=== PATIENT | male | born 1965 | race Hispanic/Latino ===

== ENCOUNTER 2017-11-18 08:26 | Inpatient (IN) | payer OTHER, SELFPAY ==
[2017-11-18 08:46] LABS: Base Excess-Venous -7.4 mmol/L (0 (+/- 2.5)); Bicarbonate (HCO3v) 15.2 mmol/L (1.0-85.0); CO2 Tension (PvCO2) 25.1 mmHg (41.0-51.0); Calcium, Ionized 0.93 mmol/L (1.12-1.32); Hemoglobin - Calc 17.3 g/dL (12.0-18.0); Lactate 4.39 mmol/L (0.50-2.20); O2 Tension (PvO2) 38.8 mmHg (35.0-45.0); Potassium 3.3 mmol/L (3.4-4.7); pH (Venous) 7.391 (7.35-7.45); vO2 Saturation-calc 74.4 % (94-98)
[2017-11-18 08:52] LABS: #Lymphocytes 0.5 thou/uL (1.20-3.40); #Monocytes 0.6 thou/uL (0.11-0.59); #Neutrophils 7.7 thou/uL (1.40-6.50); %Eosinophils 0.1 % (0.0-10.0); %Lymphocytes 5.4 % (21.0-51.0); %Monocytes 6.8 % (0.0-10.0); %Neutrophils 87.7 % (42.0-75.0); Hemoglobin 15.8 g/dL (14.0-18.0); Mean Corpuscular HGB CONC 34.2 g/dL (32.0-36.0); Mean Corpuscular Hemoglobin 34.3 pg (27.0-31.0); Mean Platelet Volume 7.3 fL (7.4-10.4); Platelet Count 165 thou/uL (130-400); RBC Distribution Width 12.4 % (11.5-14.5); Red Blood Cell (RBC) Count 4.61 mill/uL (4.70-6.10); White Blood Cell (WBC) Count 8.7 thou/uL (4.8-10.8)
[2017-11-18 09:03] LABS: ALT (SGPT) 45 U/L (8-55); AST (SGOT) 101 U/L (5-34); Albumin 4.1 g/dL (3.5-5.0); Alkaline Phosphatase 106 U/L (40-150); Anion Gap 27 mmol/L (10-20); BUN (Urea Nitrogen) 17 mg/dL (8.4-25.7); Bilirubin, Total 3.7 mg/dL (0.2-1.2); Calc. Creatinine Clearance 0 mL/min (70-130); Calcium 8.6 mg/dL (7.8-10.44); Carbon Dioxide 14 mmol/L (22-29); Chloride 99 mmol/L (98-107); Estimated GFR-MDRD 71; Globulin 4.5 g/dL (2.4-3.5); Glucose 103 mg/dL (70-105); Potassium 3.6 mmol/L (3.5-5.1); Protein, Total 8.6 g/dL (6.0-8.3); Sodium 136 mmol/L (136-145)
[2017-11-18 09:06] LABS: INR-International Normal Ratio 1.4; PTT 41.1 SEC (22.9-36.1); Prothrombin Time 17.2 SEC (12.0-14.7)
[2017-11-18 09:07] LABS: Troponin I 0.163 ng/mL (< 0.028)
[2017-11-18 09:11] LABS: CKMB 13.4 ng/mL (0-6.6)
[2017-11-18] MEDS ORDERED: Labetalol HCl 100 MG/20 ML VIAL ONE (09:12)
--- NOTE | 2017-11-18 09:16 | CT ---
BRAIN CT WITHOUT IV CONTRAST: HISTORY: A 52-year-old male with a history of stroke alert, found down in a [place] this morning unresponsive. FINDINGS: There is very extensive intraparenchymal hemorrhage involving the left frontal and left temporal lobe s as well as patchy intraparenchymal hemorrhagic changes in the right frontal lobe. There is approxi mately 4 mm of midline shift to the right. Small left-sided temporal frontal subdural hematoma. Jennifer dence for intraventricular hemorrhage. There is some subdural blood adjacent to the posterior falx. IMPRESSION: Extensive intracranial hemorrhage including very extensive bilateral intraparenchymal hemorrhage wors e on the left side with some mass effect to the right. Intraventricular hemorrhage. Subarachnoid he morrhage, and a small amount of left-sided subdural hemorrhage. Findings discussed with Dr. Hammond in the ER at 8:50 a.m. JACKIE SMITH POS: [facility]
--- NOTE | 2017-11-18 09:19 | CT ---
CERVICAL SPINE CT WITHOUT IV CONTRAST: HISTORY: A 52-year-old male with a history of stroke alert. Patient found down in a [place] this morning, semic onscious, unresponsive. FINDINGS: There are disk-osteophytosis and facet arthrosis changes of the cervical spine. No evidence for acut e fracture or facet dislocation. IMPRESSION: Cervical spondylosis without fracture or dislocation. POS: [facility]
--- NOTE | 2017-11-18 09:43 | RAD ---
PORTABLE CHEST 1 VIEW: DATE: 11/18/17. TIME: 8:23 a.m. HISTORY: Sepsis. FINDINGS: The heart size is normal. There is an infiltrate in the right lung base. An accompanying right pleu ral effusion may be present. No pneumothoraces are seen. The left lung is clear. There are degener ative changes in the spine. IMPRESSION: Findings are suspicious for right basilar pneumonia. POS: [facility]
[2017-11-18] MEDS ORDERED: Fentanyl 100 MCG/2 ML VIAL ONE ×2 (09:53→10:05)
[2017-11-18 09:58] LABS: Bilirubin Negative (Negative); Blood, Urine Large (Negative); Clarity CLOUDY (Clear); Glucose, Urine (Dipstick) Negative (Negative); Leukocyte Negative (Negative); Nitrite Negative (Negative); Protein, Urine (Dipstick) 30 mg/dL (Neg-Trace); Specific Gravity, Urine 1.015 (1.002-1.036); Urobilinogen 0.2 mg/dL (0.2-1.0); pH, Urine 5.5 (5.0-9.0)
[2017-11-18 10:03] LABS: Bacteria/HPF None Seen HPF (None Seen); Hyaline Casts/LPF 4-6 HYALINE CAST LPF (0-3 Hyaline); RBC/HPF 0-3 HPF (0-3); Squamous Epithelial 0-3 HPF (0-3); WBC/HPF 0-3 HPF (0-3)
[2017-11-18] MEDS ORDERED: Lidocaine 2% PF 100 mg/5 ml Syringe ONE (10:03)
[2017-11-18] MEDS ORDERED: fentaNYL Citrate/PF 2,000 MCG in Sodium Chloride 0.9% 60 ML IV SCH ×2 (10:03→10:53)
[2017-11-18] MEDS ORDERED: Ventilator Sedation Protocol 1 EACH FS ONE (10:21)
[2017-11-18] MEDS ORDERED: Bisacodyl 10 MG SUPP PR PRN (10:21)
[2017-11-18] MEDS ORDERED: CCU Electrolyte Replacement 1 EACH IVPB ONE (10:21)
[2017-11-18] MEDS ORDERED: Labetalol HCl 100 MG/20 ML VIAL SLOW IVP PRN (10:21)
[2017-11-18] MEDS ORDERED: Ondansetron HCl/PF 4 MG/2 ML Vial IVP PRN (10:21)
[2017-11-18] MEDS ORDERED: cefTRIAXone\\ROCEPHIN 2 GM VIAL ONE (10:31)
[2017-11-18] MEDS ORDERED: Azithromycin 500 MG VIAL ONE (10:31)
[2017-11-18 10:42] LABS: CO2 Tension 38.5 mmHg (35.0-45.0); pH, Arterial 7.28 (7.35-7.45)
[2017-11-18 10:43] LABS: Actual Bicarbonate (HCO3a) 17.5 mEq/L (22-28); Base Excess (BEa) -8.6 mEq/L (-2.0 to +3.0); Carboxyhemoglobin (COHb) 0.6 gm% (0.0-3.0); O2 Tension (PaO2) 76.8 mmHg (80.0-100.0); Potassium - ABG Lab 3.2 mmol/L (3.70-5.30)
[2017-11-18 10:44] LABS: ALV-art Gradient 231.575 (0-20); Analyzer IN Cardio ER; Puncture Site RRA
[2017-11-18] MEDS ORDERED: DISCONTINUE PREVIOUS NARCOTIC PAIN MEDICATIONS AND BENZODIAZEPINES FS SCH (10:53)
[2017-11-18] MEDS ORDERED: Fentanyl BOLUS 250 ML IVPB PRN (10:53)
[2017-11-18] MEDS ORDERED: Lorazepam 2 MG/ML VIAL SLOW IVP PRN (10:53)
[2017-11-18] MEDS ORDERED: Propofol BOLUS 1,000 MG/100 ML VIAL IV PRN (10:53)
[2017-11-18] MEDS ORDERED: Potassium Phosphate 12 MMOL in Sodium Chloride 0.9% 250 ML 250 ML IV PRN (10:54)
[2017-11-18] MEDS ORDERED: Magnesium 2 GM/NS 0.9% 100 ML 2 GM in Premix Bag 1 BAG IVPB PRN (10:54)
[2017-11-18] MEDS ORDERED: Potassium Phosphate 15 MMOL in Sodium Chloride 0.9% 250 ML 250 ML IV PRN (10:54)
[2017-11-18] MEDS ORDERED: CCU ELECTROLYTE REPLACEMENT PROTOCOL FS PRN (10:54)
[2017-11-18] MEDS ORDERED: Potassium Chloride 20 MEQ TAB PO PRN (10:54)
[2017-11-18] MEDS ORDERED: Magnesium Oxide 400 MG TAB PO PRN ×2 (10:54)
[2017-11-18] MEDS ORDERED: Potassium Chloride 40 MEQ in Sodium Chloride 0.9% 250 ML 250 ML IVPB PRN (10:54)
[2017-11-18] MEDS ORDERED: Potassium Phosphate 9 MMOL in Sodium Chloride 0.9% 100 ML IVPB PRN (10:54)
[2017-11-18] MEDS ORDERED: Potassium Chloride 40 MEQ in Premix Bag 1 BAG IVPB PRN (10:54)
--- NOTE | 2017-11-18 10:57 | HP ---
HISTORY OF PRESENT ILLNESS: Mr. Ubaldo Angulo is a 52-year-old man who was found this morning in a [place] bed unresponsive. He remained this way, even in the ER examination with CT scan revealing ext ensive intraparenchymal hemorrhage of the left frontal lobe and throughout the entirety of the left t emporal lobe. There was also a small left-sided subdural hematoma in the sylvian fissure. He has so me subarachnoid hemorrhage with also blood sitting in the bilateral occipital horns of his ventricles . There is additionally some right frontal intraparenchymal hemorrhage in a few different foci. He does not have family to report medical history with him. We have no certainty whether he has anticoa gulation on board or antiplatelets on board that we are aware of. Coagulation studies have been draw n and are within normal limits. According to ER physician over the course of time that he was in the emergency department, he began to arouse and was spontaneously moving all 4 extremities, but was not speaking or answering questions, nor was he following any commands. This could potentially be multi faceted reason, most likely is disruption of the speech areas in the left temporal lobe. This could represent either expressive aphasia or receptive aphasia and likely could be a combination of the two . PAST MEDICAL HISTORY: His past medical history, unassessed. CURRENT MEDICATIONS: Unknown. ALLERGIES: Unknown. PHYSICAL EXAMINATION: HEENT: Pupils are equal, round, and reactive to light. The patient was intubated before my arrival for continued persistent desaturation secondary to lobar pneumonia. He had just received paralytics. My examination is essentially unreliable at this time, will need to reassess. PLAN: The plan will be to admit him to the ICU. Head of bed elevated, pressure kept under 160 systo lic. We will consult Pulmonology and the Hospitalist Team and hopefully moore some more medical his tory at some point. We will repeat a scan at 1400 today and reassess his neurologic status q.1 hour.
--- NOTE | 2017-11-18 11:37 | RAD ---
CHEST 1 VIEW: Date: 11/18/17 COMPARISON: 11/18/17 at 0821 hours. HISTORY: Stroke alert. FINDINGS: There is persistent opacification of the right lung base. Interval placement of endotracheal and naso gastric tube. No pneumothorax. IMPRESSION: Right lower lobe opacity. Endotracheal and nasogastric tube as above. POS: [facility]
[2017-11-18] MEDS: Sodium Chloride 0.9% 1,000 ML IV SCH (12:15)
[2017-11-18 12:48] LABS: Lactic Acid 2.2 mmol/L (0.5-2.2)
[2017-11-18] MEDS: Propofol 1,000 MG/100 ML VIAL IV PRN ×2 (12:54→20:27)
[2017-11-18] MEDS ORDERED: Lacri-Lube Opth Oint 3.5 GM TUBE EA EYE PRN (13:09)
[2017-11-18] MEDS: Labetalol HCl 100 MG/20 ML VIAL SLOW IVP PRN (13:46)
--- NOTE | 2017-11-18 13:46 | CON ---
DATE OF CONSULTATION: 11/18/2017 SERVICE: Pulmonary Medicine REASON FOR CONSULTATION: ICU patient. HISTORY OF PRESENT ILLNESS: The patient is a 52-year-old male with past medical history significant for essentially nothing that we are aware of. He was found down in a [place] bed. He was subsequently brought to the emergency department. We do not know how long he was down for. In the Emergency Department, he was not protecting his airway well. As such, he was subsequently intubated. After being intubated, he is awake and alert. He does attend. He will open his eyes, but he does not follow any commands in Macanese or Amharic. He cannot provide me any additional elements of the history in his current state. He is not currently on any sedation. PAST MEDICAL HISTORY: Unknown. PAST SURGICAL HISTORY: Unknown. FAMILY HISTORY: Unknown. SOCIAL HISTORY: Unknown. ALLERGIES: Unknown. MEDICATIONS: List of his inpatient medications were reviewed. Multiple updates were made. REVIEW OF SYSTEMS: This cannot be obtained because the patient is currently intubated. PHYSICAL EXAMINATION: VITAL SIGNS: Afebrile, pulse 119, blood pressure 162/110, respirations 21, saturation 91% on 61% FIO2 and a PEEP of 5. GENERAL: The patient is intubated. He is not currently on any sedation. He is in no apparent distress. HEENT: Normocephalic, atraumatic. Sclerae are white, conjunctivae pink. Oral mucosa is moist without lesions. LUNGS: Decent air entry. Rhonchi are present throughout right lung field. Transmitted rhonchi are present in the left side. There is no prolonged expiratory phase or wheezing appreciated. HEART: Normal rate, regular. ABDOMEN: Soft. Nontender, nondistended. Bowel sounds are positive. MUSCULOSKELETAL: No cyanosis or clubbing. There is no pitting in the bilateral lower extremities. NEUROLOGIC: Pupils are equal, round, and reactive. He has spontaneous eye movements. He does attend. That being said, he is not following any commands in Macanese or Amharic. He demonstrates withdraw from noxious stimuli in the bilateral upper and lower extremities. He is overbreathing the ventilator comfortably, and demonstrates a very good cough and gag. LABORATORY DATA: PH 7.28, pCO2 38, pO2 77, on 50% FiO2 and a PEEP of 5. Creatinine 1.35. Sodium 137, potassium 3.3. Lactate 4.39, which is down trended to 2.2, CK 1800, troponin 0.163. Liver function studies are unremarkable. Urinalysis is positive for blood, but negative for red blood cells suggestive of myoglobinopathy. IMAGIN. Chest x-ray demonstrates endotracheal tube is in good position, roughly 4 cm above the level of the mindy. There is a dense infiltrate in the right base. Enteric catheter is present coursing below the level of the diaphragm in the midline and out of the field of view. 2. CT of the C-spine demonstrates no obvious fracture or subluxation. 3. CT of the brain demonstrates extensive intracranial hemorrhage and bilateral intraparenchymal hemorrhage, worse on the left with mass effect. There is intraventricular extension, and a subarachnoid component as well as a small subdural lesion. ASSESSMENT: 1. Acute hypoxic respiratory failure. 2. Community-acquired pneumonia, likely secondary to overt aspiration. 3. Intraparenchymal hemorrhage with intraventricular, subarachnoid extension. 4. Non-ST elevation myocardial infarction, likely secondary to the stroke. DISCUSSION AND PLAN: We will maintain the patient on mechanical ventilation. Neurologic status will be watched closely. Neurosurgery is currently following. We will target a blood pressure below 140. Sedation will be minimized as much as is tolerated. I will start the patient on anaerobic, gram negative, and light gram positive coverage with Zosyn to protect him against future pneumonia. Pulmonary Critical Care will continue to follow along. Multiple adjustments have been made to the ventilator in order to provide more comfort. Critical care time: 30 minutes. MTDD
[2017-11-18] MEDS: Piperacillin/Tazobactam 3.375 GM in Sodium Chloride 0.9% 100 ML IVPB SCH ×2 (14:00→20:27)
--- NOTE | 2017-11-18 15:25 | CT ---
NONCONRAST HEAD CT: COMPARISON: 11/18/17 at 8:42 a.m. HISTORY: Followup intracranial hemorrhage. FINDINGS: Redemonstration of multifocal parenchymal hematomas. The largest hematoma is along the right frontot emporal region. There is associated edema and sulcal effacement. Hematoma measures 3.1 cm mediolate ral x 7.7 cm anterior posterior. Previously, this hematoma measured 9.3 x 3.6 cm. Additional smalle r hematomas are noted along the right frontal and temporal convexities. Previously noted intraventri cular hemorrhage is still present. No evidence of hydrocephalus. There is some mass effect upon the body of the left lateral ventricle. There is left to right subfalcine herniation of approximately 3 mm. Calvarium is intact. Adequate aeration of the sinuses and mastoid air cells. Endotracheal and nasog astric tubes are noted. IMPRESSION: 1. Redemonstration of extensive multifocal intraparenchymal hemorrhage. There is no evidence of lef t-to-right subfalcine herniation. 2. Associated vasogenic edema with sulcal effacement of the left frontal and temporal lobes. POS: [facility]
[2017-11-18] MEDS: Famotidine/PF 20 mg/2ml Vial SLOW IVP SCH (20:27)
[2017-11-19] MEDS: Sodium Chloride 0.9% 1,000 ML IV SCH ×2 (00:11→11:44)
[2017-11-19] MEDS: Labetalol HCl 100 MG/20 ML VIAL SLOW IVP PRN ×2 (00:46→18:11)
[2017-11-19] MEDS: Piperacillin/Tazobactam 3.375 GM in Sodium Chloride 0.9% 100 ML IVPB SCH ×4 (01:19→21:58)
[2017-11-19 05:45] LABS: Anion Gap 17 mmol/L (10-20); BUN (Urea Nitrogen) 27 mg/dL (8.4-25.7); Calc. Creatinine Clearance 66 mL/min (70-130); Calcium 8.1 mg/dL (7.8-10.44); Carbon Dioxide 18 mmol/L (22-29); Chloride 112 mmol/L (98-107); Estimated GFR-MDRD 61; Glucose 88 mg/dL (70-105); Magnesium 2.1 mg/dL (1.6-2.6); Phosphorus 2.8 mg/dL (2.3-4.7); Sodium 144 mmol/L (136-145)
[2017-11-19] MEDS: Propofol 1,000 MG/100 ML VIAL IV PRN ×2 (06:18→17:58)
[2017-11-19 06:19] LABS: Band 33 % (5-11); Hemoglobin 13.8 g/dL (14.0-18.0); Lymphocytes 9 % (21-51); MDiff Complete? YES; Macrocytosis SLIGHT = 6-15 cells (100X) (0-5/hpf); Mean Corpuscular HGB CONC 35.4 g/dL (32.0-36.0); Mean Corpuscular Hemoglobin 35.5 pg (27.0-31.0); Mean Platelet Volume 8.4 fL (7.4-10.4); Monocytes 8 % (0-10); Neutrophil 50 % (42-75); PLT Morphology Comment Appears Adequate; Platelet Count 112 thou/uL (130-400); RBC Distribution Width 12.4 % (11.5-14.5); Red Blood Cell (RBC) Count 3.89 mill/uL (4.70-6.10); White Blood Cell (WBC) Count 8.3 thou/uL (4.8-10.8)
[2017-11-19] MEDS: Famotidine/PF 20 mg/2ml Vial SLOW IVP SCH ×2 (09:00→21:58)
--- NOTE | 2017-11-19 11:23 | PRG ---
DATE OF SERVICE: 11/19/2017 SERVICE: Pulmonary Medicine. INTERVAL HISTORY: Because of downtime air, I cannot review any laboratories or imaging studies. That being said, the patient had an uneventful evening. Oxygen requirements have weaned away nicely. On a sedation holiday this morning , the patient does not follow any commands. That being said, he seems to be responding appropriately to his environment. He will localize discomfort withdraw from pain and he looks around the room and attends but is not following any commands in Divehi or [place]orese. He cannot provide any additional elements of the history, but otherwise, there were no significant events overnight. PHYSICAL EXAMINATION: VITAL SIGNS: Afebrile, pulse 82, respirations 19, saturation 100% on 27% FiO2 and a PEEP of 5. GENERAL: The patient is awake and alert. HEENT: Normocephalic, atraumatic. Sclerae are white, conjunctivae pink. Oral mucosa is moist without lesions. LUNGS: Decent air entry. Rhonchi are present, but more predominantly displayed on the right. There is no prolonged expiratory phase or wheezing today. HEART: Normal rate, regular. ABDOMEN: Soft, nontender, nondistended. Bowel sounds are positive. MUSCULOSKELETAL: No cyanosis or clubbing. There is no pitting in the bilateral lower extremities. NEUROLOGIC: His pupils are equal, round, and reactive. He is coughing and gagging. He is overbreathing the ventilator very comfortably. He does not follow any commands. He withdraws in all noxious stimuli, and has purposeful activity. He moves his eyes spontaneously and actually attends. That being said, he is not following any commands. LABORATORY DATA: Lab data was reviewed after the note was generated secondary to computer downtime. ASSESSMENT: 1. Acute hypoxic respiratory failure. 2. Community-acquired pneumonia, likely secondary to gross aspiration. 3. Intraparenchymal hemorrhage with intraventricular and subarachnoid extension. 4. Encephalopathy secondary to stroke. DISCUSSION AND PLAN: I will try to minimize sedation, moving forward. Frequent neuro checks are going to be continued. The patient is going down for a CT of the head today. If this is stable, extubation may be considered. I had modified his ventilator settings to put him on much less support. The patient likes to target minute volume between 10 and 11 liters per minute. CRITICAL CARE TIME: 30 minutes. [facility]
--- NOTE | 2017-11-19 11:24 | RAD ---
PORTABLE CHEST: Date: 11-19-17 Provided Clinical History: Respiratory insufficiency. FINDINGS: Comparison 11-18-17. The tip of the endotracheal tube now projects slightly cranial to the thoracic inlet and could be adv anced. Enteric catheter is in similar position. Bibasilar right greater than left parenchymal opaciti es persists. There is improvement in aeration of the right lung base. IMPRESSION: Endotracheal tube position as above. POS: [facility]
--- NOTE | 2017-11-19 11:55 | CT ---
HEAD CT WITHOUT CONTRAST: HISTORY: Followup intracranial hemorrhage. COMPARISON: 11/18/2017 TECHNIQUE: A noncontrast head CT is performed from the skull base to the skull vertex. FINDINGS: Redemonstration of extensive intraparenchymal hemorrhage involving the left and right cerebrum. Ther e is progression of evolutionary change with persistent sulcal effacement and increasing peripheral e cory. Approximately 3 mm of left to right subfalcine herniation. The largest hemorrhage continues t o be in the left cerebrum, measuring 9.3 x 3.8 cm (previously measuring 3.1 x 7.8 cm). There is evid ence of multifocal parenchymal hemorrhage in the right frontal lobe. There is evidence of intraventr icular hemorrhage. There is also evidence of new subarachnoid hemorrhage along the folia of the cere bellum. Stable configuration of the ventricular system. There is some mass effect upon the body of the left lateral ventricle, similar to the previous exam. Stable calvarium. IMPRESSION: 1. Redemonstration of multifocal intraparenchymal hemorrhage. The large hematoma in the left cerebr um has increased in size. There are expected evolutionary changes involving the brain parenchymal he matomas. 2. Persistent intraventricular hemorrhage with an overall stable appearance of the ventricular syste m. 3. Interval development of subarachnoid blood along the folia of the cerebellum. POS: [facility]
--- NOTE | 2017-11-19 13:27 | PDOC.PN ---
- Subjective Encounter Start Date: 11/19/17 Encounter Start Time: 13:24 -: non-verbal Pt seen for management of medical comorbidities, including pneumonia. Intubated , unable to complete ROS. - Objective MAR Reviewed: Yes Vital Signs & Weight: Vital Signs (12 hours) Temp Pulse Resp BP Pulse Ox 11/19/17 13:03 85 11/19/17 12:00 100.3 F H 11 L 11/19/17 10:00 14 11/19/17 09:00 99.6 F 11/19/17 08:00 100.1 F H 78 14 99 11/19/17 06:00 23 H 11/19/17 04:00 14 11/19/17 03:05 89 139/82 11/19/17 03:00 99 F 11/19/17 02:00 16 Weight Weight 146 lb 2.664 oz Most Recent Monitor Data Heart Rate from ECG 82 NIBP 146/82 NIBP BP-Mean 87 Respiration from ECG 12 SpO2 97 I&O: 11/18/17 11/19/17 11/20/17 06:59 06:59 06:59 Intake Total 1458 250 Output Total 4930 925 Balance -0718 -635 Result Diagrams: 11/19/17 04:23 11/19/17 04:23 EKG Reviewed by me: Yes (Tele: NSR) Phys Exam - Physical Examination Intubated HEENT: moist MMs ETT Neck: no nodes Respiratory: no wheezing Bibasal crackles Cardiovascular: RRR Gastrointestinal: soft no spontaneous limb movements Deviation from normal: Unable to assess Dx/Plan (1) Aspiration pneumonia Code(s): J69.0 - PNEUMONITIS DUE TO INHALATION OF FOOD AND VOMIT Status: Acute Comment: continue IV Zosyn (2) Intracranial bleed Code(s): I62.9 - NONTRAUMATIC INTRACRANIAL HEMORRHAGE, UNSPECIFIED Status: Acute Comment: neurosurgery managing IC bleed (3) Acute respiratory failure with hypoxia Code(s): J96.01 - ACUTE RESPIRATORY FAILURE WITH HYPOXIA Status: Acute Comment: pt is intubated and mechanically ventilated in CCU (4) Hypokalemia Code(s): E87.6 - HYPOKALEMIA Status: Acute Comment: on electrolyte replacement protocol - Plan * . Review of Systems - Medications/Allergies Allergies/Adverse Reactions: Allergies Allergy/AdvReac Type Severity Reaction Status Date / Time No Allergy Information Allergy Unverified 11/18/17 10:03 Available Medications: Current Medications Albuterol/Ipratropium (Duoneb) 3 ml NEB [id number] [facility] Last Admin: 11/19/17 13:03 Dose: 3 ml Bisacodyl (Dulcolax) 10 mg NM DAILYPRN PRN PRN Reason: Constipation Famotidine (Pepcid) 20 mg SLOW IVP Q12HR [facility] Last Admin: 11/19/17 09:00 Dose: 20 mg Hydralazine HCl (Apresoline) 20 mg SLOW IVP Q15MIN PRN PRN Reason: Sbp Greater Than 140 Sodium Chloride (Normal Saline 0.9%) 1,000 mls @ 80 mls/hr IV .[id number] [facility] Last Admin: 11/19/17 11:44 Dose: Not Given Fentanyl Citrate 2,000 mcg/ (Sodium Chloride) 100 mls @ 0 mls/hr IV INF [facility]; Protocol Stop: 12/18/17 10:53 Fentanyl Citrate (Fentanyl Bolus) 250 mls @ 0 mls/hr IVPB PRN PRN PRN Reason: Breakthrough pain/agitation Stop: 12/18/17 10:53 Potassium Chloride 40 meq/ (Sodium Chloride) 270 mls @ 135 mls/hr IVPB ASDIR PRN PRN Reason: FOR SERUM K+ 2.5 - 3.5 Last Admin: 11/19/17 06:18 Dose: 270 mls Potassium Chloride 40 meq/ (Device) 100 mls @ 50 mls/hr IVPB ASDIR PRN PRN Reason: FOR SERUM K+ 2.5 - 3.5 Magnesium Sulfate 1 gm/ Sodium (Chloride) 102 mls @ 102 mls/hr IV PRN PRN PRN Reason: MAG LEVEL 1.4 - 2.0 Magnesium Sulfate 2 gm/ Device 100 mls @ 100 mls/hr IVPB ASDIR PRN PRN Reason: MAGNESIUM < 1.4 Potassium Phosphate 9 mmol/ (Sodium Chloride) 103 mls @ 25.75 mls/hr IVPB ASDIR PRN PRN Reason: Phosphate 1.0-1.8 Potassium Phosphate 12 mmol/ (Sodium Chloride) 254 mls @ 63.5 mls/hr IV ASDIR PRN PRN Reason: Serum phosphate 0.5-0.9 Potassium Phosphate 15 mmol/ (Sodium Chloride) 255 mls @ 63.75 mls/hr IV ASDIR PRN PRN Reason: Serum Phos < 0.5 Piperacillin Sod/Tazobactam (Sod 3.375 gm/ Sodium Chloride) 100 mls @ 200 mls/ hr IVPB 0200,0800,1400,2000 [facility] Last Admin: 11/19/17 08:00 Dose: 100 mls Labetalol HCl (Normodyne) 20 mg SLOW IVP Q15MIN PRN PRN Reason: Sbp Greater Than 140 Last Admin: 11/19/17 00:46 Dose: 20 mg Magnesium Oxide (Magnesium Oxide) 400 mg PO BIDPRN PRN PRN Reason: FOR SERUM MAG 1.4 - 2.0 Magnesium Oxide (Magnesium Oxide) 800 mg PO PRN PRN PRN Reason: FOR SERUM MAG < 1.4 Mineral Oil/White Petrolatum (Lacri-Lube Ointment) 0 gm EA EYE PRN PRN PRN Reason: Dry Eyes Miscellaneous Medication (Phos-Nak) 1 pkt PO TIDPRN PRN PRN Reason: FOR PHOS LEVEL 1.0 - 1.8 Miscellaneous Medication (Phos-Nak) 2 pkt PO TIDPRN PRN PRN Reason: FOR PHOS LEVEL 0.5 - 1.0 Ondansetron HCl (Zofran) 4 mg IVP BIDPRN PRN PRN Reason: Nausea/Vomiting Potassium Chloride (K-Dur) 40 meq PO ASDIR PRN PRN Reason: FOR SERUM K+ 2.5 - 3.5 Potassium Chloride (Klor-Con) 40 meq PER TUBE ASDIR PRN PRN Reason: FOR SERUM K+ 2.5-3.5 Propofol (Diprivan) 1,000 mg IV INF PRN; Protocol PRN Reason: TO ACHIEVE GOAL RASS Stop: 12/18/17 10:53 Last Admin: 11/19/17 06:18 Dose: 1,000 mg Propofol (Diprivan Bolus) 20 mg IV Q5MIN PRN PRN Reason: BREAKTHROUGH AGITATION Stop: 12/18/17 10:53 Sodium Chloride (Flush - Normal Saline) 10 ml IVF PRN PRN PRN Reason: Saline Flush
--- NOTE | 2017-11-19 16:05 | PRG ---
DATE OF SERVICE: 11/19/2017 Mr. Ubaldo Angulo this morning is awake. He has been off sedation for about half an hour. He is s till intubated secondary to his desaturation. He moves all 4 extremities purposefully, but not to co mmand. This may represent a receptive aphasia or potentially a language barrier though when spoken t o in Vincentian, he still does not follow commands. So this likely represents disruption of the tempora l lobe as expected previously. Repeat CT scan yesterday evening and then this morning reveals what I believe is mostly stable hemorrhages throughout the left frontal temporal hemorrhage may have increa sed slightly in size. From a neurosurgical standpoint, he still remains definitively nonsurgical and will likely remain that way, we will have a discussion with the Hospitalist Service about possible t ransition of care over the next few days as long as he remains stable. We will need a case managemen t consult for disposition planning.
--- NOTE | 2017-11-19 17:44 | PRG ---
DATE OF SERVICE: 11/19/2017 Mr. Angulo is a 52-year-old gentleman that was found down and subsequently presented to the ER where imaging revealed the presence of a very large intracerebral hemorrhage. He is currently in the ICU, intubated. He does awaken. He does exhibit purposeful movements. He has had a repeat CT examinati on, which shows relative stability of the hemorrhage. There is no indication for neurosurgical inter vention. His hemorrhage will be managed medically. The Hospitalist Service is evaluating the patien t and is currently on board. The neurosurgical service will defer additional medical management to t he hospitalist service.
[2017-11-20] MEDS: Propofol 1,000 MG/100 ML VIAL IV PRN ×2 (01:20→07:43)
[2017-11-20] MEDS: Piperacillin/Tazobactam 3.375 GM in Sodium Chloride 0.9% 100 ML IVPB SCH ×4 (01:20→20:51)
[2017-11-20] MEDS: Sodium Chloride 0.9% 1,000 ML IV SCH ×3 (01:21→20:51)
[2017-11-20] MEDS: Labetalol HCl 100 MG/20 ML VIAL SLOW IVP PRN ×3 (03:18→15:08)
[2017-11-20 05:47] LABS: Magnesium 2.6 mg/dL (1.6-2.6); Phosphorus 2.4 mg/dL (2.3-4.7)
[2017-11-20] MEDS: Famotidine/PF 20 mg/2ml Vial SLOW IVP SCH ×2 (07:42→20:50)
[2017-11-20] MEDS: hydrALAZINE 20 MG/ML VIAL SLOW IVP PRN ×2 (10:34→16:44)
--- NOTE | 2017-11-20 11:14 | RAD ---
AP ABDOMINAL RADIOGRAPH: 11/20/2017 HISTORY: Dobhoff feeding tube placement. COMPARISON: Not available. FINDINGS: A Dobhoff feeding tube is noted in place with the tip overlying either the distal portion of the pylo ish or the first portion of the duodenum. There is paucity of bowel gas, but the bowel gas pattern i s otherwise nonspecific. The visualized lung bases demonstrate a question of interstitial and patchy density at the right lung base, but this is better visualized on a portable AP chest x-ray from 11/09. IMPRESSION: 1. Dobhoff feeding tube noted in place with the tip overlying the expected location of the first por tion of the duodenum. 2. Interstitial and patchy densities, right lung base, also seen on chest x-ray from 11/19/2017 and better assessed on that examination. POS: [facility]
--- NOTE | 2017-11-20 12:33 | PRG ---
DATE OF SERVICE: 11/20/2017 SERVICE: Pulmonary Medicine. INTERVAL HISTORY: The patient is doing fine from a respiratory standpoint. He has been put on some sedation overnight because he does have purposeful movement. That being said, he is not following any commands, still. Neurologically, there has been significant change in his function. Otherwise, there were no events overnight. PHYSICAL EXAMINATION: VITAL SIGNS: Afebrile currently, pulse 86, blood pressure 162/85, respirations 17, saturation 98% on room air. GENERAL: The patient is awake and alert, in no apparent distress. LUNGS: Excellent air entry. There is no prolonged expiratory phase, wheezing, rhonchi, or crackles present. HEART: Normal rate, regular. ABDOMEN: Soft, nontender, nondistended. Bowel sounds are positive. MUSCULOSKELETAL: No cyanosis or clubbing. There is no pitting in the bilateral lower extremities. NEUROLOGIC: He withdraws from noxious stimuli in all 4 extremities, over breathe the ventilator, coughs and gags. He has purposeful movement and attends. That being said, he is still not following any commands. LABORATORY DATA: Magnesium and phosphorus are unremarkable. Potassium yesterday was 3.0, but never replaced. IMAGING DATA: Abdominal x-ray demonstrates Dobbhoff feeding tube in good position. Interstitial patchy infiltrates in the right base are redemonstrated. ASSESSMENT: 1. Acute hypoxic respiratory failure. 2. Community-acquired pneumonia, secondary to gross aspiration. 3. Intraparenchymal hemorrhage with intraventricular and subarachnoid extensions. 4. Encephalopathy secondary to stroke. DISCUSSION AND PLAN: We will minimize sedation. I will put a Dobbhoff feeding tube down and initiate tube feeds. OG will be removed. We put him on a spontaneous breathing trial. If he meets criteria, he will be considered for extubation just to see whether or not he will be able to protect his airway. That being said, reintubation is a possibility in this gentleman. Critical care time: 30 minutes. [facility]
[2017-11-20] MEDS ORDERED: Thiamine HCl 200 MG/2 ML VIAL IM SCH (20:45)
[2017-11-20] MEDS ORDERED: Diazepam 5 MG TAB PO SCH (20:45)
[2017-11-20 21:00] LABS: #Lymphocytes 0.6 thou/uL (1.20-3.40); #Monocytes 0.5 thou/uL (0.11-0.59); #Neutrophils 6.1 thou/uL (1.40-6.50); %Basophils 0.3 % (0.0-1.0); %Eosinophils 0.2 % (0.0-10.0); %Lymphocytes 7.7 % (21.0-51.0); %Monocytes 6.3 % (0.0-10.0); %Neutrophils 85.4 % (42.0-75.0); Hemoglobin 14.2 g/dL (14.0-18.0); Mean Corpuscular HGB CONC 34.4 g/dL (32.0-36.0); Mean Corpuscular Hemoglobin 35.4 pg (27.0-31.0); Mean Platelet Volume 8.2 fL (7.4-10.4); Platelet Count 141 thou/uL (130-400); RBC Distribution Width 12.4 % (11.5-14.5); Red Blood Cell (RBC) Count 3.99 mill/uL (4.70-6.10); White Blood Cell (WBC) Count 7.2 thou/uL (4.8-10.8)
[2017-11-20 21:15] LABS: ALT (SGPT) 64 U/L (8-55); AST (SGOT) 235 U/L (5-34); Albumin 3.2 g/dL (3.5-5.0); Alkaline Phosphatase 68 U/L (40-150); Anion Gap 14 mmol/L (10-20); BUN (Urea Nitrogen) 16 mg/dL (8.4-25.7); Bilirubin, Total 2.2 mg/dL (0.2-1.2); Calc. Creatinine Clearance 104 mL/min (70-130); Calcium 8.7 mg/dL (7.8-10.44); Carbon Dioxide 21 mmol/L (22-29); Chloride 121 mmol/L (98-107); Estimated GFR-MDRD Greater than 90; Globulin 4.1 g/dL (2.4-3.5); Glucose 114 mg/dL (70-105); Potassium 3.3 mmol/L (3.5-5.1); Protein, Total 7.3 g/dL (6.0-8.3); Sodium 153 mmol/L (136-145)
[2017-11-20] MEDS: Diazepam 5 MG TAB PO PRN (21:25)
[2017-11-20 21:32] LABS: Syphilis Antibody Nonreactive (Nonreactive); Syphilis Antibody Index 0.12 S/CO (<1.00 Non-Reactive)
--- NOTE | 2017-11-20 22:07 | PDOC.PN ---
- Subjective Encounter Start Date: 11/20/17 Encounter Start Time: 11:30 -: non-verbal Patient seen and examined for med mngt. Extubated. - Objective MAR Reviewed: Yes Vital Signs & Weight: Vital Signs (12 hours) Temp Pulse Pulse Pulse Resp BP BP 11/20/17 18:17 83 17 11/20/17 17:00 98.5 F 11/20/17 14:30 79 65 174/98 H 160/86 H 11/20/17 12:59 87 14 11/20/17 12:00 99.4 F Pulse Ox Pulse Ox Pulse Ox 11/20/17 18:17 96 11/20/17 17:00 11/20/17 14:30 97 97 11/20/17 12:59 99 11/20/17 12:00 Weight Admit Weight 146 lb Weight 137 lb 2.04 oz Most Recent Monitor Data Heart Rate from ECG 85 NIBP 162/84 NIBP BP-Mean 110 Respiration from ECG 14 SpO2 96 I&O: 11/19/17 11/20/17 11/21/17 06:59 06:59 06:59 Intake Total 1458 2816 1096.4 Output Total 4930 2915 2035 [facility] -3472 -99 -938.6 Result Diagrams: 11/21/17 04:36 11/21/17 04:36 EKG Reviewed by me: Yes (Tele SR) Phys Exam - Physical Examination Constitutional: NAD Respiratory: no wheezing, no rhonchi Bibasilar rales Cardiovascular: RRR Gastrointestinal: soft, positive bowel sounds Musculoskeletal: no edema Dx/Plan - Plan DVT proph w/SCDs IMPRESSION: 1. Acute hypoxic respiratory failure/Toxic Metabolic Encephalopathy 2. Aspiration Pneumonia 3. Abn LFTs 4. Rhabdomyolysis 5. Elevated cardiac enzymes due to demand ischemia 6. Lactic acidosis PLAN: Cont supportive care Cont IVF AM labs Cont Atbx Review of Systems - Review of Systems Other: Cannot obtain due to current mentation. - Medications/Allergies Allergies/Adverse Reactions: Allergies Allergy/AdvReac Type Severity Reaction Status Date / Time No Allergy Information Allergy Unverified 11/18/17 10:03 Available Medications: Current Medications Albuterol/Ipratropium (Duoneb) 3 ml NEB [id number] [facility] Last Admin: 11/20/17 18:17 Dose: 3 ml Bisacodyl (Dulcolax) 10 mg [place] DAILYPRN PRN PRN Reason: Constipation Diazepam (Valium) 10 mg PO NOW [facility] Stop: 11/20/17 23:00 Last Admin: 11/20/17 22:01 Dose: 10 mg Diazepam (Valium) 10 mg PO Q4H PRN PRN Reason: FOR ASE 10 OR GREATER Stop: 11/21/17 04:00 Diazepam (Valium) 5 mg PO Q4H PRN PRN Reason: FOR ASE 10 OR GREATER Famotidine (Pepcid) 20 mg SLOW IVP Q12HR [facility] Last Admin: 11/20/17 20:50 Dose: 20 mg Folic Acid (Folvite) 1 mg PO DAILY [facility] Hydralazine HCl (Apresoline) 20 mg SLOW IVP Q15MIN PRN PRN Reason: Sbp Greater Than 140 Last Admin: 11/20/17 16:44 Dose: 20 mg Sodium Chloride (Normal Saline 0.9%) 1,000 mls @ 80 mls/hr IV .[id number] [facility] Last Admin: 11/20/17 20:51 Dose: 1,000 mls Potassium Chloride 40 meq/ (Sodium Chloride) 270 mls @ 135 mls/hr IVPB ASDIR PRN PRN Reason: FOR SERUM K+ 2.5 - 3.5 Last Admin: 11/19/17 06:18 Dose: 270 mls Potassium Chloride 40 meq/ (Device) 100 mls @ 50 mls/hr IVPB ASDIR PRN PRN Reason: FOR SERUM K+ 2.5 - 3.5 Magnesium Sulfate 1 gm/ Sodium (Chloride) 102 mls @ 102 mls/hr IV PRN PRN PRN Reason: MAG LEVEL 1.4 - 2.0 Magnesium Sulfate 2 gm/ Device 100 mls @ 100 mls/hr IVPB ASDIR PRN PRN Reason: MAGNESIUM < 1.4 Potassium Phosphate 9 mmol/ (Sodium Chloride) 103 mls @ 25.75 mls/hr IVPB ASDIR PRN PRN Reason: Phosphate 1.0-1.8 Potassium Phosphate 12 mmol/ (Sodium Chloride) 254 mls @ 63.5 mls/hr IV ASDIR PRN PRN Reason: Serum phosphate 0.5-0.9 Potassium Phosphate 15 mmol/ (Sodium Chloride) 255 mls @ 63.75 mls/hr IV ASDIR PRN PRN Reason: Serum Phos < 0.5 Piperacillin Sod/Tazobactam (Sod 3.375 gm/ Sodium Chloride) 100 mls @ 200 mls/ hr IVPB 0200,0800,1400,2000 [facility] Last Admin: 11/20/17 20:51 Dose: 100 mls Magnesium Sulfate 1 gm/ Sodium (Chloride) 102 mls @ 102 mls/hr IVPB NOW [facility] Stop: 11/20/17 23:00 Last Admin: 11/20/17 20:54 Dose: 102 mls Iron/Minerals/Multivitamins (Theragran M) 1 tab PO DAILY [facility] Labetalol HCl (Normodyne) 20 mg SLOW IVP Q15MIN PRN PRN Reason: Sbp Greater Than 140 Last Admin: 11/20/17 15:08 Dose: 20 mg Magnesium Oxide (Magnesium Oxide) 400 mg PO BIDPRN PRN PRN Reason: FOR SERUM MAG 1.4 - 2.0 Magnesium Oxide (Magnesium Oxide) 800 mg PO PRN PRN PRN Reason: FOR SERUM MAG < 1.4 Magnesium Oxide (Magnesium Oxide) 400 mg PO DAILY [facility] Mineral Oil/White Petrolatum (Lacri-Lube Ointment) 0 gm EA EYE PRN PRN PRN Reason: Dry Eyes Miscellaneous Medication (Phos-Nak) 1 pkt PO TIDPRN PRN PRN Reason: FOR PHOS LEVEL 1.0 - 1.8 Miscellaneous Medication (Phos-Nak) 2 pkt PO TIDPRN PRN PRN Reason: FOR PHOS LEVEL 0.5 - 1.0 Ondansetron HCl (Zofran) 4 mg IVP BIDPRN PRN PRN Reason: Nausea/Vomiting Potassium Chloride (K-Dur) 40 meq PO ASDIR PRN PRN Reason: FOR SERUM K+ 2.5 - 3.5 Potassium Chloride (Klor-Con) 40 meq PER TUBE ASDIR PRN PRN Reason: FOR SERUM K+ 2.5-3.5 Propofol (Diprivan) 1,000 mg IV INF PRN; Protocol PRN Reason: TO ACHIEVE GOAL RASS Stop: 12/18/17 10:53 Last Admin: 11/20/17 07:43 Dose: 1,000 mg Propofol (Diprivan Bolus) 20 mg IV Q5MIN PRN PRN Reason: BREAKTHROUGH AGITATION Stop: 12/18/17 10:53 Sodium Chloride (Flush - Normal Saline) 10 ml IVF PRN PRN PRN Reason: Saline Flush Thiamine HCl (Thiamine Hcl) 100 mg IM NOW [facility] Stop: 11/20/17 23:00 Last Admin: 11/20/17 21:59 Dose: 100 mg Thiamine HCl (Thiamine) 100 mg PO DAILY [facility]
[2017-11-20 22:49] LABS: Medtox Reader # READER 4
[2017-11-20 22:50] LABS: Amphetamine Not Detected (NotDetected); Barbiturates Screen Not Detected (NotDetected); Benzodiazepine Screen Not Detected (NotDetected); Cocaine Metabolite Screen Detected (NotDetected); Medtox Control Line Valid? VALID (VALID); Methadone Not Detected (NotDetected); Methamphetamine Not Detected (NotDetected); Opiate Screen Not Detected (NotDetected); Oxycodone Screen Not Detected (NotDetected); Phencyclidine (PCP) Not Detected (NotDetected); THC/Cannabinoid Screen Not Detected (NotDetected); Tricyclic Screen Not Detected (NotDetected)
[2017-11-21] MEDS: Diazepam 5 MG TAB PO PRN ×2 (01:24→07:48)
[2017-11-21] MEDS: Piperacillin/Tazobactam 3.375 GM in Sodium Chloride 0.9% 100 ML IVPB SCH ×4 (01:25→21:00)
[2017-11-21 05:16] LABS: #Lymphocytes 0.6 thou/uL (1.20-3.40); #Monocytes 0.6 thou/uL (0.11-0.59); #Neutrophils 4.6 thou/uL (1.40-6.50); %Basophils 0.1 % (0.0-1.0); %Eosinophils 0.5 % (0.0-10.0); %Monocytes 10.2 % (0.0-10.0); %Neutrophils 79.3 % (42.0-75.0); Hemoglobin 13.6 g/dL (14.0-18.0); Mean Corpuscular HGB CONC 34.1 g/dL (32.0-36.0); Mean Corpuscular Hemoglobin 34.7 pg (27.0-31.0); Mean Platelet Volume 8.3 fL (7.4-10.4); Platelet Count 140 thou/uL (130-400); RBC Distribution Width 12.3 % (11.5-14.5); Red Blood Cell (RBC) Count 3.93 mill/uL (4.70-6.10); White Blood Cell (WBC) Count 5.8 thou/uL (4.8-10.8)
[2017-11-21 05:29] LABS: ALT (SGPT) 63 U/L (8-55); AST (SGOT) 235 U/L (5-34); Albumin 3.1 g/dL (3.5-5.0); Alkaline Phosphatase 72 U/L (40-150); Anion Gap 12 mmol/L (10-20); BUN (Urea Nitrogen) 15 mg/dL (8.4-25.7); Bilirubin, Total 2.3 mg/dL (0.2-1.2); Calc. Creatinine Clearance 102 mL/min (70-130); Calcium 8.6 mg/dL (7.8-10.44); Carbon Dioxide 21 mmol/L (22-29); Chloride 124 mmol/L (98-107); Estimated GFR-MDRD Greater than 90; Glucose 134 mg/dL (70-105); Potassium 3.2 mmol/L (3.5-5.1); Protein, Total 6.9 g/dL (6.0-8.3); Sodium 154 mmol/L (136-145)
[2017-11-21] MEDS: Famotidine/PF 20 mg/2ml Vial SLOW IVP SCH ×2 (07:46→21:00)
[2017-11-21] MEDS: Folic Acid 1 MG TAB PO SCH (07:47)
[2017-11-21] MEDS: Magnesium Oxide 400 MG TAB PO SCH (07:48)
[2017-11-21] MEDS: hydrALAZINE 20 MG/ML VIAL SLOW IVP PRN (08:47)
[2017-11-21] MEDS: Multivits W-Minerals Liquid 15mL UDCUP PO SCH (08:50)
[2017-11-21] MEDS ORDERED: Multivitamin W/ Minerals 1 TAB PO SCH (09:00)
[2017-11-21] MEDS: Labetalol HCl 100 MG/20 ML VIAL SLOW IVP PRN ×5 (09:04→23:40)
--- NOTE | 2017-11-21 13:24 | PRG ---
DATE OF SERVICE: 11/21/2017 SERVICE: Pulmonary Medicine. INTERVAL HISTORY: The patient is doing fine from a respiratory standpoint. He is breathing comfortably. He has been extubated comfortably yesterday in very beautiful fashion, is protecting his airway. He cannot provide any additional elements of the history. He is not following any commands at this point. OBJECTIVE: VITAL SIGNS: Afebrile with a T-max of 99.0, pulse 89, blood pressure 150/87, respirations 17, saturation 100% on room air. GENERAL: The patient is awake and alert. He is in no apparent distress. LUNGS: Rhonchi are present in the right, significantly improved compared to prior. No prolonged expiratory phase or wheezing is appreciated. HEART: Normal rate, regular. ABDOMEN: Soft, nontender, nondistended. Bowel sounds are positive. MUSCULOSKELETAL: No cyanosis or clubbing. There is no pitting in the bilateral lower extremities. NEUROLOGIC: Grossly nonfocal. LABORATORY DATA: WBC 5.8, hemoglobin 13.6, platelets 140,000. Sodium 154, potassium 3.2, chloride 124. Basic metabolic profile is otherwise unremarkable. Total bilirubin 2.3. Cocaine metabolites are positive in the urine drug screen. Syphilis is nonreactive. Urine culture is negative. Blood cultures negative x1 and is growing bacillus, likely contaminant in the other. ASSESSMENT: 1. Acute hypoxic respiratory failure. 2. Community-acquired pneumonia secondary to gross aspiration. 3. Intraparenchymal hemorrhage with intraventricular and subarachnoid extensions. 4. Delirium tremens. DISCUSSION AND PLAN: We will put him on some Precedex. Hopefully, this will settle his nerves a touch. This will help with his blood pressure and heart rate as well. A Resendez catheter will be removed today. He will need to remain in the ICU for an additional 24-48 hours while we wean the Precedex. He has been started on vitamins which I appreciate. Pulmonary Critical Care will continue to follow along in this location. BRAYDON
[2017-11-21] MEDS: cloNIDine 0.1 MG TAB PER TUBE PRN (17:43)
[2017-11-21] MEDS ORDERED: cloNIDine 0.1mg/24 Hour PATCH TD SCH (18:00)
--- NOTE | 2017-11-21 18:30 | PDOC.PN ---
- Subjective Encounter Start Date: 11/21/17 Encounter Start Time: 11:30 Patient seen and examined for med mngt. On Precedex drip. Follows commands to some extent per RN. - Objective MAR Reviewed: Yes Vital Signs & Weight: Vital Signs (12 hours) Temp Pulse Pulse Pulse Resp BP BP 11/21/17 16:00 99.6 F 161/94 H 11/21/17 13:41 88 18 11/21/17 13:00 99.0 F 11/21/17 12:00 148/85 H 11/21/17 08:10 85 82 178/95 H 11/21/17 08:00 11/21/17 07:55 162/94 H 11/21/17 07:22 82 20 11/21/17 07:00 99.6 F BP Pulse Ox Pulse Ox Pulse Ox 11/21/17 16:00 11/21/17 13:41 100 11/21/17 13:00 11/21/17 12:00 11/21/17 08:10 166/93 H 100 100 11/21/17 08:00 100 11/21/17 07:55 11/21/17 07:22 100 11/21/17 07:00 Weight Admit Weight 146 lb Weight 130 lb 8.218 oz Most Recent Monitor Data Heart Rate from ECG 74 NIBP 160/87 NIBP BP-Mean 111 Respiration from ECG 13 SpO2 100 I&O: 11/20/17 11/21/17 11/22/17 06:59 06:59 06:59 Intake Total 2816 3091.4 1729.7 Output Total 2915 3525 1545 Balance -99 -433.6 184.7 Result Diagrams: 11/21/17 04:36 11/21/17 04:36 EKG Reviewed by me: Yes (Tele SR) Phys Exam - Physical Examination Constitutional: NAD DHT tube + Respiratory: no wheezing Scat rales/rhonchi at bases Cardiovascular: RRR, no rub Gastrointestinal: soft, positive bowel sounds Musculoskeletal: no edema Neurological: moves all 4 limbs Dx/Plan - Plan DVT proph w/SCDs IMPRESSION: 1. Acute hypoxic respiratory failure/Toxic Metabolic Encephalopathy/ Intracranial bleed 2. Aspiration Pneumonia 3. Abn LFTs 4. Rhabdomyolysis 5. Elevated cardiac enzymes due to demand ischemia 6. Lactic acidosis 7. Chronic alcoholism with alcohol withdrawal 8. Cocaine abuse 9. Electrolyte abn PLAN: Add Clonidine PRN with patch On Precedex drip Cont thiamine/folic acid Cont supportive care Cont IVF AM labs Cont Zosyn for Pneumonia Replace electrolytes Cont tube feeds CK in AM Review of Systems - Review of Systems Other: Cannot obtain due to current cognition. - Medications/Allergies Allergies/Adverse Reactions: Allergies Allergy/AdvReac Type Severity Reaction Status Date / Time No Allergy Information Allergy Unverified 11/18/17 10:03 Available Medications: Current Medications Albuterol/Ipratropium (Duoneb) 3 ml NEB [id number] [facility] Last Admin: 11/21/17 13:41 Dose: 3 ml Bisacodyl (Dulcolax) 10 mg [place] DAILYPRN PRN PRN Reason: Constipation Clonidine (Qxpulbto-Isz-1 Patch) 0.1 mg TD Q7D@1800 [facility] Last Admin: 11/21/17 17:45 Dose: 0.1 mg Clonidine (Catapres) 0.1 mg PER TUBE Q4H PRN PRN Reason: Systolic BP > 180 Last Admin: 11/21/17 17:43 Dose: 0.1 mg Diazepam (Valium) 5 mg PO Q4H PRN PRN Reason: FOR ASE 10 OR GREATER Last Admin: 11/21/17 07:48 Dose: 5 mg Famotidine (Pepcid) 20 mg SLOW IVP Q12HR [facility] Last Admin: 11/21/17 07:46 Dose: 20 mg Folic Acid (Folvite) 1 mg PO DAILY [facility] Last Admin: 11/21/17 07:47 Dose: 1 mg Hydralazine HCl (Apresoline) 20 mg SLOW IVP Q15MIN PRN PRN Reason: Sbp Greater Than 140 Last Admin: 11/21/17 08:47 Dose: 20 mg Potassium Chloride 40 meq/ (Sodium Chloride) 270 mls @ 135 mls/hr IVPB ASDIR PRN PRN Reason: FOR SERUM K+ 2.5 - 3.5 Last Admin: 11/19/17 06:18 Dose: 270 mls Potassium Chloride 40 meq/ (Device) 100 mls @ 50 mls/hr IVPB ASDIR PRN PRN Reason: FOR SERUM K+ 2.5 - 3.5 Magnesium Sulfate 1 gm/ Sodium (Chloride) 102 mls @ 102 mls/hr IV PRN PRN PRN Reason: MAG LEVEL 1.4 - 2.0 Magnesium Sulfate 2 gm/ Device 100 mls @ 100 mls/hr IVPB ASDIR PRN PRN Reason: MAGNESIUM < 1.4 Potassium Phosphate 9 mmol/ (Sodium Chloride) 103 mls @ 25.75 mls/hr IVPB ASDIR PRN PRN Reason: Phosphate 1.0-1.8 Potassium Phosphate 12 mmol/ (Sodium Chloride) 254 mls @ 63.5 mls/hr IV ASDIR PRN PRN Reason: Serum phosphate 0.5-0.9 Potassium Phosphate 15 mmol/ (Sodium Chloride) 255 mls @ 63.75 mls/hr IV ASDIR PRN PRN Reason: Serum Phos < 0.5 Piperacillin Sod/Tazobactam (Sod 3.375 gm/ Sodium Chloride) 100 mls @ 200 mls/ hr IVPB 0200,0800,1400,2000 [facility] Last Admin: 11/21/17 15:32 Dose: 100 mls Dexmedetomidine HCl 200 mcg/ (Sodium Chloride) 50 mls @ 0 mls/hr IVPB INF [facility]; Protocol Iron/Minerals/Multivitamins (Certa Ric Liquid) 15 ml PO DAILY [facility] Last Admin: 11/21/17 08:50 Dose: 15 ml Labetalol HCl (Normodyne) 20 mg SLOW IVP Q15MIN PRN PRN Reason: Sbp Greater Than 140 Last Admin: 11/21/17 13:19 Dose: 20 mg Magnesium Oxide (Magnesium Oxide) 400 mg PO BIDPRN PRN PRN Reason: FOR SERUM MAG 1.4 - 2.0 Magnesium Oxide (Magnesium Oxide) 800 mg PO PRN PRN PRN Reason: FOR SERUM MAG < 1.4 Magnesium Oxide (Magnesium Oxide) 400 mg PO DAILY [facility] Last Admin: 11/21/17 07:48 Dose: 400 mg Miscellaneous Medication (Phos-Nak) 1 pkt PO TIDPRN PRN PRN Reason: FOR PHOS LEVEL 1.0 - 1.8 Miscellaneous Medication (Phos-Nak) 2 pkt PO TIDPRN PRN PRN Reason: FOR PHOS LEVEL 0.5 - 1.0 Ondansetron HCl (Zofran) 4 mg IVP BIDPRN PRN PRN Reason: Nausea/Vomiting Potassium Chloride (K-Dur) 40 meq PO ASDIR PRN PRN Reason: FOR SERUM K+ 2.5 - 3.5 Potassium Chloride (Klor-Con) 40 meq PER TUBE ASDIR PRN PRN Reason: FOR SERUM K+ 2.5-3.5 Last Admin: 11/21/17 13:28 Dose: 40 meq Sodium Chloride (Flush - Normal Saline) 10 ml IVF PRN PRN PRN Reason: Saline Flush Thiamine HCl (Thiamine) 100 mg PO DAILY [facility] Last Admin: 11/21/17 07:48 Dose: 100 mg
[2017-11-22] MEDS: Labetalol HCl 100 MG/20 ML VIAL SLOW IVP PRN ×3 (00:29→02:12)
[2017-11-22] MEDS: Diazepam 5 MG TAB PO PRN (01:33)
[2017-11-22] MEDS: Piperacillin/Tazobactam 3.375 GM in Sodium Chloride 0.9% 100 ML IVPB SCH ×4 (01:36→20:00)
[2017-11-22] MEDS: cloNIDine 0.1 MG TAB PER TUBE PRN ×2 (03:37→08:37)
[2017-11-22 05:54] LABS: Anion Gap 13 mmol/L (10-20); BUN (Urea Nitrogen) 17 mg/dL (8.4-25.7); Calc. Creatinine Clearance 94 mL/min (70-130); Calcium 8.5 mg/dL (7.8-10.44); Carbon Dioxide 22 mmol/L (22-29); Chloride 120 mmol/L (98-107); Estimated GFR-MDRD Greater than 90; Glucose 129 mg/dL (70-105); Magnesium 2.1 mg/dL (1.6-2.6); Phosphorus 3.8 mg/dL (2.3-4.7); Potassium 3.4 mmol/L (3.5-5.1); Sodium 152 mmol/L (136-145)
[2017-11-22 06:21] LABS: CK (CPK) 10811 U/L (30-200)
[2017-11-22] MEDS: Magnesium Oxide 400 MG TAB PO SCH (08:37)
[2017-11-22] MEDS: Famotidine/PF 20 mg/2ml Vial SLOW IVP SCH (08:37)
[2017-11-22] MEDS: Folic Acid 1 MG TAB PO SCH (08:37)
[2017-11-22] MEDS: Multivits W-Minerals Liquid 15mL UDCUP PO SCH (08:37)
--- NOTE | 2017-11-22 11:04 | PRG ---
DATE OF SERVICE: 11/22/2017 SERVICE: Pulmonary Medicine. INTERVAL HISTORY: The patient is doing poorly from a mentation standpoint. Today, he is much more r igid. His upper and lower extremities are quite tense. He is breathing comfortably. His blood pres sure remains quite elevated. Otherwise, there is no change to his condition. PHYSICAL EXAMINATION: VITAL SIGNS: Afebrile currently with a T-max of 99.8. Pulse 84, blood pressure 165/78, respirations 16, saturation 99% on room air. GENERAL: The patient is awake and alert. He does attend and spontaneously moves his eyes. That kaley jin said, he is not following any directions. He withdraws from noxious stimuli. HEENT: Normocephalic, atraumatic. Sclerae are white. Conjunctivae are pink. Oral mucosa is moist without lesions. LUNGS: Decent air entry. There is no prolonged expiratory phase or wheezing present. HEART: Normal rate, regular. ABDOMEN: Soft, nontender, nondistended. Bowel sounds are positive. MUSCULOSKELETAL: No cyanosis or clubbing. There is no pitting in the bilateral lower extremities. NEUROLOGIC: The patient has increasing tone in the bilateral upper and lower extremities. LABORATORY DATA: WBC 5.8, hemoglobin 13.6, platelets 140,000. Sodium is down trending to 152, potas sium 3.4, chloride 120. Basic metabolic profile is otherwise unremarkable. CK was 11,000 and is now down trending to 9000. Magnesium and phosphorus fall within the normal limits. Blood cultures x2 a re unremarkable. ASSESSMENT: 1. Acute hypoxic respiratory failure, resolved. 2. Community-acquired pneumonia secondary to gross aspiration. 3. Intraparenchymal hemorrhage with intraventricular and subarachnoid extensions. 4. Delirium tremens. 5. Rigidity. DISCUSSION AND PLAN: We will continue to wean away the Precedex as tolerated. I will give him a cou ple doses of Ativan. We are going to trend the CKs through time. Neurology will be notified of the patient's new onset rigidity and we will get an EEG. I will add some p.o. blood pressure medications to the patient's regimen, but I am not going to be too terribly aggressive with blood pressure manag ement until the rigidity settles down a touch as the noninvasive cuff pressures may be falsely high.
[2017-11-22] MEDS: Lorazepam 2 MG/ML VIAL SLOW IVP SCH ×3 (13:00→23:52)
[2017-11-22] MEDS: Carvedilol 6.25 MG TAB PO SCH (16:45)
[2017-11-22] MEDS: Acetaminophen 500 MG TAB PO PRN (17:42)
--- NOTE | 2017-11-22 21:08 | PDOC.PN ---
- Subjective Encounter Start Date: 11/22/17 Encounter Start Time: 13:00 -: non-verbal Patient seen and examined for med mngt. Gen tremors vs seizures. No overnight events - Objective MAR Reviewed: Yes Vital Signs & Weight: Vital Signs (12 hours) Temp Pulse Resp BP Pulse Ox 11/22/17 20:00 98.7 F 136/76 11/22/17 18:44 85 20 100 11/22/17 17:00 100.6 F H 11/22/17 16:00 143/88 H 11/22/17 14:53 95 24 H 99 11/22/17 12:00 154/90 H 11/22/17 11:17 100.0 F H Weight Admit Weight 146 lb Weight 130 lb 8.218 oz Most Recent Monitor Data Heart Rate from ECG 84 NIBP 136/76 NIBP BP-Mean 96 Respiration from ECG 18 SpO2 100 I&O: 11/21/17 11/22/17 11/23/17 06:59 06:59 06:59 Intake Total 3091.4 3714.7 2098.3 Output Total 3525 2790 Balance -433.6 924.7 2098.3 Result Diagrams: 11/21/17 04:36 11/23/17 03:19 EKG Reviewed by me: Yes (Tele SR) Phys Exam - Physical Examination Constitutional: NAD Not following commands Respiratory: no wheezing, no rhonchi Cardiovascular: RRR, no rub Gastrointestinal: soft, positive bowel sounds DHT tube + Dx/Plan - Plan DVT proph w/SCDs IMPRESSION: 1. Acute hypoxic respiratory failure requiring Mech Vent/Toxic Metabolic Encephalopathy/Intracranial bleed 2. Aspiration Pneumonia 3. Abn LFTs 4. Rhabdomyolysis 5. Elevated cardiac enzymes due to demand ischemia 6. Lactic acidosis 7. Chronic alcoholism with alcohol withdrawal 8. Cocaine abuse 9. Electrolyte abn PLAN: Cont supportive care Cont current IVF/tube feeds AM labs Cont Zosyn for Pneumonia Replace Potassium EEG pending Await Neuro input AEDs per Neuro Cont tube feeds Laboratory Tests 11/21/17 11/22/17 04:36 04:30 Sodium 154 H 152 H Potassium 3.2 L 3.4 L Total Bilirubin 2.3 H Direct Bilirubin 1.0 H AST 235 H ALT 63 H Alkaline Phosphatase 72 Creatine Kinase 63782 H Review of Systems - Review of Systems Other: Cannot obtain due to current cognition. - Medications/Allergies Allergies/Adverse Reactions: Allergies Allergy/AdvReac Type Severity Reaction Status Date / Time No Allergy Information Allergy Unverified 11/18/17 10:03 Available Medications: Current Medications Acetaminophen (Tylenol) 1,000 mg PO Q6H PRN PRN Reason: Fever or Pain Last Admin: 11/22/17 17:42 Dose: 1,000 mg Albuterol/Ipratropium (Duoneb) 3 ml NEB [id number] [facility] Last Admin: 11/22/17 18:44 Dose: 3 ml Bisacodyl (Dulcolax) 10 mg [place] DAILYPRN PRN PRN Reason: Constipation Carvedilol (Coreg) 6.25 mg PO BID-WM [facility] Last Admin: 11/22/17 16:45 Dose: 6.25 mg Clonidine (Ofnsjlnd-Olt-4 Patch) 0.1 mg TD Q7D@1800 [facility] Last Admin: 11/21/17 17:45 Dose: 0.1 mg Clonidine (Catapres) 0.1 mg PER TUBE Q4H PRN PRN Reason: Systolic BP > 180 Last Admin: 11/22/17 08:37 Dose: 0.1 mg Folic Acid (Folvite) 1 mg PO DAILY [facility] Last Admin: 11/22/17 08:37 Dose: 1 mg Hydralazine HCl (Apresoline) 20 mg SLOW IVP Q15MIN PRN PRN Reason: Sbp Greater Than 140 Last Admin: 11/21/17 08:47 Dose: 20 mg Potassium Chloride 40 meq/ (Sodium Chloride) 270 mls @ 135 mls/hr IVPB ASDIR PRN PRN Reason: FOR SERUM K+ 2.5 - 3.5 Last Admin: 11/19/17 06:18 Dose: 270 mls Potassium Chloride 40 meq/ (Device) 100 mls @ 50 mls/hr IVPB ASDIR PRN PRN Reason: FOR SERUM K+ 2.5 - 3.5 Potassium Phosphate 9 mmol/ (Sodium Chloride) 103 mls @ 25.75 mls/hr IVPB ASDIR PRN PRN Reason: Phosphate 1.0-1.8 Potassium Phosphate 12 mmol/ (Sodium Chloride) 254 mls @ 63.5 mls/hr IV ASDIR PRN PRN Reason: Serum phosphate 0.5-0.9 Potassium Phosphate 15 mmol/ (Sodium Chloride) 255 mls @ 63.75 mls/hr IV ASDIR PRN PRN Reason: Serum Phos < 0.5 Piperacillin Sod/Tazobactam (Sod 3.375 gm/ Sodium Chloride) 100 mls @ 200 mls/ hr IVPB 0200,0800,1400,2000 [facility] Last Admin: 11/22/17 20:00 Dose: 100 mls Iron/Minerals/Multivitamins (Certa Ric Liquid) 15 ml PO DAILY [facility] Last Admin: 11/22/17 08:37 Dose: 15 ml Labetalol HCl (Normodyne) 20 mg SLOW IVP Q15MIN PRN PRN Reason: Sbp Greater Than 140 Last Admin: 11/22/17 02:12 Dose: 20 mg Lorazepam (Ativan) 2 mg SLOW IVP Q6HR [facility] Last Admin: 11/22/17 18:09 Dose: Not Given Magnesium Oxide (Magnesium Oxide) 400 mg PO DAILY [facility] Last Admin: 11/22/17 08:37 Dose: 400 mg Miscellaneous Medication (Phos-Nak) 1 pkt PO TIDPRN PRN PRN Reason: FOR PHOS LEVEL 1.0 - 1.8 Miscellaneous Medication (Phos-Nak) 2 pkt PO TIDPRN PRN PRN Reason: FOR PHOS LEVEL 0.5 - 1.0 Ondansetron HCl (Zofran) 4 mg IVP BIDPRN PRN PRN Reason: Nausea/Vomiting Potassium Chloride (K-Dur) 40 meq PO ASDIR PRN PRN Reason: FOR SERUM K+ 2.5 - 3.5 Potassium Chloride (Klor-Con) 40 meq PER TUBE ASDIR PRN PRN Reason: FOR SERUM K+ 2.5-3.5 Last Admin: 11/22/17 16:45 Dose: 40 meq Sodium Chloride (Flush - Normal Saline) 10 ml IVF PRN PRN PRN Reason: Saline Flush Thiamine HCl (Thiamine) 100 mg PO DAILY [facility] Last Admin: 11/22/17 08:37 Dose: 100 mg
[2017-11-23] MEDS: Labetalol HCl 100 MG/20 ML VIAL SLOW IVP PRN (01:19)
[2017-11-23] MEDS: Piperacillin/Tazobactam 3.375 GM in Sodium Chloride 0.9% 100 ML IVPB SCH ×4 (01:20→19:31)
[2017-11-23 04:19] LABS: Anion Gap 15 mmol/L (10-20); BUN (Urea Nitrogen) 16 mg/dL (8.4-25.7); Calc. Creatinine Clearance 100 mL/min (70-130); Calcium 8.7 mg/dL (7.8-10.44); Carbon Dioxide 21 mmol/L (22-29); Chloride 114 mmol/L (98-107); Estimated GFR-MDRD Greater than 90; Glucose 117 mg/dL (70-105); Potassium 4.4 mmol/L (3.5-5.1); Sodium 146 mmol/L (136-145)
[2017-11-23 04:32] LABS: CK (CPK) 5826 U/L (30-200)
[2017-11-23] MEDS: Lorazepam 2 MG/ML VIAL SLOW IVP SCH (05:49)
[2017-11-23] MEDS: Magnesium Oxide 400 MG TAB PO SCH (08:24)
[2017-11-23] MEDS: Carvedilol 6.25 MG TAB PO SCH ×2 (08:24→16:53)
[2017-11-23] MEDS: Folic Acid 1 MG TAB PO SCH (08:24)
[2017-11-23] MEDS: Multivits W-Minerals Liquid 15mL UDCUP PO SCH (08:24)
[2017-11-23] MEDS ORDERED: Lorazepam 2 MG/ML VIAL SLOW IVP PRN (10:03)
--- NOTE | 2017-11-23 10:21 | PRG ---
DATE OF SERVICE: 11/23/2017 SERVICE: Pulmonary Medicine. INTERVAL HISTORY: The patient is doing fine from a respiratory standpoint. He is breathing comforta giuliana. He is coughing. He has a wet cough and he is bringing up some crud. That being said, he swall ows it down. He cannot provide any additional elements of the history because of his underlying ence phalopathy and neurologic injury. He has been spiking fevers on and off, but otherwise, he has had n o events overnight. PHYSICAL EXAMINATION: VITAL SIGNS: T-max 101, pulse 109, blood pressure 139/87, respirations 19, saturation 99% on room ai r. GENERAL: The patient is awake and alert. He is a little diaphoretic. The rigidity is much improved . HEENT: Normocephalic, atraumatic. Sclerae are white. Conjunctivae are pink. Oral mucosa is moist without lesions. LUNGS: Decent air entry with rhonchi present now. They are much more extensive. There is no prolon ged expiratory phase or wheezing appreciated. HEART: Normal rate and regular. ABDOMEN: Soft, nontender, nondistended. Bowel sounds are positive. MUSCULOSKELETAL: No cyanosis or clubbing. There is no pitting in the bilateral lower extremities. NEUROLOGIC: Grossly nonfocal. LABORATORY DATA: Sodium 146 and gently down trending, chloride 114, bicarbonate 21. Basic metabolic profile is otherwise unremarkable. CK continues to trend downward at 5800. Blood cultures x2 and u rine culture are unremarkable. ASSESSMENT: 1. Acute hypoxic respiratory failure, resolved. 2. Community-acquired pneumonia secondary to gross aspiration. 3. Intraparenchymal hemorrhage with intraventricular and subarachnoid extensions. 4. Delirium tremens. 5. Rigidity, resolved. DISCUSSION AND PLAN: We will go back to the Precedex once again as he is getting increasingly sedate d with the Ativan. If the rigidity returns, we will get off this medication altogether. I will repe at a CK in the morning as well as a CBC. We are going to send for agudelo culture and empirically start vancomycin, though I think that the fever is likely neurologic in origin. Tylenol will be scheduled to prevent significant fevers. He will need to remain in the ICU certainly. I appreciate Neurology consultation.
[2017-11-23] MEDS: Acetaminophen 325 MG/10.15 ML UDCUP PO SCH ×3 (10:27→22:13)
[2017-11-23] MEDS ORDERED: Vancomycin HCl 1.5 GM in Sodium Chloride 0.9% 250 ML 300 ML IVPB SCH (11:00)
--- NOTE | 2017-11-23 11:27 | RAD ---
CHEST 1 VIEW: Date: 11/23/17 HISTORY: Fever. COMPARISON: 11/19/17. FINDINGS: Interval placement of Dobbhoff feeding tube with distal tip likely in the gastric antrum. Stable card iac silhouette. Chronic changes in the right lung base with slight elevation of the right hemidiaphra gm suggesting a component of atelectasis. No pneumothorax or osseous abnormalities. IMPRESSION: 1. Right lower lobe atelectasis. 2. Dobbhoff feeding tube as above. POS: ANUEL
--- NOTE | 2017-11-23 12:17 | CON ---
DATE OF CONSULTATION: 11/23/2017 NEUROLOGY CONSULTATION CONSULTING PHYSICIAN: Hospitalist Service. IMPRESSION: 1. Bilateral frontal intraparenchymal hemorrhages. 2. Delirium tremens. 3. Cocaine abuse. 4. No evidence of ongoing seizure activity based on his EEG. PLAN: Supportive measures. Mr. Conner is a 52-year-old man who came in with mental status changes. He apparently had been doing cocaine as well as drinking on a regular basis. His CT revealed large areas of intraparen chymal hemorrhage on the left more so than on the right. He has been having tremors and there was so me concern for seizure activity and an EEG done yesterday which was reviewed and does not show any ev idence of seizure activity and looks remarkably good considering his anatomic abnormalities. He is c ontinued to be quite lethargic and nurses have been getting Ativan for his tremors, been diaphoretic. His vital signs were otherwise been stable with some sinus tachycardia. PAST MEDICAL HISTORY: Otherwise unknown. FAMILY HISTORY: Unknown. SOCIAL HISTORY: Positive for alcohol and drug use. ALLERGIES: None reported. REVIEW OF SYSTEMS: Not obtainable. PHYSICAL EXAMINATION: VITAL SIGNS: Blood pressure 150/89, pulse 106, respirations 20, saturations 100%. HEENT: Pupils are equal. Conjunctivae clear. He has got a nasogastric tube in place. He is diapho retic. He has spontaneous cough. His face appears symmetric. No abnormal movements were seen. His tone appears symmetric. He would not open his eyes or follow any commands. SUMMARY: Middle-aged gentleman with spontaneous intraparenchymal hemorrhages secondary to his cocain e abuse. There are no ongoing signs of seizure activity. I suspect he has had some withdrawal from alcohol based on his symptoms. Nothing in particular, I would add to his care at this point.
[2017-11-23] MEDS ORDERED: Vancomycin HCl 1 GM in Premix Bag 1 BAG IVPB SCH (21:00)
--- NOTE | 2017-11-23 21:34 | PDOC.PN ---
- Subjective Encounter Start Date: 11/23/17 Encounter Start Time: 14:00 -: non-verbal Patient seen and examined for med mngt. No overnight events - Objective MAR Reviewed: Yes Vital Signs & Weight: Vital Signs (12 hours) Temp Pulse Pulse Pulse Resp BP BP 11/23/17 20:00 98.9 F 155/89 H 11/23/17 19:44 11/23/17 18:34 89 20 11/23/17 16:00 98.8 F 11/23/17 13:19 92 15 11/23/17 12:00 98.6 F 11/23/17 11:07 95 99 116/75 BP Pulse Ox Pulse Ox Pulse Ox 11/23/17 20:00 11/23/17 19:44 98 11/23/17 18:34 100 11/23/17 16:00 11/23/17 13:19 99 11/23/17 12:00 95 11/23/17 11:07 115/78 100 99 Weight Admit Weight 146 lb Weight 130 lb 8.218 oz Most Recent Monitor Data Heart Rate from ECG 94 NIBP 155/89 NIBP BP-Mean 111 Respiration from ECG 15 SpO2 98 I&O: 11/22/17 11/23/17 11/24/17 06:59 06:59 06:59 Intake Total 3714.7 3563.3 1601 Output Total 2790 Balance 924.7 3563.3 1601 Result Diagrams: 11/21/17 04:36 11/23/17 03:19 EKG Reviewed by me: Yes (Tele SR) Phys Exam - Physical Examination Constitutional: NAD Respiratory: no wheezing, no rhonchi Cardiovascular: RRR, no rub Gastrointestinal: soft, positive bowel sounds Musculoskeletal: no edema Dx/Plan - Plan DVT proph w/SCDs IMPRESSION: 1. Acute hypoxic respiratory failure requiring Mech Vent/Toxic Metabolic Encephalopathy/Intracranial bleed 2. Aspiration Pneumonia - on Zosyn 3. Chronic alcoholism with alcohol withdrawal/DTs 4. Rhabdomyolysis - CK improving 5. Electrolyte abn - hypernatremia/hypokalemia 6. Elevated cardiac enzymes due to demand ischemia/Lactic acidosis - resolved/ Abn LFTs - prob due to chronic alcoholism/Cocaine abuse PLAN: Cont current IVF/tube feeds Cont Zosyn/Vancomycin Replace Potassium Cont supportive care AM labs including CK Cont Clonidine Patch Cont Coreg Laboratory Tests 11/23/17 03:19 Creatine Kinase 5826 H Review of Systems - Review of Systems Other: Cannot obtain due to current mentation - Medications/Allergies Allergies/Adverse Reactions: Allergies Allergy/AdvReac Type Severity Reaction Status Date / Time No Allergy Information Allergy Unverified 11/18/17 10:03 Available Medications: Current Medications Acetaminophen (Tylenol) 1,000 mg PO Q6H PRN PRN Reason: Fever or Pain Last Admin: 11/22/17 17:42 Dose: 1,000 mg Acetaminophen (Tylenol Elixir) 650 mg PO Q6H [facility] Stop: 11/25/17 04:01 Last Admin: 11/23/17 16:53 Dose: 650 mg Albuterol/Ipratropium (Duoneb) 3 ml NEB [id number] [facility] Last Admin: 11/23/17 18:34 Dose: 3 ml Bisacodyl (Dulcolax) 10 mg HI DAILYPRN PRN PRN Reason: Constipation Carvedilol (Coreg) 6.25 mg PO BID-WM [facility] Last Admin: 11/23/17 16:53 Dose: 6.25 mg Clonidine (Icfgxeyq-Lup-4 Patch) 0.1 mg TD Q7D@1800 [facility] Last Admin: 11/21/17 17:45 Dose: 0.1 mg Folic Acid (Folvite) 1 mg PO DAILY [facility] Last Admin: 11/23/17 08:24 Dose: 1 mg Hydralazine HCl (Apresoline) 20 mg SLOW IVP Q15MIN PRN PRN Reason: Sbp Greater Than 140 Last Admin: 11/21/17 08:47 Dose: 20 mg Potassium Chloride 40 meq/ (Sodium Chloride) 270 mls @ 135 mls/hr IVPB ASDIR PRN PRN Reason: FOR SERUM K+ 2.5 - 3.5 Last Admin: 11/19/17 06:18 Dose: 270 mls Potassium Chloride 40 meq/ (Device) 100 mls @ 50 mls/hr IVPB ASDIR PRN PRN Reason: FOR SERUM K+ 2.5 - 3.5 Potassium Phosphate 9 mmol/ (Sodium Chloride) 103 mls @ 25.75 mls/hr IVPB ASDIR PRN PRN Reason: Phosphate 1.0-1.8 Potassium Phosphate 12 mmol/ (Sodium Chloride) 254 mls @ 63.5 mls/hr IV ASDIR PRN PRN Reason: Serum phosphate 0.5-0.9 Potassium Phosphate 15 mmol/ (Sodium Chloride) 255 mls @ 63.75 mls/hr IV ASDIR PRN PRN Reason: Serum Phos < 0.5 Piperacillin Sod/Tazobactam (Sod 3.375 gm/ Sodium Chloride) 100 mls @ 200 mls/ hr IVPB 0200,0800,1400,2000 [facility] Last Admin: 11/23/17 19:31 Dose: 100 mls Vancomycin HCl 1.25 gm/ Sodium (Chloride) 250 mls @ 166.667 mls/hr IVPB 1100, 2300 [facility] Iron/Minerals/Multivitamins (Certa Ric Liquid) 15 ml PO DAILY [facility] Last Admin: 11/23/17 08:24 Dose: 15 ml Labetalol HCl (Normodyne) 20 mg SLOW IVP Q15MIN PRN PRN Reason: Sbp Greater Than 140 Last Admin: 11/23/17 01:19 Dose: 20 mg Lorazepam (Ativan) 2 mg SLOW IVP Q6HR PRN PRN Reason: Agitation Magnesium Oxide (Magnesium Oxide) 400 mg PO DAILY [facility] Last Admin: 11/23/17 08:24 Dose: 400 mg Miscellaneous Medication (Pharmacy To Dose) 1 each IVPB PRN PRN PRN Reason: Pharmacy to dose Ondansetron HCl (Zofran) 4 mg IVP BIDPRN PRN PRN Reason: Nausea/Vomiting Potassium Chloride (K-Dur) 40 meq PO ASDIR PRN PRN Reason: FOR SERUM K+ 2.5 - 3.5 Potassium Chloride (Klor-Con) 40 meq PER TUBE ASDIR PRN PRN Reason: FOR SERUM K+ 2.5-3.5 Last Admin: 11/22/17 16:45 Dose: 40 meq Sodium Chloride (Flush - Normal Saline) 10 ml IVF PRN PRN PRN Reason: Saline Flush Thiamine HCl (Thiamine) 100 mg PO DAILY [facility] Last Admin: 11/23/17 08:24 Dose: 100 mg
[2017-11-23] MEDS: Vancomycin HCl 1.25 GM in Sodium Chloride 0.9% 250 ML 250 ML IVPB SCH (22:13)
[2017-11-24] MEDS: Piperacillin/Tazobactam 3.375 GM in Sodium Chloride 0.9% 100 ML IVPB SCH ×4 (02:44→22:56)
[2017-11-24] MEDS: Acetaminophen 325 MG/10.15 ML UDCUP PO SCH ×3 (03:10→17:15)
[2017-11-24 04:34] LABS: #Eosinphils 0.1 thou/uL (0.0-0.7); #Lymphocytes 0.9 thou/uL (1.20-3.40); #Monocytes 1.1 thou/uL (0.11-0.59); #Neutrophils 5.1 thou/uL (1.40-6.50); %Basophils 0.3 % (0.0-1.0); %Eosinophils 1.6 % (0.0-10.0); %Lymphocytes 12.5 % (21.0-51.0); %Monocytes 14.9 % (0.0-10.0); %Neutrophils 70.7 % (42.0-75.0); Hemoglobin 14.7 g/dL (14.0-18.0); Mean Corpuscular HGB CONC 33.5 g/dL (32.0-36.0); Mean Corpuscular Hemoglobin 34.4 pg (27.0-31.0); Mean Platelet Volume 9.9 fL (7.4-10.4); Platelet Count 158 thou/uL (130-400); RBC Distribution Width 12.2 % (11.5-14.5); Red Blood Cell (RBC) Count 4.26 mill/uL (4.70-6.10); White Blood Cell (WBC) Count 7.2 thou/uL (4.8-10.8)
[2017-11-24 05:00] LABS: Anion Gap 14 mmol/L (10-20); BUN (Urea Nitrogen) 16 mg/dL (8.4-25.7); Calc. Creatinine Clearance 96 mL/min (70-130); Calcium 8.6 mg/dL (7.8-10.44); Carbon Dioxide 22 mmol/L (22-29); Chloride 111 mmol/L (98-107); Estimated GFR-MDRD Greater than 90; Glucose 153 mg/dL (70-105); Magnesium 1.9 mg/dL (1.6-2.6); Phosphorus 2.7 mg/dL (2.3-4.7); Potassium 3.3 mmol/L (3.5-5.1); Sodium 144 mmol/L (136-145)
[2017-11-24] MEDS: Multivits W-Minerals Liquid 15mL UDCUP PO SCH (08:11)
[2017-11-24] MEDS: Carvedilol 6.25 MG TAB PO SCH ×2 (08:11→15:23)
[2017-11-24] MEDS: Folic Acid 1 MG TAB PO SCH (08:11)
--- NOTE | 2017-11-24 11:05 | PRG ---
DATE OF SERVICE: 11/24/2017 SERVICE: Pulmonary Medicine. INTERVAL HISTORY: The patient is doing fine from a respiratory standpoint. He is breathing comforta giuliana. Today looks less toxic. He is no longer diaphoretic and he had not any fevers over the last 12 hours. He cannot provide additional elements of the history. He is speaking some words in Sinhala. That being said, he only says things I feel like going to cry. Then he will subsequently cry. Oth erwise, he is not following any commands, but he is doing purposeful activity. PHYSICAL EXAMINATION: VITAL SIGNS: Afebrile, pulse 89, blood pressure 168/106, respirations 19, saturation 99% on room air . GENERAL: The patient is awake, alert, in no apparent distress. LUNGS: Excellent air entry. There is no prolonged expiratory phase, wheezing, rhonchi or crackles. HEART: Normal rate, regular. ABDOMEN: Soft, nontender, nondistended. Bowel sounds are positive. MUSCULOSKELETAL: No cyanosis or clubbing. There is no pitting in the bilateral lower extremities. ASSESSMENT: 1. Acute hypoxic respiratory failure, resolved. 2. Community-acquired pneumonia secondary to gross aspiration. 3. Intraparenchymal hemorrhage with intraventricular and subarachnoid extensions. 4. Delirium tremens. LABORATORY DATA: WBC 7.2, hemoglobin 14.7, platelets 158,000. Potassium 3.3. Basic metabolic profi le is otherwise unremarkable. Magnesium and phosphorus fall within the normal limits. DISCUSSION AND PLAN: The patient has been off the Precedex overnight. From my perspective, he is st able for transition to the stroke unit. We will repeat CK with tomorrow morning's laboratories. Pul monary or Critical Care will continue to follow along until the patient demonstrates stability for a couple of days.
[2017-11-24] MEDS: Vancomycin HCl 1.25 GM in Sodium Chloride 0.9% 250 ML 250 ML IVPB SCH (11:09)
[2017-11-24] MEDS: Labetalol HCl 100 MG/20 ML VIAL SLOW IVP PRN ×3 (15:22→23:18)
[2017-11-24] MEDS: Acetaminophen 500 MG TAB PO PRN (16:38)
--- NOTE | 2017-11-24 16:59 | PDOC.PN ---
- Subjective Encounter Start Date: 11/24/17 Encounter Start Time: 11:30 -: non-verbal Patient seen and examined for med mngt. Encephalopathic. - Objective MAR Reviewed: Yes Vital Signs & Weight: Vital Signs (12 hours) Temp Pulse Resp BP BP Pulse Ox 11/24/17 16:37 84 155/92 H 11/24/17 16:00 100.1 F H 88 20 174/94 H 100 11/24/17 15:30 150/89 H 11/24/17 14:55 81 20 95 11/24/17 12:57 99 F 87 146/90 H 98 11/24/17 12:00 99.1 F 11/24/17 08:00 99.5 F 99 11/24/17 06:36 99 11/24/17 06:34 87 16 99 Weight Admit Weight 146 lb Weight 130 lb 8.218 oz Most Recent Monitor Data Heart Rate from ECG 75 NIBP 135/82 NIBP BP-Mean 99 Respiration from ECG 27 SpO2 100 I&O: 11/23/17 11/24/17 11/25/17 06:59 06:59 06:59 Intake Total 3563.3 3370 727 Balance 3563.3 3370 727 Result Diagrams: 11/24/17 03:31 11/24/17 03:31 EKG Reviewed by me: Yes (Tele SR) Phys Exam - Physical Examination Constitutional: NAD Respiratory: no wheezing, no rhonchi Cardiovascular: RRR, no rub Gastrointestinal: soft, no distention Musculoskeletal: no edema Neuro/Psych - Cannot obtain due to current mentation Dx/Plan - Plan DVT proph w/SCDs IMPRESSION: 1. Acute hypoxic respiratory failure requiring Mech Vent/Toxic Metabolic Encephalopathy/Intracranial bleed 2. Aspiration Pneumonia - on Zosyn 3. Chronic alcoholism with alcohol withdrawal/DTs 4. Rhabdomyolysis - CK improving 5. Electrolyte abn - hypernatremia/hypokalemia 6. Elevated cardiac enzymes due to demand ischemia/Lactic acidosis - resolved/ Abn LFTs - prob due to chronic alcoholism/Cocaine abuse PLAN: Replace Potassium Cont current IVF Cont Zosyn/Vancomycin AM labs including CK Cont Clonidine Patch/Coreg Transferred to Stroke unit DC planning Review of Systems - Review of Systems Other: Cannot obtain due to current cognition. - Medications/Allergies Allergies/Adverse Reactions: Allergies Allergy/AdvReac Type Severity Reaction Status Date / Time No Allergy Information Allergy Unverified 11/18/17 10:03 Available Medications: Current Medications Acetaminophen (Tylenol) 1,000 mg PO Q6H PRN PRN Reason: Fever or Pain Last Admin: 11/24/17 16:38 Dose: 1,000 mg Acetaminophen (Tylenol Elixir) 650 mg PO Q6H [facility] Stop: 11/25/17 04:46 Albuterol/Ipratropium (Duoneb) 3 ml NEB [id number] [facility] Last Admin: 11/24/17 14:55 Dose: 3 ml Bisacodyl (Dulcolax) 10 mg GA DAILYPRN PRN PRN Reason: Constipation Carvedilol (Coreg) 6.25 mg PO BID-WM [facility] Last Admin: 11/24/17 15:23 Dose: 6.25 mg Clonidine (Hyrqhefx-Rxn-4 Patch) 0.1 mg TD Q7D@1800 [facility] Last Admin: 11/21/17 17:45 Dose: 0.1 mg Folic Acid (Folvite) 1 mg PO DAILY [facility] Last Admin: 11/24/17 08:11 Dose: 1 mg Hydralazine HCl (Apresoline) 20 mg SLOW IVP Q15MIN PRN PRN Reason: Sbp Greater Than 140 Last Admin: 11/21/17 08:47 Dose: 20 mg Potassium Chloride 40 meq/ (Sodium Chloride) 270 mls @ 135 mls/hr IVPB ASDIR PRN PRN Reason: FOR SERUM K+ 2.5 - 3.5 Last Admin: 11/19/17 06:18 Dose: 270 mls Potassium Chloride 40 meq/ (Device) 100 mls @ 50 mls/hr IVPB ASDIR PRN PRN Reason: FOR SERUM K+ 2.5 - 3.5 Potassium Phosphate 9 mmol/ (Sodium Chloride) 103 mls @ 25.75 mls/hr IVPB ASDIR PRN PRN Reason: Phosphate 1.0-1.8 Potassium Phosphate 12 mmol/ (Sodium Chloride) 254 mls @ 63.5 mls/hr IV ASDIR PRN PRN Reason: Serum phosphate 0.5-0.9 Potassium Phosphate 15 mmol/ (Sodium Chloride) 255 mls @ 63.75 mls/hr IV ASDIR PRN PRN Reason: Serum Phos < 0.5 Piperacillin Sod/Tazobactam (Sod 3.375 gm/ Sodium Chloride) 100 mls @ 200 mls/ hr IVPB 0200,0800,1400,2000 [facility] Last Admin: 11/24/17 16:38 Dose: 100 mls Vancomycin HCl 1.25 gm/ Sodium (Chloride) 250 mls @ 166.667 mls/hr IVPB 1100, 2300 [facility] Last Admin: 11/24/17 11:09 Dose: 250 mls Iron/Minerals/Multivitamins (Certa Ric Liquid) 15 ml PO DAILY [facility] Last Admin: 11/24/17 08:11 Dose: 15 ml Labetalol HCl (Normodyne) 20 mg SLOW IVP Q15MIN PRN PRN Reason: Sbp Greater Than 140 Last Admin: 11/24/17 16:37 Dose: 20 mg Lorazepam (Ativan) 2 mg SLOW IVP Q6HR PRN PRN Reason: Agitation Miscellaneous Medication (Pharmacy To Dose) 1 each IVPB PRN PRN PRN Reason: Pharmacy to dose Ondansetron HCl (Zofran) 4 mg IVP BIDPRN PRN PRN Reason: Nausea/Vomiting Potassium Chloride (K-Dur) 40 meq PO ASDIR PRN PRN Reason: FOR SERUM K+ 2.5 - 3.5 Potassium Chloride (Klor-Con) 40 meq PER TUBE ASDIR PRN PRN Reason: FOR SERUM K+ 2.5-3.5 Last Admin: 11/24/17 05:12 Dose: 40 meq Sodium Chloride (Flush - Normal Saline) 10 ml IVF PRN PRN PRN Reason: Saline Flush Thiamine HCl (Thiamine) 100 mg PO DAILY [facility] Last Admin: 11/24/17 08:11 Dose: 100 mg
[2017-11-24] MEDS: Acetaminophen 650 MG/20.3 ML UDCUP PO SCH ×2 (17:15→22:57)
--- NOTE | 2017-11-24 21:32 | RAD ---
ABDOMEN ONE VIEW: HISTORY: Confirm feeding tube placement. COMPARISON: Abdomen radiograph from 11/20/2014. FINDINGS: The weighted feeding tube tip projects over the gastric fundus. IMPRESSION: 1. Weighted feeding tube tip projects over the gastric fundus. 2. Layering right effusion. POS: KELVIN
[2017-11-25] MEDS: Labetalol HCl 100 MG/20 ML VIAL SLOW IVP PRN ×6 (00:15→22:51)
[2017-11-25] MEDS: Vancomycin HCl 1.25 GM in Sodium Chloride 0.9% 250 ML 250 ML IVPB SCH ×4 (00:20→21:49)
[2017-11-25 05:12] LABS: #Eosinphils 0.1 thou/uL (0.0-0.7); #Lymphocytes 1.1 thou/uL (1.20-3.40); #Monocytes 1.3 thou/uL (0.11-0.59); #Neutrophils 7.4 thou/uL (1.40-6.50); %Basophils 0.2 % (0.0-1.0); %Eosinophils 0.7 % (0.0-10.0); %Lymphocytes 11.2 % (21.0-51.0); %Monocytes 12.9 % (0.0-10.0); Hemoglobin 13.9 g/dL (14.0-18.0); Mean Corpuscular HGB CONC 33.5 g/dL (32.0-36.0); Mean Corpuscular Hemoglobin 34.2 pg (27.0-31.0); Mean Platelet Volume 9.7 fL (7.4-10.4); Platelet Count 167 thou/uL (130-400); Red Blood Cell (RBC) Count 4.07 mill/uL (4.70-6.10); White Blood Cell (WBC) Count 9.9 thou/uL (4.8-10.8)
[2017-11-25] MEDS: Acetaminophen 650 MG/20.3 ML UDCUP PO SCH ×4 (05:34→23:55)
[2017-11-25] MEDS: Piperacillin/Tazobactam 3.375 GM in Sodium Chloride 0.9% 100 ML IVPB SCH ×2 (05:35→11:17)
[2017-11-25 05:54] LABS: Anion Gap 15 mmol/L (10-20); BUN (Urea Nitrogen) 15 mg/dL (8.4-25.7); CK (CPK) 893 U/L (30-200); Calc. Creatinine Clearance 103 mL/min (70-130); Calcium 8.8 mg/dL (7.8-10.44); Carbon Dioxide 16 mmol/L (22-29); Chloride 113 mmol/L (98-107); Estimated GFR-MDRD Greater than 90; Glucose 116 mg/dL (70-105); Potassium 3.7 mmol/L (3.5-5.1); Sodium 140 mmol/L (136-145)
[2017-11-25] MEDS: Carvedilol 6.25 MG TAB PO SCH ×2 (07:57→17:05)
[2017-11-25] MEDS: Multivits W-Minerals Liquid 15mL UDCUP PO SCH (07:58)
[2017-11-25] MEDS: Acetaminophen 500 MG TAB PO PRN (07:58)
[2017-11-25] MEDS: Folic Acid 1 MG TAB PO SCH (07:58)
[2017-11-25] MEDS: hydrALAZINE 20 MG/ML VIAL SLOW IVP PRN ×2 (11:30→23:55)
--- NOTE | 2017-11-25 12:26 | PRG ---
DATE OF SERVICE: 11/25/2017 SERVICE: Pulmonary Medicine INTERVAL HISTORY: The patient had some fevers overnight. Otherwise, there was no interval change to his condition. Otherwise there were no overnight events. He is breathing comfortably and he appear s to be without any pain. He still cannot follow any commands. He will speak in nonsensical terms. He does not answer any questions appropriately. PHYSICAL EXAMINATION: VITAL SIGNS: Currently afebrile with T-max overnight of 102.3, pulse 80, blood pressure 159/88, resp irations 18, saturation 98% on room air. GENERAL: The patient is awake, alert, in no apparent distress. LUNGS: Decent air entry. There is rhonchi present. No prolonged expiratory phase identified. HEART: Normal rate, regular. ABDOMEN: Soft, nontender, nondistended. Bowel sounds are positive. MUSCULOSKELETAL: No cyanosis or clubbing. There is no pitting in the bilateral lower extremities. LABORATORY DATA: WBC 9.9, hemoglobin 13.9, platelets 167,000. INR 1.4. Basic metabolic profile is significant for a chloride of 113, bicarb 16, anion gap 15 and roughly stable, CK is down trending to 893. Potassium 3.7. Blood cultures x2 are unremarkable from the 15th. The original blood cultures and urine cultures are unremarkable. IMAGING: KUB demonstrates a small bore feeding tube projecting over the gastric fundus. There is a layering right-sided pleural effusion. ASSESSMENT: 1. Acute hypoxic respiratory failure, resolved. 2. Community-acquired pneumonia secondary to gross aspiration. 3. Intraparenchymal hemorrhage with intraventricular and subarachnoid extensions. 4. Delirium tremens, resolved. DISCUSSION AND PLAN: We will discontinue the Zosyn as he has been on it for a 7-day course. I will continue the vancomycin for the time being while the most recent cultures are resulting. My suspicio n is that his fevers neurogenic in origin. We will watch for increasing signs of sepsis and agudelo cult ure will be considered with the next fever. I am going to schedule Tylenol for an additional 48 hour s.
--- NOTE | 2017-11-25 13:57 | EEG ---
Referring Physician: Lalit MCINTYRE EEG # [id number] TEST TYPE: ROUTINE PORTABLE INPATIENT REPORT: AN EEG USING THE INTERNATIONAL TEN-TWENTY SYSTEM OF ELECTRODE PLACEMENT WAS PERFORMED. The waking background appears to be a low amplitude 9 hertz alpha frequency. There is quite a bit of EMG artifact throughout the study secondary to his tremors. No epileptiform features were seen. No sleep was seen. Photic stimulation was unremarkable. IMPRESSION: THIS IS AN UNREMARKABLE EEG. Pyrometer Mechanic:CRISTOFER Computer Education Teacher: [email or web address] BRYSON
[2017-11-25 21:22] LABS: Vancomycin, Trough 13.1 ug/mL
--- NOTE | 2017-11-25 21:48 | PDOC.PN ---
- Subjective Encounter Start Date: 11/25/17 Encounter Start Time: 10:30 Patient seen and examined for Med mngt. Mentation slowly improving. Still encephalopathic. No overnight events - Objective MAR Reviewed: Yes Vital Signs & Weight: Vital Signs (12 hours) Temp Pulse Resp BP BP Pulse Ox 11/25/17 20:00 99.3 F 86 16 146/81 H 97 11/25/17 18:21 87 18 96 11/25/17 17:05 130/79 11/25/17 17:03 86 130/79 11/25/17 16:30 130/79 11/25/17 16:15 154/86 H 11/25/17 15:53 98.7 F 91 18 154/86 H 95 11/25/17 12:09 159/88 H 11/25/17 12:00 99.2 F 75 18 159/88 H 100 11/25/17 11:30 80 159/88 H 11/25/17 11:16 80 14 Weight Admit Weight 146 lb Weight 130 lb 8.218 oz Most Recent Monitor Data Heart Rate from ECG 75 NIBP 135/82 NIBP BP-Mean 99 Respiration from ECG 27 SpO2 100 I&O: 11/24/17 11/25/17 11/26/17 06:59 06:59 06:59 Intake Total 3370 727 Balance 3370 727 Result Diagrams: 11/25/17 04:28 11/25/17 04:28 EKG Reviewed by me: Yes (Tele SR) Phys Exam - Physical Examination Constitutional: NAD Respiratory: no wheezing, no rhonchi Bibasilar rales Cardiovascular: RRR, no rub Gastrointestinal: soft, non-tender, no distention, positive bowel sounds Musculoskeletal: no edema Neurological: moves all 4 limbs Dx/Plan - Plan DVT proph w/SCDs IMPRESSION: 1. Acute hypoxic respiratory failure requiring Mech Vent/Toxic Metabolic Encephalopathy/Intracranial bleed 2. Aspiration Pneumonia 3. Chronic alcoholism with alcohol withdrawal/DTs 4. Rhabdomyolysis - CK improving 5. Electrolyte abn - hypernatremia/hypokalemia 6. Elevated cardiac enzymes due to demand ischemia/Lactic acidosis - resolved/ Abn LFTs - prob due to chronic alcoholism/Cocaine abuse PLAN: Zosyn deced Cont current IVF Con Vancomycin AM labs Cont Clonidine Patch/Coreg DC planning Microbiology 11/23/17 10:49 Venous blood - Right Hand Blood Culture - Preliminary Specimen has been received and culture in progress. No Growth to date. 11/23/17 10:49 Venous blood - Left Hand Blood Culture - Preliminary Specimen has been received and culture in progress. No Growth to date. Laboratory Tests 11/25/17 04:28 Creatine Kinase 893 H Review of Systems - Review of Systems Other: Cannot obtain due to current mentation. - Medications/Allergies Allergies/Adverse Reactions: Allergies Allergy/AdvReac Type Severity Reaction Status Date / Time No Allergy Information Allergy Unverified 11/18/17 10:03 Available Medications: Current Medications Acetaminophen (Tylenol Elixir) 650 mg PO Q6HR [facility] Stop: 11/26/17 18:01 Last Admin: 11/25/17 17:05 Dose: 650 mg Albuterol/Ipratropium (Duoneb) 3 ml NEB [id number] [facility] Last Admin: 11/25/17 18:21 Dose: 3 ml Bisacodyl (Dulcolax) 10 mg HI DAILYPRN PRN PRN Reason: Constipation Carvedilol (Coreg) 6.25 mg PO BID-WM [facility] Last Admin: 11/25/17 17:05 Dose: 6.25 mg Clonidine (Sedzbhwy-Eni-6 Patch) 0.1 mg TD Q7D@1800 [facility] Last Admin: 11/21/17 17:45 Dose: 0.1 mg Folic Acid (Folvite) 1 mg PO DAILY [facility] Last Admin: 11/25/17 07:58 Dose: 1 mg Hydralazine HCl (Apresoline) 20 mg SLOW IVP Q15MIN PRN PRN Reason: Sbp Greater Than 140 Last Admin: 11/25/17 11:30 Dose: 20 mg Vancomycin HCl 1.25 gm/ Sodium (Chloride) 250 mls @ 166.667 mls/hr IVPB Q8HR [facility] Last Admin: 11/25/17 13:48 Dose: 250 mls Iron/Minerals/Multivitamins (Certa Ric Liquid) 15 ml PO DAILY [facility] Last Admin: 11/25/17 07:58 Dose: 15 ml Labetalol HCl (Normodyne) 20 mg SLOW IVP Q15MIN PRN PRN Reason: Sbp Greater Than 140 Last Admin: 11/25/17 16:30 Dose: 20 mg Lorazepam (Ativan) 2 mg SLOW IVP Q6HR PRN PRN Reason: Agitation Miscellaneous Medication (Pharmacy To Dose) 1 each IVPB PRN PRN PRN Reason: Pharmacy to dose Ondansetron HCl (Zofran) 4 mg IVP BIDPRN PRN PRN Reason: Nausea/Vomiting Sodium Chloride (Flush - Normal Saline) 10 ml IVF PRN PRN PRN Reason: Saline Flush Thiamine HCl (Thiamine) 100 mg PO DAILY [facility] Last Admin: 11/25/17 07:58 Dose: 100 mg
[2017-11-26] MEDS: Labetalol HCl 100 MG/20 ML VIAL SLOW IVP PRN ×4 (01:57→15:56)
[2017-11-26] MEDS: Acetaminophen 650 MG/20.3 ML UDCUP PO SCH ×3 (05:22→19:01)
[2017-11-26] MEDS: Vancomycin HCl 1.25 GM in Sodium Chloride 0.9% 250 ML 250 ML IVPB SCH ×3 (05:22→21:45)
[2017-11-26 06:21] LABS: #Eosinphils 0.1 thou/uL (0.0-0.7); #Neutrophils 8.2 thou/uL (1.40-6.50); %Basophils 0.3 % (0.0-1.0); %Eosinophils 0.9 % (0.0-10.0); %Lymphocytes 9.6 % (21.0-51.0); %Monocytes 9.9 % (0.0-10.0); %Neutrophils 79.3 % (42.0-75.0); Hemoglobin 13.6 g/dL (14.0-18.0); Mean Corpuscular Hemoglobin 34.7 pg (27.0-31.0); Platelet Count 218 thou/uL (130-400); Red Blood Cell (RBC) Count 3.93 mill/uL (4.70-6.10); White Blood Cell (WBC) Count 10.3 thou/uL (4.8-10.8)
[2017-11-26 06:48] LABS: Anion Gap 12 mmol/L (10-20); BUN (Urea Nitrogen) 13 mg/dL (8.4-25.7); Calc. Creatinine Clearance 108 mL/min (70-130); Calcium 8.6 mg/dL (7.8-10.44); Carbon Dioxide 19 mmol/L (22-29); Chloride 110 mmol/L (98-107); Estimated GFR-MDRD Greater than 90; Glucose 144 mg/dL (70-105); Magnesium 1.6 mg/dL (1.6-2.6); Phosphorus 2.9 mg/dL (2.3-4.7); Potassium 3.1 mmol/L (3.5-5.1); Sodium 138 mmol/L (136-145)
[2017-11-26] MEDS: Folic Acid 1 MG TAB PO SCH (08:20)
[2017-11-26] MEDS: Multivits W-Minerals Liquid 15mL UDCUP PO SCH (08:20)
[2017-11-26] MEDS: Carvedilol 6.25 MG TAB PO SCH ×2 (08:20→15:48)
[2017-11-26] MEDS ORDERED: Magnesium Sulfate 2 GM in Sodium Chloride 0.9% 100 ML IVPB SCH (09:00)
--- NOTE | 2017-11-26 13:36 | RAD ---
KUB: INDICATIONS: Dobhoff tube placement. FINDINGS: The Dobhoff feeding tube tip is seen within the region of the first stage of the duodenum. The bowel gas pattern is nonspecific. No acute osseous abnormality is evident. IMPRESSION: Dobhoff feeding tube tip as above. POS: KELVIN
[2017-11-26] MEDS: D5 1/2 NS w/40 mEq KCL 1,000 ML IV SCH (16:50)
--- NOTE | 2017-11-26 17:05 | PRG ---
DATE OF SERVICE: 11/26/2017 SERVICE: Pulmonary Medicine. INTERVAL HISTORY: The patient is doing great from a respiratory standpoint. He is breathing comfort ably. His fever profile improved with the acetaminophen. Otherwise, there has been no interval rojo ge to his condition. Neurologically, he remains roughly stable. He is not following any commands, b ut he seems to be protecting his airway well enough. PHYSICAL EXAMINATION: VITAL SIGNS: Afebrile, pulse 75, blood pressure 167/89, respirations 16, saturation 96% on room air. GENERAL: The patient is awake, alert, no apparent distress. LUNGS: Decent air entry. There is no prolonged expiratory phase or wheezing present. The rhonchi a re there, but clear with cough. HEART: Normal rate, regular. ABDOMEN: Soft, nontender, nondistended. Bowel sounds are positive. MUSCULOSKELETAL: No cyanosis or clubbing. There is no pitting in the bilateral lower extremities. NEUROLOGIC: Grossly nonfocal. LABORATORY DATA: WBC 10.3, hemoglobin 13.6, platelets 218,000. Potassium 3.1. Basic metabolic prof ile is otherwise unremarkable. Magnesium and phosphorus fall within the normal limits. Prealbumin i s 21. Blood cultures x4 and urine culture is negative. IMAGING DATA: KUB demonstrates Dobbhoff tube in good location. ASSESSMENT: 1. Acute hypoxic respiratory failure, resolved. 2. Community-acquired pneumonia secondary to gross aspiration, status post, full course of Zosyn. 3. Intraparenchymal hemorrhage with intraventricular and subarachnoid extensions. 4. Delirium tremens, resolved. DISCUSSION AND PLAN: The patient is doing fine from a respiratory standpoint. At this point, I thin k it he is stable for transition out of the hospital. Feeds will need to be decided on. At this poi nt, he has no further requirements for inpatient Pulmonary or Critical Care opinion. As such, I will sign off. I will give the patient a laboratory holiday in the morning after replacing his magnesium and potassium today.
[2017-11-26 21:20] LABS: Vancomycin, Trough 13.7 ug/mL
--- NOTE | 2017-11-26 22:34 | PDOC.PN ---
- Subjective Encounter Start Date: 11/26/17 Encounter Start Time: 15:00 Patient seen and examined for med mngt. Remains confused. Pulled NG tube. - Objective MAR Reviewed: Yes Vital Signs & Weight: Vital Signs (12 hours) Temp Pulse Resp BP BP Pulse Ox 11/26/17 20:00 98.8 F 76 20 171/86 H 97 11/26/17 18:01 86 18 94 L 11/26/17 16:55 153/81 H 11/26/17 16:00 167/89 H 11/26/17 15:56 167/89 H 11/26/17 15:48 172/91 H 11/26/17 15:18 98.8 F 75 16 167/89 H 96 11/26/17 13:26 80 172/91 H 11/26/17 12:00 154/87 H 11/26/17 11:56 99.3 F 82 18 154/87 H 100 11/26/17 11:33 90 14 Weight Admit Weight 146 lb Weight 130 lb 8.218 oz Most Recent Monitor Data Heart Rate from ECG 75 NIBP 135/82 NIBP BP-Mean 99 Respiration from ECG 27 SpO2 100 I&O: 11/25/17 11/26/17 11/27/17 06:59 06:59 06:59 Intake Total 727 1557 Balance 727 1557 Result Diagrams: 11/26/17 06:06 11/26/17 06:06 Additional Labs: Accuchecks 11/26/17 19:02 POC Glucose 124 H EKG Reviewed by me: Yes (Tele SR) Phys Exam - Physical Examination Constitutional: NAD Respiratory: no wheezing, no rhonchi Cardiovascular: RRR, no rub Gastrointestinal: soft, positive bowel sounds Musculoskeletal: no edema Dx/Plan - Plan DVT proph w/SCDs IMPRESSION: 1. Acute hypoxic respiratory failure requiring Mech Vent/Toxic Metabolic Encephalopathy/Intracranial bleed 2. Aspiration Pneumonia 3. Chronic alcoholism with alcohol withdrawal/DTs 4. Rhabdomyolysis - CK improving 5. Electrolyte abn - hypernatremia/hypokalemia 6. Elevated cardiac enzymes due to demand ischemia/Lactic acidosis - resolved/ Abn LFTs - prob due to chronic alcoholism/Cocaine abuse PLAN: Add Labetalol IV Q6hr [facility] due to lack to PO access. Attempted to call family for PEG tube - No answer Adjust IVF Cont Vancomycin AM labs Cont Clonidine Patch DC planning Replace Potassium/Mg Consult GI for PEG tube Review of Systems - Review of Systems Other: CAnnot obtatin due to confusion - Medications/Allergies Allergies/Adverse Reactions: Allergies Allergy/AdvReac Type Severity Reaction Status Date / Time No Allergy Information Allergy Unverified 11/18/17 10:03 Available Medications: Current Medications Acetaminophen (Tylenol) 650 mg NJ Q4H PRN PRN Reason: Headache/Fever or Pain Albuterol/Ipratropium (Duoneb) 3 ml NEB [id number] ON LICENSE OF [facility] Last Admin: 11/26/17 18:01 Dose: 3 ml Bisacodyl (Dulcolax) 10 mg [place] DAILYPRN PRN PRN Reason: Constipation Carvedilol (Coreg) 6.25 mg PO BID-WM ON [facility] OF [facility] Last Admin: 11/26/17 15:48 Dose: Not Given Clonidine (Cqtowxif-Qpa-7 Patch) 0.1 mg TD Q7D@1800 ON [facility] OF [facility] Last Admin: 11/21/17 17:45 Dose: 0.1 mg Folic Acid (Folvite) 1 mg PO DAILY ON [facility] OF [facility] Last Admin: 11/26/17 08:20 Dose: 1 mg Hydralazine HCl (Apresoline) 20 mg SLOW IVP Q15MIN PRN PRN Reason: Sbp Greater Than 140 Last Admin: 11/25/17 23:55 Dose: 20 mg Vancomycin HCl 1.25 gm/ Sodium (Chloride) 250 mls @ 166.667 mls/hr IVPB Q8HR ON LICENSE OF [facility] Last Admin: 11/26/17 13:27 Dose: 250 mls Potassium Chloride/Dextrose/Sod Cl (D5 1/2 Ns W/40 Meq Kcl) 1,000 mls @ 75 mls/ hr IV .[id number] ON LICENSE OF [facility] Last Admin: 11/26/17 16:50 Dose: 1,000 mls Iron/Minerals/Multivitamins (Certa Ric Liquid) 15 ml PO DAILY ON LICENSE OF [facility] Last Admin: 11/26/17 08:20 Dose: 15 ml Labetalol HCl (Normodyne) 20 mg SLOW IVP Q15MIN PRN PRN Reason: Sbp Greater Than 140 Last Admin: 11/26/17 15:56 Dose: 20 mg Lorazepam (Ativan) 2 mg SLOW IVP Q6HR PRN PRN Reason: Agitation Miscellaneous Medication (Pharmacy To Dose) 1 each IVPB PRN PRN PRN Reason: Pharmacy to dose Ondansetron HCl (Zofran) 4 mg IVP BIDPRN PRN PRN Reason: Nausea/Vomiting Sodium Chloride (Flush - Normal Saline) 10 ml IVF PRN PRN PRN Reason: Saline Flush Thiamine HCl (Thiamine) 100 mg PO DAILY [facility] Last Admin: 11/26/17 08:20 Dose: 100 mg
[2017-11-26] MEDS: Labetalol HCl 100 MG/20 ML VIAL SLOW IVP SCH (23:00)
[2017-11-27] MEDS: Vancomycin HCl 1.25 GM in Sodium Chloride 0.9% 250 ML 250 ML IVPB SCH ×3 (06:47→22:54)
[2017-11-27] MEDS: Labetalol HCl 100 MG/20 ML VIAL SLOW IVP SCH ×3 (07:44→17:51)
[2017-11-27] MEDS: Folic Acid 1 MG TAB PO SCH (10:26)
[2017-11-27] MEDS: Multivits W-Minerals Liquid 15mL UDCUP PO SCH (10:27)
[2017-11-27] MEDS ORDERED: Midazolam HCl 2 mg/2 ml Vial ONE (13:19)
--- NOTE | 2017-11-27 13:27 | CON ---
DATE OF CONSULTATION: 11/27/2017 REASON FOR CONSULTATION: In need of gastrostomy tube. HISTORY: Mr. Conner is a 52-year-old man who was found down in a [place] bed unresponsive. He was br ought to the hospital. CT of the head revealed intraparenchymal hemorrhage. He did not have respira tory at first, but that has resolved. He is currently on the floor. The patient is awake, essential ly noncommunicative. He has had 2 abdominal placements which had been pulled. The patient is in nee d of nutrition and conduit for medication administration. PAST MEDICAL HISTORY: Unknown. FAMILY HISTORY: Not known. SOCIAL HISTORY: The patient reportedly has family living in [place]. No known tobacco. Reportedly b y the chart has heavy alcohol consumption. REVIEW OF SYSTEMS: Not obtainable. ALLERGIES: None. MEDICATIONS: Clonidine TTS 1 patch, folic acid, and other p.r.n. medications. PHYSICAL EXAMINATION: VITAL SIGNS: Temperature is 100.1, blood pressure 156/86, pulse ____. GENERAL: He appears to be alert, but noncommunicative. HEENT: Shows anicteric sclerae. NECK: Supple. CARDIOVASCULAR: Shows normal S1, S2 regular rate and rhythm. CHEST: Shows normal breath sounds. ABDOMEN: Soft, no distention, no tympany. He has active bowel sounds. No elicit tenderness. EXTREMITIES: Shows no edema. LABORATORY DATA: WBC is 10.3, hemoglobin 13.6, platelet count of 218. INR 1.4, PTT 41. Sodium 138, potassium 3.8, chloride 110, CO2 19, creatinine 0.68, bilirubin is 2.3, AST 235, ALT 63. ASSESSMENT: 1. Patient with inability to self feed himself because of mental status change from intracranial hem orrhage. His previous Dobhoff has been dislodged twice. He is a good candidate for gastrostomy tube placement. 2. Status post fall with intracranial hemorrhage. 3. Status post respiratory failure, resolved. 4. Likely alcoholic liver disease. 5. Rhabdo, resolved. RECOMMENDATIONS: Proceed with EGD and gastrostomy tube placement. Since there is no family and pat ient is unable to sign consent, will do 2 physician consent.
[2017-11-27] MEDS: D5 1/2 NS w/40 mEq KCL 1,000 ML IV SCH ×2 (15:46→18:28)
--- NOTE | 2017-11-27 18:02 | OP ---
DATE OF PROCEDURE: 11/27/2017 PROCEDURES PERFORMED: Esophagogastroduodenoscopy with gastrostomy tube placement. PHYSICIAN: [place] Cueva M.D. PREMEDICATION: Given by Anesthesiology Department. PREPROCEDURE DIAGNOSES: 1. Inability to self feed. 2. Dysphagia. POSTPROCEDURE DIAGNOSES: 1. Normal upper endoscopy. 2. Status post placement of 20-Austrian gastrostomy tube. PROCEDURE IN DETAIL: A written consent was obtained prior to procedure. After adequate sedation, th e forward-viewing endoscope was advanced down the stomach and under direct vision to second portion o f duodenum. The duodenum appeared normal. Pylorus was patent. The gastric antrum, body, fundus, an d cardia all appeared normal. The esophagus appeared normal. The stomach was fully insufflated. A site was selected along the medial left quadrant with good ballottement and transillumination. The s kin was cleaned with Betadine and anesthetized with 1% Xylocaine. A small incision was made. The tr ocar was introduced in the gastric lumen with the guide feeding through and grasped with a snare and brought out along with the endoscope. A 20-Austrian gastrostomy tube was then affixed to the guidewire and was then pulled back down to the gastric lumen. The external latch was then firmly secured. Kenney cardoza tolerated the procedure well without any complication. ASSESSMENT: Status post placement of 20-Austrian feeding tube. RECOMMENDATION: Resume feeding later today.
[2017-11-27] MEDS ORDERED: D5 1/2 NS w/40 mEq KCL 1,000 ML IV SCH (19:34)
--- NOTE | 2017-11-27 19:34 | PDOC.PN ---
- Subjective Encounter Start Date: 11/27/17 Encounter Start Time: 10:30 -: non-verbal Patient seen and examined for Encephalopathy. Remains confused - Noncommunicative. No overnight events - Objective MAR Reviewed: Yes Vital Signs & Weight: Vital Signs (12 hours) Temp Pulse Resp BP BP Pulse Ox 11/27/17 18:31 83 18 96 11/27/17 17:51 150/83 H 11/27/17 16:00 138/79 11/27/17 15:58 99.3 F 87 14 138/79 95 11/27/17 14:57 99.3 F 87 14 138/79 95 11/27/17 12:00 155/83 H 11/27/17 11:59 98.5 F 86 20 155/83 H 97 11/27/17 11:51 86 155/83 H 11/27/17 08:00 100.1 F H 85 20 156/86 H 156/86 H 95 11/27/17 07:47 88 16 97 11/27/17 07:44 90 Weight Admit Weight 146 lb Weight 130 lb 8.218 oz Most Recent Monitor Data Heart Rate from ECG 75 NIBP 135/82 NIBP BP-Mean 99 Respiration from ECG 27 SpO2 100 I&O: 11/26/17 11/27/17 11/28/17 06:59 06:59 06:59 Intake Total 1557 877 Balance 1557 877 Result Diagrams: 11/26/17 06:06 11/26/17 06:06 Additional Labs: Accuchecks 11/27/17 11/27/17 18:24 14:45 POC Glucose 113 H 98 EKG Reviewed by me: Yes (Tele SR) Phys Exam - Physical Examination Constitutional: NAD Respiratory: no wheezing, no rhonchi Cardiovascular: RRR, no rub Gastrointestinal: soft, non-tender, positive bowel sounds Musculoskeletal: no edema Dx/Plan - Plan DVT proph w/SCDs IMPRESSION: 1. Acute hypoxic respiratory failure requiring Mech Vent/Toxic Metabolic Encephalopathy/Intracranial bleed 2. Aspiration Pneumonia - Completed Zosyn 3. Chronic alcoholism with alcohol withdrawal/DTs 4. Rhabdomyolysis - CK improving 5. Electrolyte abn - hypernatremia/hypokalemia 6. Elevated cardiac enzymes due to demand ischemia/Lactic acidosis - resolved/ Abn LFTs - prob due to chronic alcoholism/Cocaine abuse PLAN: PEG tube today Adjust IVF Cont Vancomycin AM labs GI input appreciated Add Clonidine/Coreg Review of Systems - Review of Systems Other: Cannot obtain due to current mentation - Medications/Allergies Allergies/Adverse Reactions: Allergies Allergy/AdvReac Type Severity Reaction Status Date / Time No Allergy Information Allergy Unverified 11/18/17 10:03 Available Medications: Current Medications Acetaminophen (Tylenol) 650 mg [place] Q4H PRN PRN Reason: Headache/Fever or Pain Albuterol/Ipratropium (Duoneb) 3 ml NEB F2BS-MR [facility] Last Admin: 11/27/17 18:31 Dose: 3 ml Bisacodyl (Dulcolax) 10 mg [place] DAILYPRN PRN PRN Reason: Constipation Clonidine (Fbmsgdnz-Onz-1 Patch) 0.1 mg TD Q7D@1800 [facility] Last Admin: 11/21/17 17:45 Dose: 0.1 mg Folic Acid (Folvite) 1 mg PO DAILY [facility] Last Admin: 11/27/17 10:26 Dose: Not Given Hydralazine HCl (Apresoline) 20 mg SLOW IVP Q15MIN PRN PRN Reason: Sbp Greater Than 140 Last Admin: 11/25/17 23:55 Dose: 20 mg Vancomycin HCl 1.25 gm/ Sodium (Chloride) 250 mls @ 166.667 mls/hr IVPB Q8HR [facility] Last Admin: 11/27/17 14:21 Dose: Not Given Potassium Chloride/Dextrose/Sod Cl (D5 1/2 Ns W/40 Meq Kcl) 1,000 mls @ 75 mls/ hr IV .[id number] [facility] Last Admin: 11/27/17 18:28 Dose: 1,000 mls Iron/Minerals/Multivitamins (Certa Ric Liquid) 15 ml PO DAILY [facility] Last Admin: 11/27/17 10:27 Dose: Not Given Labetalol HCl (Normodyne) 20 mg SLOW IVP Q15MIN PRN PRN Reason: Sbp Greater Than 140 Last Admin: 11/26/17 15:56 Dose: 20 mg Labetalol HCl (Normodyne) 10 mg SLOW IVP 0500,1100,1700,2300 [facility] Last Admin: 11/27/17 17:51 Dose: 10 mg Lorazepam (Ativan) 2 mg SLOW IVP Q6HR PRN PRN Reason: Agitation Miscellaneous Medication (Pharmacy To Dose) 1 each IVPB PRN PRN PRN Reason: Pharmacy to dose Ondansetron HCl (Zofran) 4 mg IVP BIDPRN PRN PRN Reason: Nausea/Vomiting Sodium Chloride (Flush - Normal Saline) 10 ml IVF PRN PRN PRN Reason: Saline Flush Thiamine HCl (Thiamine) 100 mg PO DAILY [facility] Last Admin: 11/27/17 10:27 Dose: Not Given
[2017-11-27] MEDS: cloNIDine 0.1 MG TAB PER TUBE SCH (22:55)
[2017-11-28 06:21] LABS: #Eosinphils 0.1 thou/uL (0.0-0.7); #Monocytes 1.1 thou/uL (0.11-0.59); #Neutrophils 8.3 thou/uL (1.40-6.50); %Basophils 0.2 % (0.0-1.0); %Eosinophils 0.5 % (0.0-10.0); %Lymphocytes 9.7 % (21.0-51.0); %Monocytes 10.1 % (0.0-10.0); %Neutrophils 79.4 % (42.0-75.0); Hemoglobin 13.9 g/dL (14.0-18.0); Mean Corpuscular HGB CONC 34.5 g/dL (32.0-36.0); Mean Corpuscular Hemoglobin 34.9 pg (27.0-31.0); Mean Platelet Volume 9.7 fL (7.4-10.4); Platelet Count 301 thou/uL (130-400); RBC Distribution Width 11.9 % (11.5-14.5); Red Blood Cell (RBC) Count 3.97 mill/uL (4.70-6.10); White Blood Cell (WBC) Count 10.5 thou/uL (4.8-10.8)
[2017-11-28 06:32] LABS: Anion Gap 12 mmol/L (10-20); BUN (Urea Nitrogen) 14 mg/dL (8.4-25.7); Calc. Creatinine Clearance 108 mL/min (70-130); Calcium 8.5 mg/dL (7.8-10.44); Carbon Dioxide 20 mmol/L (22-29); Chloride 109 mmol/L (98-107); Estimated GFR-MDRD Greater than 90; Glucose 125 mg/dL (70-105); Phosphorus 2.7 mg/dL (2.3-4.7); Potassium 3.8 mmol/L (3.5-5.1); Sodium 137 mmol/L (136-145)
[2017-11-28] MEDS: Vancomycin HCl 1.25 GM in Sodium Chloride 0.9% 250 ML 250 ML IVPB SCH ×2 (06:48→15:52)
[2017-11-28] MEDS: Multivits W-Minerals Liquid 15mL UDCUP PO SCH (10:10)
[2017-11-28] MEDS: cloNIDine 0.1 MG TAB PER TUBE SCH ×3 (10:11→21:31)
[2017-11-28] MEDS: Folic Acid 1 MG TAB PO SCH (10:11)
[2017-11-28] MEDS: Carvedilol 6.25 MG TAB PER TUBE SCH ×2 (10:11→17:06)
--- NOTE | 2017-11-28 19:13 | PDOC.PN ---
- Subjective Encounter Start Date: 11/28/17 Encounter Start Time: 10:00 -: non-verbal Patient seen and examined for Encephalopathy. Tolerating tube feeds. No overnight events - Objective MAR Reviewed: Yes Vital Signs & Weight: Vital Signs (12 hours) Temp Pulse Pulse Pulse Resp BP BP 11/28/17 17:06 161/85 H 11/28/17 16:55 161/85 H 11/28/17 15:59 98.9 F 86 20 11/28/17 14:28 82 16 11/28/17 12:10 140/79 11/28/17 11:40 97.6 F 82 20 11/28/17 10:11 150/80 H 11/28/17 09:17 95 91 150/80 H 11/28/17 08:05 150/80 H 11/28/17 07:53 98.8 F 93 20 BP BP Pulse Ox 11/28/17 17:06 11/28/17 16:55 11/28/17 15:59 161/85 H 95 11/28/17 14:28 97 11/28/17 12:10 11/28/17 11:40 140/79 96 11/28/17 10:11 11/28/17 09:17 158/84 H 11/28/17 08:05 96 11/28/17 07:53 163/84 H 96 Weight Admit Weight 146 lb Weight 130 lb 8.218 oz Most Recent Monitor Data Heart Rate from ECG 75 NIBP 135/82 NIBP BP-Mean 99 Respiration from ECG 27 SpO2 100 I&O: 11/27/17 11/28/17 11/29/17 06:59 06:59 06:59 Intake Total 1557 2425 110 Balance 1557 2425 110 Result Diagrams: 11/28/17 05:45 11/28/17 05:45 Additional Labs: Accuchecks 11/28/17 11/28/17 11/28/17 18:04 11:21 05:45 POC Glucose 125 H 140 H 121 H 11/28/17 00:52 POC Glucose 137 H EKG Reviewed by me: Yes (Tele SR) Phys Exam - Physical Examination Constitutional: NAD Respiratory: no wheezing, no rhonchi Cardiovascular: RRR, no rub Gastrointestinal: soft, non-tender, positive bowel sounds PEG + Musculoskeletal: no edema Dx/Plan - Plan DVT proph w/SCDs IMPRESSION: 1. Acute hypoxic respiratory failure requiring Mech Vent/Toxic Metabolic Encephalopathy/Intracranial bleed 2. Aspiration Pneumonia - Completed Zosyn 3. Chronic alcoholism with alcohol withdrawal/DTs 4. HTN 5. Electrolyte abn - hypernatremia/hypokalemia 6. Elevated cardiac enzymes due to demand ischemia/Lactic acidosis - resolved/ Abn LFTs - prob due to chronic alcoholism/Cocaine abuse/Rhabdomyolysis PLAN: s/p PEG tube Add Hydralazine dc IVF dc Vancomycin Cont Clonidine/Coreg Stable for dc - Await placement. Review of Systems - Review of Systems Other: Cannot obtain due to current cogniton. - Medications/Allergies Allergies/Adverse Reactions: Allergies Allergy/AdvReac Type Severity Reaction Status Date / Time No Allergy Information Allergy Unverified 11/18/17 10:03 Available Medications: Current Medications Acetaminophen (Tylenol) 650 mg [place] Q4H PRN PRN Reason: Headache/Fever or Pain Albuterol/Ipratropium (Duoneb) 3 ml NEB [id number] [facility] Last Admin: 11/28/17 14:28 Dose: 3 ml Bisacodyl (Dulcolax) 10 mg [place] DAILYPRN PRN PRN Reason: Constipation Carvedilol (Coreg) 12.5 mg PER TUBE BID-WM [facility] Last Admin: 11/28/17 17:06 Dose: 12.5 mg Clonidine (Catapres) 0.1 mg PER TUBE TID [facility] Last Admin: 11/28/17 17:06 Dose: 0.1 mg Folic Acid (Folvite) 1 mg PO DAILY [facility] Last Admin: 11/28/17 10:11 Dose: 1 mg Hydralazine HCl (Apresoline) 20 mg SLOW IVP Q15MIN PRN PRN Reason: Sbp Greater Than 140 Last Admin: 11/25/17 23:55 Dose: 20 mg Iron/Minerals/Multivitamins (Certa Ric Liquid) 15 ml PO DAILY [facility] Last Admin: 11/28/17 10:10 Dose: 15 ml Labetalol HCl (Normodyne) 20 mg SLOW IVP Q15MIN PRN PRN Reason: Sbp Greater Than 140 Last Admin: 11/26/17 15:56 Dose: 20 mg Lorazepam (Ativan) 2 mg SLOW IVP Q6HR PRN PRN Reason: Agitation Miscellaneous Medication (Pharmacy To Dose) 1 each IVPB PRN PRN PRN Reason: Pharmacy to dose Ondansetron HCl (Zofran) 4 mg IVP BIDPRN PRN PRN Reason: Nausea/Vomiting Sodium Chloride (Flush - Normal Saline) 10 ml IVF PRN PRN PRN Reason: Saline Flush Thiamine HCl (Thiamine) 100 mg PO DAILY [facility] Last Admin: 11/28/17 10:11 Dose: 100 mg
[2017-11-28] MEDS ORDERED: hydrALAZINE 20 MG/ML VIAL SLOW IVP PRN (19:16)
--- NOTE | 2017-11-28 20:53 | PRG ---
DATE OF SERVICE: 11/28/2017 SUBJECTIVE: No new event since yesterday. The patient tolerates tube feeding through the G-tube wel l. Patient's mental status remains the same. OBJECTIVE: VITAL SIGNS: Temperature is 98.9, blood pressure 161/85, pulse of 86. GENERAL: His eyes open, but essentially noncommunicative. CARDIOVASCULAR: Shows normal S1, S2. Regular rate and rhythm. CHEST: Shows breath sounds, poor excursion. ABDOMEN: Flat. No distention, no tenderness. PEG site appears normal without any drainage or indur ation. The bumper slightly loosened to take pressure off the abdominal wall. He has good bowel soun ds. EXTREMITIES: Shows no edema. LABORATORY DATA: WBC is 10.5, hemoglobin 13.9, platelet count of 301. ASSESSMENT: 1. Status post gastrostomy tube placement yesterday, no issue or complication. The patient tolerate s tube feeding well. 2. Status post fall with intracranial hemorrhage. 3. Alcoholic liver disease. RECOMMENDATIONS: 1. Overall doing well from GI standpoint, status post placement of G-tube. 2. Please call GI service if needed.
[2017-11-28] MEDS: hydrALAZINE 25 MG TAB PER TUBE SCH (21:31)
[2017-11-29 05:56] LABS: Anion Gap 12 mmol/L (10-20); BUN (Urea Nitrogen) 15 mg/dL (8.4-25.7); Calc. Creatinine Clearance 114 mL/min (70-130); Calcium 8.7 mg/dL (7.8-10.44); Carbon Dioxide 23 mmol/L (22-29); Chloride 109 mmol/L (98-107); Estimated GFR-MDRD Greater than 90; Glucose 122 mg/dL (70-105); Phosphorus 3.3 mg/dL (2.3-4.7); Potassium 3.6 mmol/L (3.5-5.1); Sodium 140 mmol/L (136-145)
[2017-11-29] MEDS: cloNIDine 0.1 MG TAB PER TUBE SCH ×3 (09:37→21:10)
[2017-11-29] MEDS: hydrALAZINE 25 MG TAB PER TUBE SCH ×3 (09:37→21:10)
[2017-11-29] MEDS: Multivits W-Minerals Liquid 15mL UDCUP PO SCH (09:37)
[2017-11-29] MEDS: Carvedilol 6.25 MG TAB PER TUBE SCH ×2 (09:38→18:13)
[2017-11-29] MEDS: Folic Acid 1 MG TAB PO SCH (09:38)
--- NOTE | 2017-11-29 19:03 | PRG ---
DATE OF SERVICE: 11/29/2017 BRIEF SUMMARY: The patient is a 52-year-old male with unknown past medical history, was brought in [facility] on 11/18/2017 with unresponsiveness. He was admitted under neurosurgery service for i ntracranial bleed. He was placed on mechanical ventilation. He was later extubated and was transfer red to the stroke unit. He was on tube feeding. The patient pulled the tube feeding 3 days ago. A PEG tube was placed yesterday. SUBJECTIVE: The patient remains encephalopathic. He is slightly more responsive. He follows comman ds to some extent. No fevers or chills reported. CURRENT MEDICATIONS: Reviewed. The patient is on carvedilol, clonidine, hydralazine, nebulizer magaly tment. OBJECTIVE: VITAL SIGNS: Temperature 98.2, pulse rate of 87, respiration rate 18, blood pressure 138/72 with O2 saturation 97% on room. Telemetry monitoring showed sinus rhythm. GENERAL: A 52-year-old male in no apparent distress, tolerating PEG tube feeds. LUNGS: Clear to auscultation bilaterally. No wheezing or rales. HEART: S1, S2 present. Regular rate and rhythm. ABDOMEN: Soft, bowel sounds present. PEG tube site without any erythema. EXTREMITIES: No edema or calf tenderness. NEUROLOGIC: Examination unchanged. LABORATORY FINDINGS: No new labs today. His creatinine was 0.64. Accu-Cheks has been in 120-130 ra nge. Blood cultures negative. IMPRESSION: 1. Toxic metabolic encephalopathy secondary to intracranial bleed. Neurosurgery has signed off. Th e patient will follow up with Neurosurgery as outpatient. 2. Acute hypoxic respiratory failure, requiring mechanical ventilation. 3. Aspiration pneumonia. The patient completed antibiotics. 4. Chronic alcoholism with delirium tremens. 5. Hypertension. We will continue current antihypertensives. 6. Electrolyte abnormalities, corrected. 7. Cocaine abuse. 8. Rhabdomyolysis, resolved. 9. Elevated cardiac enzymes due to demand ischemia. 10. Lactic acidosis, resolved. 11. Swallow dysfunction due to encephalopathy. We will continue tube feeding. 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 His is in [place]. Niece lives in [facility] as who will be visiting tomorrow (11/30/2017).
[2017-11-30] MEDS: Acetaminophen 650 MG Suppository PR PRN ×2 (00:36→04:56)
[2017-11-30 05:11] LABS: Anion Gap 10 mmol/L (10-20); BUN (Urea Nitrogen) 15 mg/dL (8.4-25.7); Calc. Creatinine Clearance 109 mL/min (70-130); Calcium 8.6 mg/dL (7.8-10.44); Carbon Dioxide 23 mmol/L (22-29); Chloride 108 mmol/L (98-107); Estimated GFR-MDRD Greater than 90; Glucose 134 mg/dL (70-105); Magnesium 1.9 mg/dL (1.6-2.6); Phosphorus 3.5 mg/dL (2.3-4.7); Potassium 3.4 mmol/L (3.5-5.1); Sodium 138 mmol/L (136-145)
[2017-11-30] MEDS: Multivits W-Minerals Liquid 15mL UDCUP PO SCH (08:18)
[2017-11-30] MEDS: cloNIDine 0.1 MG TAB PER TUBE SCH ×3 (08:19→20:47)
[2017-11-30] MEDS: Folic Acid 1 MG TAB PO SCH (08:21)
[2017-11-30] MEDS: Carvedilol 6.25 MG TAB PER TUBE SCH ×2 (08:22→17:03)
[2017-11-30] MEDS: hydrALAZINE 25 MG TAB PER TUBE SCH ×3 (08:22→20:47)
--- NOTE | 2017-11-30 14:39 | PDOC.PN ---
- Subjective Encounter Start Date: 11/30/17 Encounter Start Time: 14:35 Mr. Conner was seen today in follow-up of ICH. He He is awake, mostly non- verbal. He will open his eyes and squeeze my hands. - Objective MAR Reviewed: Yes Vital Signs & Weight: Vital Signs (12 hours) Temp Pulse Resp BP BP Pulse Ox 11/30/17 11:50 97.8 F 82 14 128/88 96 11/30/17 08:22 93 146/88 H 11/30/17 08:20 97 11/30/17 08:19 146/88 H 11/30/17 08:00 98 F 94 14 133/86 97 11/30/17 06:21 100.4 F H 11/30/17 04:02 100.7 F H 98 20 142/80 H 96 11/30/17 04:00 142/80 H Weight Admit Weight 146 lb Weight 130 lb 8.218 oz Most Recent Monitor Data Heart Rate from ECG 75 NIBP 135/82 NIBP BP-Mean 99 Respiration from ECG 27 SpO2 100 I&O: 11/29/17 11/30/17 12/01/17 06:59 06:59 06:59 Intake Total 200 1247 848 Output Total 1150 Balance 200 97 848 Result Diagrams: 11/28/17 05:45 11/30/17 04:27 Additional Labs: Accuchecks 11/30/17 11/30/17 11/30/17 11:06 05:49 00:21 POC Glucose 128 H 141 H 140 H 11/29/17 18:04 POC Glucose 125 H Phys Exam - Physical Examination HEENT: PERRLA Respiratory: no wheezing, no rales, no rhonchi, clear to auscultation bilateral Cardiovascular: RRR, no significant murmur, no rub Gastrointestinal: soft, non-tender, no distention, positive bowel sounds Musculoskeletal: no edema Lower extremity weakness, and aphasia Dx/Plan (1) ICH (intracerebral hemorrhage) Code(s): I61.9 - NONTRAUMATIC INTRACEREBRAL HEMORRHAGE, UNSPECIFIED Status: Acute (2) Delirium tremens Code(s): F10.231 - ALCOHOL DEPENDENCE WITH WITHDRAWAL DELIRIUM Status: Acute (3) Aspiration pneumonia Code(s): J69.0 - PNEUMONITIS DUE TO INHALATION OF FOOD AND VOMIT Status: Acute Comment: continue IV Zosyn (4) Alcoholism Code(s): F10.20 - ALCOHOL DEPENDENCE, UNCOMPLICATED Status: Acute (5) Hypertension Code(s): I10 - ESSENTIAL (PRIMARY) HYPERTENSION Status: Acute (6) Dysphagia Code(s): R13.10 - DYSPHAGIA, UNSPECIFIED Status: Acute - Plan * Intracranial Hemorrhage- with lower extremity weakness, aphasia and dysphagia - he has likely reached his new baseline- awaiting placement * Acute hypoxic respiratory failure from aspiration pneumonia- resolved- He has completed the course of antibiotics. * Delerium tremens- resolved * HTN- blood pressure has been managed with Hydralazine and carvediolol via the PEG tube * Nutritional support with tube feedings * Discharge planning is in progress
[2017-12-01] MEDS: Folic Acid 1 MG TAB PO SCH (10:31)
[2017-12-01] MEDS: Carvedilol 6.25 MG TAB PER TUBE SCH ×2 (10:32→17:18)
[2017-12-01] MEDS: hydrALAZINE 25 MG TAB PER TUBE SCH ×3 (10:34→22:00)
[2017-12-01] MEDS: Multivits W-Minerals Liquid 15mL UDCUP PO SCH (10:35)
[2017-12-01] MEDS: cloNIDine 0.1 MG TAB PER TUBE SCH ×3 (10:35→21:59)
--- NOTE | 2017-12-01 11:09 | PDOC.PN ---
- Subjective Encounter Start Date: 12/01/17 Encounter Start Time: 10:55 Mr. Conner was seen today in follow-up of ICH. He is awake, but nonverbal . He did smile. He squeezed my hand with both hands this time. - Objective MAR Reviewed: Yes Vital Signs & Weight: Vital Signs (12 hours) Temp Pulse Resp BP BP Pulse Ox 12/01/17 10:35 143/80 H 12/01/17 10:34 69 12/01/17 10:32 143/80 H 12/01/17 07:53 98.1 F 70 16 158/90 H 96 12/01/17 04:25 97.7 F 69 16 135/78 96 Weight Admit Weight 146 lb Weight 130 lb 8.218 oz Most Recent Monitor Data Heart Rate from ECG 75 NIBP 135/82 NIBP BP-Mean 99 Respiration from ECG 27 SpO2 100 I&O: 11/30/17 12/01/17 12/02/17 06:59 06:59 06:59 Intake Total 1247 2263 Output Total 1150 Balance 97 2263 Result Diagrams: 11/28/17 05:45 11/30/17 04:27 Additional Labs: Accuchecks 12/01/17 12/01/17 11/30/17 05:52 02:19 17:07 POC Glucose 124 H 128 H 154 H 11/30/17 11:06 POC Glucose 128 H Phys Exam - Physical Examination HEENT: PERRLA Respiratory: no wheezing, no rales, no rhonchi, clear to auscultation bilateral Cardiovascular: RRR, no significant murmur, no rub Gastrointestinal: soft, non-tender, no distention, positive bowel sounds Musculoskeletal: no edema Dx/Plan (1) ICH (intracerebral hemorrhage) Code(s): I61.9 - NONTRAUMATIC INTRACEREBRAL HEMORRHAGE, UNSPECIFIED Status: Acute (2) Delirium tremens Code(s): F10.231 - ALCOHOL DEPENDENCE WITH WITHDRAWAL DELIRIUM Status: Acute (3) Aspiration pneumonia Code(s): J69.0 - PNEUMONITIS DUE TO INHALATION OF FOOD AND VOMIT Status: Acute Comment: continue IV Zosyn (4) Alcoholism Code(s): F10.20 - ALCOHOL DEPENDENCE, UNCOMPLICATED Status: Acute (5) Hypertension Code(s): I10 - ESSENTIAL (PRIMARY) HYPERTENSION Status: Acute (6) Dysphagia Code(s): R13.10 - DYSPHAGIA, UNSPECIFIED Status: Acute - Plan * ICH- with dysphagia and lower extremity weakness, and aphasia. No significant change * HTN- blood pressure is stable * Dysphagia- continue tube feeding . * Continue PT/OT * Awaiting placement
[2017-12-01] MEDS: Acetaminophen 650 MG Suppository PR PRN (14:19)
[2017-12-02] MEDS: Acetaminophen 650 MG Suppository PR PRN (03:10)
[2017-12-02 05:36] LABS: #Basophils 0.1 thou/uL (0.0-0.2); #Eosinphils 0.2 thou/uL (0.0-0.7); #Lymphocytes 0.8 thou/uL (1.20-3.40); #Monocytes 0.5 thou/uL (0.11-0.59); #Neutrophils 5.1 thou/uL (1.40-6.50); %Basophils 0.9 % (0.0-1.0); %Eosinophils 2.4 % (0.0-10.0); %Lymphocytes 11.8 % (21.0-51.0); %Monocytes 7.5 % (0.0-10.0); %Neutrophils 77.5 % (42.0-75.0); Hemoglobin 13.7 g/dL (14.0-18.0); Mean Corpuscular HGB CONC 34.1 g/dL (32.0-36.0); Mean Corpuscular Hemoglobin 34.7 pg (27.0-31.0); Mean Platelet Volume 9.2 fL (7.4-10.4); Platelet Count 449 thou/uL (130-400); RBC Distribution Width 11.7 % (11.5-14.5); Red Blood Cell (RBC) Count 3.95 mill/uL (4.70-6.10); White Blood Cell (WBC) Count 6.5 thou/uL (4.8-10.8)
[2017-12-02 05:47] LABS: Anion Gap 11 mmol/L (10-20); BUN (Urea Nitrogen) 13 mg/dL (8.4-25.7); Calc. Creatinine Clearance 128 mL/min (70-130); Calcium 9.1 mg/dL (7.8-10.44); Carbon Dioxide 24 mmol/L (22-29); Chloride 106 mmol/L (98-107); Estimated GFR-MDRD Greater than 90; Glucose 147 mg/dL (70-105); Potassium 3.6 mmol/L (3.5-5.1); Sodium 137 mmol/L (136-145)
[2017-12-02] MEDS: Multivits W-Minerals Liquid 15mL UDCUP PO SCH (10:48)
[2017-12-02] MEDS: Carvedilol 6.25 MG TAB PER TUBE SCH ×2 (10:48→16:56)
[2017-12-02] MEDS: hydrALAZINE 25 MG TAB PER TUBE SCH ×3 (10:54→21:06)
[2017-12-02] MEDS: cloNIDine 0.1 MG TAB PER TUBE SCH ×3 (10:55→21:06)
[2017-12-02] MEDS: Folic Acid 1 MG TAB PO SCH (10:55)
--- NOTE | 2017-12-02 12:03 | PDOC.PN ---
- Subjective Encounter Start Date: 12/02/17 Encounter Start Time: 12:01 Mr. Conner was seen today in follow-up of ICH. He is awake. When asked how is he doing, he tries to say good, but was not able to get the word out. He was able to follow some commands.. - Objective MAR Reviewed: Yes Vital Signs & Weight: Vital Signs (12 hours) Temp Pulse Pulse Pulse Resp BP BP 12/02/17 11:48 97.5 F L 70 16 12/02/17 10:55 136/79 12/02/17 10:54 70 12/02/17 10:48 136/79 12/02/17 08:56 68 68 139/81 12/02/17 07:39 97.8 F 73 18 12/02/17 03:57 97.8 F 69 18 BP BP Pulse Ox 12/02/17 11:48 136/79 99 12/02/17 10:55 12/02/17 10:54 12/02/17 10:48 12/02/17 08:56 128/80 12/02/17 07:39 116/68 96 12/02/17 03:57 124/80 97 Weight Admit Weight 146 lb Weight 130 lb 8.218 oz Most Recent Monitor Data Heart Rate from ECG 75 NIBP 135/82 NIBP BP-Mean 99 Respiration from ECG 27 SpO2 100 I&O: 12/01/17 12/02/17 12/03/17 06:59 06:59 06:59 Intake Total 2263 2450 Balance 2263 2450 Result Diagrams: 12/02/17 05:18 12/02/17 05:18 Additional Labs: Accuchecks 12/02/17 12/02/17 12/01/17 05:33 00:23 18:07 POC Glucose 134 H 141 H 130 H 12/01/17 12:55 POC Glucose 127 H Phys Exam - Physical Examination HEENT: PERRLA Respiratory: no wheezing, no rales, no rhonchi, clear to auscultation bilateral Cardiovascular: RRR, no significant murmur, no rub no gallop Gastrointestinal: soft, non-tender, no distention, positive bowel sounds Musculoskeletal: no edema Left sided weakness, and aphasia, and dysphagia Dx/Plan (1) ICH (intracerebral hemorrhage) Code(s): I61.9 - NONTRAUMATIC INTRACEREBRAL HEMORRHAGE, UNSPECIFIED Status: Acute (2) Delirium tremens Code(s): F10.231 - ALCOHOL DEPENDENCE WITH WITHDRAWAL DELIRIUM Status: Resolved (3) Aspiration pneumonia Code(s): J69.0 - PNEUMONITIS DUE TO INHALATION OF FOOD AND VOMIT Status: Resolved Comment: continue IV Zosyn (4) Alcoholism Code(s): F10.20 - ALCOHOL DEPENDENCE, UNCOMPLICATED Status: Chronic (5) Hypertension Code(s): I10 - ESSENTIAL (PRIMARY) HYPERTENSION Status: Chronic (6) Dysphagia Code(s): R13.10 - DYSPHAGIA, UNSPECIFIED Status: Acute - Plan * ICH- he is likely at his new baseline- continue PT/OT continue speech therapy * HTN- blood pressure is stable * Continue Tube feeding * Blood glucose is stable * Awaiting placement.
[2017-12-03] MEDS: Carvedilol 6.25 MG TAB PER TUBE SCH ×2 (08:23→17:58)
[2017-12-03] MEDS: cloNIDine 0.1 MG TAB PER TUBE SCH ×3 (08:24→22:18)
[2017-12-03] MEDS: Folic Acid 1 MG TAB PO SCH (08:25)
[2017-12-03] MEDS: hydrALAZINE 25 MG TAB PER TUBE SCH ×3 (08:26→22:10)
[2017-12-03] MEDS: Multivits W-Minerals Liquid 15mL UDCUP PO SCH (08:27)
--- NOTE | 2017-12-03 14:18 | PDOC.PN ---
- Subjective Encounter Start Date: 12/03/17 Encounter Start Time: 14:15 Mr. Conner was seen today in follow-up for ICH. He is awake and alert, and will answer some questions. - Objective MAR Reviewed: Yes Vital Signs & Weight: Vital Signs (12 hours) Temp Pulse Resp BP BP Pulse Ox 12/03/17 11:35 98.3 F 74 16 97/58 L 97 12/03/17 08:26 68 129/78 12/03/17 08:24 129/78 12/03/17 08:23 129/78 12/03/17 08:00 129/78 12/03/17 07:41 97.9 F 68 12 129/78 99 12/03/17 04:00 97.3 F L 70 16 128/80 128/80 97 Weight Admit Weight 146 lb Weight 130 lb 8.218 oz Most Recent Monitor Data Heart Rate from ECG 75 NIBP 135/82 NIBP BP-Mean 99 Respiration from ECG 27 SpO2 100 I&O: 12/02/17 12/03/17 12/04/17 06:59 06:59 06:59 Intake Total 2450 660 110 Balance 2450 660 110 Result Diagrams: 12/02/17 05:18 12/02/17 05:18 Additional Labs: Accuchecks 12/03/17 12/03/17 12/03/17 11:35 05:49 02:11 POC Glucose 150 H 141 H 114 H 12/02/17 12/02/17 21:13 17:57 POC Glucose 135 H 116 H Phys Exam - Physical Examination HEENT: PERRLA Respiratory: no wheezing, no rales, no rhonchi, clear to auscultation bilateral Cardiovascular: RRR, no significant murmur, no rub Gastrointestinal: soft, non-tender, no distention, positive bowel sounds Musculoskeletal: no edema Dx/Plan (1) ICH (intracerebral hemorrhage) Code(s): I61.9 - NONTRAUMATIC INTRACEREBRAL HEMORRHAGE, UNSPECIFIED Status: Acute (2) Delirium tremens Code(s): F10.231 - ALCOHOL DEPENDENCE WITH WITHDRAWAL DELIRIUM Status: Resolved (3) Aspiration pneumonia Code(s): J69.0 - PNEUMONITIS DUE TO INHALATION OF FOOD AND VOMIT Status: Resolved Comment: continue IV Zosyn (4) Alcoholism Code(s): F10.20 - ALCOHOL DEPENDENCE, UNCOMPLICATED Status: Chronic (5) Hypertension Code(s): I10 - ESSENTIAL (PRIMARY) HYPERTENSION Status: Chronic (6) Dysphagia Code(s): R13.10 - DYSPHAGIA, UNSPECIFIED Status: Acute - Plan * ICH- the aphasia is improving. He only will says a few words but they are appropriate and clear * Dysphagia- continue with Tube feeds and continue Speech therapy * HTN- controlled * DM- blood glucose is controlled * Discharge planning is in progress.
[2017-12-03] MEDS: Nystatin Powder 15 GM BOT TOP PRN (17:58)
[2017-12-04] MEDS: Carvedilol 6.25 MG TAB PER TUBE SCH ×2 (08:36→16:27)
[2017-12-04] MEDS: hydrALAZINE 25 MG TAB PER TUBE SCH ×3 (08:36→22:07)
[2017-12-04] MEDS: Folic Acid 1 MG TAB PO SCH (08:36)
[2017-12-04] MEDS: cloNIDine 0.1 MG TAB PER TUBE SCH ×3 (08:37→22:07)
[2017-12-04] MEDS: Nystatin Powder 15 GM BOT TOP PRN (08:37)
[2017-12-04] MEDS: Multivits W-Minerals Liquid 15mL UDCUP PO SCH (10:20)
--- NOTE | 2017-12-04 11:08 | PDOC.PN ---
- Subjective Encounter Start Date: 12/04/17 Encounter Start Time: 11:07 Mr. Conner was seen today in follow-up of ICH. He is a bit drowsy at the moment. He is reported to have been more awake earlier today, and answering a few questions. - Objective MAR Reviewed: Yes Vital Signs & Weight: Vital Signs (12 hours) Temp Pulse Resp BP BP Pulse Ox 12/04/17 08:37 142/85 H 12/04/17 08:36 78 142/85 H 12/04/17 07:45 98.0 F 78 16 142/85 H 99 12/04/17 04:00 98.7 F 81 18 140/83 96 12/04/17 00:00 97.8 F 74 18 109/74 109/74 96 Weight Admit Weight 146 lb Weight 130 lb 8.218 oz Most Recent Monitor Data Heart Rate from ECG 75 NIBP 135/82 NIBP BP-Mean 99 Respiration from ECG 27 SpO2 100 I&O: 12/03/17 12/04/17 12/05/17 06:59 06:59 06:59 Intake Total 660 550 Balance 660 550 Result Diagrams: 12/02/17 05:18 12/02/17 05:18 Additional Labs: Accuchecks 12/04/17 12/04/17 12/03/17 05:55 00:23 18:02 POC Glucose 110 125 H 137 H 12/03/17 11:35 POC Glucose 150 H Phys Exam - Physical Examination HEENT: PERRLA Respiratory: no wheezing, no rales, no rhonchi, clear to auscultation bilateral Cardiovascular: RRR, no significant murmur, no rub Gastrointestinal: soft, non-tender, no distention, positive bowel sounds Musculoskeletal: no edema Dx/Plan (1) ICH (intracerebral hemorrhage) Code(s): I61.9 - NONTRAUMATIC INTRACEREBRAL HEMORRHAGE, UNSPECIFIED Status: Acute (2) Delirium tremens Code(s): F10.231 - ALCOHOL DEPENDENCE WITH WITHDRAWAL DELIRIUM Status: Resolved (3) Aspiration pneumonia Code(s): J69.0 - PNEUMONITIS DUE TO INHALATION OF FOOD AND VOMIT Status: Resolved Comment: continue IV Zosyn (4) Alcoholism Code(s): F10.20 - ALCOHOL DEPENDENCE, UNCOMPLICATED Status: Chronic (5) Hypertension Code(s): I10 - ESSENTIAL (PRIMARY) HYPERTENSION Status: Chronic (6) Dysphagia Code(s): R13.10 - DYSPHAGIA, UNSPECIFIED Status: Acute - Plan * ICH- with aphasia, and dysphagia- he is speaking a little more. * HTN-blood pressure is stable * Dysphagia- continue tube feeds, and Speech Therapy * Continue PT/OT.
[2017-12-05] MEDS: Folic Acid 1 MG TAB PO SCH (10:22)
[2017-12-05] MEDS: Carvedilol 6.25 MG TAB PER TUBE SCH ×2 (10:22→18:28)
[2017-12-05] MEDS: cloNIDine 0.1 MG TAB PER TUBE SCH ×3 (10:23→22:28)
[2017-12-05] MEDS: hydrALAZINE 25 MG TAB PER TUBE SCH ×3 (10:23→22:26)
[2017-12-05] MEDS: Multivits W-Minerals Liquid 15mL UDCUP PO SCH (10:26)
--- NOTE | 2017-12-05 12:27 | PDOC.PN ---
- Subjective Encounter Start Date: 12/05/17 Encounter Start Time: 12:24 Mr. Conner was seen today in follow-up of ICH. He has not had any significant exchange consultant the past few days. There are a few distant family members at bedside. - Objective MAR Reviewed: Yes Vital Signs & Weight: Vital Signs (12 hours) Temp Pulse Pulse Pulse Resp BP BP 12/05/17 12:00 98.4 F 88 20 12/05/17 10:23 80 12/05/17 08:45 88 74 131/76 119/72 12/05/17 07:55 98.0 F 80 18 12/05/17 04:00 97.9 F 74 18 BP Pulse Ox 12/05/17 12:00 108/70 94 L 12/05/17 10:23 12/05/17 08:45 12/05/17 07:55 121/69 95 12/05/17 04:00 124/71 98 Weight Admit Weight 146 lb Weight 130 lb 8.218 oz Most Recent Monitor Data Heart Rate from ECG 75 NIBP 135/82 NIBP BP-Mean 99 Respiration from ECG 27 SpO2 100 I&O: 12/04/17 12/05/17 12/06/17 06:59 06:59 06:59 Intake Total 550 642 570 Balance 550 642 570 Result Diagrams: 12/02/17 05:18 12/02/17 05:18 Additional Labs: Accuchecks 12/05/17 12/05/17 12/05/17 10:50 06:00 00:01 POC Glucose 130 H 89 99 12/04/17 17:33 POC Glucose 181 H Phys Exam - Physical Examination HEENT: PERRLA Respiratory: no wheezing, no rales, no rhonchi, clear to auscultation bilateral Cardiovascular: RRR, no significant murmur, no rub Gastrointestinal: soft, non-tender, no distention, positive bowel sounds Musculoskeletal: no edema Dx/Plan (1) ICH (intracerebral hemorrhage) Code(s): I61.9 - NONTRAUMATIC INTRACEREBRAL HEMORRHAGE, UNSPECIFIED Status: Acute (2) Delirium tremens Code(s): F10.231 - ALCOHOL DEPENDENCE WITH WITHDRAWAL DELIRIUM Status: Resolved (3) Aspiration pneumonia Code(s): J69.0 - PNEUMONITIS DUE TO INHALATION OF FOOD AND VOMIT Status: Resolved Comment: continue IV Zosyn (4) Alcoholism Code(s): F10.20 - ALCOHOL DEPENDENCE, UNCOMPLICATED Status: Chronic (5) Hypertension Code(s): I10 - ESSENTIAL (PRIMARY) HYPERTENSION Status: Chronic (6) Dysphagia Code(s): R13.10 - DYSPHAGIA, UNSPECIFIED Status: Acute - Plan * ICH- stable. He has made some neurological improvement- but has plateaued over the past few days * Continue Tube feeds * HTN- blood pressure is stable * Continue PT/OT and Speech Therapy * Discharge planning is in progress.
[2017-12-05] MEDS: Acetaminophen 650 MG Suppository PR PRN (22:37)
[2017-12-06] MEDS: cloNIDine 0.1 MG TAB PER TUBE SCH ×3 (09:35→22:27)
[2017-12-06] MEDS: Multivits W-Minerals Liquid 15mL UDCUP PO SCH (09:35)
[2017-12-06] MEDS: hydrALAZINE 25 MG TAB PER TUBE SCH ×3 (09:36→22:27)
[2017-12-06] MEDS: Folic Acid 1 MG TAB PO SCH (09:36)
[2017-12-06] MEDS: Carvedilol 6.25 MG TAB PER TUBE SCH ×2 (09:37→18:12)
--- NOTE | 2017-12-06 13:43 | PDOC.PN ---
- Subjective Encounter Start Date: 12/06/17 Encounter Start Time: 13:40 Mr. Conner was seen today on follow-up of ICH. He is out of restraints this afternoon. He is laying quietly in bed with the sheets pulled over his head. No problems voiced by staff. He is trying to answer some questions. - Objective MAR Reviewed: Yes Vital Signs & Weight: Vital Signs (12 hours) Temp Pulse Resp BP BP Pulse Ox 12/06/17 11:22 98.0 F 81 20 107/67 96 12/06/17 09:37 106/67 12/06/17 09:36 79 12/06/17 09:35 106/67 12/06/17 07:42 98.3 F 79 16 114/68 96 12/06/17 04:50 98 F 74 18 106/67 106/67 98 Weight Admit Weight 146 lb Weight 130 lb 8.218 oz Most Recent Monitor Data Heart Rate from ECG 75 NIBP 135/82 NIBP BP-Mean 99 Respiration from ECG 27 SpO2 100 I&O: 12/05/17 12/06/17 12/07/17 06:59 06:59 06:59 Intake Total 642 1185 Balance 642 1185 Result Diagrams: 12/02/17 05:18 12/02/17 05:18 Additional Labs: Accuchecks 12/06/17 12/06/17 12/06/17 10:33 06:04 03:11 POC Glucose 152 H 98 108 12/05/17 17:05 POC Glucose 111 H Phys Exam - Physical Examination HEENT: PERRLA Respiratory: no wheezing, no rales, no rhonchi, clear to auscultation bilateral Cardiovascular: RRR, no significant murmur, no rub Gastrointestinal: soft, non-tender, no distention, positive bowel sounds Dx/Plan (1) ICH (intracerebral hemorrhage) Code(s): I61.9 - NONTRAUMATIC INTRACEREBRAL HEMORRHAGE, UNSPECIFIED Status: Acute (2) Delirium tremens Code(s): F10.231 - ALCOHOL DEPENDENCE WITH WITHDRAWAL DELIRIUM Status: Resolved (3) Aspiration pneumonia Code(s): J69.0 - PNEUMONITIS DUE TO INHALATION OF FOOD AND VOMIT Status: Resolved Comment: continue IV Zosyn (4) Alcoholism Code(s): F10.20 - ALCOHOL DEPENDENCE, UNCOMPLICATED Status: Chronic (5) Hypertension Code(s): I10 - ESSENTIAL (PRIMARY) HYPERTENSION Status: Chronic (6) Dysphagia Code(s): R13.10 - DYSPHAGIA, UNSPECIFIED Status: Acute - Plan * ICH- clinically unchanged- continue PT/OT * HTN- blood pressure is stable * Dysphagia and Aphasia- continue Speech therapy, and tube feeds for nutritional support.
[2017-12-07] MEDS: Carvedilol 6.25 MG TAB PER TUBE SCH ×2 (09:21→17:41)
[2017-12-07] MEDS: Multivits W-Minerals Liquid 15mL UDCUP PO SCH (09:24)
[2017-12-07] MEDS: Folic Acid 1 MG TAB PO SCH (09:25)
[2017-12-07] MEDS: hydrALAZINE 25 MG TAB PER TUBE SCH ×3 (09:25→23:06)
[2017-12-07] MEDS: cloNIDine 0.1 MG TAB PER TUBE SCH ×4 (09:25→22:45)
--- NOTE | 2017-12-07 11:14 | PDOC.PN ---
- Subjective Encounter Start Date: 12/07/17 Encounter Start Time: 11:12 Mr. Conner was seen today in follow-up of ICH. He is laying in bed. He is out of restraints. No complaints voiced by staff. - Objective MAR Reviewed: Yes Vital Signs & Weight: Vital Signs (12 hours) Temp Pulse Resp BP BP Pulse Ox 12/07/17 09:25 79 12/07/17 08:00 97.3 F L 79 16 119/80 98 12/07/17 04:00 98.1 F 80 20 115/77 97 12/07/17 00:00 98 F 96 20 106/69 106/69 96 Weight Admit Weight 146 lb Weight 130 lb 8.218 oz Most Recent Monitor Data Heart Rate from ECG 75 NIBP 135/82 NIBP BP-Mean 99 Respiration from ECG 27 SpO2 100 I&O: 12/06/17 12/07/17 12/08/17 06:59 06:59 06:59 Intake Total 1185 2047 Balance 1185 2047 Result Diagrams: 12/02/17 05:18 12/02/17 05:18 Additional Labs: Accuchecks 12/07/17 12/07/17 12/06/17 05:57 00:52 18:41 POC Glucose 114 H 151 H 169 H 12/06/17 10:33 POC Glucose 152 H Phys Exam - Physical Examination HEENT: PERRLA Respiratory: no wheezing, no rales, no rhonchi, clear to auscultation bilateral Cardiovascular: RRR, no significant murmur, no rub Gastrointestinal: soft, non-tender, no distention, positive bowel sounds Musculoskeletal: no edema Dx/Plan (1) ICH (intracerebral hemorrhage) Code(s): I61.9 - NONTRAUMATIC INTRACEREBRAL HEMORRHAGE, UNSPECIFIED Status: Acute (2) Delirium tremens Code(s): F10.231 - ALCOHOL DEPENDENCE WITH WITHDRAWAL DELIRIUM Status: Resolved (3) Aspiration pneumonia Code(s): J69.0 - PNEUMONITIS DUE TO INHALATION OF FOOD AND VOMIT Status: Resolved Comment: continue IV Zosyn (4) Alcoholism Code(s): F10.20 - ALCOHOL DEPENDENCE, UNCOMPLICATED Status: Chronic (5) Hypertension Code(s): I10 - ESSENTIAL (PRIMARY) HYPERTENSION Status: Chronic (6) Dysphagia Code(s): R13.10 - DYSPHAGIA, UNSPECIFIED Status: Acute - Plan * ICH- stable * HTN- blood pressure is stable * Dysphagia- continue PEG tube feeds, and Speech Therapy * Continue PT/OT * Discharge plans are in progress.
[2017-12-08] MEDS ORDERED: diphenhydrAMINE 25 MG CAP PO SCH (01:45)
[2017-12-08] MEDS: Carvedilol 6.25 MG TAB PER TUBE SCH ×2 (08:53→17:15)
[2017-12-08] MEDS: hydrALAZINE 25 MG TAB PER TUBE SCH ×4 (08:54→21:06)
[2017-12-08] MEDS: Folic Acid 1 MG TAB PO SCH (08:54)
[2017-12-08] MEDS: Acetaminophen 650 MG/20.3 ML UDCUP PER TUBE PRN (09:25)
[2017-12-08] MEDS: Multivits W-Minerals Liquid 15mL UDCUP PO SCH (09:25)
--- NOTE | 2017-12-08 12:09 | PDOC.PN ---
- Subjective Encounter Start Date: 12/08/17 Encounter Start Time: 12:08 cc: ICH sub: Pt is not oriented - Objective Vital Signs & Weight: Vital Signs (12 hours) Temp Pulse Resp BP BP Pulse Ox 12/08/17 11:53 98.5 F 83 16 101/71 97 12/08/17 08:56 95 12/08/17 08:54 86 12/08/17 08:53 113/78 12/08/17 08:00 98.1 F 86 20 113/78 95 12/08/17 05:50 98.4 F 84 14 109/78 93 L Weight Admit Weight 146 lb Weight 130 lb 8.218 oz Most Recent Monitor Data Heart Rate from ECG 75 NIBP 135/82 NIBP BP-Mean 99 Respiration from ECG 27 SpO2 100 I&O: 12/07/17 12/08/17 12/09/17 06:59 06:59 06:59 Intake Total 2046 2462 684 Balance 2046 2462 684 Result Diagrams: 12/02/17 05:18 12/02/17 05:18 Additional Labs: Accuchecks 12/08/17 12/08/17 12/08/17 10:54 06:00 00:36 POC Glucose 186 H 94 90 12/07/17 12:30 POC Glucose 125 H Phys Exam - Physical Examination Constitutional: NAD HEENT: moist MMs Neck: no JVD Respiratory: no wheezing, no rales, no rhonchi Cardiovascular: RRR, no significant murmur, no rub Gastrointestinal: soft, non-tender, positive bowel sounds positive peg tube, no guarding, no rebound tenderness Musculoskeletal: no edema Neurological: non-focal, moves all 4 limbs Psychiatric: normal affect Skin: no rash Dx/Plan - Plan * . (1) ICH (intracerebral hemorrhage) Code(s): I61.9 - NONTRAUMATIC INTRACEREBRAL HEMORRHAGE, UNSPECIFIED Status: Acute (2) Delirium tremens Code(s): F10.231 - ALCOHOL DEPENDENCE WITH WITHDRAWAL DELIRIUM Status: Resolved (3) Aspiration pneumonia Code(s): J69.0 - PNEUMONITIS DUE TO INHALATION OF FOOD AND VOMIT Status: Resolved Comment: continue IV Zosyn (4) Alcoholism Code(s): F10.20 - ALCOHOL DEPENDENCE, UNCOMPLICATED Status: Chronic (5) Hypertension Code(s): I10 - ESSENTIAL (PRIMARY) HYPERTENSION Status: Chronic (6) Dysphagia Code(s): R13.10 - DYSPHAGIA, UNSPECIFIED Status: Acute - Plan * ICH- stable. still not oriented. * HTN- blood pressure is stable * Dysphagia- continue PEG tube feeds, and Speech Therapy * Continue PT/OT * Discharge plans are in progress.
[2017-12-08] MEDS: cloNIDine 0.1 MG TAB PER TUBE SCH ×2 (15:50→21:08)
[2017-12-09] MEDS: cloNIDine 0.1 MG TAB PER TUBE SCH ×3 (08:20→21:27)
[2017-12-09] MEDS: Carvedilol 6.25 MG TAB PER TUBE SCH ×2 (08:21→18:42)
[2017-12-09] MEDS: Folic Acid 1 MG TAB PO SCH (08:21)
[2017-12-09] MEDS: hydrALAZINE 25 MG TAB PER TUBE SCH ×3 (08:21→21:27)
[2017-12-09] MEDS: Multivits W-Minerals Liquid 15mL UDCUP PO SCH (08:23)
--- NOTE | 2017-12-09 10:02 | PDOC.PN ---
- Subjective Encounter Start Date: 12/09/17 Encounter Start Time: 09:45 -: old records requested/rev Pt seen and examined, cahrt reviewed in its entirety, this si my first visit iwth this patient follow up for ICH. Pt is pending placement at this time, discussed with CM. Pt able to get up and walk to door and back with PT which is an improvement apparently, pt was incontinent of stool overnight, and stepped in it when trying to get up by himself and fell. no injury, moved closer to nurses station Sleeping, but easily arousable. No F/C, no N/V/D/C, no CP or sOB Sitter reports no issues All systems reviewed and neg x as above - Objective MAR Reviewed: Yes Vital Signs & Weight: Vital Signs (12 hours) Temp Pulse Resp BP BP Pulse Ox 12/09/17 08:21 86 114/80 12/09/17 08:20 114/80 12/09/17 07:58 98.4 F 86 16 114/80 96 12/09/17 03:52 98.9 F 88 16 111/78 97 12/09/17 00:00 98.8 F 84 16 109/77 96 Weight Admit Weight 146 lb Weight 130 lb 8.218 oz Most Recent Monitor Data Heart Rate from ECG 75 NIBP 135/82 NIBP BP-Mean 99 Respiration from ECG 27 SpO2 100 I&O: 12/08/17 12/09/17 12/10/17 06:59 06:59 06:59 Intake Total 2462 2422 Output Total 425 Balance 2462 1996 Result Diagrams: 12/02/17 05:18 12/02/17 05:18 Additional Labs: Accuchecks 12/09/17 12/08/17 12/08/17 05:59 23:41 17:11 POC Glucose 101 130 H 149 H 12/08/17 10:54 POC Glucose 186 H Radiology Reviewed by me: Yes EKG Reviewed by me: Yes Phys Exam - Physical Examination Constitutional: NAD HEENT: PERRLA, moist MMs, sclera anicteric, oral pharynx no lesions Neck: no nodes, no JVD, supple, full ROM Respiratory: no wheezing, no rales, no rhonchi, clear to auscultation bilateral Cardiovascular: RRR, no rub Gastrointestinal: soft, non-tender, no distention, positive bowel sounds Musculoskeletal: no edema, pulses present Neurological: non-focal, moves all 4 limbs Lymphatic: no nodes Skin: no rash, normal turgor, cap refill <2 seconds Dx/Plan (1) Acute respiratory failure with hypoxia Code(s): J96.01 - ACUTE RESPIRATORY FAILURE WITH HYPOXIA Status: Resolved Comment: extubated (2) Dysphagia Code(s): R13.10 - DYSPHAGIA, UNSPECIFIED Status: Acute Qualifiers: Dysphagia type: unspecified Qualified Code(s): R13.10 - Dysphagia, unspecified Comment: follow up on ST (3) Hypokalemia Code(s): E87.6 - HYPOKALEMIA Status: Resolved Comment: on electrolyte replacement protocol (4) ICH (intracerebral hemorrhage) Code(s): I61.9 - NONTRAUMATIC INTRACEREBRAL HEMORRHAGE, UNSPECIFIED Status: Acute Qualifiers: Intracerebral hemorrhage etiology: nontraumatic Cerebral hemorrhage location: unspecified cerebral location Laterality: unspecified laterality Qualified Code(s): I61.9 - Nontraumatic intracerebral hemorrhage, unspecified (5) Alcoholism Code(s): F10.20 - ALCOHOL DEPENDENCE, UNCOMPLICATED Status: Chronic (6) Hypertension Code(s): I10 - ESSENTIAL (PRIMARY) HYPERTENSION Status: Chronic Qualifiers: Hypertension type: essential hypertension Qualified Code(s): I10 - Essential (primary) hypertension (7) Aspiration pneumonia Code(s): J69.0 - PNEUMONITIS DUE TO INHALATION OF FOOD AND VOMIT Status: Resolved Comment: off abx - Plan cont current 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 follow up with CM on dispo plans
[2017-12-09] MEDS ORDERED: Venlafaxine XR 37.5 MG CAP PO SCH (10:15)
[2017-12-10 05:50] LABS: #Basophils 0.1 thou/uL (0.0-0.2); #Eosinphils 0.2 thou/uL (0.0-0.7); #Monocytes 0.6 thou/uL (0.11-0.59); %Basophils 1.1 % (0.0-1.0); %Eosinophils 2.9 % (0.0-10.0); %Lymphocytes 16.8 % (21.0-51.0); %Monocytes 10.1 % (0.0-10.0); %Neutrophils 69.2 % (42.0-75.0); Hemoglobin 12.8 g/dL (14.0-18.0); Mean Corpuscular HGB CONC 32.7 g/dL (32.0-36.0); Mean Platelet Volume 8.3 fL (7.4-10.4); Platelet Count 302 thou/uL (130-400); RBC Distribution Width 11.3 % (11.5-14.5); Red Blood Cell (RBC) Count 3.89 mill/uL (4.70-6.10); White Blood Cell (WBC) Count 5.8 thou/uL (4.8-10.8)
[2017-12-10 05:59] LABS: Anion Gap 11 mmol/L (10-20); BUN (Urea Nitrogen) 7 mg/dL (8.4-25.7); Calc. Creatinine Clearance 128 mL/min (70-130); Calcium 9.2 mg/dL (7.8-10.44); Carbon Dioxide 24 mmol/L (22-29); Chloride 98 mmol/L (98-107); Estimated GFR-MDRD Greater than 90; Glucose 101 mg/dL (70-105); Magnesium 1.4 mg/dL (1.6-2.6); Sodium 129 mmol/L (136-145)
[2017-12-10] MEDS: Carvedilol 6.25 MG TAB PER TUBE SCH ×2 (07:27→16:32)
[2017-12-10] MEDS: hydrALAZINE 25 MG TAB PER TUBE SCH ×3 (07:28→21:47)
[2017-12-10] MEDS: Multivits W-Minerals Liquid 15mL UDCUP PO SCH (08:59)
[2017-12-10] MEDS: Folic Acid 1 MG TAB PO SCH (09:03)
[2017-12-10] MEDS: cloNIDine 0.1 MG TAB PER TUBE SCH ×3 (09:03→21:48)
[2017-12-10] MEDS: Venlafaxine XR 37.5 MG CAP PO SCH (09:04)
[2017-12-10] MEDS ORDERED: Magnesium Sulfate 4 GM in Sodium Chloride 0.9% 250 ML 250 ML IVPB SCH (11:00)
[2017-12-10] MEDS ORDERED: Magnesium Oxide 400 MG TAB PO SCH (11:30)
--- NOTE | 2017-12-10 13:18 | PDOC.PN ---
- Subjective Encounter Start Date: 12/10/17 Encounter Start Time: 09:45 -: non-verbal follow up for AMS, nontraumatic ICH, chronic dysphagia, HTN PT still altered, confused, requiring sitter No F/C, no N/V/D/C, no CP or SOB, no acute overnight events, no new complaints ROS not obtainable due to AMS awaitng placement decisions, CM notes reviewed - Objective MAR Reviewed: Yes Vital Signs & Weight: Vital Signs (12 hours) Temp Pulse Resp BP Pulse Ox 12/10/17 11:53 98.4 F 74 18 127/77 97 12/10/17 07:23 98.2 F 70 16 108/82 96 12/10/17 04:00 98.1 F 73 16 123/76 96 Weight Admit Weight 146 lb Weight 130 lb 8.218 oz Most Recent Monitor Data Heart Rate from ECG 75 NIBP 135/82 NIBP BP-Mean 99 Respiration from ECG 27 SpO2 100 I&O: 12/09/17 12/10/17 12/11/17 06:59 06:59 06:59 Intake Total 2422 1848 287 Output Total 425 Balance 1996 1848 287 Result Diagrams: 12/10/17 04:46 12/10/17 04:46 Additional Labs: Accuchecks 12/10/17 12/10/17 12/09/17 05:31 00:08 20:45 POC Glucose 96 113 H 108 12/09/17 16:51 POC Glucose 159 H Phys Exam - Physical Examination Constitutional: NAD HEENT: PERRLA, moist MMs, sclera anicteric, oral pharynx no lesions Neck: no nodes, no JVD, supple, full ROM Respiratory: no wheezing, no rales, no rhonchi, clear to auscultation bilateral Cardiovascular: RRR, no significant murmur, no rub Gastrointestinal: soft, non-tender, no distention, positive bowel sounds Musculoskeletal: no edema Neurological: moves all 4 limbs Lymphatic: no nodes Deviation from normal: asleep, arousable, O to person only Skin: no rash, normal turgor, cap refill <2 seconds Dx/Plan (1) ICH (intracerebral hemorrhage) Code(s): I61.9 - NONTRAUMATIC INTRACEREBRAL HEMORRHAGE, UNSPECIFIED Status: Acute Qualifiers: Intracerebral hemorrhage etiology: nontraumatic Cerebral hemorrhage location: unspecified cerebral location Laterality: unspecified laterality Qualified Code(s): I61.9 - Nontraumatic intracerebral hemorrhage, unspecified (2) Dysphagia Code(s): R13.10 - DYSPHAGIA, UNSPECIFIED Status: Chronic Qualifiers: Dysphagia type: unspecified Qualified Code(s): R13.10 - Dysphagia, unspecified Comment: follow up on ST (3) Hypokalemia Code(s): E87.6 - HYPOKALEMIA Status: Resolved Comment: on electrolyte replacement protocol (4) Acute respiratory failure with hypoxia Code(s): J96.01 - ACUTE RESPIRATORY FAILURE WITH HYPOXIA Status: Resolved Comment: extubated (5) Alcoholism Code(s): F10.20 - ALCOHOL DEPENDENCE, UNCOMPLICATED Status: Chronic (6) Hypertension Code(s): I10 - ESSENTIAL (PRIMARY) HYPERTENSION Status: Chronic Qualifiers: Hypertension type: essential hypertension Qualified Code(s): I10 - Essential (primary) hypertension (7) Aspiration pneumonia Code(s): J69.0 - PNEUMONITIS DUE TO INHALATION OF FOOD AND VOMIT Status: Resolved Comment: off abx (8) Hypomagnesemia Code(s): E83.42 - HYPOMAGNESEMIA Status: Acute Comment: replace orally, pt pulled out all IVs - Plan cont current plan of care, 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
[2017-12-10] MEDS: Magnesium Oxide 400 MG TAB PO SCH (21:47)
[2017-12-11 04:51] LABS: Anion Gap 11 mmol/L (10-20); BUN (Urea Nitrogen) 7 mg/dL (8.4-25.7); Calc. Creatinine Clearance 126 mL/min (70-130); Calcium 9.4 mg/dL (7.8-10.44); Carbon Dioxide 26 mmol/L (22-29); Chloride 99 mmol/L (98-107); Estimated GFR-MDRD Greater than 90; Glucose 93 mg/dL (70-105); Magnesium 1.6 mg/dL (1.6-2.6); Potassium 4.1 mmol/L (3.5-5.1); Sodium 132 mmol/L (136-145)
[2017-12-11] MEDS: Carvedilol 6.25 MG TAB PER TUBE SCH ×2 (08:23→16:00)
[2017-12-11] MEDS: cloNIDine 0.1 MG TAB PER TUBE SCH ×3 (08:23→20:55)
[2017-12-11] MEDS: Folic Acid 1 MG TAB PO SCH (08:24)
[2017-12-11] MEDS: hydrALAZINE 25 MG TAB PER TUBE SCH ×3 (08:24→20:55)
[2017-12-11] MEDS: Multivits W-Minerals Liquid 15mL UDCUP PO SCH (08:27)
[2017-12-11] MEDS: Magnesium Oxide 400 MG TAB PO SCH ×2 (08:29→20:54)
[2017-12-11] MEDS: Venlafaxine XR 37.5 MG CAP PO SCH (08:41)
[2017-12-12] MEDS: Carvedilol 6.25 MG TAB PER TUBE SCH ×2 (08:16→16:44)
[2017-12-12] MEDS: Venlafaxine XR 37.5 MG CAP PO SCH (08:16)
[2017-12-12] MEDS: Multivits W-Minerals Liquid 15mL UDCUP PO SCH (08:16)
[2017-12-12] MEDS: cloNIDine 0.1 MG TAB PER TUBE SCH ×3 (08:17→21:00)
[2017-12-12] MEDS: Magnesium Oxide 400 MG TAB PO SCH ×2 (08:17→22:51)
[2017-12-12] MEDS: Folic Acid 1 MG TAB PO SCH (08:18)
[2017-12-12] MEDS: hydrALAZINE 25 MG TAB PER TUBE SCH ×3 (08:19→21:00)
--- NOTE | 2017-12-12 15:12 | PDOC.PN ---
- Subjective Encounter Start Date: 12/11/17 Encounter Start Time: 11:30 follow up for ICH, dysphagia. hospital day 22. no confirmed plan for discharge. no f/C, no N/V/d/C, no CP or sOB ROS not obtainable due to MS - Objective MAR Reviewed: Yes Vital Signs & Weight: Vital Signs (12 hours) Temp Pulse Resp BP BP Pulse Ox 12/12/17 14:52 70 115/72 12/12/17 11:05 70 16 107/72 96 12/12/17 08:19 82 115/72 12/12/17 08:17 115/76 12/12/17 08:16 115/76 12/12/17 07:09 98.8 F 82 16 115/76 95 12/12/17 04:00 97.9 F 82 20 121/82 95 Weight Admit Weight 146 lb Weight 130 lb 8.218 oz Most Recent Monitor Data Heart Rate from ECG 75 NIBP 135/82 NIBP BP-Mean 99 Respiration from ECG 27 SpO2 100 I&O: 12/11/17 12/12/17 12/13/17 06:59 06:59 06:59 Intake Total 634 1174 2003 Balance 634 1174 2003 Result Diagrams: 12/10/17 04:46 12/11/17 04:10 Additional Labs: Accuchecks 12/12/17 12/12/17 12/11/17 11:02 03:01 04:37 POC Glucose 122 H 90 90 12/10/17 12/10/17 16:16 12:01 POC Glucose 102 119 H Phys Exam - Physical Examination Constitutional: NAD HEENT: PERRLA, moist MMs, sclera anicteric, oral pharynx no lesions Neck: no nodes, no JVD, supple, full ROM Respiratory: no wheezing, no rales, no rhonchi, clear to auscultation bilateral Cardiovascular: RRR, no rub Gastrointestinal: soft, non-tender, no distention, positive bowel sounds Musculoskeletal: no edema, pulses present Neurological: non-focal, normal sensation, moves all 4 limbs Lymphatic: no nodes Skin: no rash, normal turgor, cap refill <2 seconds Dx/Plan (1) ICH (intracerebral hemorrhage) Code(s): I61.9 - NONTRAUMATIC INTRACEREBRAL HEMORRHAGE, UNSPECIFIED Status: Acute Qualifiers: Intracerebral hemorrhage etiology: nontraumatic Cerebral hemorrhage location: unspecified cerebral location Laterality: unspecified laterality Qualified Code(s): I61.9 - Nontraumatic intracerebral hemorrhage, unspecified (2) Dysphagia Code(s): R13.10 - DYSPHAGIA, UNSPECIFIED Status: Chronic Qualifiers: Dysphagia type: unspecified Qualified Code(s): R13.10 - Dysphagia, unspecified Comment: follow up on ST (3) Hypokalemia Code(s): E87.6 - HYPOKALEMIA Status: Resolved Comment: on electrolyte replacement protocol (4) Acute respiratory failure with hypoxia Code(s): J96.01 - ACUTE RESPIRATORY FAILURE WITH HYPOXIA Status: Resolved Comment: extubated (5) Alcoholism Code(s): F10.20 - ALCOHOL DEPENDENCE, UNCOMPLICATED Status: Chronic (6) Hypertension Code(s): I10 - ESSENTIAL (PRIMARY) HYPERTENSION Status: Chronic Qualifiers: Hypertension type: essential hypertension Qualified Code(s): I10 - Essential (primary) hypertension (7) Aspiration pneumonia Code(s): J69.0 - PNEUMONITIS DUE TO INHALATION OF FOOD AND VOMIT Status: Resolved Comment: off abx (8) Hypomagnesemia Code(s): E83.42 - HYPOMAGNESEMIA Status: Acute Comment: replace orally, pt pulled out all IVs - Plan cont current plan of care, 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
--- NOTE | 2017-12-12 15:14 | PDOC.PN ---
- Subjective Encounter Start Date: 12/12/17 Encounter Start Time: 09:15 no changes, no new events, no complaints, sitll waiitng on placement No F/C, no n/V/d/c. ROs not obtainable due to MS - Objective MAR Reviewed: Yes Vital Signs & Weight: Vital Signs (12 hours) Temp Pulse Resp BP BP Pulse Ox 12/12/17 14:52 70 115/72 12/12/17 11:05 70 16 107/72 96 12/12/17 08:19 82 115/72 12/12/17 08:17 115/76 12/12/17 08:16 115/76 12/12/17 07:09 98.8 F 82 16 115/76 95 12/12/17 04:00 97.9 F 82 20 121/82 95 Weight Admit Weight 146 lb Weight 130 lb 8.218 oz Most Recent Monitor Data Heart Rate from ECG 75 NIBP 135/82 NIBP BP-Mean 99 Respiration from ECG 27 SpO2 100 I&O: 12/11/17 12/12/17 12/13/17 06:59 06:59 06:59 Intake Total 634 1174 2003 Balance 634 1174 2003 Result Diagrams: 12/10/17 04:46 12/11/17 04:10 Additional Labs: Accuchecks 12/12/17 12/12/17 12/11/17 11:02 03:01 04:37 POC Glucose 122 H 90 90 12/10/17 12/10/17 16:16 12:01 POC Glucose 102 119 H Phys Exam - Physical Examination Constitutional: NAD HEENT: PERRLA, moist MMs, sclera anicteric, oral pharynx no lesions Neck: no nodes, no JVD, supple, full ROM Respiratory: no wheezing, no rales, no rhonchi, clear to auscultation bilateral Cardiovascular: RRR, no significant murmur Gastrointestinal: soft, non-tender, no distention, positive bowel sounds Musculoskeletal: no edema Neurological: non-focal, normal sensation, moves all 4 limbs Lymphatic: no nodes Skin: no rash, normal turgor, cap refill <2 seconds Dx/Plan (1) ICH (intracerebral hemorrhage) Code(s): I61.9 - NONTRAUMATIC INTRACEREBRAL HEMORRHAGE, UNSPECIFIED Status: Acute Qualifiers: Intracerebral hemorrhage etiology: nontraumatic Cerebral hemorrhage location: unspecified cerebral location Laterality: unspecified laterality Qualified Code(s): I61.9 - Nontraumatic intracerebral hemorrhage, unspecified (2) Dysphagia Code(s): R13.10 - DYSPHAGIA, UNSPECIFIED Status: Chronic Qualifiers: Dysphagia type: unspecified Qualified Code(s): R13.10 - Dysphagia, unspecified Comment: follow up on ST (3) Hypokalemia Code(s): E87.6 - HYPOKALEMIA Status: Resolved Comment: on electrolyte replacement protocol (4) Acute respiratory failure with hypoxia Code(s): J96.01 - ACUTE RESPIRATORY FAILURE WITH HYPOXIA Status: Resolved Comment: extubated (5) Alcoholism Code(s): F10.20 - ALCOHOL DEPENDENCE, UNCOMPLICATED Status: Chronic (6) Hypertension Code(s): I10 - ESSENTIAL (PRIMARY) HYPERTENSION Status: Chronic Qualifiers: Hypertension type: essential hypertension Qualified Code(s): I10 - Essential (primary) hypertension (7) Aspiration pneumonia Code(s): J69.0 - PNEUMONITIS DUE TO INHALATION OF FOOD AND VOMIT Status: Resolved Comment: off abx (8) Hypomagnesemia Code(s): E83.42 - HYPOMAGNESEMIA Status: Acute Comment: replace orally, pt pulled out all IVs - Plan cont current plan of care, 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
[2017-12-13] MEDS: Venlafaxine XR 37.5 MG CAP PO SCH (09:02)
[2017-12-13] MEDS: cloNIDine 0.1 MG TAB PER TUBE SCH ×3 (09:02→21:07)
[2017-12-13] MEDS: hydrALAZINE 25 MG TAB PER TUBE SCH ×3 (09:02→21:07)
[2017-12-13] MEDS: Carvedilol 6.25 MG TAB PER TUBE SCH ×2 (09:03→16:48)
[2017-12-13] MEDS: Folic Acid 1 MG TAB PO SCH (09:03)
[2017-12-13] MEDS: Multivits W-Minerals Liquid 15mL UDCUP PO SCH (09:04)
--- NOTE | 2017-12-13 15:36 | PDOC.PN ---
- Subjective Encounter Start Date: 12/13/17 Encounter Start Time: 08:00 no changes, sleeping soundly, no acute overnight events no F/c, no n/V/D/C, pleasantly confused ROS not obtainable - Objective MAR Reviewed: Yes Vital Signs & Weight: Vital Signs (12 hours) Temp Pulse Pulse Resp BP BP BP 12/13/17 14:55 71 123/88 12/13/17 10:45 97 84/51 L 101/65 12/13/17 09:03 123/88 12/13/17 09:02 69 123/88 12/13/17 08:00 12/13/17 07:36 99.0 F 69 18 BP Pulse Ox Pulse Ox 12/13/17 14:55 12/13/17 10:45 72 L 12/13/17 09:03 12/13/17 09:02 12/13/17 08:00 95 12/13/17 07:36 122/80 95 Weight Admit Weight 146 lb Weight 130 lb 8.218 oz Most Recent Monitor Data Heart Rate from ECG 75 NIBP 135/82 NIBP BP-Mean 99 Respiration from ECG 27 SpO2 100 I&O: 12/12/17 12/13/17 12/14/17 06:59 06:59 06:59 Intake Total 1174 2353 Output Total 800 Balance 1174 1553 Result Diagrams: 12/10/17 04:46 12/11/17 04:10 Additional Labs: Accuchecks 12/13/17 12/13/17 12/12/17 11:26 05:32 22:15 POC Glucose 136 H 97 97 12/12/17 16:47 POC Glucose 117 H Phys Exam - Physical Examination Constitutional: NAD HEENT: PERRLA, sclera anicteric, oral pharynx no lesions Neck: no nodes, no JVD, supple, full ROM Respiratory: no wheezing, clear to auscultation bilateral Cardiovascular: RRR, no rub Gastrointestinal: soft, non-tender, positive bowel sounds Musculoskeletal: no edema Neurological: moves all 4 limbs Lymphatic: no nodes Skin: no rash, normal turgor, cap refill <2 seconds Dx/Plan (1) ICH (intracerebral hemorrhage) Code(s): I61.9 - NONTRAUMATIC INTRACEREBRAL HEMORRHAGE, UNSPECIFIED Status: Acute Qualifiers: Intracerebral hemorrhage etiology: nontraumatic Cerebral hemorrhage location: unspecified cerebral location Laterality: unspecified laterality Qualified Code(s): I61.9 - Nontraumatic intracerebral hemorrhage, unspecified (2) Dysphagia Code(s): R13.10 - DYSPHAGIA, UNSPECIFIED Status: Chronic Qualifiers: Dysphagia type: unspecified Qualified Code(s): R13.10 - Dysphagia, unspecified Comment: follow up on ST (3) Hypokalemia Code(s): E87.6 - HYPOKALEMIA Status: Resolved Comment: on electrolyte replacement protocol (4) Acute respiratory failure with hypoxia Code(s): J96.01 - ACUTE RESPIRATORY FAILURE WITH HYPOXIA Status: Resolved Comment: extubated (5) Alcoholism Code(s): F10.20 - ALCOHOL DEPENDENCE, UNCOMPLICATED Status: Chronic (6) Hypertension Code(s): I10 - ESSENTIAL (PRIMARY) HYPERTENSION Status: Chronic Qualifiers: Hypertension type: essential hypertension Qualified Code(s): I10 - Essential (primary) hypertension (7) Aspiration pneumonia Code(s): J69.0 - PNEUMONITIS DUE TO INHALATION OF FOOD AND VOMIT Status: Resolved Comment: off abx (8) Hypomagnesemia Code(s): E83.42 - HYPOMAGNESEMIA Status: Acute Comment: replace orally, pt pulled out all IVs - Plan cont current plan of care, PT/OT, 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 awaiting placement options, continues to improve with PT/OT
[2017-12-14] MEDS: Folic Acid 1 MG TAB PO SCH (08:37)
[2017-12-14] MEDS: Venlafaxine XR 37.5 MG CAP PO SCH (08:37)
[2017-12-14] MEDS: Carvedilol 6.25 MG TAB PER TUBE SCH ×2 (08:44→18:37)
[2017-12-14] MEDS: hydrALAZINE 25 MG TAB PER TUBE SCH ×3 (08:44→21:12)
[2017-12-14] MEDS: cloNIDine 0.1 MG TAB PER TUBE SCH ×3 (08:44→21:11)
[2017-12-14] MEDS: Multivits W-Minerals Liquid 15mL UDCUP PO SCH (08:45)
--- NOTE | 2017-12-14 15:55 | PDOC.PN ---
- Subjective Encounter Start Date: 12/14/17 Encounter Start Time: 13:15 no events overngiht, no new compalints, no sitter, no agitation overnight NO f/C, no N/V/d/C, no CP or SOB. ROS not obtianable due to dementia - Objective MAR Reviewed: Yes Vital Signs & Weight: Vital Signs (12 hours) Temp Pulse Resp BP BP Pulse Ox 12/14/17 08:44 82 107/72 12/14/17 08:00 98.4 F 82 20 107/72 94 L Weight Admit Weight 146 lb Weight 130 lb 8.218 oz Most Recent Monitor Data Heart Rate from ECG 75 NIBP 135/82 NIBP BP-Mean 99 Respiration from ECG 27 SpO2 100 I&O: 12/13/17 12/14/17 12/15/17 06:59 06:59 06:59 Intake Total 2353 347 584 Output Total 800 Balance 1553 347 584 Result Diagrams: 12/10/17 04:46 12/11/17 04:10 Additional Labs: Accuchecks 12/13/17 12/13/17 21:04 16:19 POC Glucose 91 116 H Phys Exam - Physical Examination Constitutional: NAD HEENT: PERRLA, moist MMs, sclera anicteric, oral pharynx no lesions Neck: no nodes, no JVD, supple, full ROM Respiratory: no wheezing, no rales, no rhonchi, clear to auscultation bilateral Cardiovascular: RRR, no significant murmur, no rub Gastrointestinal: soft, non-tender, no distention, positive bowel sounds Musculoskeletal: no edema Neurological: non-focal, normal sensation, moves all 4 limbs Lymphatic: no nodes Psychiatric: normal affect, A&O x 3 Skin: no rash, normal turgor, cap refill <2 seconds Dx/Plan (1) ICH (intracerebral hemorrhage) Code(s): I61.9 - NONTRAUMATIC INTRACEREBRAL HEMORRHAGE, UNSPECIFIED Status: Acute Qualifiers: Intracerebral hemorrhage etiology: nontraumatic Cerebral hemorrhage location: unspecified cerebral location Laterality: unspecified laterality Qualified Code(s): I61.9 - Nontraumatic intracerebral hemorrhage, unspecified (2) Dysphagia Code(s): R13.10 - DYSPHAGIA, UNSPECIFIED Status: Chronic Qualifiers: Dysphagia type: unspecified Qualified Code(s): R13.10 - Dysphagia, unspecified Comment: follow up on ST (3) Hypokalemia Code(s): E87.6 - HYPOKALEMIA Status: Resolved Comment: on electrolyte replacement protocol (4) Acute respiratory failure with hypoxia Code(s): J96.01 - ACUTE RESPIRATORY FAILURE WITH HYPOXIA Status: Resolved Comment: extubated (5) Alcoholism Code(s): F10.20 - ALCOHOL DEPENDENCE, UNCOMPLICATED Status: Chronic (6) Hypertension Code(s): I10 - ESSENTIAL (PRIMARY) HYPERTENSION Status: Chronic Qualifiers: Hypertension type: essential hypertension Qualified Code(s): I10 - Essential (primary) hypertension (7) Aspiration pneumonia Code(s): J69.0 - PNEUMONITIS DUE TO INHALATION OF FOOD AND VOMIT Status: Resolved Comment: off abx (8) Hypomagnesemia Code(s): E83.42 - HYPOMAGNESEMIA Status: Acute Comment: replace orally, pt pulled out all IVs - Plan * .
[2017-12-15] MEDS: Venlafaxine XR 37.5 MG CAP PO SCH (09:58)
[2017-12-15] MEDS: Carvedilol 6.25 MG TAB PER TUBE SCH ×2 (09:58→17:45)
[2017-12-15] MEDS: cloNIDine 0.1 MG TAB PER TUBE SCH ×3 (09:58→21:59)
[2017-12-15] MEDS: hydrALAZINE 25 MG TAB PER TUBE SCH ×3 (09:58→21:59)
[2017-12-15] MEDS: Folic Acid 1 MG TAB PO SCH (09:58)
[2017-12-15] MEDS: Multivits W-Minerals Liquid 15mL UDCUP PO SCH (13:04)
--- NOTE | 2017-12-15 15:28 | PDOC.PN ---
- Subjective Encounter Start Date: 12/15/17 Encounter Start Time: 11:15 no changes, no complaints, no F/C, no N/V/d/C, no agitation, no cP or SOB Still waiting for dispo options, without sitter, places are reconsidering All systems reviewed and denies and problems, unsure of reliability - Objective MAR Reviewed: Yes Vital Signs & Weight: Vital Signs (12 hours) Temp Pulse Resp BP BP Pulse Ox 12/15/17 09:58 65 111/70 12/15/17 08:00 98.8 F 65 18 126/84 97 Weight Admit Weight 146 lb Weight 130 lb 8.218 oz Most Recent Monitor Data Heart Rate from ECG 75 NIBP 135/82 NIBP BP-Mean 99 Respiration from ECG 27 SpO2 100 I&O: 12/14/17 12/15/17 12/16/17 06:59 06:59 06:59 Intake Total 347 2168 584 Balance 347 2168 584 Result Diagrams: 12/10/17 04:46 12/11/17 04:10 Additional Labs: Accuchecks 12/15/17 12/15/17 12/14/17 12:05 05:06 20:51 POC Glucose 133 H 93 93 12/14/17 12/14/17 12/14/17 17:06 12:14 05:33 POC Glucose 120 H 129 H 95 Phys Exam - Physical Examination Constitutional: NAD HEENT: PERRLA, moist MMs, sclera anicteric, oral pharynx no lesions Neck: no nodes, no JVD, supple, full ROM Respiratory: no wheezing, no rales, no rhonchi, clear to auscultation bilateral Cardiovascular: RRR, no significant murmur, no rub Gastrointestinal: soft, non-tender, no distention, positive bowel sounds Musculoskeletal: no edema Neurological: non-focal, normal sensation, moves all 4 limbs Lymphatic: no nodes Deviation from normal: flat affect, oriented to person only Skin: no rash, normal turgor, cap refill <2 seconds Dx/Plan (1) ICH (intracerebral hemorrhage) Code(s): I61.9 - NONTRAUMATIC INTRACEREBRAL HEMORRHAGE, UNSPECIFIED Status: Acute Qualifiers: Intracerebral hemorrhage etiology: nontraumatic Cerebral hemorrhage location: unspecified cerebral location Laterality: unspecified laterality Qualified Code(s): I61.9 - Nontraumatic intracerebral hemorrhage, unspecified (2) Dysphagia Code(s): R13.10 - DYSPHAGIA, UNSPECIFIED Status: Chronic Qualifiers: Dysphagia type: unspecified Qualified Code(s): R13.10 - Dysphagia, unspecified Comment: follow up on ST (3) Hypokalemia Code(s): E87.6 - HYPOKALEMIA Status: Resolved Comment: on electrolyte replacement protocol (4) Acute respiratory failure with hypoxia Code(s): J96.01 - ACUTE RESPIRATORY FAILURE WITH HYPOXIA Status: Resolved Comment: extubated (5) Alcoholism Code(s): F10.20 - ALCOHOL DEPENDENCE, UNCOMPLICATED Status: Chronic (6) Hypertension Code(s): I10 - ESSENTIAL (PRIMARY) HYPERTENSION Status: Chronic Qualifiers: Hypertension type: essential hypertension Qualified Code(s): I10 - Essential (primary) hypertension (7) Aspiration pneumonia Code(s): J69.0 - PNEUMONITIS DUE TO INHALATION OF FOOD AND VOMIT Status: Resolved Comment: off abx (8) Hypomagnesemia Code(s): E83.42 - HYPOMAGNESEMIA Status: Acute Comment: replace orally, pt pulled out all IVs - 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
[2017-12-16 05:34] LABS: #Eosinphils 0.2 thou/uL (0.0-0.7); #Lymphocytes 1.2 thou/uL (1.20-3.40); #Monocytes 0.8 thou/uL (0.11-0.59); #Neutrophils 3.1 thou/uL (1.40-6.50); %Basophils 0.8 % (0.0-1.0); %Eosinophils 3.8 % (0.0-10.0); %Lymphocytes 22.3 % (21.0-51.0); %Monocytes 14.9 % (0.0-10.0); %Neutrophils 58.2 % (42.0-75.0); Hemoglobin 13.4 g/dL (14.0-18.0); Mean Corpuscular HGB CONC 34.5 g/dL (32.0-36.0); Mean Corpuscular Hemoglobin 34.4 pg (27.0-31.0); Mean Corpuscular Volume 99.8 fL (78.0-98.0); Mean Platelet Volume 8.6 fL (7.4-10.4); Platelet Count 172 thou/uL (130-400); RBC Distribution Width 11.1 % (11.5-14.5); White Blood Cell (WBC) Count 5.3 thou/uL (4.8-10.8)
[2017-12-16 05:45] LABS: Anion Gap 12 mmol/L (10-20); BUN (Urea Nitrogen) 7 mg/dL (8.4-25.7); Calc. Creatinine Clearance 124 mL/min (70-130); Calcium 9.1 mg/dL (7.8-10.44); Carbon Dioxide 26 mmol/L (22-29); Chloride 100 mmol/L (98-107); Estimated GFR-MDRD Greater than 90; Glucose 102 mg/dL (70-105); Magnesium 1.5 mg/dL (1.6-2.6); Potassium 3.9 mmol/L (3.5-5.1); Sodium 134 mmol/L (136-145)
[2017-12-16] MEDS: Venlafaxine XR 37.5 MG CAP PO SCH (07:56)
[2017-12-16] MEDS: Folic Acid 1 MG TAB PO SCH (07:56)
[2017-12-16] MEDS: Carvedilol 6.25 MG TAB PER TUBE SCH ×2 (07:59→17:29)
[2017-12-16] MEDS: hydrALAZINE 25 MG TAB PER TUBE SCH ×3 (07:59→20:51)
[2017-12-16] MEDS: cloNIDine 0.1 MG TAB PER TUBE SCH ×3 (07:59→20:51)
[2017-12-16] MEDS: Magnesium Oxide 250 MG TAB PER TUBE SCH (13:46)
[2017-12-16] MEDS: Multivits W-Minerals Liquid 15mL UDCUP PO SCH (13:46)
--- NOTE | 2017-12-16 23:07 | PDOC.PN ---
- Subjective Encounter Start Date: 12/16/17 Encounter Start Time: 16:45 Patient seen and examined for encephalopathy. No new complaints. No overnight events - Objective MAR Reviewed: Yes Vital Signs & Weight: Vital Signs (12 hours) Temp Pulse Resp BP BP BP Pulse Ox 12/16/17 20:00 97.9 F 77 18 117/75 96 12/16/17 19:41 97.9 F 77 18 117/75 96 12/16/17 17:29 114/74 12/16/17 17:28 82 112/70 12/16/17 15:33 112/70 12/16/17 12:00 98.5 F 81 18 113/76 97 Weight Admit Weight 146 lb Weight 125 lb 1.6 oz Most Recent Monitor Data Heart Rate from ECG 75 NIBP 135/82 NIBP BP-Mean 99 Respiration from ECG 27 SpO2 100 I&O: 12/15/17 12/16/17 12/17/17 06:59 06:59 06:59 Intake Total 2168 2972 2112 Balance 2168 2972 2112 Result Diagrams: 12/16/17 04:09 12/16/17 04:09 Additional Labs: Accuchecks 12/16/17 12/16/17 11:58 05:14 POC Glucose 123 H 106 Phys Exam - Physical Examination Constitutional: NAD Respiratory: no wheezing, no rhonchi Cardiovascular: RRR, no rub Gastrointestinal: soft, non-tender, positive bowel sounds PEG + Dx/Plan - Plan DVT proph w/SCDs IMPRESSION: 1. Acute hypoxic respiratory failure requiring Mech Vent/Toxic Metabolic Encephalopathy/Intracranial bleed 2. Aspiration Pneumonia - Completed Atbx 3. Swallow dy s/p PEG 4. HTN 5. Electrolyte abn - hypernatremia/hypokalemia/hypomagnesaemia 6. Elevated cardiac enzymes due to demand ischemia/Lactic acidosis - resolved/ Chronic alcoholism /Cocaine abuse/Rhabdomyolysis PLAN: Not on antiplatelet due to intracranial bleed Await placement Dec Hydralazine dose to once daily Cont Clonidine Cont other meds as below Cont PEG tube feeds Review of Systems - Review of Systems Other: Cannot obtain due to current mentation - Medications/Allergies Allergies/Adverse Reactions: Allergies Allergy/AdvReac Type Severity Reaction Status Date / Time No Allergy Information Allergy Unverified 11/18/17 10:03 Available Medications: Current Medications Acetaminophen (Tylenol Elixir) 650 mg PER TUBE Q4H PRN PRN Reason: Headache/Fever or Pain Last Admin: 12/08/17 09:25 Dose: 650 mg Albuterol/Ipratropium (Duoneb) 3 ml NEB [id number] PRN PRN Reason: SOB &/or Wheezing Last Admin: 11/29/17 18:40 Dose: 3 ml Bisacodyl (Dulcolax) 10 mg [place] DAILYPRN PRN PRN Reason: Constipation Carvedilol (Coreg) 12.5 mg PER TUBE BID-[facility] Last Admin: 12/16/17 17:29 Dose: Not Given Clonidine (Catapres) 0.1 mg PER TUBE TID [facility] Last Admin: 12/16/17 20:51 Dose: 0.1 mg Folic Acid (Folvite) 1 mg PO DAILY [facility] Last Admin: 12/16/17 07:56 Dose: 1 mg Hydralazine HCl (Apresoline) 25 mg PER TUBE TID [facility] Last Admin: 12/16/17 20:51 Dose: 25 mg Hydralazine HCl (Apresoline) 10 mg SLOW IVP Q4H PRN PRN Reason: SBP Greater Than 180 Iron/Minerals/Multivitamins (Certa Ric Liquid) 15 ml PO DAILY [facility] Last Admin: 12/16/17 13:46 Dose: 15 ml Magnesium Oxide (Magnesium Oxide) 250 mg PER TUBE DAILY [facility] Last Admin: 12/16/17 13:46 Dose: 250 mg Miscellaneous Medication (Pharmacy To Dose) 1 each IVPB PRN PRN PRN Reason: Pharmacy to dose Nystatin (Mycostatin Powder) 1 gm TOP BID PRN PRN Reason: Topical Irritations Last Admin: 12/04/17 08:37 Dose: 1 applic Ondansetron HCl (Zofran) 4 mg IVP BIDPRN PRN PRN Reason: Nausea/Vomiting Sodium Chloride (Flush - Normal Saline) 10 ml IVF PRN PRN PRN Reason: Saline Flush Last Admin: 12/02/17 10:55 Dose: 10 ml Thiamine HCl (Thiamine) 100 mg PO DAILY [facility] Last Admin: 12/16/17 07:56 Dose: 100 mg Venlafaxine HCl (Effexor Xr) 37.5 mg PO DAILY [facility] Last Admin: 12/16/17 07:56 Dose: 37.5 mg
[2017-12-17] MEDS: Venlafaxine XR 37.5 MG CAP PO SCH (07:49)
[2017-12-17] MEDS: Magnesium Oxide 250 MG TAB PER TUBE SCH (07:49)
[2017-12-17] MEDS: Multivits W-Minerals Liquid 15mL UDCUP PO SCH (07:49)
[2017-12-17] MEDS: Folic Acid 1 MG TAB PO SCH (07:50)
[2017-12-17] MEDS: cloNIDine 0.1 MG TAB PER TUBE SCH ×3 (07:50→20:50)
[2017-12-17] MEDS: Carvedilol 6.25 MG TAB PER TUBE SCH ×2 (07:51→16:07)
[2017-12-17] MEDS: hydrALAZINE 25 MG TAB PER TUBE SCH (07:51)
--- NOTE | 2017-12-17 22:28 | PDOC.PN ---
- Subjective Encounter Start Date: 12/17/17 Encounter Start Time: 09:00 Patient seen and examined for Encephalopathy. No new complaints. No overnight events - Objective MAR Reviewed: Yes Vital Signs & Weight: Vital Signs (12 hours) Temp Pulse Resp BP BP BP Pulse Ox 12/17/17 20:50 147/82 H 12/17/17 20:00 98.5 F 74 18 147/82 H 97 12/17/17 16:38 98.4 F 74 18 108/70 97 12/17/17 16:07 108/70 Weight Admit Weight 146 lb Weight 125 lb 1.6 oz Most Recent Monitor Data Heart Rate from ECG 75 NIBP 135/82 NIBP BP-Mean 99 Respiration from ECG 27 SpO2 100 I&O: 12/16/17 12/17/17 12/18/17 06:59 06:59 06:59 Intake Total 2972 2712 2130 Balance 2972 2712 2130 Result Diagrams: 12/16/17 04:09 12/16/17 04:09 Additional Labs: Accuchecks 12/17/17 12/17/17 12/17/17 20:13 16:05 11:05 POC Glucose 118 H 101 134 H 12/17/17 12/16/17 12/16/17 05:22 20:43 16:57 POC Glucose 96 122 H 144 H Phys Exam - Physical Examination Constitutional: NAD Respiratory: no wheezing, no rhonchi Cardiovascular: RRR, no rub Gastrointestinal: soft Dx/Plan - Plan DVT proph w/SCDs IMPRESSION: 1. Acute hypoxic respiratory failure requiring Mech Vent/Toxic Metabolic Encephalopathy/Intracranial bleed 2. Aspiration Pneumonia - Completed Atbx 3. Swallow dy s/p PEG 4. HTN 5. Electrolyte abn - hypernatremia/hypokalemia/hypomagnesaemia 6. Elevated cardiac enzymes due to demand ischemia/Lactic acidosis - resolved/ Chronic alcoholism /Cocaine abuse/Rhabdomyolysis PLAN: Not on antiplatelet due to intracranial bleed Await placement Cont current meds as below Cont PEG tube feeds Review of Systems - Review of Systems Other: Cannot obtain due to current cognition - Medications/Allergies Allergies/Adverse Reactions: Allergies Allergy/AdvReac Type Severity Reaction Status Date / Time No Allergy Information Allergy Unverified 11/18/17 10:03 Available Medications: Current Medications Acetaminophen (Tylenol Elixir) 650 mg PER TUBE Q4H PRN PRN Reason: Headache/Fever or Pain Last Admin: 12/08/17 09:25 Dose: 650 mg Albuterol/Ipratropium (Duoneb) 3 ml NEB [id number] PRN PRN Reason: SOB &/or Wheezing Last Admin: 11/29/17 18:40 Dose: 3 ml Bisacodyl (Dulcolax) 10 mg [place] DAILYPRN PRN PRN Reason: Constipation Carvedilol (Coreg) 12.5 mg PER TUBE BID-[facility] Last Admin: 12/17/17 16:07 Dose: Not Given Clonidine (Catapres) 0.1 mg PER TUBE TID [facility] Last Admin: 12/17/17 20:50 Dose: 0.1 mg Folic Acid (Folvite) 1 mg PO DAILY [facility] Last Admin: 12/17/17 07:50 Dose: 1 mg Hydralazine HCl (Apresoline) 10 mg SLOW IVP Q4H PRN PRN Reason: SBP Greater Than 180 Hydralazine HCl (Apresoline) 25 mg PER TUBE DAILY [facility] Last Admin: 12/17/17 07:51 Dose: Not Given Iron/Minerals/Multivitamins (Certa Ric Liquid) 15 ml PO DAILY [facility] Last Admin: 12/17/17 07:49 Dose: 15 ml Magnesium Oxide (Magnesium Oxide) 250 mg PER TUBE DAILY [facility] Last Admin: 12/17/17 07:49 Dose: 250 mg Miscellaneous Medication (Pharmacy To Dose) 1 each IVPB PRN PRN PRN Reason: Pharmacy to dose Nystatin (Mycostatin Powder) 1 gm TOP BID PRN PRN Reason: Topical Irritations Last Admin: 12/04/17 08:37 Dose: 1 applic Ondansetron HCl (Zofran) 4 mg IVP BIDPRN PRN PRN Reason: Nausea/Vomiting Sodium Chloride (Flush - Normal Saline) 10 ml IVF PRN PRN PRN Reason: Saline Flush Last Admin: 12/02/17 10:55 Dose: 10 ml Thiamine HCl (Thiamine) 100 mg PO DAILY [facility] Last Admin: 12/17/17 07:51 Dose: 100 mg Venlafaxine HCl (Effexor Xr) 37.5 mg PO DAILY [facility] Last Admin: 12/17/17 07:49 Dose: 37.5 mg
[2017-12-18] MEDS: Folic Acid 1 MG TAB PO SCH (08:11)
[2017-12-18] MEDS: Venlafaxine XR 37.5 MG CAP PO SCH (08:11)
[2017-12-18] MEDS: Multivits W-Minerals Liquid 15mL UDCUP PO SCH (08:11)
[2017-12-18] MEDS: Magnesium Oxide 250 MG TAB PER TUBE SCH (08:11)
[2017-12-18] MEDS: cloNIDine 0.1 MG TAB PER TUBE SCH ×3 (08:12→20:06)
[2017-12-18] MEDS: Carvedilol 6.25 MG TAB PER TUBE SCH ×2 (08:12→15:50)
[2017-12-18] MEDS: hydrALAZINE 25 MG TAB PER TUBE SCH (08:14)
--- NOTE | 2017-12-18 23:38 | PDOC.PN ---
- Subjective Encounter Start Date: 12/18/17 Encounter Start Time: 13:00 Patient seen and examined for Encephalopathy. No new complaints. No overnight events - Objective MAR Reviewed: Yes Vital Signs & Weight: Vital Signs (12 hours) Temp Pulse Resp BP BP Pulse Ox 12/18/17 20:06 115/78 12/18/17 20:00 98.1 F 87 16 115/78 97 12/18/17 15:50 109/76 109/62 Weight Admit Weight 146 lb Weight 128 lb 12.8 oz Most Recent Monitor Data Heart Rate from ECG 75 NIBP 135/82 NIBP BP-Mean 99 Respiration from ECG 27 SpO2 100 I&O: 12/17/17 12/18/17 12/19/17 06:59 06:59 06:59 Intake Total 2712 3040 1180 Balance 2712 3040 1180 Result Diagrams: 12/16/17 04:09 12/16/17 04:09 Additional Labs: Accuchecks 12/18/17 12/18/17 12/18/17 16:28 11:28 04:55 POC Glucose 128 H 119 H 99 Phys Exam - Physical Examination Constitutional: NAD Respiratory: no wheezing, no rhonchi Cardiovascular: RRR, no rub Gastrointestinal: soft, non-tender, positive bowel sounds Musculoskeletal: no edema Neurological: moves all 4 limbs Dx/Plan - Plan DVT proph w/SCDs IMPRESSION: 1. Acute hypoxic respiratory failure requiring Mech Vent/Toxic Metabolic Encephalopathy/Intracranial bleed 2. Aspiration Pneumonia - Completed Atbx 3. Swallow dy s/p PEG 4. HTN 5. Electrolyte abn - hypernatremia/hypokalemia/hypomagnesaemia 6. Elevated cardiac enzymes due to demand ischemia/Lactic acidosis - resolved/ Chronic alcoholism /Cocaine abuse/Rhabdomyolysis PLAN: PO feed trial Await placement Cont current meds as below Cont PEG tube feeds Not on antiplatelet due to intracranial bleed Review of Systems - Review of Systems Other: Cannot obtain due to current cognition - Medications/Allergies Allergies/Adverse Reactions: Allergies Allergy/AdvReac Type Severity Reaction Status Date / Time No Allergy Information Allergy Unverified 11/18/17 10:03 Available Medications: Current Medications Acetaminophen (Tylenol Elixir) 650 mg PER TUBE Q4H PRN PRN Reason: Headache/Fever or Pain Last Admin: 12/08/17 09:25 Dose: 650 mg Albuterol/Ipratropium (Duoneb) 3 ml NEB [id number] PRN PRN Reason: SOB &/or Wheezing Last Admin: 11/29/17 18:40 Dose: 3 ml Bisacodyl (Dulcolax) 10 mg [place] DAILYPRN PRN PRN Reason: Constipation Carvedilol (Coreg) 12.5 mg PER TUBE BID-[facility] Last Admin: 12/18/17 15:50 Dose: Not Given Clonidine (Catapres) 0.1 mg PER TUBE TID [facility] Last Admin: 12/18/17 20:06 Dose: Not Given Folic Acid (Folvite) 1 mg PO DAILY [facility] Last Admin: 12/18/17 08:11 Dose: 1 mg Hydralazine HCl (Apresoline) 10 mg SLOW IVP Q4H PRN PRN Reason: SBP Greater Than 180 Hydralazine HCl (Apresoline) 25 mg PER TUBE DAILY [facility] Last Admin: 12/18/17 08:14 Dose: Not Given Iron/Minerals/Multivitamins (Certa Ric Liquid) 15 ml PO DAILY [facility] Last Admin: 12/18/17 08:11 Dose: 15 ml Magnesium Oxide (Magnesium Oxide) 250 mg PER TUBE DAILY [facility] Last Admin: 12/18/17 08:11 Dose: 250 mg Miscellaneous Medication (Pharmacy To Dose) 1 each IVPB PRN PRN PRN Reason: Pharmacy to dose Nystatin (Mycostatin Powder) 1 gm TOP BID PRN PRN Reason: Topical Irritations Last Admin: 12/04/17 08:37 Dose: 1 applic Ondansetron HCl (Zofran) 4 mg IVP BIDPRN PRN PRN Reason: Nausea/Vomiting Sodium Chloride (Flush - Normal Saline) 10 ml IVF PRN PRN PRN Reason: Saline Flush Last Admin: 12/02/17 10:55 Dose: 10 ml Thiamine HCl (Thiamine) 100 mg PO DAILY [facility] Last Admin: 12/18/17 08:11 Dose: 100 mg Venlafaxine HCl (Effexor Xr) 37.5 mg PO DAILY [facility] Last Admin: 12/18/17 08:11 Dose: 37.5 mg
[2017-12-19] MEDS: Carvedilol 6.25 MG TAB PER TUBE SCH ×2 (08:46→17:36)
[2017-12-19] MEDS: cloNIDine 0.1 MG TAB PER TUBE SCH ×3 (08:46→20:34)
[2017-12-19] MEDS: Folic Acid 1 MG TAB PO SCH (08:46)
[2017-12-19] MEDS: Multivits W-Minerals Liquid 15mL UDCUP PO SCH (08:47)
[2017-12-19] MEDS: Magnesium Oxide 250 MG TAB PER TUBE SCH (08:47)
[2017-12-19] MEDS: hydrALAZINE 25 MG TAB PER TUBE SCH (08:47)
[2017-12-19] MEDS: Venlafaxine XR 37.5 MG CAP PO SCH (08:47)
--- NOTE | 2017-12-19 16:14 | PDOC.PN ---
- Subjective Encounter Start Date: 12/19/17 Encounter Start Time: 13:00 Patient seen and examined for Encephalopathy. No new complaints. No overnight events - Objective MAR Reviewed: Yes Vital Signs & Weight: Vital Signs (12 hours) Temp Pulse Resp BP BP BP Pulse Ox 12/19/17 08:47 83 103/75 12/19/17 08:46 103/75 12/19/17 08:00 97.2 F L 83 18 103/75 96 12/19/17 05:15 98.9 F 76 20 122/80 98 Weight Admit Weight 146 lb Weight 127 lb 1.6 oz Most Recent Monitor Data Heart Rate from ECG 75 NIBP 135/82 NIBP BP-Mean 99 Respiration from ECG 27 SpO2 100 I&O: 12/18/17 12/19/17 12/20/17 06:59 06:59 06:59 Intake Total 3040 1680 590 Balance 3040 1680 590 Result Diagrams: 12/16/17 04:09 12/16/17 04:09 Additional Labs: Accuchecks 12/19/17 12/18/17 12/18/17 05:12 16:28 11:28 POC Glucose 127 H 128 H 119 H 12/18/17 04:55 POC Glucose 99 Phys Exam - Physical Examination Constitutional: NAD Respiratory: no wheezing, no rhonchi Cardiovascular: RRR, no rub Gastrointestinal: soft, positive bowel sounds Musculoskeletal: no edema Dx/Plan - Plan DVT proph w/SCDs IMPRESSION: 1. Acute hypoxic respiratory failure requiring Mech Vent/Toxic Metabolic Encephalopathy/Intracranial bleed 2. Aspiration Pneumonia - Completed Atbx 3. Swallow dy s/p PEG 4. HTN 5. Electrolyte abn - hypernatremia/hypokalemia/hypomagnesaemia 6. Elevated cardiac enzymes due to demand ischemia/Lactic acidosis - resolved/ Chronic alcoholism /Cocaine abuse/Rhabdomyolysis PLAN: Await placement Cont current meds as below Cont PEG tube feeds Not on antiplatelet due to intracranial bleed Review of Systems - Review of Systems Other: Cannot obtain due to current mentation. - Medications/Allergies Allergies/Adverse Reactions: Allergies Allergy/AdvReac Type Severity Reaction Status Date / Time No Allergy Information Allergy Unverified 11/18/17 10:03 Available Medications: Current Medications Acetaminophen (Tylenol Elixir) 650 mg PER TUBE Q4H PRN PRN Reason: Headache/Fever or Pain Last Admin: 12/08/17 09:25 Dose: 650 mg Albuterol/Ipratropium (Duoneb) 3 ml NEB [id number] PRN PRN Reason: SOB &/or Wheezing Last Admin: 11/29/17 18:40 Dose: 3 ml Bisacodyl (Dulcolax) 10 mg [place] DAILYPRN PRN PRN Reason: Constipation Carvedilol (Coreg) 12.5 mg PER TUBE BID-WM [facility] Last Admin: 12/19/17 08:46 Dose: Not Given Clonidine (Catapres) 0.1 mg PER TUBE TID [facility] Last Admin: 12/19/17 08:46 Dose: Not Given Folic Acid (Folvite) 1 mg PO DAILY [facility] Last Admin: 12/19/17 08:46 Dose: Not Given Hydralazine HCl (Apresoline) 10 mg SLOW IVP Q4H PRN PRN Reason: SBP Greater Than 180 Hydralazine HCl (Apresoline) 25 mg PER TUBE DAILY [facility] Last Admin: 12/19/17 08:47 Dose: Not Given Iron/Minerals/Multivitamins (Certa Ric Liquid) 15 ml PO DAILY [facility] Last Admin: 12/19/17 08:47 Dose: Not Given Magnesium Oxide (Magnesium Oxide) 250 mg PER TUBE DAILY [facility] Last Admin: 12/19/17 08:47 Dose: Not Given Miscellaneous Medication (Pharmacy To Dose) 1 each IVPB PRN PRN PRN Reason: Pharmacy to dose Nystatin (Mycostatin Powder) 1 gm TOP BID PRN PRN Reason: Topical Irritations Last Admin: 12/04/17 08:37 Dose: 1 applic Ondansetron HCl (Zofran) 4 mg IVP BIDPRN PRN PRN Reason: Nausea/Vomiting Sodium Chloride (Flush - Normal Saline) 10 ml IVF PRN PRN PRN Reason: Saline Flush Last Admin: 12/02/17 10:55 Dose: 10 ml Thiamine HCl (Thiamine) 100 mg PO DAILY [facility] Last Admin: 12/19/17 08:47 Dose: Not Given Venlafaxine HCl (Effexor Xr) 37.5 mg PO DAILY [facility] Last Admin: 12/19/17 08:47 Dose: Not Given
[2017-12-20] MEDS: Carvedilol 6.25 MG TAB PER TUBE SCH ×2 (11:26→16:09)
[2017-12-20] MEDS: Multivits W-Minerals Liquid 15mL UDCUP PO SCH (11:27)
[2017-12-20] MEDS: Magnesium Oxide 250 MG TAB PER TUBE SCH (11:27)
[2017-12-20] MEDS: Venlafaxine XR 37.5 MG CAP PO SCH (11:27)
[2017-12-20] MEDS: Folic Acid 1 MG TAB PO SCH (11:27)
[2017-12-20] MEDS: cloNIDine 0.1 MG TAB PER TUBE SCH ×3 (11:27→20:38)
[2017-12-20] MEDS: hydrALAZINE 25 MG TAB PER TUBE SCH (11:27)
--- NOTE | 2017-12-20 20:46 | PDOC.PN ---
- Subjective Encounter Start Date: 12/20/17 Encounter Start Time: 14:20 Patient seen and examined for Encephalopathy. Poor appetite per RN. No new complaints. No overnight events - Objective MAR Reviewed: Yes Vital Signs & Weight: Vital Signs (12 hours) Temp Pulse Resp BP BP Pulse Ox 12/20/17 20:38 98/61 12/20/17 20:35 98.5 F 95 16 98/61 96 12/20/17 16:09 112/70 12/20/17 14:55 112/70 12/20/17 11:27 112/70 12/20/17 11:26 112/70 Weight Admit Weight 146 lb Weight 4.579 oz Most Recent Monitor Data Heart Rate from ECG 75 NIBP 135/82 NIBP BP-Mean 99 Respiration from ECG 27 SpO2 100 I&O: 12/19/17 12/20/17 12/21/17 06:59 06:59 06:59 Intake Total 1680 1530 1420 Balance 1680 1530 1420 Result Diagrams: 12/16/17 04:09 12/16/17 04:09 Additional Labs: Accuchecks 12/20/17 12/20/17 12/20/17 16:21 11:18 06:03 POC Glucose 141 H 132 H 93 12/20/17 02:27 POC Glucose 99 Phys Exam - Physical Examination Constitutional: NAD Respiratory: no wheezing, no rhonchi Cardiovascular: RRR, no rub Gastrointestinal: soft, positive bowel sounds PEG + Musculoskeletal: no edema Dx/Plan - Plan DVT proph w/SCDs IMPRESSION: 1. Acute hypoxic respiratory failure requiring Mech Vent/Toxic Metabolic Encephalopathy/Intracranial bleed 2. Aspiration Pneumonia - Completed Atbx 3. Swallow dy s/p PEG 4. HTN 5. Electrolyte abn - hypernatremia/hypokalemia/hypomagnesaemia 6. Elevated cardiac enzymes due to demand ischemia/Lactic acidosis - resolved/ Chronic alcoholism /Cocaine abuse/Rhabdomyolysis PLAN: Cont current meds as below Cont PEG tube feeds with intermittent PO feeds Not on antiplatelet due to intracranial bleed Await placement Review of Systems - Review of Systems Other: Cannot obtain due to current mentation - Medications/Allergies Allergies/Adverse Reactions: Allergies Allergy/AdvReac Type Severity Reaction Status Date / Time No Allergy Information Allergy Unverified 11/18/17 10:03 Available Medications: Current Medications Acetaminophen (Tylenol Elixir) 650 mg PER TUBE Q4H PRN PRN Reason: Headache/Fever or Pain Last Admin: 12/08/17 09:25 Dose: 650 mg Albuterol/Ipratropium (Duoneb) 3 ml NEB [id number] PRN PRN Reason: SOB &/or Wheezing Last Admin: 11/29/17 18:40 Dose: 3 ml Bisacodyl (Dulcolax) 10 mg [place] DAILYPRN PRN PRN Reason: Constipation Carvedilol (Coreg) 12.5 mg PER TUBE BID-WM [facility] Last Admin: 12/20/17 16:09 Dose: Not Given Clonidine (Catapres) 0.1 mg PER TUBE TID [facility] Last Admin: 12/20/17 20:38 Dose: Not Given Folic Acid (Folvite) 1 mg PO DAILY [facility] Last Admin: 12/20/17 11:27 Dose: 1 mg Hydralazine HCl (Apresoline) 10 mg SLOW IVP Q4H PRN PRN Reason: SBP Greater Than 180 Hydralazine HCl (Apresoline) 25 mg PER TUBE DAILY [facility] Last Admin: 12/20/17 11:27 Dose: 25 mg Iron/Minerals/Multivitamins (Certa Ric Liquid) 15 ml PO DAILY [facility] Last Admin: 12/20/17 11:27 Dose: Not Given Magnesium Oxide (Magnesium Oxide) 250 mg PER TUBE DAILY [facility] Last Admin: 12/20/17 11:27 Dose: 250 mg Miscellaneous Medication (Pharmacy To Dose) 1 each IVPB PRN PRN PRN Reason: Pharmacy to dose Nystatin (Mycostatin Powder) 1 gm TOP BID PRN PRN Reason: Topical Irritations Last Admin: 12/04/17 08:37 Dose: 1 applic Ondansetron HCl (Zofran) 4 mg IVP BIDPRN PRN PRN Reason: Nausea/Vomiting Sodium Chloride (Flush - Normal Saline) 10 ml IVF PRN PRN PRN Reason: Saline Flush Last Admin: 12/02/17 10:55 Dose: 10 ml Thiamine HCl (Thiamine) 100 mg PO DAILY [facility] Last Admin: 12/20/17 11:27 Dose: 100 mg Venlafaxine HCl (Effexor Xr) 37.5 mg PO DAILY [facility] Last Admin: 12/20/17 11:27 Dose: 37.5 mg
[2017-12-21] MEDS: hydrALAZINE 25 MG TAB PER TUBE SCH (09:00)
[2017-12-21] MEDS: Magnesium Oxide 250 MG TAB PER TUBE SCH (10:01)
[2017-12-21] MEDS: Carvedilol 6.25 MG TAB PER TUBE SCH ×2 (10:01→16:08)
[2017-12-21] MEDS: cloNIDine 0.1 MG TAB PER TUBE SCH ×3 (10:02→20:28)
[2017-12-21] MEDS: Folic Acid 1 MG TAB PO SCH (10:02)
[2017-12-21] MEDS: Venlafaxine XR 37.5 MG CAP PO SCH (12:00)
[2017-12-21] MEDS: Multivits W-Minerals Liquid 15mL UDCUP PO SCH (12:01)
--- NOTE | 2017-12-21 19:13 | PDOC.PN ---
- Subjective Encounter Start Date: 12/21/17 Encounter Start Time: 14:00 Patient seen and examined for Encephalopathy. Tolerating PEG tube feeds. Poor appetite. No overnight events - Objective MAR Reviewed: Yes Vital Signs & Weight: Vital Signs (12 hours) BP BP Pulse Ox 12/21/17 16:08 121/78 12/21/17 16:00 121/78 12/21/17 12:03 112/74 12/21/17 10:02 104/71 12/21/17 10:01 104/71 12/21/17 09:50 96 12/21/17 09:00 104/71 Weight Admit Weight 146 lb Weight 4.579 oz Most Recent Monitor Data Heart Rate from ECG 75 NIBP 135/82 NIBP BP-Mean 99 Respiration from ECG 27 SpO2 100 I&O: 12/20/17 12/21/17 12/22/17 06:59 06:59 06:59 Intake Total 1530 1770 780 Balance 1530 1770 780 Result Diagrams: 12/16/17 04:09 12/16/17 04:09 Additional Labs: Accuchecks 12/21/17 12/21/17 12/21/17 16:18 11:38 05:31 POC Glucose 97 116 H 126 H 12/21/17 12/20/17 00:37 20:33 POC Glucose 116 H 131 H Phys Exam - Physical Examination Constitutional: NAD Respiratory: no wheezing, no rhonchi Cardiovascular: RRR, no rub Gastrointestinal: soft, positive bowel sounds Musculoskeletal: no edema Dx/Plan - Plan DVT proph w/SCDs IMPRESSION: 1. Acute hypoxic respiratory failure requiring Mech Vent/Toxic Metabolic Encephalopathy/Intracranial bleed 2. Aspiration Pneumonia - Completed Atbx 3. Swallow dy s/p PEG 4. HTN 5. Electrolyte abn - hypernatremia/hypokalemia/hypomagnesemia 6. Elevated cardiac enzymes due to demand ischemia/Lactic acidosis - resolved/ Chronic alcoholism /Cocaine abuse/Rhabdomyolysis PLAN: Await placement Cont PEG tube feeds with intermittent PO feeds Not on antiplatelet due to intracranial bleed Cont current meds as below Review of Systems - Review of Systems Respiratory: negative: Cough, Dry, Shortness of Breath, Hemoptysis, SOB with Excertion, Pleuritic Pain, Sputum, Wheezing Cardiovascular: negative: chest pain, palpitations, orthopnea, paroxysmal nocturnal dyspnea, edema, light headedness, other - Medications/Allergies Allergies/Adverse Reactions: Allergies Allergy/AdvReac Type Severity Reaction Status Date / Time No Allergy Information Allergy Unverified 11/18/17 10:03 Available Medications: Current Medications Acetaminophen (Tylenol Elixir) 650 mg PER TUBE Q4H PRN PRN Reason: Headache/Fever or Pain Last Admin: 12/08/17 09:25 Dose: 650 mg Albuterol/Ipratropium (Duoneb) 3 ml NEB [id number] PRN PRN Reason: SOB &/or Wheezing Last Admin: 11/29/17 18:40 Dose: 3 ml Bisacodyl (Dulcolax) 10 mg [place] DAILYPRN PRN PRN Reason: Constipation Carvedilol (Coreg) 12.5 mg PER TUBE BID-[facility] Last Admin: 12/21/17 16:08 Dose: 12.5 mg Clonidine (Catapres) 0.1 mg PER TUBE TID [facility] Last Admin: 12/21/17 16:00 Dose: 0.1 mg Folic Acid (Folvite) 1 mg PO DAILY [facility] Last Admin: 12/21/17 10:02 Dose: 1 mg Hydralazine HCl (Apresoline) 10 mg SLOW IVP Q4H PRN PRN Reason: SBP Greater Than 180 Hydralazine HCl (Apresoline) 25 mg PER TUBE DAILY [facility] Last Admin: 12/21/17 09:00 Dose: Not Given Iron/Minerals/Multivitamins (Certa Ric Liquid) 15 ml PO DAILY [facility] Last Admin: 12/21/17 12:01 Dose: 15 ml Magnesium Oxide (Magnesium Oxide) 250 mg PER TUBE DAILY [facility] Last Admin: 12/21/17 10:01 Dose: 250 mg Miscellaneous Medication (Pharmacy To Dose) 1 each IVPB PRN PRN PRN Reason: Pharmacy to dose Nystatin (Mycostatin Powder) 1 gm TOP BID PRN PRN Reason: Topical Irritations Last Admin: 12/04/17 08:37 Dose: 1 applic Ondansetron HCl (Zofran) 4 mg IVP BIDPRN PRN PRN Reason: Nausea/Vomiting Sodium Chloride (Flush - Normal Saline) 10 ml IVF PRN PRN PRN Reason: Saline Flush Last Admin: 12/02/17 10:55 Dose: 10 ml Thiamine HCl (Thiamine) 100 mg PO DAILY [facility] Last Admin: 12/21/17 10:01 Dose: 100 mg Venlafaxine HCl (Effexor Xr) 37.5 mg PO DAILY [facility] Last Admin: 12/21/17 12:00 Dose: 37.5 mg
[2017-12-22] MEDS: Carvedilol 6.25 MG TAB PER TUBE SCH ×2 (09:30→16:00)
[2017-12-22] MEDS: hydrALAZINE 25 MG TAB PER TUBE SCH (09:32)
[2017-12-22] MEDS: Folic Acid 1 MG TAB PO SCH (09:32)
[2017-12-22] MEDS: Magnesium Oxide 250 MG TAB PER TUBE SCH (09:33)
[2017-12-22] MEDS: cloNIDine 0.1 MG TAB PER TUBE SCH ×3 (09:33→21:01)
[2017-12-22] MEDS: Venlafaxine XR 37.5 MG CAP PO SCH (11:39)
[2017-12-22] MEDS: Multivits W-Minerals Liquid 15mL UDCUP PO SCH (15:42)
--- NOTE | 2017-12-22 22:45 | PDOC.PN ---
- Subjective Encounter Start Date: 12/22/17 Encounter Start Time: 12:30 Patient seen and examined for Intracranial bleed. No new complaints. No overnight events - Objective MAR Reviewed: Yes Vital Signs & Weight: Vital Signs (12 hours) Temp Pulse Resp BP BP BP Pulse Ox 12/22/17 21:01 138/78 12/22/17 21:00 98.2 F 60 18 138/78 100 12/22/17 16:38 82 16 96/68 98 12/22/17 16:00 96/68 12/22/17 11:40 109/69 Weight Admit Weight 146 lb Weight 127 lb 14.4 oz Most Recent Monitor Data Heart Rate from ECG 75 NIBP 135/82 NIBP BP-Mean 99 Respiration from ECG 27 SpO2 100 I&O: 12/21/17 12/22/17 12/23/17 06:59 06:59 06:59 Intake Total 1770 1230 Balance 1770 1230 Result Diagrams: 12/16/17 04:09 12/16/17 04:09 Additional Labs: Accuchecks 12/22/17 12/22/17 12/22/17 21:41 16:41 11:38 POC Glucose 91 126 H 106 12/22/17 04:22 POC Glucose 86 Phys Exam - Physical Examination Constitutional: NAD Respiratory: no wheezing, no rhonchi Cardiovascular: RRR, no rub Gastrointestinal: soft, positive bowel sounds Musculoskeletal: no edema Neurological: moves all 4 limbs Dx/Plan - Plan DVT proph w/SCDs IMPRESSION: 1. Acute hypoxic respiratory failure requiring Mech Vent/Toxic Metabolic Encephalopathy/Intracranial bleed 2. Aspiration Pneumonia - Completed Atbx 3. Swallow dy s/p PEG 4. HTN 5. Electrolyte abn - hypernatremia/hypokalemia/hypomagnesemia 6. Elevated cardiac enzymes due to demand ischemia/Lactic acidosis - resolved/ Chronic alcoholism /Cocaine abuse/Rhabdomyolysis PLAN: Await placement Cont PEG tube feeds with intermittent PO feeds Not on antiplatelet due to intracranial bleed Cont current meds as below Review of Systems - Review of Systems Respiratory: negative: Cough, Dry, Shortness of Breath, Hemoptysis, SOB with Excertion, Pleuritic Pain, Sputum, Wheezing Cardiovascular: negative: chest pain, palpitations, orthopnea, paroxysmal nocturnal dyspnea, edema, light headedness, other - Medications/Allergies Allergies/Adverse Reactions: Allergies Allergy/AdvReac Type Severity Reaction Status Date / Time No Allergy Information Allergy Unverified 11/18/17 10:03 Available Medications: Current Medications Acetaminophen (Tylenol Elixir) 650 mg PER TUBE Q4H PRN PRN Reason: Headache/Fever or Pain Last Admin: 12/08/17 09:25 Dose: 650 mg Albuterol/Ipratropium (Duoneb) 3 ml NEB [id number] PRN PRN Reason: SOB &/or Wheezing Last Admin: 11/29/17 18:40 Dose: 3 ml Bisacodyl (Dulcolax) 10 mg [place] DAILYPRN PRN PRN Reason: Constipation Carvedilol (Coreg) 12.5 mg PER TUBE BID-[facility] Last Admin: 12/22/17 16:00 Dose: Not Given Clonidine (Catapres) 0.1 mg PER TUBE TID [facility] Last Admin: 12/22/17 21:01 Dose: 0.1 mg Folic Acid (Folvite) 1 mg PO DAILY [facility] Last Admin: 12/22/17 09:32 Dose: 1 mg Hydralazine HCl (Apresoline) 10 mg SLOW IVP Q4H PRN PRN Reason: SBP Greater Than 180 Hydralazine HCl (Apresoline) 25 mg PER TUBE DAILY [facility] Last Admin: 12/22/17 09:32 Dose: Not Given Iron/Minerals/Multivitamins (Certa Ric Liquid) 15 ml PO DAILY [facility] Last Admin: 12/22/17 15:42 Dose: Not Given Magnesium Oxide (Magnesium Oxide) 250 mg PER TUBE DAILY [facility] Last Admin: 12/22/17 09:33 Dose: 250 mg Miscellaneous Medication (Pharmacy To Dose) 1 each IVPB PRN PRN PRN Reason: Pharmacy to dose Nystatin (Mycostatin Powder) 1 gm TOP BID PRN PRN Reason: Topical Irritations Last Admin: 12/04/17 08:37 Dose: 1 applic Ondansetron HCl (Zofran) 4 mg IVP BIDPRN PRN PRN Reason: Nausea/Vomiting Sodium Chloride (Flush - Normal Saline) 10 ml IVF PRN PRN PRN Reason: Saline Flush Last Admin: 12/02/17 10:55 Dose: 10 ml Thiamine HCl (Thiamine) 100 mg PO DAILY [facility] Last Admin: 12/22/17 09:33 Dose: 100 mg Venlafaxine HCl (Effexor Xr) 37.5 mg PO DAILY [facility] Last Admin: 12/22/17 11:39 Dose: 37.5 mg
[2017-12-23 05:11] LABS: #Basophils 0.1 thou/uL (0.0-0.2); #Eosinphils 0.2 thou/uL (0.0-0.7); #Lymphocytes 1.4 thou/uL (1.20-3.40); #Monocytes 0.6 thou/uL (0.11-0.59); #Neutrophils 3.1 thou/uL (1.40-6.50); %Basophils 1.2 % (0.0-1.0); %Eosinophils 3.4 % (0.0-10.0); %Lymphocytes 26.3 % (21.0-51.0); %Monocytes 11.5 % (0.0-10.0); %Neutrophils 57.6 % (42.0-75.0); Hemoglobin 13.9 g/dL (14.0-18.0); Mean Corpuscular Hemoglobin 33.8 pg (27.0-31.0); Mean Corpuscular Volume 99.4 fL (78.0-98.0); Mean Platelet Volume 8.8 fL (7.4-10.4); Platelet Count 150 thou/uL (130-400); RBC Distribution Width 11.3 % (11.5-14.5); Red Blood Cell (RBC) Count 4.11 mill/uL (4.70-6.10); White Blood Cell (WBC) Count 5.4 thou/uL (4.8-10.8)
[2017-12-23 05:40] LABS: Anion Gap 12 mmol/L (10-20); BUN (Urea Nitrogen) 10 mg/dL (8.4-25.7); Calc. Creatinine Clearance 118 mL/min (70-130); Calcium 9.4 mg/dL (7.8-10.44); Carbon Dioxide 25 mmol/L (22-29); Chloride 100 mmol/L (98-107); Estimated GFR-MDRD Greater than 90; Glucose 91 mg/dL (70-105); Potassium 4.3 mmol/L (3.5-5.1); Sodium 133 mmol/L (136-145)
[2017-12-23] MEDS: cloNIDine 0.1 MG TAB PER TUBE SCH ×3 (09:23→20:38)
[2017-12-23] MEDS: Carvedilol 6.25 MG TAB PER TUBE SCH ×2 (09:23→16:00)
[2017-12-23] MEDS: Folic Acid 1 MG TAB PO SCH (09:24)
[2017-12-23] MEDS: hydrALAZINE 25 MG TAB PER TUBE SCH (09:24)
[2017-12-23] MEDS: Magnesium Oxide 250 MG TAB PER TUBE SCH (09:28)
[2017-12-23] MEDS: Multivits W-Minerals Liquid 15mL UDCUP PO SCH (09:34)
[2017-12-23] MEDS: Venlafaxine XR 37.5 MG CAP PO SCH (09:37)
--- NOTE | 2017-12-23 11:31 | PDOC.PN ---
- Subjective Encounter Start Date: 12/23/17 Encounter Start Time: 11:29 Subjective: awake, noappropriate responce - Objective MAR Reviewed: Yes Vital Signs & Weight: Vital Signs (12 hours) Temp Pulse Resp BP BP Pulse Ox 12/23/17 09:24 67 106/73 12/23/17 09:23 106/73 12/23/17 07:57 98.5 F 67 16 106/73 98 Weight Admit Weight 146 lb Weight 125 lb 1.6 oz Most Recent Monitor Data Heart Rate from ECG 75 NIBP 135/82 NIBP BP-Mean 99 Respiration from ECG 27 SpO2 100 I&O: 12/22/17 12/23/17 12/24/17 06:59 06:59 06:59 Intake Total 1230 500 Balance 1230 500 Result Diagrams: 12/23/17 04:50 12/23/17 04:50 Additional Labs: Accuchecks 12/23/17 12/22/17 12/22/17 05:13 21:41 16:41 POC Glucose 91 91 126 H 12/22/17 11:38 POC Glucose 106 Phys Exam - Physical Examination Neck: no JVD Respiratory: clear to auscultation bilateral Cardiovascular: RRR, no significant murmur Gastrointestinal: soft, positive bowel sounds Musculoskeletal: no edema Dx/Plan (1) Status post insertion of percutaneous endoscopic gastrostomy (PEG) tube Code(s): Z93.1 - GASTROSTOMY STATUS Status: Acute (2) ICH (intracerebral hemorrhage) Code(s): I61.9 - NONTRAUMATIC INTRACEREBRAL HEMORRHAGE, UNSPECIFIED Status: Acute Qualifiers: Intracerebral hemorrhage etiology: nontraumatic Cerebral hemorrhage location: unspecified cerebral location Laterality: unspecified laterality Qualified Code(s): I61.9 - Nontraumatic intracerebral hemorrhage, unspecified (3) Dysphagia Code(s): R13.10 - DYSPHAGIA, UNSPECIFIED Status: Chronic Qualifiers: Dysphagia type: unspecified Qualified Code(s): R13.10 - Dysphagia, unspecified Comment: follow up on ST (4) Hypertension Code(s): I10 - ESSENTIAL (PRIMARY) HYPERTENSION Status: Chronic Qualifiers: Hypertension type: essential hypertension Qualified Code(s): I10 - Essential (primary) hypertension (5) Acute respiratory failure with hypoxia Code(s): J96.01 - ACUTE RESPIRATORY FAILURE WITH HYPOXIA Status: Resolved Comment: extubated - Plan incentive spirometry cont meds, nutrition per PEG -: placement pending -: medically stable * .
[2017-12-24] MEDS: Magnesium Oxide 250 MG TAB PER TUBE SCH (08:38)
[2017-12-24] MEDS: Folic Acid 1 MG TAB PO SCH (08:39)
[2017-12-24] MEDS: cloNIDine 0.1 MG TAB PER TUBE SCH ×3 (08:40→20:18)
[2017-12-24] MEDS: Carvedilol 6.25 MG TAB PER TUBE SCH ×2 (08:40→16:55)
[2017-12-24] MEDS: hydrALAZINE 25 MG TAB PER TUBE SCH (08:40)
[2017-12-24] MEDS: Venlafaxine XR 37.5 MG CAP PO SCH (08:41)
[2017-12-24] MEDS: Multivits W-Minerals Liquid 15mL UDCUP PO SCH (08:41)
--- NOTE | 2017-12-24 09:54 | PDOC.PN ---
- Subjective Encounter Start Date: 12/24/17 Encounter Start Time: 09:52 Subjective: no complaints, up and about, feeding self - Objective MAR Reviewed: Yes Vital Signs & Weight: Vital Signs (12 hours) Temp Pulse Resp BP BP Pulse Ox 12/24/17 08:40 66 110/67 12/24/17 07:22 98.4 F 66 16 120/77 96 Weight Admit Weight 146 lb Weight 125 lb 1.6 oz Most Recent Monitor Data Heart Rate from ECG 75 NIBP 135/82 NIBP BP-Mean 99 Respiration from ECG 27 SpO2 100 I&O: 12/23/17 12/24/17 12/25/17 06:59 06:59 06:59 Intake Total 500 1950 Balance 500 1950 Result Diagrams: 12/23/17 04:50 12/23/17 04:50 Additional Labs: Accuchecks 12/24/17 12/23/17 12/23/17 04:40 20:24 16:36 POC Glucose 95 127 H 118 H 12/23/17 11:21 POC Glucose 116 H Phys Exam - Physical Examination Neck: no JVD Respiratory: clear to auscultation bilateral Cardiovascular: RRR, no significant murmur Gastrointestinal: soft, positive bowel sounds Musculoskeletal: no edema Dx/Plan (1) Status post insertion of percutaneous endoscopic gastrostomy (PEG) tube Code(s): Z93.1 - GASTROSTOMY STATUS Status: Acute (2) ICH (intracerebral hemorrhage) Code(s): I61.9 - NONTRAUMATIC INTRACEREBRAL HEMORRHAGE, UNSPECIFIED Status: Acute Qualifiers: Intracerebral hemorrhage etiology: nontraumatic Cerebral hemorrhage location: unspecified cerebral location Laterality: unspecified laterality Qualified Code(s): I61.9 - Nontraumatic intracerebral hemorrhage, unspecified (3) Dysphagia Code(s): R13.10 - DYSPHAGIA, UNSPECIFIED Status: Chronic Qualifiers: Dysphagia type: unspecified Qualified Code(s): R13.10 - Dysphagia, unspecified Comment: follow up on ST (4) Hypertension Code(s): I10 - ESSENTIAL (PRIMARY) HYPERTENSION Status: Chronic Qualifiers: Hypertension type: essential hypertension Qualified Code(s): I10 - Essential (primary) hypertension (5) Acute respiratory failure with hypoxia Code(s): J96.01 - ACUTE RESPIRATORY FAILURE WITH HYPOXIA Status: Resolved Comment: extubated - Plan DC planning in progress, -: still receiving meds, nutrition per PEG -: cont antihypertensives * .
--- NOTE | 2017-12-25 08:30 | PDOC.PN ---
- Subjective Encounter Start Date: 12/25/17 Encounter Start Time: 08:28 Subjective: no distress - Objective MAR Reviewed: Yes Vital Signs & Weight: Vital Signs (12 hours) Temp Pulse Resp BP Pulse Ox 12/25/17 08:00 98.3 F 76 18 109/75 97 Weight Admit Weight 146 lb Weight 125 lb 1.6 oz Most Recent Monitor Data Heart Rate from ECG 75 NIBP 135/82 NIBP BP-Mean 99 Respiration from ECG 27 SpO2 100 I&O: 12/24/17 12/25/17 12/26/17 06:59 06:59 06:59 Intake Total 1950 1390 Balance 1950 1390 Result Diagrams: 12/23/17 04:50 12/23/17 04:50 Additional Labs: Accuchecks 12/25/17 12/24/17 05:04 20:19 POC Glucose 94 131 H Phys Exam - Physical Examination Neck: no JVD Respiratory: clear to auscultation bilateral Cardiovascular: RRR, no significant murmur Gastrointestinal: soft, positive bowel sounds Musculoskeletal: no edema Dx/Plan (1) Status post insertion of percutaneous endoscopic gastrostomy (PEG) tube Code(s): Z93.1 - GASTROSTOMY STATUS Status: Acute (2) ICH (intracerebral hemorrhage) Code(s): I61.9 - NONTRAUMATIC INTRACEREBRAL HEMORRHAGE, UNSPECIFIED Status: Acute Qualifiers: Intracerebral hemorrhage etiology: nontraumatic Cerebral hemorrhage location: unspecified cerebral location Laterality: unspecified laterality Qualified Code(s): I61.9 - Nontraumatic intracerebral hemorrhage, unspecified (3) Dysphagia Code(s): R13.10 - DYSPHAGIA, UNSPECIFIED Status: Chronic Qualifiers: Dysphagia type: unspecified Qualified Code(s): R13.10 - Dysphagia, unspecified Comment: follow up on ST (4) Hypertension Code(s): I10 - ESSENTIAL (PRIMARY) HYPERTENSION Status: Chronic Qualifiers: Hypertension type: essential hypertension Qualified Code(s): I10 - Essential (primary) hypertension (5) Acute respiratory failure with hypoxia Code(s): J96.01 - ACUTE RESPIRATORY FAILURE WITH HYPOXIA Status: Resolved Comment: extubated - Plan cont current plan of care DC planning -: cont PEG feedings -: cont antihypertensives per PEG * .
[2017-12-25] MEDS: cloNIDine 0.1 MG TAB PER TUBE SCH ×3 (09:11→21:36)
[2017-12-25] MEDS: Carvedilol 6.25 MG TAB PER TUBE SCH ×2 (09:12→17:59)
[2017-12-25] MEDS: hydrALAZINE 25 MG TAB PER TUBE SCH (09:12)
[2017-12-25] MEDS: Folic Acid 1 MG TAB PO SCH (09:13)
[2017-12-25] MEDS: Magnesium Oxide 250 MG TAB PER TUBE SCH (09:13)
[2017-12-25] MEDS: Multivits W-Minerals Liquid 15mL UDCUP PO SCH (09:13)
[2017-12-25] MEDS: Venlafaxine XR 37.5 MG CAP PO SCH (09:13)
--- NOTE | 2017-12-26 09:19 | PDOC.PN ---
- Subjective Encounter Start Date: 12/26/17 Encounter Start Time: :18 Subjective: no distress - Objective Vital Signs & Weight: Vital Signs (12 hours) BP 12/25/17 21:36 98/61 Weight Admit Weight 146 lb Weight 126 lb 11.2 oz Most Recent Monitor Data Heart Rate from ECG 75 NIBP 135/82 NIBP BP-Mean 99 Respiration from ECG 27 SpO2 100 I&O: 12/25/17 12/26/17 12/27/17 06:59 06:59 06:59 Intake Total 1390 590 Balance 1390 590 Result Diagrams: 12/23/17 04:50 12/23/17 04:50 Additional Labs: Accuchecks 12/25/17 12/25/17 12/25/17 19:56 16:28 14:22 POC Glucose 150 H 93 95 Phys Exam - Physical Examination Neck: no JVD Respiratory: clear to auscultation bilateral Cardiovascular: RRR, no significant murmur Gastrointestinal: soft, positive bowel sounds Musculoskeletal: no edema Dx/Plan (1) Status post insertion of percutaneous endoscopic gastrostomy (PEG) tube Code(s): Z93.1 - GASTROSTOMY STATUS Status: Acute (2) ICH (intracerebral hemorrhage) Code(s): I61.9 - NONTRAUMATIC INTRACEREBRAL HEMORRHAGE, UNSPECIFIED Status: Acute Qualifiers: Intracerebral hemorrhage etiology: nontraumatic Cerebral hemorrhage location: unspecified cerebral location Laterality: unspecified laterality Qualified Code(s): I61.9 - Nontraumatic intracerebral hemorrhage, unspecified (3) Dysphagia Code(s): R13.10 - DYSPHAGIA, UNSPECIFIED Status: Chronic Qualifiers: Dysphagia type: unspecified Qualified Code(s): R13.10 - Dysphagia, unspecified Comment: follow up on ST (4) Hypertension Code(s): I10 - ESSENTIAL (PRIMARY) HYPERTENSION Status: Chronic Qualifiers: Hypertension type: essential hypertension Qualified Code(s): I10 - Essential (primary) hypertension (5) Acute respiratory failure with hypoxia Code(s): J96.01 - ACUTE RESPIRATORY FAILURE WITH HYPOXIA Status: Resolved Comment: extubated - Plan cont PEG nutrition andmeds -: placement * .
[2017-12-26] MEDS: cloNIDine 0.1 MG TAB PER TUBE SCH ×3 (09:40→22:41)
[2017-12-26] MEDS: Carvedilol 6.25 MG TAB PER TUBE SCH ×2 (09:40→17:17)
[2017-12-26] MEDS: hydrALAZINE 25 MG TAB PER TUBE SCH (09:40)
[2017-12-26] MEDS: Multivits W-Minerals Liquid 15mL UDCUP PO SCH (10:09)
[2017-12-26] MEDS: Folic Acid 1 MG TAB PO SCH (10:09)
[2017-12-26] MEDS: Venlafaxine XR 37.5 MG CAP PO SCH (10:09)
[2017-12-26] MEDS: Magnesium Oxide 250 MG TAB PER TUBE SCH (10:12)
[2017-12-27] MEDS: Carvedilol 6.25 MG TAB PER TUBE SCH ×2 (09:05→17:08)
[2017-12-27] MEDS: cloNIDine 0.1 MG TAB PER TUBE SCH ×3 (09:05→20:33)
[2017-12-27] MEDS: hydrALAZINE 25 MG TAB PER TUBE SCH (09:05)
[2017-12-27] MEDS: Folic Acid 1 MG TAB PO SCH ×2 (10:34→10:59)
[2017-12-27] MEDS: Venlafaxine XR 37.5 MG CAP PO SCH ×2 (10:34→11:00)
[2017-12-27] MEDS: Multivits W-Minerals Liquid 15mL UDCUP PO SCH ×2 (10:35→11:00)
[2017-12-27] MEDS: Magnesium Oxide 250 MG TAB PER TUBE SCH (10:59)
[2017-12-28] MEDS: cloNIDine 0.1 MG TAB PER TUBE SCH ×3 (08:55→20:19)
[2017-12-28] MEDS: Venlafaxine XR 37.5 MG CAP PO SCH (08:55)
[2017-12-28] MEDS: hydrALAZINE 25 MG TAB PER TUBE SCH (08:55)
[2017-12-28] MEDS: Folic Acid 1 MG TAB PO SCH (08:56)
[2017-12-28] MEDS: Multivits W-Minerals Liquid 15mL UDCUP PO SCH (08:56)
[2017-12-28] MEDS: Carvedilol 6.25 MG TAB PER TUBE SCH ×2 (08:56→16:40)
[2017-12-28] MEDS: Magnesium Oxide 250 MG TAB PER TUBE SCH (08:57)
[2017-12-28 09:13] LABS: Sodium 135 mmol/L (136-145)
--- NOTE | 2017-12-28 11:08 | PDOC.PN ---
- Subjective Encounter Start Date: 12/27/17 Encounter Start Time: 13:00 -: old records requested/rev PT seen and examined, chart reviewed, interim history reviewed, pt with PNA dx 12/23, on Vanc and CTX until 12/30. PEG placed, getting tube feeds, refusing meals No F/C, no N/V/d/C, no CP or sOB, no agitation, no acute events ROS not obtainable due to MS - Objective MAR Reviewed: Yes Vital Signs & Weight: Vital Signs (12 hours) Temp Pulse Resp BP BP Pulse Ox 12/28/17 08:56 97/66 12/28/17 08:55 74 97/66 12/28/17 08:00 98.1 F 74 20 97/66 97 Weight Admit Weight 146 lb Weight 126 lb 11.2 oz Most Recent Monitor Data Heart Rate from ECG 75 NIBP 135/82 NIBP BP-Mean 99 Respiration from ECG 27 SpO2 100 I&O: 12/27/17 12/28/17 12/29/17 06:59 06:59 06:59 Intake Total 700 1744 Balance 700 1744 Result Diagrams: 12/23/17 04:50 12/28/17 08:42 Additional Labs: Accuchecks 12/28/17 12/27/17 12/27/17 04:47 19:51 16:56 POC Glucose 109 112 H 99 12/27/17 11:18 POC Glucose 115 H Radiology Reviewed by me: Yes Phys Exam - Physical Examination Constitutional: NAD HEENT: PERRLA, moist MMs, sclera anicteric, oral pharynx no lesions Neck: no nodes, no JVD, supple, full ROM Respiratory: no wheezing, no rales, no rhonchi, clear to auscultation bilateral Cardiovascular: RRR, no significant murmur, no rub Gastrointestinal: soft, non-tender, no distention, positive bowel sounds Musculoskeletal: no edema Neurological: moves all 4 limbs Lymphatic: no nodes Psychiatric: normal affect Deviation from normal: Ox1 Skin: no rash, normal turgor, cap refill <2 seconds Dx/Plan (1) ICH (intracerebral hemorrhage) Code(s): I61.9 - NONTRAUMATIC INTRACEREBRAL HEMORRHAGE, UNSPECIFIED Status: Acute Qualifiers: Intracerebral hemorrhage etiology: nontraumatic Cerebral hemorrhage location: unspecified cerebral location Laterality: unspecified laterality Qualified Code(s): I61.9 - Nontraumatic intracerebral hemorrhage, unspecified (2) Dysphagia Code(s): R13.10 - DYSPHAGIA, UNSPECIFIED Status: Chronic Qualifiers: Dysphagia type: unspecified Qualified Code(s): R13.10 - Dysphagia, unspecified Comment: PEG in place (3) Hypokalemia Code(s): E87.6 - HYPOKALEMIA Status: Resolved Comment: on electrolyte replacement protocol (4) Acute respiratory failure with hypoxia Code(s): J96.01 - ACUTE RESPIRATORY FAILURE WITH HYPOXIA Status: Resolved Comment: extubated (5) Alcoholism Code(s): F10.20 - ALCOHOL DEPENDENCE, UNCOMPLICATED Status: Chronic (6) Hypertension Code(s): I10 - ESSENTIAL (PRIMARY) HYPERTENSION Status: Chronic Qualifiers: Hypertension type: essential hypertension Qualified Code(s): I10 - Essential (primary) hypertension (7) Aspiration pneumonia Code(s): J69.0 - PNEUMONITIS DUE TO INHALATION OF FOOD AND VOMIT Status: Resolved Qualifiers: Aspiration pneumonia type: due to regurgitated food Laterality: unspecified laterality Lung location: unspecified part of lung Qualified Code(s): J69.0 - Pneumonitis due to inhalation of food and vomit Comment: off abx (8) Hypomagnesemia Code(s): E83.42 - HYPOMAGNESEMIA Status: Resolved Comment: replace orally, pt pulled out all IVs - Plan cont current plan of care, PT/OT, licensed clinical social worker, speech therapy, respiratory therapy, 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 disability paperwork filled out, previous facilities are reconsidering, hope to hear on Saturday
--- NOTE | 2017-12-28 11:13 | PDOC.PN ---
- Subjective Encounter Start Date: 12/28/17 Encounter Start Time: 11:12 No acute events, no complaints. No F/C, n N/V/d/C, no CP or SOB ROS not obtainable - Objective MAR Reviewed: Yes Vital Signs & Weight: Vital Signs (12 hours) Temp Pulse Resp BP BP Pulse Ox 12/28/17 08:56 97/66 12/28/17 08:55 74 97/66 12/28/17 08:00 98.1 F 74 20 66 97 Weight Admit Weight 146 lb Weight 126 lb 11.2 oz Most Recent Monitor Data Heart Rate from ECG 75 NIBP 135/82 NIBP BP-Mean 99 Respiration from ECG 27 SpO2 100 I&O: 12/27/17 12/28/17 12/29/17 06:59 06:59 06:59 Intake Total 700 1744 Balance 700 1744 Result Diagrams: 12/23/17 04:50 12/28/17 08:42 Additional Labs: Accuchecks 12/28/17 12/27/17 12/27/17 04:47 19:51 16:56 POC Glucose 109 112 H 99 12/27/17 11:18 POC Glucose 115 H Phys Exam - Physical Examination Constitutional: NAD HEENT: PERRLA, moist MMs, sclera anicteric, oral pharynx no lesions Neck: no nodes, no JVD, supple, full ROM Respiratory: no wheezing, no rales, no rhonchi, clear to auscultation bilateral Cardiovascular: RRR, no significant murmur, no rub Gastrointestinal: soft, non-tender, no distention, positive bowel sounds Musculoskeletal: no edema Neurological: non-focal, normal sensation, moves all 4 limbs Lymphatic: no nodes Psychiatric: normal affect Skin: no rash, normal turgor, cap refill <2 seconds Dx/Plan (1) ICH (intracerebral hemorrhage) Code(s): I61.9 - NONTRAUMATIC INTRACEREBRAL HEMORRHAGE, UNSPECIFIED Status: Acute Qualifiers: Intracerebral hemorrhage etiology: nontraumatic Cerebral hemorrhage location: unspecified cerebral location Laterality: unspecified laterality Qualified Code(s): I61.9 - Nontraumatic intracerebral hemorrhage, unspecified (2) Dysphagia Code(s): R13.10 - DYSPHAGIA, UNSPECIFIED Status: Chronic Qualifiers: Dysphagia type: unspecified Qualified Code(s): R13.10 - Dysphagia, unspecified Comment: PEG in place (3) Hypokalemia Code(s): E87.6 - HYPOKALEMIA Status: Resolved Comment: on electrolyte replacement protocol (4) Acute respiratory failure with hypoxia Code(s): J96.01 - ACUTE RESPIRATORY FAILURE WITH HYPOXIA Status: Resolved Comment: extubated (5) Alcoholism Code(s): F10.20 - ALCOHOL DEPENDENCE, UNCOMPLICATED Status: Chronic (6) Hypertension Code(s): I10 - ESSENTIAL (PRIMARY) HYPERTENSION Status: Chronic Qualifiers: Hypertension type: essential hypertension Qualified Code(s): I10 - Essential (primary) hypertension (7) Aspiration pneumonia Code(s): J69.0 - PNEUMONITIS DUE TO INHALATION OF FOOD AND VOMIT Status: Resolved Qualifiers: Aspiration pneumonia type: due to regurgitated food Laterality: unspecified laterality Lung location: unspecified part of lung Qualified Code(s): J69.0 - Pneumonitis due to inhalation of food and vomit Comment: off abx (8) Hypomagnesemia Code(s): E83.42 - HYPOMAGNESEMIA Status: Resolved Comment: replace orally, pt pulled out all IVs - Plan cont current plan of care, continue antibiotics, 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
[2017-12-28] MEDS: Acetaminophen 650 MG/20.3 ML UDCUP PER TUBE PRN (20:19)
[2017-12-29] MEDS: Carvedilol 6.25 MG TAB PER TUBE SCH ×2 (08:56→17:39)
[2017-12-29] MEDS: Venlafaxine XR 37.5 MG CAP PO SCH (08:56)
[2017-12-29] MEDS: Folic Acid 1 MG TAB PO SCH (08:56)
[2017-12-29] MEDS: cloNIDine 0.1 MG TAB PER TUBE SCH ×2 (08:56→15:18)
[2017-12-29] MEDS: hydrALAZINE 25 MG TAB PER TUBE SCH (08:56)
[2017-12-29] MEDS: Multivits W-Minerals Liquid 15mL UDCUP PO SCH (08:59)
[2017-12-29] MEDS: Magnesium Oxide 250 MG TAB PER TUBE SCH (11:26)
--- NOTE | 2017-12-29 14:01 | PDOC.PN ---
- Subjective Encounter Start Date: 12/29/17 Encounter Start Time: 11:30 no changes, no new evet,s resting comfortable. No F/C, no N/V/d/C All systems reviewed and neg x as per HPI - Objective MAR Reviewed: Yes Vital Signs & Weight: Vital Signs (12 hours) Temp Pulse Resp BP BP Pulse Ox 12/29/17 08:56 72 119/74 12/29/17 08:50 98 12/29/17 08:00 97.7 F 92 16 119/74 98 Weight Admit Weight 146 lb Weight 130 lb 1 oz Most Recent Monitor Data Heart Rate from ECG 75 NIBP 135/82 NIBP BP-Mean 99 Respiration from ECG 27 SpO2 100 I&O: 12/28/17 12/29/17 12/30/17 06:59 06:59 06:59 Intake Total 1744 1962 Balance 1744 1962 Result Diagrams: 12/23/17 04:50 12/28/17 08:42 Additional Labs: Accuchecks 12/29/17 12/28/17 05:50 15:21 POC Glucose 133 H 109 Phys Exam - Physical Examination Constitutional: NAD HEENT: PERRLA, moist MMs, sclera anicteric, oral pharynx no lesions Neck: no nodes, no JVD, supple, full ROM Respiratory: no wheezing, no rales, no rhonchi, clear to auscultation bilateral Cardiovascular: RRR, no significant murmur, no rub Gastrointestinal: soft, non-tender, no distention, positive bowel sounds Musculoskeletal: no edema Neurological: non-focal, normal sensation, moves all 4 limbs Lymphatic: no nodes Psychiatric: normal affect, A&O x 3 Skin: no rash, normal turgor, cap refill <2 seconds Dx/Plan (1) ICH (intracerebral hemorrhage) Code(s): I61.9 - NONTRAUMATIC INTRACEREBRAL HEMORRHAGE, UNSPECIFIED Status: Acute Qualifiers: Intracerebral hemorrhage etiology: nontraumatic Cerebral hemorrhage location: unspecified cerebral location Laterality: unspecified laterality Qualified Code(s): I61.9 - Nontraumatic intracerebral hemorrhage, unspecified (2) Dysphagia Code(s): R13.10 - DYSPHAGIA, UNSPECIFIED Status: Chronic Qualifiers: Dysphagia type: unspecified Qualified Code(s): R13.10 - Dysphagia, unspecified Comment: PEG in place (3) Hypokalemia Code(s): E87.6 - HYPOKALEMIA Status: Resolved Comment: on electrolyte replacement protocol (4) Acute respiratory failure with hypoxia Code(s): J96.01 - ACUTE RESPIRATORY FAILURE WITH HYPOXIA Status: Resolved Comment: extubated (5) Alcoholism Code(s): F10.20 - ALCOHOL DEPENDENCE, UNCOMPLICATED Status: Chronic (6) Hypertension Code(s): I10 - ESSENTIAL (PRIMARY) HYPERTENSION Status: Chronic Qualifiers: Hypertension type: essential hypertension Qualified Code(s): I10 - Essential (primary) hypertension (7) Aspiration pneumonia Code(s): J69.0 - PNEUMONITIS DUE TO INHALATION OF FOOD AND VOMIT Status: Resolved Qualifiers: Aspiration pneumonia type: due to regurgitated food Laterality: unspecified laterality Lung location: unspecified part of lung Qualified Code(s): J69.0 - Pneumonitis due to inhalation of food and vomit Comment: off abx (8) Hypomagnesemia Code(s): E83.42 - HYPOMAGNESEMIA Status: Resolved Comment: replace orally, pt pulled out all IVs - Plan cont current plan of care, PT/OT, nursing home social worker, 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
[2017-12-30] MEDS: cloNIDine 0.1 MG TAB PER TUBE SCH ×4 (00:29→21:17)
[2017-12-30 08:44] LABS: Sodium 135 mmol/L (136-145)
[2017-12-30] MEDS: Carvedilol 6.25 MG TAB PER TUBE SCH ×2 (09:03→17:04)
[2017-12-30] MEDS: hydrALAZINE 25 MG TAB PER TUBE SCH (09:04)
[2017-12-30] MEDS: Folic Acid 1 MG TAB PO SCH (09:04)
[2017-12-30] MEDS: Multivits W-Minerals Liquid 15mL UDCUP PO SCH (09:05)
[2017-12-30] MEDS: Magnesium Oxide 250 MG TAB PER TUBE SCH (09:05)
[2017-12-30] MEDS: Venlafaxine XR 37.5 MG CAP PO SCH (09:08)
--- NOTE | 2017-12-30 19:32 | PDOC.PN ---
- Subjective Encounter Start Date: 12/30/17 Encounter Start Time: 18:30 Subjective: f/u for ICH with dysphagia with PEG tube now clamped and taking po intake. - Objective MAR Reviewed: Yes Vital Signs & Weight: Vital Signs (12 hours) Temp Pulse Resp BP BP Pulse Ox 12/30/17 17:04 108/71 12/30/17 16:00 97 12/30/17 15:52 108/71 12/30/17 09:04 60 116/74 12/30/17 09:03 116/74 12/30/17 08:00 97.7 F 60 18 116/74 97 Weight Admit Weight 146 lb Weight 126 lb 6.4 oz Most Recent Monitor Data Heart Rate from ECG 75 NIBP 135/82 NIBP BP-Mean 99 Respiration from ECG 27 SpO2 100 I&O: 12/29/17 12/30/17 12/31/17 06:59 06:59 06:59 Intake Total 1962 990 600 Balance 1962 990 600 Result Diagrams: 12/23/17 04:50 12/30/17 08:02 Additional Labs: Accuchecks 12/30/17 12/30/17 17:09 11:46 POC Glucose 86 116 H Phys Exam - Physical Examination Constitutional: NAD HEENT: PERRLA, sclera anicteric, oral pharynx no lesions Neck: no nodes, no JVD, supple, full ROM Respiratory: no wheezing, no rales, no rhonchi, clear to auscultation bilateral S1, S2 Cardiovascular: RRR, no significant murmur, no rub, gallop + PEG in place Gastrointestinal: soft, non-tender, no distention, positive bowel sounds Musculoskeletal: no edema, pulses present Neurological: normal sensation, moves all 4 limbs Skin: no rash, normal turgor, cap refill <2 seconds Dx/Plan (1) ICH (intracerebral hemorrhage) Code(s): I61.9 - NONTRAUMATIC INTRACEREBRAL HEMORRHAGE, UNSPECIFIED Status: Acute Qualifiers: Intracerebral hemorrhage etiology: nontraumatic Cerebral hemorrhage location: unspecified cerebral location Laterality: unspecified laterality Qualified Code(s): I61.9 - Nontraumatic intracerebral hemorrhage, unspecified Comment: Medical mgmt, no anticoagulation (2) Status post insertion of percutaneous endoscopic gastrostomy (PEG) tube Code(s): Z93.1 - GASTROSTOMY STATUS Status: Acute Comment: PEG tube clamped , taking po intake (3) Dysphagia Code(s): R13.10 - DYSPHAGIA, UNSPECIFIED Status: Chronic Qualifiers: Dysphagia type: unspecified Qualified Code(s): R13.10 - Dysphagia, unspecified Comment: PEG in place, po intake per Speech recommendations (4) Hypertension Code(s): I10 - ESSENTIAL (PRIMARY) HYPERTENSION Status: Chronic Qualifiers: Hypertension type: essential hypertension Qualified Code(s): I10 - Essential (primary) hypertension Comment: Continue Clonidine, Carvedilol and Hydralazine - Plan PT/OT, social human services assistants, speech therapy, DVT proph w/SCDs Stable overall -: Continue PT for mobilization -: OOB with assist -: Continue to monitor po intake, Ensure Enlive TID -: Likely home in am * .
[2017-12-31] MEDS: Venlafaxine XR 37.5 MG CAP PO SCH (08:33)
[2017-12-31] MEDS: Folic Acid 1 MG TAB PO SCH (08:34)
[2017-12-31] MEDS: cloNIDine 0.1 MG TAB PER TUBE SCH (08:34)
[2017-12-31] MEDS: hydrALAZINE 25 MG TAB PER TUBE SCH (08:34)
[2017-12-31] MEDS: Magnesium Oxide 250 MG TAB PER TUBE SCH (08:34)
[2017-12-31] MEDS: Carvedilol 6.25 MG TAB PER TUBE SCH (08:34)
[2017-12-31] MEDS: Multivits W-Minerals Liquid 15mL UDCUP PO SCH (08:35)
[2017-12-31 11:57] VITALS: TEMP 98.2
--- NOTE | 2017-12-31 12:17 | DIS ---
DATE OF ADMISSION: 11/18/2017 DATE OF DISCHARGE: 12/31/2017 DISCHARGE DIAGNOSES: 1. Intracranial hemorrhage, nontraumatic, resolved. 2. Dysphagia secondary to #1, improved. 3. Status post percutaneous endoscopic gastrostomy tube. 4. Hypertension, stable. 5. Status post aspiration pneumonia, resolved. 6. Status post acute hypoxic respiratory failure. CONSULTATIONS: Neurosurgery service. Dr. Green with pulmonology service. Dr. Scout Cortez with n eurology service. Dr. Cueva with gastroenterology service. PERTINENT LABORATORY AND X-RAY FINDINGS: Lactic acid level ranged between 2.2 to 4.5. CBC showed a hemoglobin ranging between 12.8 to 15.8. Urine drug screen dated on 11/20/2017, positive for cocaine . Syphilis IgG, IgM antibody nonreactive on 11/20/2017. Blood cultures x2 dated 11/18/2017 showed b acillus species, likely contaminant 1 out of 2. Urine culture dated 11/18/2017 showed no growth at 4 8 hours. Blood cultures x2 dated 11/23/2017 showed no growth at 5 days. C. difficile antigen and to raymundo dated 12/01/[address] of the brain without contrast dated 11/18/2017 showed extensive in tracranial hemorrhage with bilateral intraparenchymal hemorrhage, worse on the left greater than righ t. Subarachnoid hemorrhage and small amount of left-sided subdural hemorrhage noted. CT of the cerv ical spine dated 11/18/2017 showed spondylosis without acute process. CT of the brain without contra st dated 11/18/2017 showed extensive multifocal intraparenchymal hemorrhage. Associated vasogenic ed nathan with focal effacement of the left frontal and temporal lobes. CT of the brain without contrast d ated 11/19/2017 showed multifocal intraparenchymal hemorrhage. Large hematoma in the left cerebrum. Abdominal radiographs dated 11/24/2017 showed a layering right pleural effusion. HOSPITAL COURSE: Patient was initially admitted by the neurosurgical service after presenting unresp onsive. Patient underwent extensive neuro imaging showing extensive intraparenchymal hemorrhage in t he left frontal lobe with right-sided shifting noted. Patient was initially managed in the ICU with supportive management and general medical care. Patient did not require acute surgical intervention and was monitored with serial CT exams. Patient was slow to clinically improve and underwent evaluat ion by the Pulmonology, Critical Care Service, after patient was intubated for airway protection. Th e patient was also treated for likely aspiration pneumonia with IV Zosyn and vancomycin during the ho spital course. Patient subsequently transitioned out of the Intensive Care Unit to the stroke unit a nd remained on general stroke protocol. Patient was evaluated due to dysphagia and concern for recur rent aspiration following the intracranial hemorrhage. Patient underwent subsequent PEG tube placeme nt receiving tube feeds with TwoCal HN. Patient was evaluated for potential acute inpatient rehabili tation versus halfway care; however, due to financial constraints and lack of insurance. Kamille watkinsnt was not able to be placed during the hospital course. Patient did slowly clinically improved an d transitioned to the medical floor, receiving general nutritional support through PEG tube feeds as well as receiving physical, occupational, and speech therapy throughout the remainder of the hospital course. Patient did transition to oral intake, tolerating a regular diet with nectar thick liquids. Patient did receive supplemental tube feeds; however, began refusing these in the last 3-4 days ap or to discharge. Patient's family members were instructed and educated on general care of the patien t as well as assistance with PEG tube management. I have examined and discussed followup instruction s with patient at the time of discharge. Currently, patient is not capable of managing his own affai rs due to persistent confusion and disorientation. Patient will need home supervision as well as ass istance with general self-care financial assistance and coordination of care for outpatient followup. I have examined the patient at the time of discharge with review of vital signs showing stable valu es. Patient overall clinically stable and ready for discharge on 12/31/2017. DISCHARGE MEDICATIONS: 1. Carvedilol 12.5 mg 1 tab p.o. b.i.d. 2. Clonidine 0.1 mg p.o. t.i.d. 3. Venlafaxine XR 37.5 mg p.o. daily. FOLLOWUP: Patient may follow up with [facility] or [facility] for primary care assistance. Kamille rowdy may also follow up with Dr. Scout Cortez with neurology service. The patient may also follow up with Dr. Case Cueva with GI service. CONDITION ON DISCHARGE: Fair. ACTIVITY: Ad zenon. DIET: Regular with nectar thick liquids. May supplement with Ensure t.i.d. p.r.n. CODE STATUS: FULL. DISPOSITION: Home on 12/31/2017. Total time preparing and coordinating discharge 40 minutes.
[2017-12-31 13:28] VITALS: BP 93/53
== END 2017-12-31 12:45 | disposition home or self-care (01) | DRG 64 ==
LOC: ERS 08:26 → CCU 11:34 → 2SE 11-24 12:41 → T4-B 12-09 22:40
PROVIDERS: ADMIT Neurological Surgery; ATTEND Internal Medicine
PROC: 5A1945Z Respiratory Ventilation, 24-96 Consecutive Hours (ICD-10-PCS; 2017-11-18)
PROC: 0BH17EZ Insertion of Endotracheal Airway into Trachea, Via Natural or Artificial Opening (ICD-10-PCS; 2017-11-18)
PROC: 0DH63UZ Insertion of Feeding Device into Stomach, Percutaneous Approach (ICD-10-PCS; principal; 2017-11-27)
DX: I61.9 Nontraumatic intracerebral hemorrhage, unspecified (principal); J69.0 Pneumonitis due to inhalation of food and vomit; J96.01 Acute respiratory failure with hypoxia; G92 Toxic encephalopathy; F10.231 Alcohol dependence with withdrawal delirium; M62.82 Rhabdomyolysis; R13.10 Dysphagia, unspecified; I60.9 Nontraumatic subarachnoid hemorrhage, unspecified; I10 Essential (primary) hypertension; F10.20 Alcohol dependence, uncomplicated; F14.10 Cocaine abuse, uncomplicated; K70.9 Alcoholic liver disease, unspecified; R29.719 NIHSS score 19
CPT/HCPCS: 31500; 36415; 36416; 51702; 70450; 71045; 72125; 74018; 80048; 80053; 80202; 80306; 81003; 81015; 82248; 82330; 82550; 82553; 82803; 82805; 83605; 83735; 84100; 84134; 84295; 84484; 85025; 85610; 85730; 86780; 87040; 87086; 87324; 87449; 93005; 94002; 94003; 94640; 95816; 95819; 96361; 96365; 96368; 96375; G8978-GP-CL; G8978-GP-CM; G8979-GP-CI; G8979-GP-CJ; G8979-GP-CK; G8987-GO-CI; G8987-GO-CK; G8987-GO-CM; G8988-GO-CI; G8988-GO-CJ; G8989-GO-CI; G8996-GN-CK; G8996-GN-CL; G8996-GN-CN; G8997-GN-CI; G8997-GN-CL; J0360; J0456; J0696; J2001; J2060; J2250; J2543; J2704; J3010; J3370; J3411; J3475; J3480; J7050; J7620; S0028

== ENCOUNTER 2019-01-29 09:18 | Inpatient (IN) | payer OTHER ==
--- NOTE | 2019-01-29 09:42 | RAD ---
Portable frontal chest radiograph: 01/29/2019 COMPARISON: 11/23/2017 HISTORY: Trauma FINDINGS: Supine imaging is provided, limiting assessment for pneumothorax and pleural fluid. Heart and mediastinal contours are stable. Mild stable increased linear interstitial d ensity. IMPRESSION: No acute findings.
--- NOTE | 2019-01-29 10:04 | CT ---
CT HEAD WITHOUT CONTRAST: HISTORY: Trauma. Fall. COMPARISON: 11/19/2017 FINDINGS: Hemorrhage: Small parenchymal hemorrhage is noted along the medial right frontal lobe near the vertex . These hemorrhages measure 1.0 x 0.7 cm and 0.6 x 0.4 cm. No additional parenchymal hemorrhages. No extra-axial hematoma. Brain parenchyma: Malacic change involving the left cerebrum due to remote sequelae of previously harlan ntified parenchymal hemorrhagic contusions. Hypodensities of the white matter may be due to chronic small vessel ischemic change. Ventricular system: Ventricles and sulci are patent and symmetric. Calvarium: Intact. Scalp: Right frontal scalp hematoma. Sinuses and mastoid air cells: Adequate aeration. IMPRESSION: 1. 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 2. Small hemorrhagic contusions involving the medial right frontal lobe, near the vertex. Results of study discussed with Dr. Hernandez on 01/29/2019 at 10:03 a.m. CODE CR Transcribed Date/Time: 01/29/2019 10:09 AM
[2019-01-29 10:06] LABS: #Eosinphils 0.1 thou/uL (0.0-0.7); #Lymphocytes 2.2 thou/uL (1.20-3.40); #Monocytes 0.5 thou/uL (0.11-0.59); #Neutrophils 6.5 thou/uL (1.40-6.50); %Basophils 0.5 % (0.0-1.0); %Eosinophils 0.8 % (0.0-10.0); %Monocytes 5.1 % (0.0-10.0); %Neutrophils 69.6 % (42.0-75.0); Hemoglobin 15.1 g/dL (14.0-18.0); Mean Corpuscular HGB CONC 33.9 g/dL (32.0-36.0); Mean Corpuscular Hemoglobin 31.4 pg (27.0-31.0); Mean Corpuscular Volume 92.6 fL (78.0-98.0); Mean Platelet Volume 7.3 fL (7.4-10.4); Platelet Count 213 thou/uL (130-400); RBC Distribution Width 13.1 % (11.5-14.5); Red Blood Cell (RBC) Count 4.81 mill/uL (4.70-6.10); White Blood Cell (WBC) Count 9.3 thou/uL (4.8-10.8)
[2019-01-29 10:12] LABS: INR-International Normal Ratio 1.3
--- NOTE | 2019-01-29 10:17 | CT ---
CT CERVICAL SPINE WITHOUT CONTRAST: HISTORY: Trauma. Pain. COMPARISON: 11/18/2017. FINDINGS: No craniocervical dissociation. Appropriate alignment of the lateral masses of C1 and C2. Intact odon toid process Appropriate alignment of the facets. Soft tissue neck structures: No mass, lymphadenopathy or hematoma. No prevertebral soft tissue swelli ng. Upper mediastinum and lung apices: Unremarkable. Central spinal canal: Neural foramina and central spinal canal are patent. Evaluation is limited by nemesio lamas. Vertebral bodies: Cervical spine vertebral body height is maintained. No fracture. IMPRESSION: No cervical spine fracture. Results of study discussed with Dr. Hernandez 01/29/2019 at 10:16 AM Code CR Transcribed Date/Time: 01/29/2019 10:18 AM
[2019-01-29] MEDS ORDERED: Lorazepam 2 MG/ML VIAL ONE (10:19)
[2019-01-29] MEDS ORDERED: CEFAZOLIN 1 GM VIAL ONE ×2 (10:19→10:29)
[2019-01-29] MEDS ORDERED: Sodium Chloride 0.9% 100 ML ONE (10:19)
[2019-01-29] MEDS ORDERED: Lidocaine 1% w/Epinephrine 1:100K 20 ML VIAL ONE ×2 (10:23→10:25)
[2019-01-29 10:27] LABS: Acetaminophen Less than 6.0 mcg/mL (10.0-30.0); Alcohol Less than 10 mg/dL (Less than 10); Salicylate Less than 8.0 mg/dL (15.0-30.0)
[2019-01-29 10:32] LABS: ALT (SGPT) 19 U/L (8-55); AST (SGOT) 29 U/L (5-34); Albumin 4.4 g/dL (3.5-5.0); Alkaline Phosphatase 90 U/L (40-110); Anion Gap 24 mmol/L (10-20); BUN (Urea Nitrogen) 9 mg/dL (8.4-25.7); Bilirubin, Total 1.5 mg/dL (0.2-1.2); CK (CPK) 224 U/L (30-200); Calc. Creatinine Clearance 0 mL/min (70-130); Calcium 9.3 mg/dL (7.8-10.44); Carbon Dioxide 21 mmol/L (22-29); Chloride 98 mmol/L (98-107); Estimated GFR-MDRD 81; Globulin 3.5 g/dL (2.4-3.5); Glucose 145 mg/dL (70-105); Lipase 19 U/L (8-78); Potassium 3.8 mmol/L (3.5-5.1); Protein, Total 7.9 g/dL (6.0-8.3); Sodium 139 mmol/L (136-145)
[2019-01-29] MEDS ORDERED: hydrALAZINE 20 MG/ML VIAL SLOW IVP PRN ×2 (11:05→23:05)
[2019-01-29] MEDS ORDERED: Ondansetron PF 4 MG/2 ML Vial IVP PRN (11:05)
[2019-01-29] MEDS ORDERED: Morphine 4 MG/ML VIAL SLOW IVP PRN (11:05)
[2019-01-29] MEDS ORDERED: Dextrose 50% Abboject 50 ML SYRINGE SLOW IVP PRN (11:05)
[2019-01-29] MEDS ORDERED: Dextrose 5% in Water 1,000 ML IV PRN (11:05)
[2019-01-29] MEDS ORDERED: hydrALAZINE 20 MG/ML VIAL ONE (11:39)
[2019-01-29 11:55] LABS: Bilirubin Negative (Negative); Blood, Urine Negative (Negative); Clarity Clear (Clear); Glucose, Urine (Dipstick) Normal (Negative); Leukocyte Negative Leu/uL (Negative); Nitrite Negative (Negative); Protein, Urine (Dipstick) Negative (Neg-Trace); Urobilinogen Normal mg/dL (Less than 2)
--- NOTE | 2019-01-29 12:17 | HP ---
TRAUMA SURGEON: Dr. Manriquez. CONSULTING PHYSICIAN: Dr. Berger. HISTORY OF PRESENT ILLNESS: The patient is a 53-year-old male, who presented via EMS after a fall in the long term. Paramedics reported that the patient had spent the night in long term. He got up to walk across the room and subsequently fell, striking his head. He did have a loss of consciousness. Upon evaluation, the patient had altered mental status. CT scans demonstrated that he has a right frontal contusion. GCS is 14, -1 for verbal. 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 The patient also had DTs during that hospital admission. During that time, he had received a PEG tube, which now has been removed. On the time of my evaluation, the patient's eyes were open spontaneously. He did know his name and that he was in the hospital; however, he could not answer questions regarding the year or what happened to him. He was not able to answer questions about his past medical history either. It was also noted on laboratory findings that the patient had a lactic acid of 10.0. He is afebrile at this time, and his white count is normal. There is no concern for infection. It is likely due to severe dehydration, but we will continue to follow that closely. REVIEW OF SYSTEMS: Unable to complete due to the patient's mental status. MEDICAL HISTORY: The patient has a history of a left-sided cerebral contusion secondary to cocaine abuse a little over a year ago. At that time, the patient also had aspiration pneumonia and was intubated in the CCU for several days. SURGICAL HISTORY: The patient is not able to participate in the exam. On chart review, surgical history could not be identified. The patient did have a PEG tube placement during his last hospital stay, but it has been removed and the wound looks well healing. SOCIAL HISTORY: The patient is a known daily drinker and drug abuser. He was arrested yesterday after he was found stumbling around, intoxicated, small amount of an unknown drug was found on the patient per police officers at the bedside. Previously, the patient reported cocaine abuse. MEDICATIONS: Unknown. ALLERGIES: NO KNOWN DRUG ALLERGIES. PHYSICAL EXAMINATION: VITAL SIGNS: Temperature is 97.8, pulse 97, respirations 16, oxygen saturation 97% on room air, and blood pressure is 168/98. PRIMARY SURVEY: Airway intact. Adequate breath sounds bilaterally. 2+ pulses in bilateral radials, femorals, and DPs. GCS is 14, -1 for verbal. Gross motor and sensation are intact. He has about a 3 cm laceration over the right forehead, which was sutured by the emergency department. There are no other signs of external bruising or bleeding. SECONDARY SURVEY: HEAD: Normocephalic, 4 cm laceration to the right forehead, which is sutured and not actively bleeding. There are no gross skull deformities or tenderness. EYES: Pupils 3 to 2, equal, round, reactive to light bilaterally. ENT: No hemotympanum. No epistaxis. No septal hematoma. Midface stable to manipulation. No blood in the oropharynx. Dentition is intact. No anterior neck injury/crepitus/tenderness. C-SPINE: No step-offs, deformities, or tenderness to palpation of the cervical spine. C-collar in place. CHEST: Nontender. No abrasions or ecchymosis. No crepitus. Equal chest movement. ABDOMEN: Soft, nontender, nondistended. PELVIS: Stable to palpation, nontender. No abrasions or ecchymosis. RECTAL: Deferred. GENITOURINARY: Normal external gross genitalia. No blood at the meatus. EXTREMITIES: No gross deformities. No abrasions or ecchymosis noted. 2+ pulses in bilateral radials, femorals, and DPs. BACK/SPINE: No step-offs, deformities, or tenderness to palpation of thoracic or lumbar spine. No abrasions or ecchymosis noted. NEURO: The patient has gross normal movement in all 4 extremities. He is following commands and has equal strength in all extremities. LABORATORY FINDINGS: White count 9.3, hemoglobin 15.1, hematocrit 44.6, and platelets 213. INR 1.3. Sodium 139, potassium 3.8, bicarb 21, BUN 9, creatinine 0.97, and glucose 145. Lactic acid 10.1, total bilirubin 1.5, AST is 29, ALT 19, alkaline phosphatase 90, CK 224, troponin 0.010, lipase 19. Toxicology shows plasma alcohol is less than 10. DIAGNOSTIC FINDINGS: CT of the brain demonstrates expected evolutionary changes from remote left cerebral hemorrhagic contusion. Small hemorrhagic contusions involving the medial right frontal lobe, near the vertex. CT of the C-spine demonstrates no cervical spinal fracture. Chest x-ray demonstrates no acute findings. ASSESSMENT: 1. Status post ground level fall, unsure cause. 2. Right frontal hemorrhagic contusions. 3. Right-sided 3 cm forehead laceration, status post repair. 4. Concern for acute alcohol withdrawal. 5. Lactic acidosis. 6. History of alcohol and cocaine abuse and previous left-sided cerebral contusions. PLAN: The patient will be admitted to the CCU under the Trauma Service. He will receive q.1 hour neuro checks, elevate the head of the bed at 30 degrees, and goal systolic blood pressure is less than 160. He will receive a repeat head CT scan in the morning unless he has a decline in his GCS by two or more point. Neurosurgery has been consulted, and Dr. Berger will evaluate the patient. He will receive pain control via scheduled IV Tylenol and p.r.n. morphine. We will start the patient on scheduled Serax for alcohol withdrawal and monitor him closely. He will receive a Resendez, and we will send a urine drug screen as well as a UA. We will repeat a lactic acid to monitor downtrend. He has received 2 L of IV fluids in the emergency department as well as 2 g of Ancef and 1 mg of Ativan due to agitation. This patient will be discussed with Dr. Manriquez after this dictation. Job ID: [id number]
[2019-01-29] MEDS ORDERED: Ondansetron PF 4 MG/2 ML Vial ONE (13:07)
[2019-01-29 13:52] LABS: Lactic Acid 2.1 mmol/L (0.5-2.2)
[2019-01-29] MEDS: Oxazepam 10 MG CAP PO SCH ×2 (17:13→21:11)
[2019-01-29] MEDS: Acetaminophen 1,000 MG in Premix Bag 1 BAG IVPB SCH ×3 (17:14→23:26)
[2019-01-29] MEDS: Sodium Chloride 0.9% 1,000 ML IV SCH ×2 (17:16→21:11)
[2019-01-29] MEDS: Folic Acid 1 MG TAB PO SCH (17:17)
[2019-01-29] MEDS: Multivitamin W/ Minerals 1 TAB PO SCH (17:17)
[2019-01-29] MEDS: Thiamine 100 MG TAB PO SCH (17:17)
[2019-01-29 17:29] VITALS: BMI 22.1
[2019-01-29] MEDS: Famotidine/PF 20 mg/2ml Vial SLOW IVP SCH (21:11)
[2019-01-29] MEDS: Senokot S 8.6-50 MG TAB PO SCH (21:11)
[2019-01-29] MEDS: Bacitracin 1 PK TOP SCH (21:11)
[2019-01-29 21:34] LABS: Amphetamine Not Detected (NotDetected); Barbiturates Screen Not Detected (NotDetected); Benzodiazepine Screen Detected (NotDetected); Cocaine Metabolite Screen Not Detected (NotDetected); Medtox Reader # READER 1; Methadone Not Detected (NotDetected); Methamphetamine Not Detected (NotDetected); Opiate Screen Not Detected (NotDetected); Oxycodone Screen Not Detected (NotDetected); Phencyclidine (PCP) Not Detected (NotDetected); THC/Cannabinoid Screen Not Detected (NotDetected); Tricyclic Screen Not Detected (NotDetected)
[2019-01-29 21:35] LABS: Medtox Control Line Valid? VALID (VALID)
--- NOTE | 2019-01-30 01:45 | PRG ---
DATE OF SERVICE: 01/29/2019 SUBJECTIVE: The patient remains in the Critical Care Unit status post fall while in [facility]. The patient sustained a right frontal contusion and a right forehead laceration, which was repaired. The patient is currently lying in hospital bed with officer at bedside. OBJECTIVE: VITAL SIGNS: The patient is awake, alert and follows simple commands. The patient continues to have good urinary output. The patient's vital signs are stable and patient remains afebrile. PLAN: Continue q.1 hour neuro checks and head of bed elevated at 30 degrees. The patient will receive a repeat head CT in the morning or sooner, if the patient has a GCS decline by 2 or more points. Job ID: [id number] MTDD
[2019-01-30 04:43] LABS: #Eosinphils 0.1 thou/uL (0.0-0.7); #Lymphocytes 1.8 thou/uL (1.20-3.40); #Monocytes 1.1 thou/uL (0.11-0.59); #Neutrophils 6.4 thou/uL (1.40-6.50); %Basophils 0.2 % (0.0-1.0); %Eosinophils 1.2 % (0.0-10.0); %Lymphocytes 18.7 % (21.0-51.0); %Monocytes 12.2 % (0.0-10.0); %Neutrophils 67.7 % (42.0-75.0); Hemoglobin 13.4 g/dL (14.0-18.0); Mean Corpuscular HGB CONC 34.6 g/dL (32.0-36.0); Mean Corpuscular Hemoglobin 31.8 pg (27.0-31.0); Mean Corpuscular Volume 92.1 fL (78.0-98.0); Mean Platelet Volume 7.5 fL (7.4-10.4); Platelet Count 182 thou/uL (130-400); RBC Distribution Width 13.2 % (11.5-14.5); White Blood Cell (WBC) Count 9.4 thou/uL (4.8-10.8)
--- NOTE | 2019-01-30 04:46 | CON ---
DATE OF CONSULTATION: HISTORY OF PRESENT ILLNESS: Mr. Ubaldo Angulo is a 53-year-old male who was brought to the emergency room earlier this morning when he fell striking his head while in nursing home. The patient states that he is uncertain of his exact recollection. He states that he remembers being in nursing home this morning and then being in the hospital. The patient is a heavy drinker and was likely intoxicated when he was arrested. He also has drug use. The patient has a history of severe stroke and traumatic brain injury. Neurosurgery was consulted due to some hemorrhagic contusions. When I see the patient, he is resting comfortably. He is moving all 4 extremities. He follows simple commands. He does have some confusion surrounding his visit. He does note that he is at the [facility]. He knows who he is and his date of . He does not know what brought him in and he is not very cooperative with exam. The patient has a right frontal laceration that has been sewn up. REVIEW OF SYSTEMS: Unable to obtain given the patient's mental status. PAST MEDICAL HISTORY: Left-sided cerebral contusion secondary to cocaine abuse, also aspiration pneumonia when intubated. SURGICAL HISTORY: Per chart review, PEG tube. SOCIAL HISTORY: Daily drinker. Drug abuser. Was arrested yesterday after he was found stumbling around intoxicated. A small amount of unknown drug was found in his system per the officer at bedside previously recorded cocaine abuse. MEDICATIONS: Unknown. ALLERGIES: NO KNOWN DRUG ALLERGIES. PHYSICAL EXAMINATION: VITAL SIGNS: Blood pressure 168/98, heart rate 97, respirations 16, pain 0, and O2 saturations 97% on room air. CONSTITUTIONAL: The patient is alert. He is oriented to person and place. He is confused and not very cooperative, but does not appear to be distressed. HEENT: Head is normocephalic. There is a laceration to the right frontal area above the right eye which has been sutured shut. His pupils are equal, round, and reactive to light. Extraocular movements are intact. His hearing is intact. Moist mucous membranes. RESPIRATIONS: Normal work of breathing on room air. Symmetric chest rise. EXTREMITIES: The patient is able to move all 4 extremities, unwilling to give good effort during exam, but I got health education director strength and biceps, triceps activation against resistance in both upper extremities. Appears to be probable weakness on the right side. Lower extremities, he was able to give me dorsiflexion, plantar flexion equal bilaterally and no changes of sensation. He did toe wiggle as well. NEUROLOGIC: The patient is awake, alert, oriented to person and place. GCS of 14 minus 1 for some confusion. Speech is spontaneous and fluent, only Congolese. Cranial nerves are tested and intact. The patient does have some confusion and some amnesia surrounding his injury. He likely has a little bit of right-sided weakness following his previous injuries, but unable to say for certain given his lack of effort in his exam. IMAGING: CT brain, expected evolution changes from remote left cerebellar hemorrhagic contusions, small hemorrhagic contusions involving medial right frontal lobe and the other vertex. Cervical spine, no evidence of spinal fracture. ASSESSMENT AND PLAN: Mr. Ubaldo Angulo is a 53-year-old male who sustained hemorrhagic contusions following a fall while incarcerated. He also has some confusion likely due to his lactate level of 10.0. We will have the Trauma team admit him. get a repeat CT scan of his head in the morning. We will request regular neuro checks, keep the blood pressure below 150 systolic. If there are any further questions, please contact Neurosurgery. Job ID: [id number]
[2019-01-30 05:03] LABS: Anion Gap 12 mmol/L (10-20); BUN (Urea Nitrogen) 7 mg/dL (8.4-25.7); Calc. Creatinine Clearance 124 mL/min (70-130); Calcium 8.4 mg/dL (7.8-10.44); Carbon Dioxide 25 mmol/L (22-29); Chloride 102 mmol/L (98-107); Estimated GFR-MDRD Greater than 90; Glucose 75 mg/dL (70-105); Magnesium 1.8 mg/dL (1.6-2.6); Phosphorus 2.4 mg/dL (2.3-4.7); Potassium 3.2 mmol/L (3.5-5.1); Sodium 136 mmol/L (136-145)
[2019-01-30] MEDS: Acetaminophen 1,000 MG in Premix Bag 1 BAG IVPB SCH (05:45)
[2019-01-30] MEDS: Oxazepam 10 MG CAP PO SCH ×3 (05:45→20:41)
[2019-01-30] MEDS ORDERED: Potassium Phosphate 30 MMOL, Magnesium Sulfate 2 GM in Sodium Chloride 0.9% 250 ML 250 ML IVPB SCH (07:15)
[2019-01-30] MEDS ORDERED: Magnesium 2 GM/50 ML 2 GM in Premix Bag 1 BAG IVPB SCH (07:15)
--- NOTE | 2019-01-30 07:31 | PRG ---
DATE OF SERVICE: 01/30/2019 I personally interviewed and examined the patient, reviewed records and imaging and agree with the notes of Amanda Rivera PA-C, dated 01/29/2019. Briefly, Mr. Ubaldo Angulo is a 53-year-old [place] of the [facility] who struck his head while incarcerated prior to his admission. A CT examination of the brain revealed a small amount of superior right frontal contusion. 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 He was admitted to the ICU overnight for observation and a CT scan has been done this morning. Overnight, the vitals have been stable. I am seeing Mr. Ubaldo Angulo. His primary language is Occitan, although he understands some Occitan. Although I tried to communicate with him, I think there is dysphasia that prevents it on top of the language disturbance. I do see him moving both sides, though the right side is a bit slower. He has better strength on the left. I reviewed CT scan this morning and although there has been maturation of a contusion, there is still a tiny amount of blood without mass effect and he does not require neurosurgical intervention. Mr. Ubaldo Angulo is felt to be stable with the Trauma Surgery team. He can be returned to his housing facility. Ideally, we can get a followup scan sent to our office in 2 to 3 weeks to ensure complete resolution of the blood products. He will have to remain off blood thinners if possible until that scan is done. Job ID: [id number]
--- NOTE | 2019-01-30 07:55 | CT ---
PRELIMINARY REPORT/[facility]/EMERGENCY AFTER HOURS PROCEDURE: Addendum created by Rashard Mendosa MD on 01/30/2019 3:55 AM Central Time ([place] & [place]) THIS REPORT CONT AINS FINDINGS THAT MAY BE CRITICAL TO PATIENT CARE. The findings were verbally communicated via telep addison conference with Nicole Patel at 3:55 AM DOT COMPLIANCE MANAGER on 01/30/2019. The findings were acknowledged and understood. Initial Report created on 01/30/2019 3:39 AM Central Time ([place] & [place]) PROCEDURE INFORMATION: Exam: CT Head Without Contrast Exam date and time: 01/30/2019 3:25 AM Age: 53 years old Clinical history: Condition or disease; Other: Follow up frontal contusion TECHNIQUE: Imaging protocol: Computed tomography of the head without contrast. COMPARISON: No relevant prior studies available. FINDINGS: Brain: 17 x 9 mm focal hyperdensity within the right frontal parafalcine parenchyma (series 2, image 24), likely hemorrhagic contusion in the setting of trauma. 6 mm hyperdense focus within the right fr ontal parafalcine parenchyma (series 2, image 20), likely hemorrhagic contusion. Encephalomalacia wit hin the left anterior temporal lobe, left parietal lobe, and left frontal lobe. Ventricles: Normal. Bones/joints: Normal. Sinuses: Normal as visualized. Mastoid air cells: Normal as visualized. Soft tissues: Mild right frontal soft tissue swelling/contusion. Vasculature: Atherosclerotic vascular calcifications. IMPRESSION: 1. 17 x 9 mm focal hyperdensity within the right frontal parafalcine parenchyma (series 2, image 24), likely hemorrhagic contusion in the setting of trauma. Recommend followup. 2. 6 mm hyperdense focus within the right frontal parafalcine parenchyma (series 2, image 20), likely hemorrhagic contusion. Recommend followup. 3. Mild right frontal soft tissue swelling/contusion. Thank you for allowing us to participate in the care of your patient. Dictated and Authenticated by: Rashard Mendosa MD 01/30/2019 3:39 AM Central Time ([place] & [place]) FINAL REPORT HEAD CT WITHOUT CONTRAST: COMPARISON: 01/30/19. HISTORY: Follow-up parenchymal hemorrhagic contusions. FINDINGS/IMPRESSION: This report is in agreement with the preliminary report by Brayan. Redemonstration of intraparenchymal hemorrhagic contusions. Slight interval increase in size with associated mild edema. POS: [facility]
[2019-01-30] MEDS ORDERED: Prevnar 13-Val Conj/PF 0.5 ML SYRINGE IM ONE (09:00)
[2019-01-30] MEDS ORDERED: FLU VACC QS2019-20(6MOS UP)/PF 60 MCG/0.5 ML SYRINGE IM ONE (09:00)
[2019-01-30] MEDS: Senokot S 8.6-50 MG TAB PO SCH ×2 (10:16→20:42)
[2019-01-30] MEDS: Multivitamin W/ Minerals 1 TAB PO SCH (10:17)
[2019-01-30] MEDS: Famotidine/PF 20 mg/2ml Vial SLOW IVP SCH ×2 (10:17→20:42)
[2019-01-30] MEDS: Thiamine 100 MG TAB PO SCH (10:17)
[2019-01-30] MEDS: Bacitracin 1 PK TOP SCH ×2 (10:17→21:20)
[2019-01-30] MEDS: Folic Acid 1 MG TAB PO SCH (10:17)
[2019-01-30] MEDS: Polyethylene Glycol 3350 17 GM Packet PO SCH (10:18)
[2019-01-30] MEDS: Sodium Chloride 0.9% 1,000 ML IV SCH (10:18)
[2019-01-30] MEDS: Acetaminophen 500 MG TAB PO SCH ×3 (10:20→21:35)
[2019-01-30] MEDS ORDERED: traMADol HCl 50 MG TAB PO PRN ×2 (10:57)
--- NOTE | 2019-01-30 11:20 | PQF ---
THERESA MURPHY KINDRA [id number] [facility] [id number] CLINICAL DOCUMENTATION IMPROVEMENT CLARIFICATION FORM: ICD-10 Updated PLEASE DO AN ADDENDUM TO THE PROGRESS NOTE WITH ANY DOCUMENTATION UPDATES OR ADDITIONS AND CARRY THROUGH TO DC SUMMARY. THANK YOU. DATE: 01/30/19 ATTN: Kindra Yip, [facility] Please exercise your independent, professional judgment in responding to the clarification form. Clinical indicators are provided on the bottom of this form for your review Please check appropriate box(s): [ x ] Encephalopathy: Type: [ x] Acute [ ] Subacute [ ] Chronic Etiology: [ ] Metabolic due to lactic acidosis [ ] Toxic due to Benzodiazepines [ ] hemorrhagic contusions [ ] Drug induced: [ x] Unspecified _Bacterial meningitis _ [ ] in the setting of underlying dementia [ ] Other (please specify) [ ] Transient Alteration of Awareness [ ] Other diagnosis [ ] Unable to determine In addition, please specify: Present on Admission (POA): [ ] Yes [ ] No [ ] Unable to determine For continuity of documentation, please document condition throughout progress notes and discharge summary. Thank You. CLINICAL INDICATORS - SIGNS / SYMPTOMS / LABS / RESULTS AND LOCATION IN EMR Altered mental status / confusion--> 01[facility]29 [facility] "[facility], striking his head"; He did know his name and that he was in the hospital; however, he could not answer questions regarding the year or what happened to him. Metabolic / electrolyte abnormality--> 01/29 lactic acid 10.1; 01/29 H&P( [facility]): "lactic acidosis" 01/29 UDS + Benzodiazepines per lab RISK FACTORS / RESULTS AND LOCATION IN EMR 01/29 H&P([facility]): "Right frontal hemorrhagic contusions" TREATMENTS / RESULTS AND LOCATION IN EMR CCU orders 01/29 Neuro checks Q1H 01/29 orders HOB elevated at 30 degrees 01/29 orders IV fluids--> NS at 120 01/29 to 01/[address] brain 01/30 orders (This form is maintained as a part of the permanent medical record) 2014 [employer]. All Rights Reserved Verónica Lamb RN, BSN, CCDS [email or web address]
--- NOTE | 2019-01-30 13:05 | PRG ---
DATE OF SERVICE: 01/30/2019 SUBJECTIVE: Mr. Conner is a 53-year-old man, inmate of a correctional facility. The patient apparently fell from a ground level position, sustaining acute traumatic brain injury with multiple intracerebral hemorrhagic contusions. Repeat CT scan of the brain reveals a slightly evolved contusions with no significant mass effects. Neurologically, the patient is awake and alert. Woodruff Coma Scale is noted at E4, V4, M6, which appears to be his baseline. He has no lateralizing signs or focal neurologic deficits present. OBJECTIVE: VITAL SIGNS: This morning include blood pressure 130/80, pulse 94, respiratory rate is 14, temperature 98.5 degrees Fahrenheit, and oxygen saturation 96% on room air. HEENT: Pupils equal, round, reactive to light and accommodation. Cervical spine, nontender to palpation, active or passive range of motion. HEART: Reveals regular rate and rhythm. No murmurs or gallops auscultated. LUNGS: Clear to auscultation bilaterally. Breathing, regular and nonlabored. ABDOMEN: Soft, nontender, nondistended. EXTREMITIES: Reveals 2+ radial and pedal pulses bilaterally. No ankle edema is present. LABORATORY FINDINGS: Today include a CBC with 9400 white blood cells, hemoglobin and hematocrit 13.4 and 38.6 respectively, and platelet count is 182,000. Metabolic profile; sodium 136, potassium 3.2, chloride is 102, bicarb is 25, BUN 7, creatinine 0.69, glucose 75, magnesium 1.8, and phosphorus 2.4. IMPRESSION: Post injury day #1, 1. Status post ground level fall. 2. Stable acute traumatic brain injury. 3. Acute hypokalemia. 4. Acute hypomagnesemia. 5. Acute hypophosphatemia. PLAN: 1. Correct abnormal electrolytes. 2. Cervical collar will be discontinued and activity increased per Physical and Occupational Therapy. 3. The patient is stable for transfer to general floor. 4. We will begin discharge planning back to the correctional facility if the patient remains neurologically and hemodynamically stable over the next 24 hours. Job ID: [id number]
--- NOTE | 2019-01-31 00:57 | PRG ---
DATE OF SERVICE: 01/30/2019 SUBJECTIVE: The patient remains on the surgical floor. The patient was seen this evening, sitting up in hospital bed. The patient is awake, alert, and follows simple commands. It was reported that the patient's communication was scattered. The patient is tolerating a regular diet. Officer remains at bedside as the patient is still in custody. OBJECTIVE: VITAL SIGNS: Stable, afebrile. GENERAL: The patient is awake, alert, in no distress. RESPIRATORY: Equal chest rise and fall, no respiratory distress. EXTREMITIES: Moves all extremities. ASSESSMENT: 1. Status post ground level fall, post injury day 1. 2. Stable acute traumatic brain injury. 3. Acute hypokalemia. PLAN: Continue physical and occupational therapy. Continue supportive care. Job ID: [id number]
[2019-01-31] MEDS: Acetaminophen 500 MG TAB PO SCH ×3 (04:40→14:54)
[2019-01-31] MEDS: Oxazepam 10 MG CAP PO SCH ×2 (06:38→14:54)
[2019-01-31] MEDS: Multivitamin W/ Minerals 1 TAB PO SCH (08:53)
[2019-01-31] MEDS: Senokot S 8.6-50 MG TAB PO SCH (08:53)
[2019-01-31] MEDS: Thiamine 100 MG TAB PO SCH (08:53)
[2019-01-31] MEDS: Folic Acid 1 MG TAB PO SCH (08:54)
[2019-01-31] MEDS: Bacitracin 1 PK TOP SCH (08:54)
[2019-01-31] MEDS: Polyethylene Glycol 3350 17 GM Packet PO SCH (08:54)
[2019-01-31] MEDS: Famotidine/PF 20 mg/2ml Vial SLOW IVP SCH (08:54)
[2019-01-31 11:42] VITALS: TEMP 98.8
[2019-01-31 15:41] VITALS: BP 156/88
--- NOTE | 2019-01-31 16:25 | DIS ---
DATE OF ADMISSION: 01/29/2019 DATE OF DISCHARGE: 01/31/2019 ADMISSION DIAGNOSES: Fall from standing, right frontal brain contusion, and right forehead laceration. DISCHARGE DIAGNOSES: Fall from standing, right frontal brain contusion, and right forehead laceration. CONSULTING PHYSICIAN: Dr. Berger of Neurosurgery. PROCEDURES: None. HOSPITAL COURSE: The patient is a 53-year-old male, who presented to the emergency department via EMS after a fall in senior living. The patient was found to have a right frontal contusion and a forehead laceration, his GCS was 13 to 14 upon arrival. The patient has a history of significant TBI about 1 year ago. He has a history of chronic alcohol and drug use. He was also admitted for possible alcohol withdrawal, but it does not appear that he had any withdrawal type symptoms. It is the recommendation of the Neurosurgery team that the patient's mentation is now at baseline; however, he is not able to participate in complex conversations. He follows commands, ambulates, and is cooperative. However, he cannot make complex decisions. This mental status change is from his previous brain injury. He is going to be discharged back to senior living with information for speech language pathology followup outpatient for cognitive evaluation. There is no need for physical or occupational therapy. At the time of discharge, the patient's pain was well controlled. He was ambulating without difficulty, he was tolerating regular diet, and he was voiding without issues. DISCHARGE DISPOSITION: Correction. DISCHARGE CONDITION: Satisfactory. PHYSICAL EXAMINATION: VITAL SIGNS: Temperature 98.8, pulse 89, respirations 16, oxygen saturation 94% on room air, blood pressure 156/88. GENERAL: Well-appearing elderly male, sitting up in bed with no signs of acute distress. PULMONARY: Equal chest rise and fall. Clear breath sounds bilaterally. No signs of acute respiratory distress. CARDIAC: Regular rate and rhythm. GASTROINTESTINAL: Soft, nontender, nondistended. EXTREMITIES: 2+ pulses in all extremities. Gross motor and sensation are intact. NEUROLOGIC: GCS is 14, minus one for verbal. HEENT: The patient has a 3 cm laceration in the right forehead that sutured. It is clean, dry, and intact with no signs of infection. Facial swelling has greatly diminished. Pupils equal, round, and reactive to light bilaterally. DISCHARGE INSTRUCTIONS: The patient is discharged to senior living. He is now on low sodium diet. Activity as tolerated. He will have outpatient speech language pathology and he will have his sutures removed from his forehead on the . DISCHARGE MEDICATIONS: Include; 1. Tylenol. 2. Bactrim. 3. Folic acid. 4. Multivitamins. 5. Senokot-S. 6. Thiamine. 7. Tramadol. FOLLOWUP APPOINTMENTS: The patient is to follow up with Dr. Berger in 2 to 3 weeks. There is no need for followup with Trauma Clinic. His sutures can be removed in senior living. This is a summary of the patient's hospitalization. For full details, please see his medical record in its entirety. Job ID: [id number]
== END 2019-01-31 16:45 | DRG 82 ==
LOC: EEVIPCON 09:18 → ERS 09:18 → ERHOLD 12:03 → CCU 15:33 → SURG B 01-30 11:56
PROVIDERS: ADMIT Surgery; ATTEND Surgery
PROC: 0HQ1XZZ Repair Face Skin, External Approach (ICD-10-PCS; principal; 2019-01-29)
DX: S06.319A Contusion and laceration of right cerebrum with loss of consciousness of unspecified duration, initial encounter (principal); G00.9 Bacterial meningitis, unspecified; E87.2 Acidosis; G93.49 Other encephalopathy; W18.30XA Fall on same level, unspecified, initial encounter; R29.6 Repeated falls; Y93.01 Activity, walking, marching and hiking; F14.10 Cocaine abuse, uncomplicated; E86.0 Dehydration; S01.81XA Laceration without foreign body of other part of head, initial encounter; R40.2212 Coma scale, best verbal response, none, at arrival to emergency department; E87.6 Hypokalemia; E83.42 Hypomagnesemia; E83.39 Other disorders of phosphorus metabolism; R40.2362 Coma scale, best motor response, obeys commands, at arrival to emergency department; R40.2142 Coma scale, eyes open, spontaneous, at arrival to emergency department; Z86.73 Personal history of transient ischemic attack (TIA), and cerebral infarction without residual deficits
CPT/HCPCS: 36415; 36416; 70450; 71045; 72125; 80048; 80053; 80306; 80307; 81003; 82140; 82550; 83605; 83690; 83735; 84100; 84484; 85025; 85610; 93005; G0390; J0131; J0360; J0690; J2060; J2405; J3475; J3490; J7050; S0028

== ENCOUNTER 2019-11-08 18:13 | Inpatient (IN) | payer OTHER, SELFPAY ==
[2019-11-08 19:15] LABS: #Eosinphils 0.1 thou/uL (0.0-0.7); #Lymphocytes 1.2 thou/uL (1.20-3.40); #Monocytes 0.7 thou/uL (0.11-0.59); %Basophils 0.8 % (0.0-1.0); %Eosinophils 1.6 % (0.0-10.0); %Lymphocytes 20.2 % (21.0-51.0); %Monocytes 11.1 % (0.0-10.0); %Neutrophils 66.3 % (42.0-75.0); Hemoglobin 15.8 g/dL (14.0-18.0); Mean Corpuscular HGB CONC 35.3 g/dL (32.0-36.0); Mean Corpuscular Hemoglobin 35.7 pg (27.0-31.0); Mean Platelet Volume 8.8 fL (7.4-10.4); Platelet Count 193 thou/uL (130-400); RBC Distribution Width 11.9 % (11.5-14.5); Red Blood Cell (RBC) Count 4.43 mill/uL (4.70-6.10); White Blood Cell (WBC) Count 6.1 thou/uL (4.8-10.8)
--- NOTE | 2019-11-08 19:16 | CT ---
CT BRAIN: Date: 11-08-2019 PROVIDED CLINICAL HISTORY: Injury FINDINGS: Comparison 10-12-2019. The ventricular system appears normal in size and morphology. There is no evidence for intracranial h emorrhage or mass effect. Multifocal encephalomalacia is redemonstrated, similar to the prior. The ex tracranial soft tissues and osseous structures demonstrate an unremarkable CT appearance. IMPRESSION: No evidence for intracranial hemorrhage or mass effect. POS: [facility]
--- NOTE | 2019-11-08 19:18 | CT ---
CT CERVICAL SPINE: Date: 11-08-2019 PROVIDED CLINICAL HISTORY: Injury FINDINGS: Comparison is made with study dated 01-29-2019. There is no evidence for fracture or traumatic subluxation. No prevertebral soft tissue swelling appa rent. The visualized lung apices appear clear. IMPRESSION: No evidence for fracture or traumatic subluxation. POS: [facility]
[2019-11-08 19:36] LABS: Acetaminophen Less than 6.0 mcg/mL (10.0-30.0); Alcohol Less than 10 mg/dL (Less than 10); CK (CPK) 77 U/L (30-200); Salicylate Less than 8.0 mg/dL (15.0-30.0)
[2019-11-08 19:39] LABS: ALT (SGPT) 96 U/L (8-55); AST (SGOT) 76 U/L (5-34); Albumin 3.8 g/dL (3.5-5.0); Alkaline Phosphatase 84 U/L (40-110); Anion Gap 15 mmol/L (10-20); BUN (Urea Nitrogen) 9 mg/dL (8.4-25.7); Bilirubin, Total 0.6 mg/dL (0.2-1.2); Calc. Creatinine Clearance 0 mL/min (70-130); Calcium 9.2 mg/dL (7.8-10.44); Carbon Dioxide 24 mmol/L (22-29); Chloride 107 mmol/L (98-107); Estimated GFR-MDRD Greater than 90; Globulin 3.7 g/dL (2.4-3.5); Glucose 93 mg/dL (70-105); Potassium 4.7 mmol/L (3.5-5.1); Protein, Total 7.5 g/dL (6.0-8.3); Sodium 141 mmol/L (136-145)
[2019-11-08 19:51] LABS: Bilirubin Negative (Negative); Blood, Urine Negative (Negative); Clarity Clear (Clear); Glucose, Urine (Dipstick) Normal (Negative); Ketone, Urine Negative (Negative); Leukocyte Negative Leu/uL (Negative); Nitrite Negative (Negative); Protein, Urine (Dipstick) 10 mg/dL (Neg-Trace); Specific Gravity, Urine 1.025 (1.002-1.036)
[2019-11-08 20:00] LABS: Amphetamine Not Detected (NotDetected); Cocaine Metabolite Screen Not Detected (NotDetected); Medtox Reader # READER 1; Methamphetamine Not Detected (NotDetected); Opiate Screen Not Detected (NotDetected); Phencyclidine (PCP) Not Detected (NotDetected); THC/Cannabinoid Screen Not Detected (NotDetected)
[2019-11-08 20:01] LABS: Barbiturates Screen Not Detected (NotDetected); Benzodiazepine Screen Detected (NotDetected); Medtox Control Line Valid? VALID (VALID); Methadone Not Detected (NotDetected); Oxycodone Screen Not Detected (NotDetected); Tricyclic Screen Not Detected (NotDetected)
--- NOTE | 2019-11-08 20:18 | RAD ---
PORTABLE CHEST: Date: 11-08-2019 PROVIDED CLINICAL HISTORY: Altered mental status FINDINGS: Comparison 10-12-2019. Cardiac silhouette appears prominent, likely at least partially on the basis of portable technique. N o focal consolidation, pleural fluid, or pneumothorax apparent. IMPRESSION: No evidence for acute cardiopulmonary process. POS: [facility]
--- NOTE | 2019-11-08 22:04 | PDOC.HHP ---
Hospitalist HPI - History of Present Illness AMS, medical clearance History of Present Illness: PCP: None The H&P was taken from medical record and ER documentation secondary to patient altered mental status. The patient is a 54-year-old male with a past medical history significant for alcohol and drug abuse, seizure disorder, and ICH that presents to the ER in police custody for altered mental status. Apparently, the patient was found walking down the street and fell down in front of his neighbors house. The neighbor called 911. When EMS arrived, the patient was refusing hospital transport, however, police discovered that the patient had a warrant out for his arrest, so they took him to half-way. The patient was confused and tachycardic at half-way, so the patient was sent to the hospital for medical clearance. Of note, the patient was discharged from our hospital on October 17, 2019 with a diagnoses of acute metabolic encephalopathy. The patient had an extensive neurological work-up, including CT brain, EEG, labs and neurology consult. The patient was placed on Keppra and given banana bag. His symptoms resolved by discharge. The patient's encephalopathy was thought to be secondary to either alcohol withdrawal versus seizure disorder. . ED Course: VITAL SIGNS Sun Nov 08, 2019 18:32 YULIYA Chiu Morgan BP: 136/83, MAP: 100, Pulse: 105, Resp: 17, Temp: 98.8 (Oral), Pain: UTD, O2 sat : 97 on (Room Air), Time: 11/08/2019 18:32. Medication administration: sodium chloride 0.9 % intravenous 1000 mL IV Fluid Infusion Given 21:56 2019 sodium chloride 0.9 % intravenous 1000 mL IV Fluid Infusion Given 19:41 2019 Hospitalist ROS - Review of Systems ROS unobtainable: due to mental status Other: Home medications: 1. Folic acid 1 mg p.o. daily 2. Thiamine 100 mg p.o. daily 3. Keppra 1000 mg p.o. twice daily 4. Multivitamin Allergies: NKDA Hospitalist History - Past Medical History Source: RN notes reviewed, old records Other Medical History: Past medical history: Alcohol and drug abuse ICH Seizure disorder Hypertension Past surgical history: unable to obtain Social History: alcohol intake daily, 5-6 beers per day History of abusing cocaine unknown if ever was a smoker unknown living situation Family History: unable to obtain - Exam General Appearance: awake alert General - other findings: non toxic appearing Eye: PERRL, anicteric sclera ENT: normocephalic atraumatic, moist mucosa Neck: supple, symmetric, no JVD Heart: RRR, no murmur, no gallops, no rubs, normal peripheral pulses Respiratory: CTAB, no wheezes, no rales, no ronchi, normal chest expansion, no tachypnea Gastrointestinal: soft, non-tender, normal bowel sounds, no bruit, no guarding, no rigidity Extremities: no cyanosis, no clubbing, no edema Skin: no rashes Neurological: cranial nerve grossly intact Musculoskeletal: normal tone, normal strength Psychiatric: not oriented Psychiatric - other findings: Alert, inappropriate speech, MAEW Hospitalist Results - Labs Result Diagrams: 11/09/19 02:04 11/09/19 02:04 Lab results: WBC 6.1 thou/uL (4.8-10.8) 11/08/19 18:54 Hgb 15.8 g/dL (14.0-18.0) 11/08/19 18:54 Hct 44.9 % (42.0-52.0) 11/08/19 18:54 MCV 101.0 fL (78.0-98.0) H 11/08/19 18:54 Plt Count 193 thou/uL (130-400) 11/08/19 18:54 Neutrophils % 66.3 % (42.0-75.0) 11/08/19 18:54 Sodium 141 mmol/L (136-145) 11/08/19 18:54 Potassium 4.7 mmol/L (3.5-5.1) 11/08/19 18:54 Chloride 107 mmol/L (98-107) 11/08/19 18:54 Carbon Dioxide 24 mmol/L (22-29) 11/08/19 18:54 BUN 9 mg/dL (8.4-25.7) 11/08/19 18:54 Creatinine 0.84 mg/dL (0.7-1.3) 11/08/19 18:54 Glucose 93 mg/dL (70-105) 11/08/19 18:54 Calcium 9.2 mg/dL (7.8-10.44) 11/08/19 18:54 Total Bilirubin 0.6 mg/dL (0.2-1.2) 11/08/19 18:54 AST 76 U/L (5-34) H 11/08/19 18:54 ALT 96 U/L (8-55) H 11/08/19 18:54 Alkaline Phosphatase 84 U/L (40-110) 11/08/19 18:54 Ammonia 33 umol/L (18-72) 11/08/19 18:54 Creatine Kinase 77 U/L (30-200) 11/08/19 18:54 Troponin I 0.019 ng/mL (< 0.028) 11/08/19 18:54 Serum Total Protein 7.5 g/dL (6.0-8.3) 11/08/19 18:54 Albumin 3.8 g/dL (3.5-5.0) 11/08/19 18:54 Urine Ketones Negative mg/dL (Negative) 11/08/19 19:40 Urine Blood Negative (Negative) 11/08/19 19:40 Urine Nitrite Negative (Negative) 11/08/19 19:40 Ur Leukocyte Esterase Negative Marisabel/uL (Negative) 11/08/19 19:40 - EKG Interpretation EK lead EKG interpreted by Emergency Department Physician at time of study, Rate 108 sinus tachycardia right bundle branch block with a QRS duration of 126. Complete right bundle branch block normal ST segments normal T waves no acute process. - Radiology Interpretation Chest x-ray Status: report reviewed by la Hospitalist H&P A/P - Problem (1) AMS (altered mental status) Code(s): R41.82 - ALTERED MENTAL STATUS, UNSPECIFIED Status: Acute Assessment and Plan: Admit the patient to medical floor, observation status. Expected length of stay less than 2 midnights. Patient presented with a normal blood pressure, tachycardic, normal respirations and normal O2 sat, afebrile. CT brain and C- spine negative for any acute process. UA, drug screen, CBC and ammonia level unremarkable. EKG normal sinus rhythm, right bundle branch block. Initial troponin negative. Patient was recently discharged from the hospital for similar symptoms. Will consult neurology. Will perform neuro checks. Will start ASE protocol. Will make fall precaution. (2) HTN (hypertension) Code(s): I10 - ESSENTIAL (PRIMARY) HYPERTENSION Status: Chronic Assessment and Plan: Patient presented with a normal blood pressure. Upon review of his recent discharge, no home medications for high blood pressure. We will continue to monitor BP. (3) Seizure disorder Code(s): G40.909 - EPILEPSY, UNSP, NOT INTRACTABLE, WITHOUT STATUS EPILEPTICUS Status: Chronic Assessment and Plan: Upon reviewing recent discharge home medication list. Patient is taking at thousand milligrams of Keppra daily. Will continue home dose of Keppra. (4) Macrocytic anemia Code(s): D53.9 - NUTRITIONAL ANEMIA, UNSPECIFIED Status: Chronic Assessment and Plan: Hemoglobin 15.8/hematocrit 44.9. Appear stable. Will start folate B12. (5) Alcohol abuse Code(s): F10.10 - ALCOHOL ABUSE, UNCOMPLICATED Status: Chronic - Plan Plan: SCDs for DVT prophylaxis. No GI prophylaxis. Full code. Discussed case with Dr. Serna.
[2019-11-08] MEDS ORDERED: Senokot S 8.6-50 MG TAB PO PRN (22:38)
[2019-11-08] MEDS ORDERED: Ondansetron PF 4 MG/2 ML Vial IVP PRN (22:38)
[2019-11-08] MEDS ORDERED: Acetaminophen 325 MG TAB PO PRN (22:38)
[2019-11-08] MEDS ORDERED: Calcium Carbonate 500 MG ChewTAB PO PRN (22:38)
[2019-11-08] MEDS ORDERED: Ondansetron ODT 4 MG TAB PO PRN (22:38)
[2019-11-08] MEDS ORDERED: Acetaminophen 650 MG Suppository PR PRN (22:38)
[2019-11-08] MEDS ORDERED: Diazepam 5 MG TAB PO PRN (22:47)
[2019-11-08] MEDS ORDERED: Thiamine HCl 200 MG/2 ML VIAL IM SCH (23:00)
[2019-11-08 23:25] LABS: Troponin I 0.022 ng/mL (< 0.028)
[2019-11-09 01:20] VITALS: BMI 23.9
[2019-11-09 02:14] LABS: #Basophils 0.1 thou/uL (0.0-0.2); #Eosinphils 0.2 thou/uL (0.0-0.7); #Lymphocytes 1.5 thou/uL (1.20-3.40); #Monocytes 0.6 thou/uL (0.11-0.59); #Neutrophils 3.3 thou/uL (1.40-6.50); %Basophils 1.1 % (0.0-1.0); %Eosinophils 3.5 % (0.0-10.0); %Monocytes 10.2 % (0.0-10.0); %Neutrophils 58.3 % (42.0-75.0); Hemoglobin 14.4 g/dL (14.0-18.0); Mean Corpuscular HGB CONC 34.2 g/dL (32.0-36.0); Mean Corpuscular Hemoglobin 34.2 pg (27.0-31.0); Mean Platelet Volume 8.6 fL (7.4-10.4); Platelet Count 202 thou/uL (130-400); RBC Distribution Width 11.7 % (11.5-14.5); White Blood Cell (WBC) Count 5.7 thou/uL (4.8-10.8)
[2019-11-09 02:52] LABS: ALT (SGPT) 74 U/L (8-55); AST (SGOT) 55 U/L (5-34); Albumin 3.3 g/dL (3.5-5.0); Alkaline Phosphatase 72 U/L (40-110); Anion Gap 11 mmol/L (10-20); BUN (Urea Nitrogen) 7 mg/dL (8.4-25.7); Bilirubin, Total 0.6 mg/dL (0.2-1.2); Calc. Creatinine Clearance 123 mL/min (70-130); Calcium 8.4 mg/dL (7.8-10.44); Carbon Dioxide 23 mmol/L (22-29); Chloride 111 mmol/L (98-107); Estimated GFR-MDRD Greater than 90; Globulin 3.4 g/dL (2.4-3.5); Glucose 90 mg/dL (70-105); Potassium 3.8 mmol/L (3.5-5.1); Protein, Total 6.7 g/dL (6.0-8.3); Sodium 141 mmol/L (136-145)
--- NOTE | 2019-11-09 09:15 | PDOC.HOSPP ---
- Subjective Encounter Date: 11/09/19 Encounter Time: 09:15 Subjective: Patient was seen and examined in bed. He was slightly confused. Required an manager product who said that most of what he said did not make sense. however told his condition not improved since admission. - Objective Vital Signs & Weight: Vital Signs (12 hours) Temp Pulse Resp BP BP Pulse Ox 11/09/19 07:57 98.4 F 67 18 113/74 96 11/09/19 04:00 98.1 F 69 18 126/76 126/76 96 11/09/19 00:00 161/92 H 11/08/19 23:10 99 F 84 18 161/92 H 97 Weight Weight 157 lb 8 oz I&O: 11/08/19 11/09/19 11/10/19 06:59 06:59 06:59 Intake Total 120 Output Total 1000 Balance -880 Result Diagrams: 11/09/19 02:04 11/09/19 02:04 Additional Labs: Accuchecks 11/08/19 18:40 POC Glucose 85 Hospitalist ROS - Review of Systems Constitutional: reports: fever, chills, weakness Respiratory: reports: cough, shortness of breath, SOB with excertion Gastrointestinal: reports: nausea, vomiting, abdominal pain, constipation Skin: reports: rash Neurological: reports: weakness, confusion - Exam General - other findings: Patient is awake and oriented to self however confused. Not ill-looking Eye: PERRL, anicteric sclera ENT: normocephalic atraumatic, no oropharyngeal lesions Heart: RRR, no murmur, no gallops, normal peripheral pulses Respiratory: no wheezes, no rales, no ronchi, normal chest expansion Gastrointestinal: non-tender, non-distended, normal bowel sounds Neurological: cranial nerve grossly intact, no focal deficits Musculoskeletal: normal tone Psychiatric - other findings: Oriented to self however not place and time. Hosp A/P - Plan This is a 54-year-old male patient was brought into the ED admitted overnight on account of altered mental status. History remains unclear the etiology of his mental status however he has been managed on [facility] protocol for alcohol withdrawal and so any significant improvement. Acute encephalopathy. Possibly due to alcohol withdrawal Benzodiazepines were seen in his urine We will continue monitoring overnight possible discharge tomorrow. -Epilepsy continue keppra -Hypertension continue monitoring and treatment
[2019-11-09] MEDS: Thiamine 100 MG TAB PO SCH (09:26)
[2019-11-09] MEDS: Magnesium Oxide 400 MG TAB PO SCH (09:26)
[2019-11-09] MEDS: Folic Acid 1 MG TAB PO SCH (09:26)
[2019-11-09] MEDS: Multivitamin W/ Minerals 1 TAB PO SCH (09:26)
[2019-11-09] MEDS: levETIRAcetam In NaCl (Iso-Os) 1,000 MG in Premix Bag 1 BAG IVPB SCH ×2 (09:26→20:30)
[2019-11-09 12:02] LABS: SARS-CoV-2 MS2 Positive; SARS-CoV-2 N Gene Negative; SARS-CoV-2 S Gene Negative; SARS-CoV-2 by NAA Not Detected (NotDetected); SARS-CoV-2 orf1ab Negative
[2019-11-09] MEDS: Diazepam 5 MG TAB PO PRN ×2 (12:15→20:30)
--- NOTE | 2019-11-09 23:56 | CON ---
DATE OF CONSULTATION: 11/09/2019 IMPRESSION: 1. Probable dementia. 2. History of seizures. 3. Alcohol abuse. PLAN: 1. Continue Keppra 1000 mg twice a day. 2. Patient will be discharged in the care of his family. HISTORY OF PRESENT ILLNESS: Mr. Conner is a 54-year-old man who came in with reported history of acting somewhat bizarrely. He apparently fell off his horse. He told the EMS that he did not punch his hoarse. Reportedly, he drinks on a regular basis. He had a CT of the brain done, which showed multiple areas of white matter ischemic changes. His tox screen was negative. His metabolic panel was unremarkable. B12 and folate levels were normal. His COVID test was also negative. Since admission, he has been afebrile. The nurse reports that he has been acting a little bit oddly. He was carrying his urinal around and not really handling inappropriately. He has not been agitated or aggressive. No abnormal movements have been seen. PAST MEDICAL HISTORY: Otherwise unknown. FAMILY HISTORY: Unknown. SOCIAL HISTORY: Positive for alcohol. MEDICATIONS: List was reviewed. REVIEW OF SYSTEMS: Could not be obtained due to his inability to speak Ukrainian. PHYSICAL EXAMINATION: GENERAL: He appears to be a well-nourished gentleman, sitting in the chair in no distress. VITAL SIGNS: Have been stable. He is afebrile. HEENT: Pupils are equal. Conjunctivae clear. Cranium normocephalic and atraumatic. NECK: No lymphadenopathy. EXTREMITIES: No cyanosis or edema. Skin appeared to be clear. NEUROLOGIC: Could not get him to follow simple commands in Russian. His speech seem to be fluent and clear. He had no focal deficits. No abnormal movements were seen. SUMMARY: I do not see any toxic metabolic or other factors in play. He seems to be totally calm, but not appropriate in his ability to follow commands. I suspect that he has dementia. There is not anything further I could see to do at this point. Job ID: [id number]
[2019-11-10] MEDS: levETIRAcetam In NaCl (Iso-Os) 1,000 MG in Premix Bag 1 BAG IVPB SCH ×2 (08:46→20:53)
[2019-11-10] MEDS: Thiamine 100 MG TAB PO SCH (08:46)
[2019-11-10] MEDS: Multivitamin W/ Minerals 1 TAB PO SCH (08:46)
[2019-11-10] MEDS: Folic Acid 1 MG TAB PO SCH (08:46)
[2019-11-10] MEDS: Magnesium Oxide 400 MG TAB PO SCH (08:46)
[2019-11-10] MEDS: Diazepam 5 MG TAB PO PRN ×2 (08:46→20:53)
--- NOTE | 2019-11-10 16:56 | PDOC.HOSPP ---
- Subjective Encounter Date: 11/10/19 Encounter Time: 11:00 Subjective: Patient was seen and examined in bed. He also confused although which improved from yesterday. An motor vehicle parts interpreter did the translation from Maori. - Objective Vital Signs & Weight: Vital Signs (12 hours) Temp Pulse Resp BP BP Pulse Ox 11/10/19 12:26 119/79 11/10/19 08:53 98.6 F 83 18 122/89 97 11/10/19 08:00 122/89 97 Weight Admit Weight 157 lb 8 oz Weight 157 lb 8 oz I&O: 11/09/19 11/10/19 11/11/19 06:59 06:59 06:59 Intake Total 120 360 560 Output Total 1000 Balance -880 360 560 Result Diagrams: 11/09/19 02:04 11/09/19 02:04 Hospitalist ROS - Review of Systems Constitutional: denies: fever, chills, sweats, weakness Cardiovascular: denies: chest pain, palpitations, orthopnea, paroxysmal noc. dyspnea Gastrointestinal: denies: nausea, vomiting, abdominal pain, diarrhea Genitourinary: denies: dysuria, frequency, incontinence, hematuria - Medication Medications: Active Medications Generic Name Dose Route Start Last Admin Trade Name Freq PRN Reason Stop Dose Admin Diazepam 5 mg 11/09/19 04:00 11/10/19 08:46 Valium PO 5 mg Q4H PRN Administration FOR ASE 10 OR GREATER Folic Acid 1 mg 11/09/19 09:00 11/10/19 08:46 Folvite PO 1 mg DAILY MURRAY Administration Levetiracetam 1,000 mg/ Device 100 mls @ 200 mls/hr 11/09/19 09:00 11/10/19 08:46 IVPB 100 mls BID MURRAY Administration Iron/Minerals/Multivitamins 1 tab 11/09/19 09:00 11/10/19 08:46 Theragran M PO 1 tab DAILY MURRAY Administration Magnesium Oxide 400 mg 11/09/19 09:00 11/10/19 08:46 Magnesium Oxide PO 400 mg DAILY MURRAY Administration Thiamine HCl 100 mg 11/09/19 09:00 11/10/19 08:46 Thiamine PO 100 mg DAILY MURRAY Administration - Exam General - other findings: Patient is awake alert however confused. No acute distress Eye: PERRL, anicteric sclera Heart: RRR, no murmur, no gallops, normal peripheral pulses Respiratory: no wheezes, no rales, no ronchi, normal chest expansion Gastrointestinal: soft, non-tender, non-distended, normal bowel sounds Neurological: cranial nerve grossly intact, no new deficit Psychiatric - other findings: Oriented to only person but not place and time. Hosp A/P - Plan This is a 54-year-old male patient was brought into the ED admitted overnight on account of altered mental status. History remains unclear the etiology of his mental status however he has been managed on [facility] protocol for alcohol withdrawal and so any significant improvement. Acute encephalopathy. Possibly due to alcohol withdrawal Benzodiazepines were seen in his urine We will continue monitoring Neurological assessment concerning for possible dementia. If no improvement tomorrow may have mental health evaluate. Alcohol abuse. Placed on alcohol withdrawal protocol. Hypertension We will continue monitoring. Seizure disorder Currently on Keppra No sensitivity noted VTE prophylaxispatient is ambulatory. Dispositionpending improvement in confusion.
[2019-11-10] MEDS: Enoxaparin Sodium 30 MG/0.3 ML SYRINGE SC SCH (21:13)
[2019-11-11] MEDS: levETIRAcetam In NaCl (Iso-Os) 1,000 MG in Premix Bag 1 BAG IVPB SCH ×2 (09:52→20:58)
[2019-11-11] MEDS: Thiamine 100 MG TAB PO SCH (09:53)
[2019-11-11] MEDS: Folic Acid 1 MG TAB PO SCH (09:53)
[2019-11-11] MEDS: Magnesium Oxide 400 MG TAB PO SCH (09:53)
[2019-11-11] MEDS: Multivitamin W/ Minerals 1 TAB PO SCH (09:53)
[2019-11-11] MEDS: Enoxaparin Sodium 30 MG/0.3 ML SYRINGE SC SCH ×2 (09:55→21:02)
--- NOTE | 2019-11-11 21:40 | PDOC.HOSPP ---
- Subjective Encounter Date: 11/11/19 Encounter Time: 11:00 Subjective: Patient was seen and examined in bed. He was in no acute distress but still remains confused. I got an car rental agent to ask and ascertain several questions and it was clear that he could not understand many things. No significant events overnight - Objective Vital Signs & Weight: Vital Signs (12 hours) Pulse Resp BP BP Pulse Ox 11/11/19 11:52 73 16 163/76 H 163/76 H 94 L Weight Admit Weight 157 lb 8 oz Weight 157 lb 8 oz I&O: 11/10/19 11/11/19 11/12/19 06:59 06:59 06:59 Intake Total 360 1400 600 Balance 360 1400 600 Result Diagrams: 11/09/19 02:04 11/09/19 02:04 Hospitalist ROS - Medication Medications: Active Medications Generic Name Dose Route Start Last Admin Trade Name Freq PRN Reason Stop Dose Admin Diazepam 5 mg 11/09/19 04:00 11/10/19 20:53 Valium PO 5 mg Q4H PRN Administration FOR ASE 10 OR GREATER Enoxaparin Sodium 30 mg 11/10/19 21:00 11/11/19 21:02 Lovenox SC 30 mg 0900,2100 MURRAY Administration Folic Acid 1 mg 11/09/19 09:00 11/11/19 09:53 Folvite PO 1 mg DAILY MURRAY Administration Levetiracetam 1,000 mg/ Device 100 mls @ 200 mls/hr 11/09/19 09:00 11/11/19 20:58 IVPB 100 mls BID MURRAY Administration Iron/Minerals/Multivitamins 1 tab 11/09/19 09:00 11/11/19 09:53 Theragran M PO 1 tab DAILY MURRAY Administration Magnesium Oxide 400 mg 11/09/19 09:00 11/11/19 09:53 Magnesium Oxide PO 400 mg DAILY MURRAY Administration Thiamine HCl 100 mg 11/09/19 09:00 11/11/19 09:53 Thiamine PO 100 mg DAILY MURRAY Administration - Exam Eye: PERRL, anicteric sclera, scleral icterus Heart - other findings: S1-S2 present. No murmurs gallops or rubs. Respiratory - other findings: No rhonchi or rales. Gastrointestinal - other findings: Soft, nontender, nondistended bowel sounds present Neurological - other findings: No focal neurological deficits. Psychiatric - other findings: Callus to patient but not present time. Grossly confused. Hosp A/P - Plan This is a 54-year-old male patient was brought into the ED admitted overnight on account of altered mental status. History remains unclear the etiology of his mental status however he has been managed on [facility] protocol for alcohol withdrawal and so any significant improvement. Neurological assessment notes he may have dementia He has a very poor social situation and has been unable to discharge him. Case management working on possible options at the moment. Acute encephalopathy. Possibly due to alcohol withdrawal Benzodiazepines were seen in his urine We will continue monitoring Neurological assessment concerning for possible dementia. Currently planning to discharge however working with case management to find placement. Alcohol abuse. Placed on alcohol withdrawal protocol. Hypertension We will continue monitoring. Seizure disorder Currently on Keppra No sensitivity noted VTE prophylaxispatient is ambulatory. Dispositionpending improvement in confusion.
[2019-11-12] MEDS: Enoxaparin Sodium 30 MG/0.3 ML SYRINGE SC SCH ×3 (07:00→20:01)
[2019-11-12] MEDS: Folic Acid 1 MG TAB PO SCH (09:26)
[2019-11-12] MEDS: levETIRAcetam In NaCl (Iso-Os) 1,000 MG in Premix Bag 1 BAG IVPB SCH (09:26)
[2019-11-12] MEDS: Magnesium Oxide 400 MG TAB PO SCH (09:26)
[2019-11-12] MEDS: Thiamine 100 MG TAB PO SCH (09:26)
[2019-11-12] MEDS: Multivitamin W/ Minerals 1 TAB PO SCH (09:26)
--- NOTE | 2019-11-12 15:27 | PDOC.HOSPP ---
- Subjective Encounter Date: 11/12/19 Encounter Time: 12:00 Subjective: Patient was seen and examined in bed. He was still generally confused. He did not make any sense. Echo to crew person to ask him questions. He otherwise denies any chest pain, shortness of breath. - Objective Vital Signs & Weight: Vital Signs (12 hours) Temp Pulse Resp BP BP Pulse Ox 11/12/19 09:00 98.5 F 72 16 130/82 130/82 94 L 11/12/19 06:28 132/86 11/12/19 04:00 98.5 F 70 16 132/86 94 L Weight Admit Weight 157 lb 8 oz Weight 157 lb 8 oz I&O: 11/11/19 11/12/19 11/13/19 06:59 06:59 06:59 Intake Total 1400 1320 Balance 1400 1320 Result Diagrams: 11/09/19 02:04 11/09/19 02:04 Hospitalist ROS - Medication Medications: Active Medications Generic Name Dose Route Start Last Admin Trade Name Freq PRN Reason Stop Dose Admin Diazepam 5 mg 11/09/19 04:00 11/10/19 20:53 Valium PO 5 mg Q4H PRN Administration FOR ASE 10 OR GREATER Enoxaparin Sodium 30 mg 11/10/19 21:00 11/12/19 09:27 Lovenox SC Not Given 00,2099 MURRAY Folic Acid 1 mg 11/09/19 09:00 11/12/19 09:26 Folvite PO 1 mg DAILY MURRAY Administration Iron/Minerals/Multivitamins 1 tab 11/09/19 09:00 11/12/19 09:26 Theragran M PO 1 tab DAILY MURRAY Administration Magnesium Oxide 400 mg 11/09/19 09:00 11/12/19 09:26 Magnesium Oxide PO 400 mg DAILY MURRAY Administration Thiamine HCl 100 mg 11/09/19 09:00 11/12/19 09:26 Thiamine PO 100 mg DAILY MURRAY Administration - Exam General - other findings: Patient is in bed in no acute distress. Heart - other findings: S1-S2 present. No murmurs gallops or rubs. Respiratory - other findings: Entry adequate bilaterally. Neurological - other findings: No focal neurological deficits Psychiatric - other findings: Patient completely confused. Hosp A/P - Plan This is a 54-year-old male patient was brought into the ED admitted on account of altered mental status. History remains unclear the etiology of his mental status however he has been managed on [facility] protocol for alcohol withdrawal with no significant improvement. Neurological assessment notes he may have dementia He has a very poor social situation and I have been unable to discharge him. Case management working on possible options at the moment. Acute encephalopathy. Possibly due to alcohol withdrawal however may be chronic encephalopathy with dementia We will continue monitoring Currently planning to discharge however working with case management to find placement. Neurology was consulted. Alcohol abuse. Appears symptoms may not be from direct alcohol. The moment. We will hold [facility] monitoring for now Hypertension We will continue monitoring. Seizure disorder Currently on Keppra No seizure activity noted VTE prophylaxispatient is ambulatory. Dispositionpending improvement in confusion.
[2019-11-13] MEDS: Magnesium Oxide 400 MG TAB PO SCH (08:17)
[2019-11-13] MEDS: Folic Acid 1 MG TAB PO SCH (08:17)
[2019-11-13] MEDS: Enoxaparin Sodium 30 MG/0.3 ML SYRINGE SC SCH ×2 (08:17→22:29)
[2019-11-13] MEDS: Thiamine 100 MG TAB PO SCH (08:17)
[2019-11-13] MEDS: Multivitamin W/ Minerals 1 TAB PO SCH (08:17)
--- NOTE | 2019-11-13 15:24 | PDOC.HOSPP ---
- Subjective Encounter Date: 11/13/19 Encounter Time: 10:15 Subjective: Patient was seen and examined in bed. Assessment was done with the help of an installer soft top in Greenlandic. He was less confused today than yesterday however still said an appropriate thing sometimes. However denies any chest pain or shortness of breath. - Objective Vital Signs & Weight: Vital Signs (12 hours) Temp Pulse Resp BP Pulse Ox 11/13/19 08:22 95 11/13/19 07:36 98.5 F 72 20 106/65 95 Weight Admit Weight 157 lb 8 oz Weight 157 lb 8 oz I&O: 11/12/19 11/13/19 11/14/19 06:59 06:59 06:59 Intake Total 1320 1600 Balance 1320 1600 Result Diagrams: 11/09/19 02:04 11/09/19 02:04 Hospitalist ROS - Medication Medications: Active Medications Generic Name Dose Route Start Last Admin Trade Name Freq PRN Reason Stop Dose Admin Acetaminophen 650 mg 11/08/19 22:38 11/13/19 12:05 Tylenol PO 650 mg Q4H PRN Administration Headache/Fever/Mild Pain (1-3) Diazepam 5 mg 11/09/19 04:00 11/10/19 20:53 Valium PO 5 mg Q4H PRN Administration FOR ASE 10 OR GREATER Enoxaparin Sodium 30 mg 11/10/19 21:00 11/13/19 08:17 Lovenox SC 30 mg 0900,2100 MURRAY Administration Folic Acid 1 mg 11/09/19 09:00 11/13/19 08:17 Folvite PO 1 mg DAILY MURRAY Administration Iron/Minerals/Multivitamins 1 tab 11/09/19 09:00 11/13/19 08:17 Theragran M PO 1 tab DAILY MURRAY Administration Magnesium Oxide 400 mg 11/09/19 09:00 11/13/19 08:17 Magnesium Oxide PO 400 mg DAILY MURRAY Administration Thiamine HCl 100 mg 11/09/19 09:00 11/13/19 08:17 Thiamine PO 100 mg DAILY MURRAY Administration - Exam General - other findings: Patient is awake and alert. No acute distress. Heart - other findings: S1-S2 present. No murmurs gallops or rubs. Respiratory - other findings: Air entry decreased bilaterally. No rales or rhonchi Gastrointestinal - other findings: Abdomen benign. Extremities - other findings: No cyanosis or edema Hosp A/P - Plan This is a 54-year-old male patient was brought into the ED admitted on account of altered mental status. History remains unclear the etiology of his mental status however he has been managed on alcohol withdrawal protocol. Patient has improved between yesterday and today Neurological assessment notes he may have dementia He has a very poor social situation and I have been unable to discharge him. Case management working on possible options at the momentlocated if she continued to option so far Difficulty with placement because patient is uninsured. Acute encephalopathy. Improving Possibly due to alcohol withdrawal however may be chronic encephalopathy with dementia We will continue monitoring Currently planning to discharge however working with case management to find placement. Neurology was consulted. Alcohol abuse. Initially on alcohol withdrawal protocol. Currently discontinued. Patient stable and improved Hypertension Blood pressure stable We will continue monitoring. Seizure disorder Currently on Keppra No seizure activity noted VTE prophylaxispatient is ambulatory. Dispositionpending improvement in confusion.
[2019-11-14] MEDS: Thiamine 100 MG TAB PO SCH ×2 (09:43→09:46)
[2019-11-14] MEDS: Multivitamin W/ Minerals 1 TAB PO SCH ×2 (09:43→09:47)
[2019-11-14] MEDS: Enoxaparin Sodium 30 MG/0.3 ML SYRINGE SC SCH (09:43)
[2019-11-14] MEDS: Magnesium Oxide 400 MG TAB PO SCH ×2 (09:43→09:46)
[2019-11-14] MEDS: Folic Acid 1 MG TAB PO SCH ×2 (09:43→09:46)
--- NOTE | 2019-11-14 13:08 | PDOC.HOSPP ---
- Subjective Encounter Date: 11/14/19 - Objective Vital Signs & Weight: Vital Signs (12 hours) Pulse Pulse Ox 11/14/19 09:49 77 94 L 11/14/19 08:00 94 L Weight Admit Weight 157 lb 8 oz Weight 157 lb 8 oz I&O: 11/13/19 11/14/19 11/15/19 06:59 06:59 06:59 Intake Total 1600 1500 Balance 1600 1500 Result Diagrams: 11/09/19 02:04 11/09/19 02:04 Hospitalist ROS - Medication Medications: Active Medications Generic Name Dose Route Start Last Admin Trade Name Freq PRN Reason Stop Dose Admin Acetaminophen 650 mg 11/08/19 22:38 11/13/19 12:05 Tylenol PO 650 mg Q4H PRN Administration Headache/Fever/Mild Pain (1-3) Diazepam 5 mg 11/09/19 04:00 11/10/19 20:53 Valium PO 5 mg Q4H PRN Administration FOR ASE 10 OR GREATER Enoxaparin Sodium 30 mg 11/10/19 21:00 11/14/19 09:43 Lovenox SC Not Given 0900,2099 [facility] Folic Acid 1 mg 11/09/19 09:00 11/14/19 09:46 Folvite PO Not Given DAILY [facility] Iron/Minerals/Multivitamins 1 tab 11/09/19 09:00 11/14/19 09:47 Theragran M PO Not Given DAILY [facility] Magnesium Oxide 400 mg 11/09/19 09:00 11/14/19 09:46 Magnesium Oxide PO Not Given DAILY [facility] Thiamine HCl 100 mg 11/09/19 09:00 11/14/19 09:46 Thiamine PO Not Given DAILY [facility] - Exam General Appearance: awake alert Neck: supple, no JVD Respiratory: normal chest expansion, no tachypnea Neurological: cranial nerve grossly intact, no new deficit Hosp A/P (1) Vascular dementia Code(s): F01.50 - VASCULAR DEMENTIA WITHOUT BEHAVIORAL DISTURBANCE Status: Acute (2) Alcohol abuse Code(s): F10.10 - ALCOHOL ABUSE, UNCOMPLICATED Status: Chronic (3) HTN (hypertension) Code(s): I10 - ESSENTIAL (PRIMARY) HYPERTENSION Status: Chronic (4) Seizure disorder Code(s): G40.909 - EPILEPSY, UNSP, NOT INTRACTABLE, WITHOUT STATUS EPILEPTICUS Status: Chronic - Plan Altered mental status is chronic likely due to combination of vascular dementia 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 The patient is stable to discharge. He is unfunded and placement will be difficult. The appropriate disposition will be home with family if available.
[2019-11-15] MEDS: Enoxaparin Sodium 30 MG/0.3 ML SYRINGE SC SCH ×3 (00:47→20:20)
[2019-11-15] MEDS: Multivitamin W/ Minerals 1 TAB PO SCH (08:26)
[2019-11-15] MEDS: Thiamine 100 MG TAB PO SCH (08:26)
[2019-11-15] MEDS: Folic Acid 1 MG TAB PO SCH (08:26)
[2019-11-15] MEDS: Magnesium Oxide 400 MG TAB PO SCH (08:26)
--- NOTE | 2019-11-15 14:10 | PDOC.HOSPP ---
- Subjective Encounter Date: 11/15/19 Subjective: No acute events. - Objective Vital Signs & Weight: Vital Signs (12 hours) Temp Pulse Resp BP Pulse Ox 11/15/19 07:27 97.7 F 64 20 123/69 96 Weight Admit Weight 157 lb 8 oz Weight 157 lb 8 oz I&O: 11/14/19 11/15/19 11/16/19 06:59 06:59 06:59 Intake Total 1500 300 Balance 1500 300 Result Diagrams: 11/09/19 02:04 11/09/19 02:04 Hospitalist ROS - Medication Medications: Active Medications Generic Name Dose Route Start Last Admin Trade Name Freq PRN Reason Stop Dose Admin Acetaminophen 650 mg 11/08/19 22:38 11/13/19 12:05 Tylenol PO 650 mg Q4H PRN Administration Headache/Fever/Mild Pain (1-3) Diazepam 5 mg 11/09/19 04:00 11/10/19 20:53 Valium PO 5 mg Q4H PRN Administration FOR ASE 10 OR GREATER Enoxaparin Sodium 30 mg 11/10/19 21:00 11/15/19 08:28 Lovenox SC Not Given 0900,2099 [facility] Folic Acid 1 mg 11/09/19 09:00 11/15/19 08:26 Folvite PO 1 mg DAILY [facility] Administration Iron/Minerals/Multivitamins 1 tab 11/09/19 09:00 11/15/19 08:26 Theragran M PO 1 tab DAILY [facility] Administration Magnesium Oxide 400 mg 11/09/19 09:00 11/15/19 08:26 Magnesium Oxide PO 400 mg DAILY [facility] Administration Thiamine HCl 100 mg 11/09/19 09:00 11/15/19 08:26 Thiamine PO 100 mg DAILY [facility] Administration - Exam General Appearance: awake alert ENT: normocephalic atraumatic Neck: supple, no JVD Respiratory: normal chest expansion, no tachypnea Neurological: cranial nerve grossly intact, no new deficit Hosp A/P (1) Vascular dementia Code(s): F01.50 - VASCULAR DEMENTIA WITHOUT BEHAVIORAL DISTURBANCE Status: Acute (2) Alcohol abuse Code(s): F10.10 - ALCOHOL ABUSE, UNCOMPLICATED Status: Chronic (3) HTN (hypertension) Code(s): I10 - ESSENTIAL (PRIMARY) HYPERTENSION Status: Chronic (4) Seizure disorder Code(s): G40.909 - EPILEPSY, UNSP, NOT INTRACTABLE, WITHOUT STATUS EPILEPTICUS Status: Chronic - Plan Altered mental status is chronic likely due to combination of vascular dementia 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 The patient is stable to discharge. We tried to reach his family but they are not responding today. Case management to assist with discharge.
[2019-11-16] MEDS: Multivitamin W/ Minerals 1 TAB PO SCH (08:57)
[2019-11-16] MEDS: Folic Acid 1 MG TAB PO SCH (08:57)
[2019-11-16] MEDS: Magnesium Oxide 400 MG TAB PO SCH (08:57)
[2019-11-16] MEDS: Thiamine 100 MG TAB PO SCH (08:57)
[2019-11-16] MEDS: Enoxaparin Sodium 30 MG/0.3 ML SYRINGE SC SCH ×2 (08:58→20:58)
--- NOTE | 2019-11-16 11:17 | PDOC.HOSPP ---
- Subjective Encounter Date: 11/16/19 Subjective: No new events. - Objective Vital Signs & Weight: Weight Admit Weight 157 lb 8 oz Weight 157 lb 8 oz I&O: 11/15/19 11/16/19 11/17/19 06:59 06:59 06:59 Intake Total 300 500 Output Total 800 Balance 300 -300 Result Diagrams: 11/09/19 02:04 11/09/19 02:04 Hospitalist ROS - Medication Medications: Active Medications Generic Name Dose Route Start Last Admin Trade Name Freq PRN Reason Stop Dose Admin Acetaminophen 650 mg 11/08/19 22:38 11/13/19 12:05 Tylenol PO 650 mg Q4H PRN Administration Headache/Fever/Mild Pain (1-3) Diazepam 5 mg 11/09/19 04:00 11/10/19 20:53 Valium PO 5 mg Q4H PRN Administration FOR ASE 10 OR GREATER Enoxaparin Sodium 30 mg 11/10/19 21:00 11/16/19 08:58 Lovenox SC Not Given 0900,2099 [facility] Folic Acid 1 mg 11/09/19 09:00 11/16/19 08:57 Folvite PO 1 mg DAILY [facility] Administration Iron/Minerals/Multivitamins 1 tab 11/09/19 09:00 11/16/19 08:57 Theragran M PO 1 tab DAILY [facility] Administration Magnesium Oxide 400 mg 11/09/19 09:00 11/16/19 08:57 Magnesium Oxide PO 400 mg DAILY [facility] Administration Thiamine HCl 100 mg 11/09/19 09:00 11/16/19 08:57 Thiamine PO 100 mg DAILY [facility] Administration - Exam General Appearance: awake alert ENT: normocephalic atraumatic Neck: supple, no JVD Respiratory: normal chest expansion, no tachypnea Neurological: cranial nerve grossly intact, no new deficit Hosp A/P (1) Vascular dementia Code(s): F01.50 - VASCULAR DEMENTIA WITHOUT BEHAVIORAL DISTURBANCE Status: Acute (2) Alcohol abuse Code(s): F10.10 - ALCOHOL ABUSE, UNCOMPLICATED Status: Chronic (3) HTN (hypertension) Code(s): I10 - ESSENTIAL (PRIMARY) HYPERTENSION Status: Chronic (4) Seizure disorder Code(s): G40.909 - EPILEPSY, UNSP, NOT INTRACTABLE, WITHOUT STATUS EPILEPTICUS Status: Chronic - Plan Altered mental status is chronic likely due to combination of vascular dementia 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 The patient is stable to discharge. We tried to reach his family but they are not responding today. Case management to assist with discharge. 11/15: Status unchanged.
[2019-11-17] MEDS: Multivitamin W/ Minerals 1 TAB PO SCH (08:13)
[2019-11-17] MEDS: Thiamine 100 MG TAB PO SCH (08:13)
[2019-11-17] MEDS: Magnesium Oxide 400 MG TAB PO SCH (08:13)
[2019-11-17] MEDS: Folic Acid 1 MG TAB PO SCH (08:13)
[2019-11-17] MEDS: Enoxaparin Sodium 30 MG/0.3 ML SYRINGE SC SCH ×2 (08:13→19:57)
--- NOTE | 2019-11-17 12:12 | PDOC.HOSPP ---
- Subjective Encounter Date: 11/17/19 Subjective: No new complaints. - Objective Vital Signs & Weight: Weight Admit Weight 157 lb 8 oz Weight 157 lb 8 oz I&O: 11/16/19 11/17/19 11/18/19 06:59 06:59 06:59 Intake Total 500 Output Total 800 Balance -300 Result Diagrams: 11/09/19 02:04 11/09/19 02:04 Hospitalist ROS - Medication Medications: Active Medications Generic Name Dose Route Start Last Admin Trade Name Freq PRN Reason Stop Dose Admin Acetaminophen 650 mg 11/08/19 22:38 11/13/19 12:05 Tylenol PO 650 mg Q4H PRN Administration Headache/Fever/Mild Pain (1-3) Diazepam 5 mg 11/09/19 04:00 11/10/19 20:53 Valium PO 5 mg Q4H PRN Administration FOR ASE 10 OR GREATER Enoxaparin Sodium 30 mg 11/10/19 21:00 11/17/19 08:13 Lovenox SC Not Given 0900,2100 [facility] Folic Acid 1 mg 11/09/19 09:00 11/17/19 08:13 Folvite PO 1 mg DAILY [facility] Administration Iron/Minerals/Multivitamins 1 tab 11/09/19 09:00 11/17/19 08:13 Theragran M PO 1 tab DAILY [facility] Administration Magnesium Oxide 400 mg 11/09/19 09:00 11/17/19 08:13 Magnesium Oxide PO 400 mg DAILY [facility] Administration Thiamine HCl 100 mg 11/09/19 09:00 11/17/19 08:13 Thiamine PO 100 mg DAILY [facility] Administration - Exam General Appearance: awake alert ENT: normocephalic atraumatic Neck: supple, no JVD Respiratory: normal chest expansion, no tachypnea Neurological: cranial nerve grossly intact, no new deficit Hosp A/P (1) Vascular dementia Code(s): F01.50 - VASCULAR DEMENTIA WITHOUT BEHAVIORAL DISTURBANCE Status: Acute (2) Alcohol abuse Code(s): F10.10 - ALCOHOL ABUSE, UNCOMPLICATED Status: Chronic (3) HTN (hypertension) Code(s): I10 - ESSENTIAL (PRIMARY) HYPERTENSION Status: Chronic (4) Seizure disorder Code(s): G40.909 - EPILEPSY, UNSP, NOT INTRACTABLE, WITHOUT STATUS EPILEPTICUS Status: Chronic - Plan Altered mental status is chronic likely due to combination of vascular dementia 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 The patient is stable to discharge. Disposition is challenging as the patient's family are not willing to take him. He was homeless at one point. Given his mental status we need to work on a safe discharge plan. Case management are assisting.
[2019-11-18] MEDS: Enoxaparin Sodium 30 MG/0.3 ML SYRINGE SC SCH ×2 (07:59→20:32)
[2019-11-18] MEDS: Folic Acid 1 MG TAB PO SCH (07:59)
[2019-11-18] MEDS: Thiamine 100 MG TAB PO SCH (07:59)
[2019-11-18] MEDS: Magnesium Oxide 400 MG TAB PO SCH (07:59)
[2019-11-18] MEDS: Multivitamin W/ Minerals 1 TAB PO SCH (07:59)
--- NOTE | 2019-11-18 12:18 | PDOC.HOSPP ---
- Subjective Encounter Date: 11/18/19 Subjective: No new events. - Objective Vital Signs & Weight: Vital Signs (12 hours) Temp Pulse Resp BP Pulse Ox 11/18/19 07:12 97.7 F 57 L 18 116/69 97 Weight Admit Weight 157 lb 8 oz Weight 157 lb 8 oz Result Diagrams: 11/09/19 02:04 11/09/19 02:04 Hospitalist ROS - Medication Medications: Active Medications Generic Name Dose Route Start Last Admin Trade Name Freq PRN Reason Stop Dose Admin Acetaminophen 650 mg 11/08/19 22:38 11/13/19 12:05 Tylenol PO 650 mg Q4H PRN Administration Headache/Fever/Mild Pain (1-3) Diazepam 5 mg 11/09/19 04:00 11/10/19 20:53 Valium PO 5 mg Q4H PRN Administration FOR ASE 10 OR GREATER Enoxaparin Sodium 30 mg 11/10/19 21:00 11/18/19 07:59 Lovenox SC 30 mg 0900,2100 [facility] Administration Folic Acid 1 mg 11/09/19 09:00 11/18/19 07:59 Folvite PO 1 mg DAILY [facility] Administration Iron/Minerals/Multivitamins 1 tab 11/09/19 09:00 11/18/19 07:59 Theragran M PO 1 tab DAILY [facility] Administration Magnesium Oxide 400 mg 11/09/19 09:00 11/18/19 07:59 Magnesium Oxide PO 400 mg DAILY [facility] Administration Thiamine HCl 100 mg 11/09/19 09:00 11/18/19 07:59 Thiamine PO 100 mg DAILY [facility] Administration - Exam General Appearance: awake alert ENT: normocephalic atraumatic Respiratory: normal chest expansion, no tachypnea Neurological: cranial nerve grossly intact, no new deficit Hosp A/P (1) Vascular dementia Code(s): F01.50 - VASCULAR DEMENTIA WITHOUT BEHAVIORAL DISTURBANCE Status: Acute (2) Alcohol abuse Code(s): F10.10 - ALCOHOL ABUSE, UNCOMPLICATED Status: Chronic (3) HTN (hypertension) Code(s): I10 - ESSENTIAL (PRIMARY) HYPERTENSION Status: Chronic (4) Seizure disorder Code(s): G40.909 - EPILEPSY, UNSP, NOT INTRACTABLE, WITHOUT STATUS EPILEPTICUS Status: Chronic - Plan Altered mental status is chronic likely due to combination of vascular dementia 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 The patient is stable to discharge. Disposition is challenging as the patient's family are not willing to take him. He was homeless at one point. Given his mental status we need to work on a safe discharge plan. Case management are assisting. Awaiting placement.
[2019-11-19] MEDS: Multivitamin W/ Minerals 1 TAB PO SCH (08:27)
[2019-11-19] MEDS: Folic Acid 1 MG TAB PO SCH (08:27)
[2019-11-19] MEDS: Enoxaparin Sodium 30 MG/0.3 ML SYRINGE SC SCH ×2 (08:27→20:35)
[2019-11-19] MEDS: Magnesium Oxide 400 MG TAB PO SCH (08:27)
[2019-11-19] MEDS: Thiamine 100 MG TAB PO SCH (08:27)
--- NOTE | 2019-11-19 18:33 | PDOC.HOSPP ---
- Subjective Encounter Date: 11/19/19 - Objective Vital Signs & Weight: Vital Signs (12 hours) Temp Pulse Resp BP Pulse Ox 11/19/19 08:00 97 11/19/19 07:36 97.7 F 72 97 11/19/19 07:28 97.7 F 97 Weight Admit Weight 157 lb 8 oz Weight 157 lb 8 oz Result Diagrams: 11/09/19 02:04 11/09/19 02:04 Hospitalist ROS - Medication Medications: Active Medications Generic Name Dose Route Start Last Admin Trade Name Freq PRN Reason Stop Dose Admin Acetaminophen 650 mg 11/08/19 22:38 11/13/19 12:05 Tylenol PO 650 mg Q4H PRN Administration Headache/Fever/Mild Pain (1-3) Enoxaparin Sodium 30 mg 11/10/19 21:00 11/19/19 08:27 Lovenox SC 30 mg 0900,2100 [facility] Administration Folic Acid 1 mg 11/09/19 09:00 11/19/19 08:27 Folvite PO 1 mg DAILY [facility] Administration Iron/Minerals/Multivitamins 1 tab 11/09/19 09:00 11/19/19 08:27 Theragran M PO 1 tab DAILY [facility] Administration Magnesium Oxide 400 mg 11/09/19 09:00 11/19/19 08:27 Magnesium Oxide PO 400 mg DAILY [facility] Administration Thiamine HCl 100 mg 11/09/19 09:00 11/19/19 08:27 Thiamine PO 100 mg DAILY [facility] Administration - Exam General Appearance: awake alert ENT: normocephalic atraumatic Neck: supple, no JVD Respiratory: normal chest expansion, no tachypnea Neurological: cranial nerve grossly intact, no focal deficits Hosp A/P (1) Vascular dementia Code(s): F01.50 - VASCULAR DEMENTIA WITHOUT BEHAVIORAL DISTURBANCE Status: Acute (2) Alcohol abuse Code(s): F10.10 - ALCOHOL ABUSE, UNCOMPLICATED Status: Chronic (3) HTN (hypertension) Code(s): I10 - ESSENTIAL (PRIMARY) HYPERTENSION Status: Chronic (4) Seizure disorder Code(s): G40.909 - EPILEPSY, UNSP, NOT INTRACTABLE, WITHOUT STATUS EPILEPTICUS Status: Chronic - Plan Altered mental status is chronic likely due to combination of vascular dementia 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 The patient is stable to discharge. Disposition is challenging as the patient's family are not willing to take him. He was homeless at one point. Given his mental status we need to work on a safe discharge plan. Case management are assisting. Awaiting placement.
[2019-11-20] MEDS: Folic Acid 1 MG TAB PO SCH (07:58)
[2019-11-20] MEDS: Enoxaparin Sodium 30 MG/0.3 ML SYRINGE SC SCH ×2 (07:58→21:21)
[2019-11-20] MEDS: Magnesium Oxide 400 MG TAB PO SCH (07:58)
[2019-11-20] MEDS: Thiamine 100 MG TAB PO SCH (07:58)
[2019-11-20] MEDS: Multivitamin W/ Minerals 1 TAB PO SCH (07:58)
--- NOTE | 2019-11-20 10:02 | PDOC.HOSPP ---
- Subjective Encounter Date: 11/20/19 Subjective: Status unchanged. The patient is within his baseline and ready for discharge whenever disposition is available. - Objective Vital Signs & Weight: Weight Admit Weight 157 lb 8 oz Weight 157 lb 8 oz Result Diagrams: 11/09/19 02:04 11/09/19 02:04 Hospitalist ROS - Medication Medications: Active Medications Generic Name Dose Route Start Last Admin Trade Name Freq PRN Reason Stop Dose Admin Acetaminophen 650 mg 11/08/19 22:38 11/13/19 12:05 Tylenol PO 650 mg Q4H PRN Administration Headache/Fever/Mild Pain (1-3) Enoxaparin Sodium 30 mg 11/10/19 21:00 11/20/19 07:58 Lovenox SC Not Given 09,2100 [facility] Folic Acid 1 mg 11/09/19 09:00 11/20/19 07:58 Folvite PO Not Given DAILY [facility] Iron/Minerals/Multivitamins 1 tab 11/09/19 09:00 11/20/19 07:58 Theragran M PO Not Given DAILY [facility] Magnesium Oxide 400 mg 11/09/19 09:00 11/20/19 07:58 Magnesium Oxide PO Not Given DAILY [facility] Thiamine HCl 100 mg 11/09/19 09:00 11/20/19 07:58 Thiamine PO Not Given DAILY [facility] - Exam General Appearance: awake alert ENT: normocephalic atraumatic Neck: supple, no JVD Heart: RRR, no murmur, no gallops, no rubs Respiratory: CTAB, no wheezes, no rales, no ronchi, no tachypnea Neurological: cranial nerve grossly intact, no new deficit Hosp A/P (1) Vascular dementia Code(s): F01.50 - VASCULAR DEMENTIA WITHOUT BEHAVIORAL DISTURBANCE Status: Acute (2) Alcohol abuse Code(s): F10.10 - ALCOHOL ABUSE, UNCOMPLICATED Status: Chronic (3) HTN (hypertension) Code(s): I10 - ESSENTIAL (PRIMARY) HYPERTENSION Status: Chronic (4) Seizure disorder Code(s): G40.909 - EPILEPSY, UNSP, NOT INTRACTABLE, WITHOUT STATUS EPILEPTICUS Status: Chronic - Plan Altered mental status is chronic likely due to combination of vascular dementia 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 The patient is stable to discharge. Disposition is challenging as the patient's family are not willing to take him. He was homeless at one point. Given his mental status we need to work on a safe discharge plan. Case management are assisting. Awaiting placement.
[2019-11-21] MEDS: Enoxaparin Sodium 30 MG/0.3 ML SYRINGE SC SCH ×2 (07:09→21:30)
[2019-11-21] MEDS: Folic Acid 1 MG TAB PO SCH (07:10)
[2019-11-21] MEDS: Magnesium Oxide 400 MG TAB PO SCH (07:10)
[2019-11-21] MEDS: Multivitamin W/ Minerals 1 TAB PO SCH (07:10)
[2019-11-21] MEDS: Thiamine 100 MG TAB PO SCH (07:10)
[2019-11-21 09:54] LABS: #Eosinphils 0.3 thou/uL (0.0-0.7); #Lymphocytes 1.5 thou/uL (1.20-3.40); #Monocytes 0.6 thou/uL (0.11-0.59); #Neutrophils 2.8 thou/uL (1.40-6.50); %Basophils 0.3 % (0.0-1.0); %Lymphocytes 29.7 % (21.0-51.0); %Monocytes 10.6 % (0.0-10.0); %Neutrophils 54.4 % (42.0-75.0); Hemoglobin 15.3 g/dL (14.0-18.0); Mean Corpuscular HGB CONC 35.2 g/dL (32.0-36.0); Mean Corpuscular Hemoglobin 34.3 pg (27.0-31.0); Mean Corpuscular Volume 97.6 fL (78.0-98.0); Mean Platelet Volume 8.3 fL (7.4-10.4); Platelet Count 202 thou/uL (130-400); RBC Distribution Width 11.4 % (11.5-14.5); Red Blood Cell (RBC) Count 4.47 mill/uL (4.70-6.10); White Blood Cell (WBC) Count 5.1 thou/uL (4.8-10.8)
[2019-11-21 10:13] LABS: Anion Gap 12 mmol/L (10-20); BUN (Urea Nitrogen) 10 mg/dL (8.4-25.7); Calc. Creatinine Clearance 112 mL/min (70-130); Calcium 8.8 mg/dL (7.8-10.44); Carbon Dioxide 27 mmol/L (22-29); Chloride 106 mmol/L (98-107); Estimated GFR-MDRD Greater than 90; Glucose 91 mg/dL (70-105); Sodium 141 mmol/L (136-145)
--- NOTE | 2019-11-21 14:54 | PDOC.HOSPP ---
- Subjective Encounter Date: 11/21/19 Encounter Time: 14:52 Subjective: Mr. Conner was seen today in follow-up of dementia, and confusion. He is completed dressed in street clothes when I went to see him. He is confused. He does not have any complaints. He does not know why he is in the hospital. - Objective Vital Signs & Weight: Vital Signs (12 hours) Temp Pulse Resp BP Pulse Ox 11/21/19 07:20 97.7 F 65 16 120/78 97 Weight Admit Weight 157 lb 8 oz Weight 157 lb 8 oz I&O: 11/20/19 11/21/19 11/22/19 06:59 06:59 06:59 Intake Total 720 Balance 720 Result Diagrams: 11/21/19 09:43 11/21/19 09:43 Hospitalist ROS - Medication Medications: Active Medications Generic Name Dose Route Start Last Admin Trade Name Freq PRN Reason Stop Dose Admin Acetaminophen 650 mg 11/08/19 22:38 11/13/19 12:05 Tylenol PO 650 mg Q4H PRN Administration Headache/Fever/Mild Pain (1-3) Enoxaparin Sodium 30 mg 11/10/19 21:00 11/21/19 07:09 Lovenox SC Not Given 0900,2100 [facility] Folic Acid 1 mg 11/09/19 09:00 11/21/19 07:10 Folvite PO Not Given DAILY [facility] Iron/Minerals/Multivitamins 1 tab 11/09/19 09:00 11/21/19 07:10 Theragran M PO Not Given DAILY [facility] Magnesium Oxide 400 mg 11/09/19 09:00 11/21/19 07:10 Magnesium Oxide PO Not Given DAILY [facility] Thiamine HCl 100 mg 11/09/19 09:00 11/21/19 07:10 Thiamine PO Not Given DAILY [facility] - Exam Eye: PERRL, anicteric sclera Heart: RRR, no murmur, no gallops, no rubs, normal peripheral pulses Respiratory: CTAB, no wheezes, no rales, no ronchi, normal chest expansion, no tachypnea Gastrointestinal: soft, non-tender, non-distended, normal bowel sounds, no palpable masses Extremities: no cyanosis, no edema Hosp A/P (1) Acute encephalopathy Code(s): G93.40 - ENCEPHALOPATHY, UNSPECIFIED Status: Acute (2) Vascular dementia Code(s): F01.50 - VASCULAR DEMENTIA WITHOUT BEHAVIORAL DISTURBANCE Status: Chronic (3) Alcohol abuse Code(s): F10.10 - ALCOHOL ABUSE, UNCOMPLICATED Status: Chronic (4) HTN (hypertension) Code(s): I10 - ESSENTIAL (PRIMARY) HYPERTENSION Status: Chronic (5) Seizure disorder Code(s): G40.909 - EPILEPSY, UNSP, NOT INTRACTABLE, WITHOUT STATUS EPILEPTICUS Status: Chronic - Plan * Acute Encephalopathy- improving, but he has baseline dementia * HTN- blood pressure is stable * Alcohol Abuse- continue multi-vitamin thiamine and folate * He is awaiting placement
[2019-11-22] MEDS: Thiamine 100 MG TAB PO SCH (08:03)
[2019-11-22] MEDS: Multivitamin W/ Minerals 1 TAB PO SCH (08:03)
[2019-11-22] MEDS: Folic Acid 1 MG TAB PO SCH (08:03)
[2019-11-22] MEDS: Enoxaparin Sodium 30 MG/0.3 ML SYRINGE SC SCH ×2 (08:03→20:32)
[2019-11-22] MEDS: Magnesium Oxide 400 MG TAB PO SCH (08:03)
--- NOTE | 2019-11-22 11:05 | PDOC.HOSPP ---
- Subjective Encounter Date: 11/22/19 Encounter Time: 11:05 Subjective: Mr. Conner was seen today in follow-up of encephalopathy. He does not have any complaints. - Objective Vital Signs & Weight: Vital Signs (12 hours) Temp Pulse Resp BP Pulse Ox 11/22/19 07:28 97.9 F 87 16 109/81 96 Weight Admit Weight 157 lb 8 oz Weight 157 lb 8 oz I&O: 11/21/19 11/22/19 11/23/19 06:59 06:59 06:59 Intake Total 720 Balance 720 Result Diagrams: 11/21/19 09:43 11/21/19 09:43 Hospitalist ROS - Medication Medications: Active Medications Generic Name Dose Route Start Last Admin Trade Name Freq PRN Reason Stop Dose Admin Acetaminophen 650 mg 11/08/19 22:38 11/13/19 12:05 Tylenol PO 650 mg Q4H PRN Administration Headache/Fever/Mild Pain (1-3) Enoxaparin Sodium 30 mg 11/10/19 21:00 11/22/19 08:03 Lovenox SC Not Given 0900,2100 [facility] BEDS AT [facility] Folic Acid 1 mg 11/09/19 09:00 11/22/19 08:03 Folvite PO Not Given DAILY [facility] 234 BEDS AT [facility] Iron/Minerals/Multivitamins 1 tab 11/09/19 09:00 11/22/19 08:03 Theragran M PO Not Given DAILY [facility] 234 BEDS AT [facility] Magnesium Oxide 400 mg 11/09/19 09:00 11/22/19 08:03 Magnesium Oxide PO Not Given DAILY [facility] 234 BEDS AT [facility] Thiamine HCl 100 mg 11/09/19 09:00 11/22/19 08:03 Thiamine PO Not Given DAILY [facility] - Exam Eye: PERRL, anicteric sclera Heart: RRR, no murmur, no gallops, no rubs, normal peripheral pulses Respiratory: CTAB, no wheezes, no rales, no ronchi, normal chest expansion, no tachypnea Gastrointestinal: soft, non-tender, non-distended, normal bowel sounds, no palpable masses Extremities: no cyanosis, no edema Hosp A/P (1) Acute encephalopathy Code(s): G93.40 - ENCEPHALOPATHY, UNSPECIFIED Status: Acute (2) Vascular dementia Code(s): F01.50 - VASCULAR DEMENTIA WITHOUT BEHAVIORAL DISTURBANCE Status: Chronic (3) Alcohol abuse Code(s): F10.10 - ALCOHOL ABUSE, UNCOMPLICATED Status: Chronic (4) HTN (hypertension) Code(s): I10 - ESSENTIAL (PRIMARY) HYPERTENSION Status: Chronic (5) Seizure disorder Code(s): G40.909 - EPILEPSY, UNSP, NOT INTRACTABLE, WITHOUT STATUS EPILEPTICUS Status: Chronic - Plan * Acute Encephalopathy-likely at his baseline * HTN- blood pressure is stable * Alcohol Abuse- continue multi-vitamin thiamine and folate * Awaiting placement
[2019-11-23] MEDS: Thiamine 100 MG TAB PO SCH (08:36)
[2019-11-23] MEDS: Enoxaparin Sodium 30 MG/0.3 ML SYRINGE SC SCH ×2 (08:36→20:23)
[2019-11-23] MEDS: Magnesium Oxide 400 MG TAB PO SCH (08:36)
[2019-11-23] MEDS: Multivitamin W/ Minerals 1 TAB PO SCH (08:36)
[2019-11-23] MEDS: Folic Acid 1 MG TAB PO SCH (08:36)
--- NOTE | 2019-11-23 14:59 | PDOC.HOSPP ---
- Subjective Encounter Date: 11/23/19 Encounter Time: 14:57 Subjective: Mr. Ubaldo Angulo was seen today in follow-up of encephalopathy. He is still confused. No new complaints. - Objective Vital Signs & Weight: Vital Signs (12 hours) Temp Pulse Resp BP Pulse Ox 11/23/19 08:20 97.9 F 84 16 111/68 98 11/23/19 08:17 98 Weight Admit Weight 157 lb 8 oz Weight 157 lb 8 oz I&O: 11/22/19 11/23/19 11/24/19 06:59 06:59 06:59 Intake Total 1080 600 Output Total 800 Balance 280 600 Result Diagrams: 11/21/19 09:43 11/21/19 09:43 Hospitalist ROS - Medication Medications: Active Medications Generic Name Dose Route Start Last Admin Trade Name Freq PRN Reason Stop Dose Admin Acetaminophen 650 mg 11/08/19 22:38 11/13/19 12:05 Tylenol PO 650 mg Q4H PRN Administration Headache/Fever/Mild Pain (1-3) Enoxaparin Sodium 30 mg 11/10/19 21:00 11/23/19 08:36 Lovenox SC 30 mg 0900,2100 [facility] Administration Folic Acid 1 mg 11/09/19 09:00 11/23/19 08:36 Folvite PO 1 mg DAILY [facility] Administration Iron/Minerals/Multivitamins 1 tab 11/09/19 09:00 11/23/19 08:36 Theragran M PO 1 tab DAILY [facility] Administration Magnesium Oxide 400 mg 11/09/19 09:00 11/23/19 08:36 Magnesium Oxide PO 400 mg DAILY [facility] Administration Thiamine HCl 100 mg 11/09/19 09:00 11/23/19 08:36 Thiamine PO 100 mg DAILY [facility] Administration - Exam Eye: PERRL, anicteric sclera Heart: RRR, no murmur, no gallops, no rubs, normal peripheral pulses Respiratory: CTAB, no wheezes, no rales, no ronchi, normal chest expansion, no tachypnea Gastrointestinal: soft, non-tender, non-distended, normal bowel sounds, no palpable masses, no hepatomegaly Extremities: no cyanosis, no edema Hosp A/P (1) Acute encephalopathy Code(s): G93.40 - ENCEPHALOPATHY, UNSPECIFIED Status: Acute (2) Vascular dementia Code(s): F01.50 - VASCULAR DEMENTIA WITHOUT BEHAVIORAL DISTURBANCE Status: Chronic (3) Alcohol abuse Code(s): F10.10 - ALCOHOL ABUSE, UNCOMPLICATED Status: Chronic (4) HTN (hypertension) Code(s): I10 - ESSENTIAL (PRIMARY) HYPERTENSION Status: Chronic (5) Seizure disorder Code(s): G40.909 - EPILEPSY, UNSP, NOT INTRACTABLE, WITHOUT STATUS EPILEPTICUS Status: Chronic - Plan * Acute Encephalopathy-resolved * Dementia- likely from alcohol abuse * HTN- blood pressure is stable * Alcohol Abuse- continue multi-vitamin thiamine and folate * Awaiting placement
--- NOTE | 2019-11-24 08:54 | PDOC.HOSPP ---
- Subjective Encounter Date: 11/24/19 Encounter Time: 08:53 Subjective: Mr. Conner was seen today in follow-up of encephalopathy. He does not have any complaints. He is at baseline. - Objective Vital Signs & Weight: Weight Admit Weight 157 lb 8 oz Weight 157 lb 8 oz I&O: 11/23/19 11/24/19 11/25/19 06:59 06:59 06:59 Intake Total 1080 2840 Output Total 800 Balance 280 2840 Result Diagrams: 11/21/19 09:43 11/21/19 09:43 Hospitalist ROS - Medication Medications: Active Medications Generic Name Dose Route Start Last Admin Trade Name Freq PRN Reason Stop Dose Admin Acetaminophen 650 mg 11/08/19 22:38 11/13/19 12:05 Tylenol PO 650 mg Q4H PRN Administration Headache/Fever/Mild Pain (1-3) Enoxaparin Sodium 30 mg 11/10/19 21:00 11/23/19 20:23 Lovenox SC 30 mg 0900,2100 MURRAY Administration Folic Acid 1 mg 11/09/19 09:00 11/23/19 08:36 Folvite PO 1 mg DAILY MURRAY Administration Iron/Minerals/Multivitamins 1 tab 11/09/19 09:00 11/23/19 08:36 Theragran M PO 1 tab DAILY MURRAY Administration Magnesium Oxide 400 mg 11/09/19 09:00 11/23/19 08:36 Magnesium Oxide PO 400 mg DAILY MURRAY Administration Thiamine HCl 100 mg 11/09/19 09:00 11/23/19 08:36 Thiamine PO 100 mg DAILY MURRAY Administration - Exam Eye: PERRL, anicteric sclera Heart: RRR, no murmur, no gallops, no rubs, normal peripheral pulses Respiratory: CTAB, no wheezes, no rales, no ronchi, normal chest expansion, no tachypnea Gastrointestinal: soft, non-tender, non-distended, normal bowel sounds, no palpable masses Extremities: no cyanosis, no clubbing, no edema Hosp A/P (1) Acute encephalopathy Code(s): G93.40 - ENCEPHALOPATHY, UNSPECIFIED Status: Acute (2) Vascular dementia Code(s): F01.50 - VASCULAR DEMENTIA WITHOUT BEHAVIORAL DISTURBANCE Status: Chronic (3) Alcohol abuse Code(s): F10.10 - ALCOHOL ABUSE, UNCOMPLICATED Status: Chronic (4) HTN (hypertension) Code(s): I10 - ESSENTIAL (PRIMARY) HYPERTENSION Status: Chronic (5) Seizure disorder Code(s): G40.909 - EPILEPSY, UNSP, NOT INTRACTABLE, WITHOUT STATUS EPILEPTICUS Status: Chronic - Plan * No new recommendations * Acute Encephalopathy-resolved * Dementia- likely from alcohol abuse- I suspect he is at his new baseline * HTN- blood pressure is stable * Alcohol Abuse- continue multi-vitamin thiamine and folate * Awaiting placement
[2019-11-24] MEDS: Enoxaparin Sodium 30 MG/0.3 ML SYRINGE SC SCH ×2 (08:55→20:16)
[2019-11-24] MEDS: Magnesium Oxide 400 MG TAB PO SCH (08:55)
[2019-11-24] MEDS: Multivitamin W/ Minerals 1 TAB PO SCH (08:55)
[2019-11-24] MEDS: Thiamine 100 MG TAB PO SCH (08:55)
[2019-11-24] MEDS: Folic Acid 1 MG TAB PO SCH (08:55)
[2019-11-25] MEDS: Multivitamin W/ Minerals 1 TAB PO SCH (08:23)
[2019-11-25] MEDS: Enoxaparin Sodium 30 MG/0.3 ML SYRINGE SC SCH ×2 (08:23→20:40)
[2019-11-25] MEDS: Folic Acid 1 MG TAB PO SCH (08:23)
[2019-11-25] MEDS: Thiamine 100 MG TAB PO SCH (08:23)
[2019-11-25] MEDS: Magnesium Oxide 400 MG TAB PO SCH (08:23)
--- NOTE | 2019-11-25 09:27 | PDOC.HOSPP ---
- Subjective Encounter Date: 11/25/19 Encounter Time: 09:24 Subjective: Mr. Ubaldo Angulo was seen today in follow-up of encephalopathy. He does not have any complaints. - Objective Vital Signs & Weight: Weight Admit Weight 157 lb 8 oz Weight 157 lb 8 oz I&O: 11/24/19 11/25/19 11/26/19 06:59 06:59 06:59 Intake Total 2840 2160 Balance 2840 2160 Result Diagrams: 11/21/19 09:43 11/21/19 09:43 Hospitalist ROS - Medication Medications: Active Medications Generic Name Dose Route Start Last Admin Trade Name Freq PRN Reason Stop Dose Admin Acetaminophen 650 mg 11/08/19 22:38 11/13/19 12:05 Tylenol PO 650 mg Q4H PRN Administration Headache/Fever/Mild Pain (1-3) Enoxaparin Sodium 30 mg 11/10/19 21:00 11/24/19 20:16 Lovenox SC 30 mg 0900,2100 MURRAY Administration Folic Acid 1 mg 11/09/19 09:00 11/24/19 08:55 Folvite PO 1 mg DAILY MURRAY Administration Iron/Minerals/Multivitamins 1 tab 11/09/19 09:00 11/24/19 08:55 Theragran M PO 1 tab DAILY MURRAY Administration Magnesium Oxide 400 mg 11/09/19 09:00 11/24/19 08:55 Magnesium Oxide PO 400 mg DAILY MURRAY Administration Thiamine HCl 100 mg 11/09/19 09:00 11/24/19 08:55 Thiamine PO 100 mg DAILY MURRAY Administration - Exam Eye: PERRL, anicteric sclera Heart: RRR, no murmur, no gallops, no rubs, normal peripheral pulses Respiratory: CTAB, no wheezes, no rales, no ronchi, normal chest expansion Gastrointestinal: soft, non-tender, non-distended, normal bowel sounds, no palpable masses, no hepatomegaly Extremities: no cyanosis, no edema Hosp A/P (1) Acute encephalopathy Code(s): G93.40 - ENCEPHALOPATHY, UNSPECIFIED Status: Acute (2) Vascular dementia Code(s): F01.50 - VASCULAR DEMENTIA WITHOUT BEHAVIORAL DISTURBANCE Status: Chronic (3) Alcohol abuse Code(s): F10.10 - ALCOHOL ABUSE, UNCOMPLICATED Status: Chronic (4) HTN (hypertension) Code(s): I10 - ESSENTIAL (PRIMARY) HYPERTENSION Status: Chronic (5) Seizure disorder Code(s): G40.909 - EPILEPSY, UNSP, NOT INTRACTABLE, WITHOUT STATUS EPILEPTICUS Status: Chronic - Plan * Dementia- likely from alcohol abuse-at his new baseline * Enephalopathy-resolved * HTN- blood pressure is stable * Alcohol Abuse- continue multi-vitamin thiamine and folate * Awaiting placement
[2019-11-26] MEDS: Enoxaparin Sodium 30 MG/0.3 ML SYRINGE SC SCH ×2 (08:33→20:31)
[2019-11-26] MEDS: Thiamine 100 MG TAB PO SCH (08:33)
[2019-11-26] MEDS: Magnesium Oxide 400 MG TAB PO SCH (08:33)
[2019-11-26] MEDS: Multivitamin W/ Minerals 1 TAB PO SCH (08:33)
[2019-11-26] MEDS: Folic Acid 1 MG TAB PO SCH (08:33)
--- NOTE | 2019-11-26 09:29 | PDOC.HOSPP ---
- Subjective Encounter Date: 11/26/19 Encounter Time: 07:00 Subjective: Patient seen for follow-up regarding acute encephalopathy. Denies any chest pain or shortness of breath. - Objective Vital Signs & Weight: Vital Signs (12 hours) Temp Pulse Resp BP Pulse Ox 11/26/19 07:08 97.9 F 71 16 115/73 98 Weight Admit Weight 157 lb 8 oz Weight 157 lb 8 oz I&O: 11/25/19 11/26/19 11/27/19 06:59 06:59 06:59 Intake Total 2160 1550 Balance 2160 1550 Result Diagrams: 11/21/19 09:43 11/21/19 09:43 Additional Labs: I reviewed patient's labs and MAR Hospitalist ROS - Review of Systems Cardiovascular: denies: chest pain, palpitations, orthopnea, paroxysmal noc. dyspnea, edema, light headedness Gastrointestinal: denies: nausea, vomiting, abdominal pain, diarrhea, constipation, melena, hematochezia - Medication Medications: Active Medications Generic Name Dose Route Start Last Admin Trade Name Yasmaniq PRN Reason Stop Dose Admin Acetaminophen 650 mg 11/08/19 22:38 11/13/19 12:05 Tylenol PO 650 mg Q4H PRN Administration Headache/Fever/Mild Pain (1-3) Enoxaparin Sodium 30 mg 11/10/19 21:00 11/26/19 08:33 Lovenox SC 30 mg 0900,2100 MURRAY Administration Folic Acid 1 mg 11/09/19 09:00 11/26/19 08:33 Folvite PO 1 mg DAILY MURRAY Administration Iron/Minerals/Multivitamins 1 tab 11/09/19 09:00 11/26/19 08:33 Theragran M PO 1 tab DAILY MURRAY Administration Magnesium Oxide 400 mg 11/09/19 09:00 11/26/19 08:33 Magnesium Oxide PO 400 mg DAILY MURRAY Administration Thiamine HCl 100 mg 11/09/19 09:00 11/26/19 08:33 Thiamine PO 100 mg DAILY MURRAY Administration - Exam General Appearance: awake alert Eye: anicteric sclera ENT: moist mucosa Neck: supple Heart: RRR Respiratory: CTAB Gastrointestinal: soft, non-tender Extremities: no edema Skin: normal turgor Psychiatric: normal affect, normal behavior Hosp A/P - Plan (1) Vascular dementia Code(s): F01.50 - VASCULAR DEMENTIA WITHOUT BEHAVIORAL DISTURBANCE Status: Chronic (2) HTN (hypertension) Code(s): I10 - ESSENTIAL (PRIMARY) HYPERTENSION Status: Chronic (3) Alcohol abuse Code(s): F10.10 - ALCOHOL ABUSE, UNCOMPLICATED Status: Chronic (4) Seizure disorder Code(s): G40.909 - EPILEPSY, UNSP, NOT INTRACTABLE, WITHOUT STATUS EPILEPTICUS Status: Chronic (5) Acute encephalopathy Code(s): G93.40 - ENCEPHALOPATHY, UNSPECIFIED Status: Resolved - Plan * Dementia-at baseline * Enephalopathy-resolved * HTN-stable * Alcohol Abuse-patient is on multi-vitamin, thiamine and folate * Awaiting placement
[2019-11-27] MEDS: Magnesium Oxide 400 MG TAB PO SCH (09:01)
[2019-11-27] MEDS: Folic Acid 1 MG TAB PO SCH (09:02)
[2019-11-27] MEDS: Thiamine 100 MG TAB PO SCH (09:02)
[2019-11-27] MEDS: Enoxaparin Sodium 30 MG/0.3 ML SYRINGE SC SCH ×2 (09:02→22:04)
[2019-11-27] MEDS: Multivitamin W/ Minerals 1 TAB PO SCH (09:02)
--- NOTE | 2019-11-27 12:13 | PDOC.HOSPP ---
- Subjective Encounter Date: 11/27/19 Encounter Time: 07:40 Subjective: Patient seen in follow-up for dementia. He denies any chest pain or shortness of breath. - Objective Vital Signs & Weight: Weight Admit Weight 157 lb 8 oz Weight 157 lb 8 oz I&O: 11/26/19 11/27/19 11/28/19 06:59 06:59 06:59 Intake Total 1550 1000 Balance 1550 1000 Result Diagrams: 11/21/19 09:43 11/21/19 09:43 Additional Labs: I reviewed patient's labs and MAR Hospitalist ROS - Review of Systems Constitutional: denies: fever, chills, sweats, weakness, malaise Cardiovascular: denies: chest pain, palpitations, orthopnea, paroxysmal noc. dyspnea, edema, light headedness Gastrointestinal: denies: nausea, vomiting, abdominal pain, diarrhea, constipa tion, melena, hematochezia - Medication Medications: Active Medications Generic Name Dose Route Start Last Admin Trade Name Freq PRN Reason Stop Dose Admin Acetaminophen 650 mg 11/08/19 22:38 11/13/19 12:05 Tylenol PO 650 mg Q4H PRN Administration Headache/Fever/Mild Pain (1-3) Enoxaparin Sodium 30 mg 11/10/19 21:00 11/27/19 09:02 Lovenox SC 30 mg 0900,2100 MURRAY Administration Folic Acid 1 mg 11/09/19 09:00 11/27/19 09:02 Folvite PO 1 mg DAILY MURRAY Administration Iron/Minerals/Multivitamins 1 tab 11/09/19 09:00 11/27/19 09:02 Theragran M PO 1 tab DAILY MURRAY Administration Magnesium Oxide 400 mg 11/09/19 09:00 11/27/19 09:01 Magnesium Oxide PO 400 mg DAILY MURRAY Administration Thiamine HCl 100 mg 11/09/19 09:00 11/27/19 09:02 Thiamine PO 100 mg DAILY MURRAY Administration - Exam General Appearance: awake alert ENT: normocephalic atraumatic Heart: RRR, no rubs Respiratory: CTAB Gastrointestinal: soft, non-tender Extremities: no cyanosis Skin: no rashes Psychiatric: normal affect, normal behavior Hosp A/P - Plan (1) Vascular dementia Code(s): F01.50 - VASCULAR DEMENTIA WITHOUT BEHAVIORAL DISTURBANCE Status: Chronic (2) HTN (hypertension) Code(s): I10 - ESSENTIAL (PRIMARY) HYPERTENSION Status: Chronic (3) Alcohol abuse Code(s): F10.10 - ALCOHOL ABUSE, UNCOMPLICATED Status: Chronic (4) Seizure disorder Code(s): G40.909 - EPILEPSY, UNSP, NOT INTRACTABLE, WITHOUT STATUS EPILEPTICUS Status: Chronic (5) Acute encephalopathy Code(s): G93.40 - ENCEPHALOPATHY, UNSPECIFIED Status: Resolved - Plan * Dementia-at baseline * Enephalopathy-resolved * HTN-stable * Alcohol Abuse-continue multi-vitamin, thiamine and folate * Awaiting placement, could take several days due to uninsured status.
[2019-11-28] MEDS: Magnesium Oxide 400 MG TAB PO SCH (07:54)
[2019-11-28] MEDS: Multivitamin W/ Minerals 1 TAB PO SCH (07:54)
[2019-11-28] MEDS: Folic Acid 1 MG TAB PO SCH (07:54)
[2019-11-28] MEDS: Thiamine 100 MG TAB PO SCH (07:55)
[2019-11-28] MEDS: Enoxaparin Sodium 30 MG/0.3 ML SYRINGE SC SCH (07:55)
--- NOTE | 2019-11-28 11:27 | EKG ---
Test Reason : FALL Blood Pressure : / mmHG Vent. Rate : 108 BPM Atrial Rate : 108 BPM P-R Int : 186 ms QRS Dur : 126 ms QT Int : 360 ms P-R-T Axes : 043 -15 013 degrees QTc Int : 482 ms Sinus tachycardia Right bundle branch block Abnormal ECG Confirmed by GALI PENA, ANN MARIE Ni ([id number]), balance wheel motion inspector JEANNA CAVAZOS ([id number]) on 11/28/2019 11:27:31 AM Referred By: GALI Confirmed By:ANN MARIE TALBERT MD
--- NOTE | 2019-11-28 11:37 | PDOC.HOSPP ---
- Subjective Encounter Date: 11/28/19 Encounter Time: 07:30 Subjective: Follow-up visit for dementia. Patient denies any complaints. - Objective Vital Signs & Weight: Vital Signs (12 hours) Temp Pulse Resp BP Pulse Ox 11/28/19 08:00 97.6 F 11/28/19 07:58 97.6 F 77 18 126/85 100 Weight Admit Weight 157 lb 8 oz Weight 157 lb 8 oz I&O: 11/27/19 11/28/19 11/29/19 06:59 06:59 06:59 Intake Total 1000 Balance 1000 Result Diagrams: 11/21/19 09:43 11/21/19 09:43 Additional Labs: I reviewed patient's labs and MAR Hospitalist ROS - Review of Systems Cardiovascular: denies: chest pain, palpitations, orthopnea, paroxysmal noc. dyspnea, edema, light headedness Skin: denies: rash, lesions, shalonda, bruising - Medication Medications: Active Medications Generic Name Dose Route Start Last Admin Trade Name Freq PRN Reason Stop Dose Admin Acetaminophen 650 mg 11/08/19 22:38 11/13/19 12:05 Tylenol PO 650 mg Q4H PRN Administration Headache/Fever/Mild Pain (1-3) Enoxaparin Sodium 30 mg 11/10/19 21:00 11/28/19 07:55 Lovenox SC 30 mg 0900,2100 MURRAY Administration Folic Acid 1 mg 11/09/19 09:00 11/28/19 07:54 Folvite PO 1 mg DAILY MURRAY Administration Iron/Minerals/Multivitamins 1 tab 11/09/19 09:00 11/28/19 07:54 Theragran M PO 1 tab DAILY MURRAY Administration Magnesium Oxide 400 mg 11/09/19 09:00 11/28/19 07:54 Magnesium Oxide PO 400 mg DAILY MURRAY Administration Thiamine HCl 100 mg 11/09/19 09:00 11/28/19 07:55 Thiamine PO 100 mg DAILY MURRAY Administration - Exam General Appearance: awake alert Eye: anicteric sclera ENT: moist mucosa Neck: supple Heart: RRR Respiratory: CTAB Gastrointestinal: soft, non-tender Extremities: no cyanosis Skin: no lesions, no rashes Neurological: no weakness Psychiatric: normal affect Hosp A/P - Plan (1) Vascular dementia Code(s): F01.50 - VASCULAR DEMENTIA WITHOUT BEHAVIORAL DISTURBANCE Status: Chronic (2) HTN (hypertension) Code(s): I10 - ESSENTIAL (PRIMARY) HYPERTENSION Status: Chronic (3) Alcohol abuse Code(s): F10.10 - ALCOHOL ABUSE, UNCOMPLICATED Status: Chronic (4) Seizure disorder Code(s): G40.909 - EPILEPSY, UNSP, NOT INTRACTABLE, WITHOUT STATUS EPILEPTICUS Status: Chronic (5) Acute encephalopathy Code(s): G93.40 - ENCEPHALOPATHY, UNSPECIFIED Status: Resolved - Plan * Dementia-stable * Enephalopathy-resolved * HTN-stable * Alcohol Abuse-patient is on multi-vitamin, thiamine and folate * Awaiting placement, could take several days due to uninsured status.
[2019-11-29] MEDS: Magnesium Oxide 400 MG TAB PO SCH (08:36)
[2019-11-29] MEDS: Folic Acid 1 MG TAB PO SCH (08:36)
[2019-11-29] MEDS: Enoxaparin Sodium 40 MG/0.4 ML SYRINGE SC SCH (08:37)
[2019-11-29] MEDS: Thiamine 100 MG TAB PO SCH (08:37)
[2019-11-29] MEDS: Multivitamin W/ Minerals 1 TAB PO SCH (08:37)
--- NOTE | 2019-11-29 16:59 | PDOC.HOSPP ---
- Subjective Encounter Date: 11/29/19 Encounter Time: 14:00 Subjective: Patient seen and examined for in mentation. Denies any new complaints at this time. Ambulating in the hallway. - Objective Vital Signs & Weight: Vital Signs (12 hours) Temp Pulse Resp BP Pulse Ox 11/29/19 08:00 97.9 F 70 16 116/80 96 Weight Admit Weight 157 lb 8 oz Weight 157 lb 8 oz I&O: 11/28/19 11/29/19 11/30/19 06:59 06:59 06:59 Intake Total 2109 120 Balance 2109 120 Result Diagrams: 11/21/19 09:43 11/21/19 09:43 Radiology Reviewed by me: Yes (CT brainnegative) Hospitalist ROS - Review of Systems Respiratory: denies: cough, dry, shortness of breath, hemoptysis, SOB with exce rtion, pleuritic pain, sputum, wheezing, other Cardiovascular: denies: chest pain, palpitations, orthopnea, paroxysmal noc. dyspnea, edema, light headedness, other - Medication Medications: Active Medications Generic Name Dose Route Start Last Admin Trade Name Freq PRN Reason Stop Dose Admin Acetaminophen 650 mg 11/08/19 22:38 11/13/19 12:05 Tylenol PO 650 mg Q4H PRN Administration Headache/Fever/Mild Pain (1-3) Enoxaparin Sodium 40 mg 11/29/19 09:00 11/29/19 08:37 Enoxaparin Sodium 40 Mg/0.4 Ml Syringe SC 40 mg 0900 MURRAY Administration Folic Acid 1 mg 11/09/19 09:00 11/29/19 08:36 Folvite PO 1 mg DAILY MURRAY Administration Iron/Minerals/Multivitamins 1 tab 11/09/19 09:00 11/29/19 08:37 Theragran M PO 1 tab DAILY MURRAY Administration Magnesium Oxide 400 mg 11/09/19 09:00 11/29/19 08:36 Magnesium Oxide PO 400 mg DAILY MURRAY Administration Thiamine HCl 100 mg 11/09/19 09:00 11/29/19 08:37 Thiamine PO 100 mg DAILY MURRAY Administration - Exam General Appearance: NAD Neck: supple, no JVD Heart: RRR, no gallops Respiratory: no wheezes, no ronchi Gastrointestinal: soft, non-distended Extremities: no cyanosis Neurological: no new deficit Hosp A/P (1) Vascular dementia Code(s): F01.50 - VASCULAR DEMENTIA WITHOUT BEHAVIORAL DISTURBANCE (2) HTN (hypertension) Code(s): I10 - ESSENTIAL (PRIMARY) HYPERTENSION (3) Seizure disorder Code(s): G40.909 - EPILEPSY, UNSP, NOT INTRACTABLE, WITHOUT STATUS EPILEPTICUS (4) History of alcoholism Code(s): F10.21 - ALCOHOL DEPENDENCE, IN REMISSION - Plan DVT proph w/lovenox, DVT proph w/SCDs Continue supportive care. Continue Keppra due to history of seizure disorder. Continue Lovenox for DVT prophylaxis. Check labs every 1 to 2 weeks or as needed. Continue thiamine, folic acid and multivitamin. Await placement.
[2019-11-29] MEDS: levETIRAcetam 500 MG TAB PO SCH (20:52)
--- NOTE | 2019-11-30 07:53 | PDOC.HOSPP ---
- Subjective Encounter Date: 11/30/19 Encounter Time: 07:53 Subjective: no distress, mental status stale - Objective Vital Signs & Weight: Vital Signs (12 hours) Temp Pulse Resp BP BP Pulse Ox 11/30/19 07:02 98.5 F 87 16 128/86 98 11/29/19 20:00 98.7 F 87 16 121/78 97 Weight Admit Weight 157 lb 8 oz Weight 157 lb 8 oz I&O: 11/29/19 11/30/19 12/01/19 06:59 06:59 06:59 Intake Total 2109 1819 Balance 2109 1819 Result Diagrams: 11/21/19 09:43 11/21/19 09:43 Hospitalist ROS - Medication Medications: Active Medications Generic Name Dose Route Start Last Admin Trade Name Freq PRN Reason Stop Dose Admin Acetaminophen 650 mg 11/08/19 22:38 11/13/19 12:05 Tylenol PO 650 mg Q4H PRN Administration Headache/Fever/Mild Pain (1-3) Enoxaparin Sodium 40 mg 11/29/19 09:00 11/29/19 08:37 Enoxaparin Sodium 40 Mg/0.4 Ml Syringe SC 40 mg 0900 MURRAY Administration Folic Acid 1 mg 11/09/19 09:00 11/29/19 08:36 Folvite PO 1 mg DAILY MURRAY Administration Iron/Minerals/Multivitamins 1 tab 11/09/19 09:00 11/29/19 08:37 Theragran M PO 1 tab DAILY MURRAY Administration Levetiracetam 1,000 mg 11/29/19 21:00 11/29/19 20:52 Levetiracetam 500 Mg Tab PO 1,000 mg BID MURRAY Administration Magnesium Oxide 400 mg 11/09/19 09:00 11/29/19 08:36 Magnesium Oxide PO 400 mg DAILY MURRAY Administration Thiamine HCl 100 mg 11/09/19 09:00 11/29/19 08:37 Thiamine PO 100 mg DAILY MURRAY Administration - Exam General Appearance: awake alert Neck: no JVD Heart: RRR, no murmur Respiratory: CTAB Gastrointestinal: soft, normal bowel sounds Extremities: no edema Hosp A/P (1) Alcohol abuse Code(s): F10.10 - ALCOHOL ABUSE, UNCOMPLICATED Status: Chronic (2) HTN (hypertension) Code(s): I10 - ESSENTIAL (PRIMARY) HYPERTENSION Status: Chronic Qualifiers: Hypertension type: essential hypertension Qualified Code(s): I10 - E ssential (primary) hypertension (3) Seizure disorder Code(s): G40.909 - EPILEPSY, UNSP, NOT INTRACTABLE, WITHOUT STATUS EPILEPTICUS Status: Chronic (4) Vascular dementia Code(s): F01.50 - VASCULAR DEMENTIA WITHOUT BEHAVIORAL DISTURBANCE Status: Chronic Qualifiers: Dementia behavioral disturbance: without behavioral disturbance Qualified Code(s): F01.50 - Vascular dementia without behavioral disturbance (5) H/O intracranial hemorrhage Code(s): Z86.79 - PERSONAL HISTORY OF OTHER DISEASES OF THE CIRCULATORY SYSTEM Status: Chronic - Plan cont keppra cont thiamine, etc placement pending
[2019-11-30 07:59] LABS: #Basophils 0.1 thou/uL (0.0-0.2); #Eosinphils 0.3 thou/uL (0.0-0.7); #Lymphocytes 1.8 thou/uL (1.20-3.40); #Monocytes 0.6 thou/uL (0.11-0.59); #Neutrophils 3.8 thou/uL (1.40-6.50); %Basophils 1.1 % (0.0-1.0); %Eosinophils 5.2 % (0.0-10.0); %Lymphocytes 27.8 % (21.0-51.0); %Monocytes 9.1 % (0.0-10.0); %Neutrophils 56.8 % (42.0-75.0); Hemoglobin 16.1 g/dL (14.0-18.0); Mean Corpuscular HGB CONC 34.1 g/dL (32.0-36.0); Mean Corpuscular Hemoglobin 33.4 pg (27.0-31.0); Mean Platelet Volume 8.5 fL (7.4-10.4); Platelet Count 191 thou/uL (130-400); RBC Distribution Width 11.4 % (11.5-14.5); Red Blood Cell (RBC) Count 4.82 mill/uL (4.70-6.10); White Blood Cell (WBC) Count 6.6 thou/uL (4.8-10.8)
[2019-11-30 08:18] LABS: ALT (SGPT) 66 U/L (8-55); AST (SGOT) 66 U/L (5-34); Alkaline Phosphatase 96 U/L (40-110); Anion Gap 15 mmol/L (10-20); BUN (Urea Nitrogen) 8 mg/dL (8.4-25.7); Bilirubin, Total 0.6 mg/dL (0.2-1.2); Calc. Creatinine Clearance 90 mL/min (70-130); Calcium 9.2 mg/dL (7.8-10.44); Carbon Dioxide 25 mmol/L (22-29); Chloride 105 mmol/L (98-107); Estimated GFR-MDRD 82; Globulin 4.2 g/dL (2.4-3.5); Glucose 108 mg/dL (70-105); Magnesium 1.8 mg/dL (1.6-2.6); Potassium 4.1 mmol/L (3.5-5.1); Protein, Total 8.2 g/dL (6.0-8.3); Sodium 141 mmol/L (136-145)
[2019-11-30] MEDS: levETIRAcetam 500 MG TAB PO SCH ×2 (10:51→20:21)
[2019-11-30] MEDS: Magnesium Oxide 400 MG TAB PO SCH (10:51)
[2019-11-30] MEDS: Folic Acid 1 MG TAB PO SCH (10:51)
[2019-11-30] MEDS: Thiamine 100 MG TAB PO SCH (10:51)
[2019-11-30] MEDS: Enoxaparin Sodium 40 MG/0.4 ML SYRINGE SC SCH (10:51)
[2019-11-30] MEDS: Multivitamin W/ Minerals 1 TAB PO SCH (10:51)
--- NOTE | 2019-12-01 07:41 | PDOC.HOSPP ---
- Subjective Encounter Date: 12/01/19 Encounter Time: 07:39 Subjective: minimally conversant, no distress - Objective Vital Signs & Weight: Vital Signs (12 hours) Temp Pulse Resp BP BP Pulse Ox 12/01/19 07:13 98.7 F 78 15 129/78 97 11/30/19 20:00 98.9 F 80 17 137/81 98 Weight Admit Weight 157 lb 8 oz Weight 157 lb 8 oz I&O: 11/30/19 12/01/19 12/02/19 06:59 06:59 06:59 Intake Total 1820 1700 Balance 1820 1700 Result Diagrams: 11/30/19 07:48 11/30/19 07:48 Hospitalist ROS - Medication Medications: Active Medications Generic Name Dose Route Start Last Admin Trade Name Freq PRN Reason Stop Dose Admin Acetaminophen 650 mg 11/08/19 22:38 11/13/19 12:05 Tylenol PO 650 mg Q4H PRN Administration Headache/Fever/Mild Pain (1-3) Enoxaparin Sodium 40 mg 11/29/19 09:00 11/30/19 10:51 Enoxaparin Sodium 40 Mg/0.4 Ml Syringe SC Not Given 0900 MURRAY Folic Acid 1 mg 11/09/19 09:00 11/30/19 10:51 Folvite PO 1 mg DAILY MURRAY Administration Iron/Minerals/Multivitamins 1 tab 11/09/19 09:00 11/30/19 10:51 Theragran M PO 1 tab DAILY MURRAY Administration Levetiracetam 1,000 mg 11/29/19 21:00 11/30/19 20:21 Levetiracetam 500 Mg Tab PO 1,000 mg BID MURRAY Administration Magnesium Oxide 400 mg 11/09/19 09:00 11/30/19 10:51 Magnesium Oxide PO 400 mg DAILY MURRAY Administration Thiamine HCl 100 mg 11/09/19 09:00 11/30/19 10:51 Thiamine PO 100 mg DAILY MURRAY Administration - Exam General Appearance: awake alert Neck: no JVD Heart: RRR, no murmur Respiratory: CTAB Gastrointestinal: soft, normal bowel sounds Extremities: no edema Hosp A/P (1) Alcohol abuse Code(s): F10.10 - ALCOHOL ABUSE, UNCOMPLICATED Status: Chronic (2) HTN (hypertension) Code(s): I10 - ESSENTIAL (PRIMARY) HYPERTENSION Status: Chronic Qualifiers: Hypertension type: essential hypertension Qualified Code(s): I10 - Essential (primary) hypertension (3) Seizure disorder Code(s): G40.909 - EPILEPSY, UNSP, NOT INTRACTABLE, WITHOUT STATUS EPILEPTICUS Status: Chronic (4) Vascular dementia Code(s): F01.50 - VASCULAR DEMENTIA WITHOUT BEHAVIORAL DISTURBANCE Status: Chronic Qualifiers: Dementia behavioral disturbance: without behavioral disturbance Qualified Code(s): F01.50 - Vascular dementia without behavioral disturbance (5) H/O intracranial hemorrhage Code(s): Z86.79 - PERSONAL HISTORY OF OTHER DISEASES OF THE CIRCULATORY SYSTEM Status: Chronic - Plan cont keppra cont thiamine, etc placement pending discuss with CM
[2019-12-01] MEDS: levETIRAcetam 500 MG TAB PO SCH ×2 (09:04→20:13)
[2019-12-01] MEDS: Enoxaparin Sodium 40 MG/0.4 ML SYRINGE SC SCH (09:04)
[2019-12-01] MEDS: Folic Acid 1 MG TAB PO SCH (09:04)
[2019-12-01] MEDS: Thiamine 100 MG TAB PO SCH (09:05)
[2019-12-01] MEDS: Magnesium Oxide 400 MG TAB PO SCH (09:05)
[2019-12-01] MEDS: Multivitamin W/ Minerals 1 TAB PO SCH (09:05)
--- NOTE | 2019-12-02 08:18 | PDOC.HOSPP ---
- Subjective Encounter Date: 12/02/19 Encounter Time: 08:17 Subjective: oriented to person, no distress - Objective Vital Signs & Weight: Weight Admit Weight 157 lb 8 oz Weight 157 lb 8 oz I&O: 12/01/19 12/02/19 12/03/19 06:59 06:59 06:59 Intake Total 1700 1140 Balance 1700 1140 Result Diagrams: 11/30/19 07:48 11/30/19 07:48 Hospitalist ROS - Medication Medications: Active Medications Generic Name Dose Route Start Last Admin Trade Name Freq PRN Reason Stop Dose Admin Acetaminophen 650 mg 11/08/19 22:38 11/13/19 12:05 Tylenol PO 650 mg Q4H PRN Administration Headache/Fever/Mild Pain (1-3) Enoxaparin Sodium 40 mg 11/29/19 09:00 12/01/19 09:04 Enoxaparin Sodium 40 Mg/0.4 Ml Syringe SC Not Given 0900 [facility] Folic Acid 1 mg 11/09/19 09:00 12/01/19 09:04 Folvite PO 1 mg DAILY MURRAY Administration Iron/Minerals/Multivitamins 1 tab 11/09/19 09:00 12/01/19 09:05 Theragran M PO 1 tab DAILY MURRAY Administration Levetiracetam 1,000 mg 11/29/19 21:00 12/01/19 20:13 Levetiracetam 500 Mg Tab PO 1,000 mg BID MURRAY Administration Magnesium Oxide 400 mg 11/09/19 09:00 12/01/19 09:05 Magnesium Oxide PO 400 mg DAILY MURRAY Administration Thiamine HCl 100 mg 11/09/19 09:00 12/01/19 09:05 Thiamine PO 100 mg DAILY MURRAY Administration - Exam General Appearance: awake alert Neck: no JVD Heart: RRR, no murmur Respiratory: CTAB Gastrointestinal: soft, normal bowel sounds Extremities: no edema Hosp A/P (1) Alcohol abuse Code(s): F10.10 - ALCOHOL ABUSE, UNCOMPLICATED Status: Chronic (2) HTN (hypertension) Code(s): I10 - ESSENTIAL (PRIMARY) HYPERTENSION Status: Chronic Qualifiers: Hypertension type: essential hypertension Qualified Code(s): I10 - Essential (primary) hypertension (3) Seizure disorder Code(s): G40.909 - EPILEPSY, UNSP, NOT INTRACTABLE, WITHOUT STATUS EPILEPTICUS Status: Chronic (4) Vascular dementia Code(s): F01.50 - VASCULAR DEMENTIA WITHOUT BEHAVIORAL DISTURBANCE Status: Chronic Qualifiers: Dementia behavioral disturbance: without behavioral disturbance Qualified Code(s): F01.50 - Vascular dementia without behavioral disturbance (5) H/O intracranial hemorrhage Code(s): Z86.79 - PERSONAL HISTORY OF OTHER DISEASES OF THE CIRCULATORY SYSTEM Status: Chronic - Plan cont keppra cont thiamine, etc placement pending discuss with CM
[2019-12-02] MEDS: Multivitamin W/ Minerals 1 TAB PO SCH (08:44)
[2019-12-02] MEDS: Enoxaparin Sodium 40 MG/0.4 ML SYRINGE SC SCH (08:44)
[2019-12-02] MEDS: levETIRAcetam 500 MG TAB PO SCH ×2 (08:44→21:05)
[2019-12-02] MEDS: Magnesium Oxide 400 MG TAB PO SCH (08:44)
[2019-12-02] MEDS: Thiamine 100 MG TAB PO SCH (08:45)
[2019-12-02] MEDS: Folic Acid 1 MG TAB PO SCH (08:45)
[2019-12-03] MEDS: Magnesium Oxide 400 MG TAB PO SCH (08:11)
[2019-12-03] MEDS: levETIRAcetam 500 MG TAB PO SCH ×2 (08:11→22:09)
[2019-12-03] MEDS: Thiamine 100 MG TAB PO SCH (08:11)
[2019-12-03] MEDS: Folic Acid 1 MG TAB PO SCH (08:11)
[2019-12-03] MEDS: Multivitamin W/ Minerals 1 TAB PO SCH (08:12)
[2019-12-03] MEDS: Enoxaparin Sodium 40 MG/0.4 ML SYRINGE SC SCH (08:12)
--- NOTE | 2019-12-03 12:06 | PDOC.HOSPP ---
- Subjective Encounter Date: 12/03/19 Encounter Time: 12:05 Subjective: calm, walking about - Objective Vital Signs & Weight: Vital Signs (12 hours) Temp Pulse Resp BP Pulse Ox 12/03/19 07:26 97.9 F 81 20 139/69 97 Weight Admit Weight 157 lb 8 oz Weight 157 lb 8 oz I&O: 12/02/19 12/03/19 12/04/19 06:59 06:59 06:59 Intake Total 1140 400 Balance 1140 400 Result Diagrams: 11/30/19 07:48 11/30/19 07:48 Hospitalist ROS - Medication Medications: Active Medications Generic Name Dose Route Start Last Admin Trade Name Freq PRN Reason Stop Dose Admin Acetaminophen 650 mg 11/08/19 22:38 11/13/19 12:05 Tylenol PO 650 mg Q4H PRN Administration Headache/Fever/Mild Pain (1-3) Enoxaparin Sodium 40 mg 11/29/19 09:00 12/03/19 08:12 Enoxaparin Sodium 40 Mg/0.4 Ml Syringe SC 40 mg 899 MURRAY Administration Folic Acid 1 mg 11/09/19 09:00 12/03/19 08:11 Folvite PO 1 mg DAILY MURRAY Administration Iron/Minerals/Multivitamins 1 tab 11/09/19 09:00 12/03/19 08:12 Theragran M PO 1 tab DAILY MURRAY Administration Levetiracetam 1,000 mg 11/29/19 21:00 12/03/19 08:11 Levetiracetam 500 Mg Tab PO 1,000 mg BID MURRAY Administration Magnesium Oxide 400 mg 11/09/19 09:00 12/03/19 08:11 Magnesium Oxide PO 400 mg DAILY MURRAY Administration Thiamine HCl 100 mg 11/09/19 09:00 12/03/19 08:11 Thiamine PO 100 mg DAILY MURRAY Administration - Exam General Appearance: awake alert Neck: no JVD Heart: RRR, no murmur Respiratory: CTAB, no wheezes Gastrointestinal: soft, normal bowel sounds Extremities: no edema Hosp A/P (1) Alcohol abuse Code(s): F10.10 - ALCOHOL ABUSE, UNCOMPLICATED Status: Chronic (2) HTN (hypertension) Code(s): I10 - ESSENTIAL (PRIMARY) HYPERTENSION Status: Chronic Qualifiers: Hypertension type: essential hypertension Qualified Code(s): I10 - Essential (primary) hypertension (3) Seizure disorder Code(s): G40.909 - EPILEPSY, UNSP, NOT INTRACTABLE, WITHOUT STATUS EPILEPTICUS Status: Chronic (4) Vascular dementia Code(s): F01.50 - VASCULAR DEMENTIA WITHOUT BEHAVIORAL DISTURBANCE Status: Chronic Qualifiers: Dementia behavioral disturbance: without behavioral disturbance Qualified Code(s): F01.50 - Vascular dementia without behavioral disturbance (5) H/O intracranial hemorrhage Code(s): Z86.79 - PERSONAL HISTORY OF OTHER DISEASES OF THE CIRCULATORY SYSTEM Status: Chronic - Plan cont keppra cont thiamine, etc placement pending discuss with CM
[2019-12-03 16:36] LABS: HBCM Index 0.13 S/CO (0-0.79); HBSAg Index 0.22 S/CO (0-0.99); Hep A IgM AB Non-Reactive (NonReactive); Hep B Surf Ag Non-Reactive S/CO (NonReactive); Hep C IgG Ab Non-Reactive (NonReactive); Hep C Index 0.32 S/CO (0-0.79); Hepatitis B Core IgM Abs Non-Reactive (NonReactive)
--- NOTE | 2019-12-04 04:56 | PDOC.HOSPP ---
- Subjective Encounter Date: 12/04/19 Encounter Time: 08:00 Subjective: no overnight events. this morning, feeling well and has no complaints. - Objective Vital Signs & Weight: Weight Admit Weight 157 lb 8 oz Weight 157 lb 8 oz I&O: 12/02/19 12/03/19 12/04/19 06:59 06:59 06:59 Intake Total 1140 400 600 Balance 1140 400 600 Result Diagrams: 11/30/19 07:48 11/30/19 07:48 Hospitalist ROS - Review of Systems Constitutional: denies: chills, sweats Respiratory: denies: cough, shortness of breath Cardiovascular: denies: chest pain Gastrointestinal: denies: vomiting, abdominal pain - Medication Medications: Active Medications Generic Name Dose Route Start Last Admin Trade Name Freq PRN Reason Stop Dose Admin Acetaminophen 650 mg 11/08/19 22:38 11/13/19 12:05 Tylenol PO 650 mg Q4H PRN Administration Headache/Fever/Mild Pain (1-3) Enoxaparin Sodium 40 mg 11/29/19 09:00 12/03/19 08:12 Enoxaparin Sodium 40 Mg/0.4 Ml Syringe SC 40 mg 09 MURRAY Administration Folic Acid 1 mg 11/09/19 09:00 12/03/19 08:11 Folvite PO 1 mg DAILY MURRAY Administration Iron/Minerals/Multivitamins 1 tab 11/09/19 09:00 12/03/19 08:12 Theragran M PO 1 tab DAILY MURRAY Administration Levetiracetam 1,000 mg 11/29/19 21:00 12/03/19 22:09 Levetiracetam 500 Mg Tab PO 1,000 mg BID MURRAY Administration Magnesium Oxide 400 mg 11/09/19 09:00 12/03/19 08:11 Magnesium Oxide PO 400 mg DAILY MURRAY Administration Thiamine HCl 100 mg 11/09/19 09:00 12/03/19 08:11 Thiamine PO 100 mg DAILY MURRAY Administration - Exam General Appearance: NAD, awake alert Neck: no JVD Heart: RRR, no murmur, no gallops, no rubs Respiratory: CTAB, no wheezes, no rales, no ronchi Gastrointestinal: soft, non-tender, non-distended, normal bowel sounds Extremities: no edema Hosp A/P - Plan (1) Alcohol abuse Code(s): F10.10 - ALCOHOL ABUSE, UNCOMPLICATED Status: Chronic (2) HTN (hypertension) Code(s): I10 - ESSENTIAL (PRIMARY) HYPERTENSION Status: Chronic Qualifiers: Hypertension type: essential hypertension Qualified Code(s): I10 - Essential (primary) hypertension (3) Seizure disorder Code(s): G40.909 - EPILEPSY, UNSP, NOT INTRACTABLE, WITHOUT STATUS EPILEPTICUS Status: Chronic (4) Vascular dementia Code(s): F01.50 - VASCULAR DEMENTIA WITHOUT BEHAVIORAL DISTURBANCE Status: Chronic Qualifiers: Dementia behavioral disturbance: without behavioral disturbance Qualified Code(s): F01.50 - Vascular dementia without behavioral disturbance (5) H/O intracranial hemorrhage Code(s): Z86.79 - PERSONAL HISTORY OF OTHER DISEASES OF THE CIRCULATORY SYSTEM Status: Chronic - Plan cont keppra cont thiamine, etc placement pending discuss with CM
[2019-12-04] MEDS: Enoxaparin Sodium 40 MG/0.4 ML SYRINGE SC SCH (08:27)
[2019-12-04] MEDS: levETIRAcetam 500 MG TAB PO SCH ×2 (08:27→22:14)
[2019-12-04] MEDS: Magnesium Oxide 400 MG TAB PO SCH (08:27)
[2019-12-04] MEDS: Multivitamin W/ Minerals 1 TAB PO SCH (08:27)
[2019-12-04] MEDS: Thiamine 100 MG TAB PO SCH (08:27)
[2019-12-04] MEDS: Folic Acid 1 MG TAB PO SCH (08:27)
[2019-12-05 06:02] LABS: Anion Gap 13 mmol/L (10-20); BUN (Urea Nitrogen) 6 mg/dL (8.4-25.7); Calc. Creatinine Clearance 107 mL/min (70-130); Calcium 8.8 mg/dL (7.8-10.44); Carbon Dioxide 27 mmol/L (22-29); Chloride 105 mmol/L (98-107); Estimated GFR-MDRD Greater than 90; Glucose 106 mg/dL (70-105); Magnesium 1.8 mg/dL (1.6-2.6); Potassium 3.8 mmol/L (3.5-5.1); Sodium 141 mmol/L (136-145)
[2019-12-05] MEDS: Magnesium Oxide 400 MG TAB PO SCH (07:57)
[2019-12-05] MEDS: Enoxaparin Sodium 40 MG/0.4 ML SYRINGE SC SCH (07:57)
[2019-12-05] MEDS: levETIRAcetam 500 MG TAB PO SCH ×2 (07:57→20:16)
[2019-12-05] MEDS: Thiamine 100 MG TAB PO SCH (07:57)
[2019-12-05] MEDS: Folic Acid 1 MG TAB PO SCH (07:57)
[2019-12-05] MEDS: Multivitamin W/ Minerals 1 TAB PO SCH (07:57)
--- NOTE | 2019-12-05 21:05 | PDOC.HOSPP ---
- Subjective Encounter Date: 12/05/19 Encounter Time: 10:00 Subjective: no overnight events. this morning, feeling well and has no complaints. pending placement - Objective Vital Signs & Weight: Vital Signs (12 hours) Temp Pulse Resp BP Pulse Ox 12/05/19 19:59 97.9 F 78 18 147/82 H 99 Weight Admit Weight 157 lb 8 oz Weight 157 lb 8 oz I&O: 12/04/19 12/05/19 12/06/19 06:59 06:59 06:59 Intake Total 600 Balance 600 Result Diagrams: 11/30/19 07:48 12/05/19 05:03 Hospitalist ROS - Review of Systems Constitutional: denies: sweats Respiratory: denies: cough, shortness of breath Cardiovascular: denies: chest pain Gastrointestinal: denies: nausea, vomiting, abdominal pain - Medication Medications: Active Medications Generic Name Dose Route Start Last Admin Trade Name Freq PRN Reason Stop Dose Admin Acetaminophen 650 mg 11/08/19 22:38 11/13/19 12:05 Tylenol PO 650 mg Q4H PRN Administration Headache/Fever/Mild Pain (1-3) Enoxaparin Sodium 40 mg 11/29/19 09:00 12/05/19 07:57 Enoxaparin Sodium 40 Mg/0.4 Ml Syringe SC 40 mg 09 MURRAY Administration Folic Acid 1 mg 11/09/19 09:00 12/05/19 07:57 Folvite PO 1 mg DAILY MURRAY Administration Iron/Minerals/Multivitamins 1 tab 11/09/19 09:00 12/05/19 07:57 Theragran M PO 1 tab DAILY MURRAY Administration Levetiracetam 1,000 mg 11/29/19 21:00 12/05/19 20:16 Levetiracetam 500 Mg Tab PO 1,000 mg BID MURRAY Administration Magnesium Oxide 400 mg 11/09/19 09:00 12/05/19 07:57 Magnesium Oxide PO 400 mg DAILY MURRAY Administration Thiamine HCl 100 mg 11/09/19 09:00 12/05/19 07:57 Thiamine PO 100 mg DAILY MURRAY Administration - Exam General Appearance: NAD, awake alert Neck: no JVD Heart: RRR, no murmur, no gallops, no rubs Respiratory: CTAB, no wheezes, no rales, no ronchi Gastrointestinal: soft, non-tender, non-distended, normal bowel sounds Extremities: no edema Hosp A/P - Plan (1) Alcohol abuse Code(s): F10.10 - ALCOHOL ABUSE, UNCOMPLICATED Status: Chronic (2) HTN (hypertension) Code(s): I10 - ESSENTIAL (PRIMARY) HYPERTENSION Status: Chronic Qualifiers: Hypertension type: essential hypertension Qualified Code(s): I10 - Essential (primary) hypertension (3) Seizure disorder Code(s): G40.909 - EPILEPSY, UNSP, NOT INTRACTABLE, WITHOUT STATUS EPILEPTICUS Status: Chronic (4) Vascular dementia Code(s): F01.50 - VASCULAR DEMENTIA WITHOUT BEHAVIORAL DISTURBANCE Status: Chronic Qualifiers: Dementia behavioral disturbance: without behavioral disturbance Qualified Code(s): F01.50 - Vascular dementia without behavioral disturbance (5) H/O intracranial hemorrhage Code(s): Z86.79 - PERSONAL HISTORY OF OTHER DISEASES OF THE CIRCULATORY SYSTEM Status: Chronic - Plan cont keppra cont thiamine, etc placement pending
[2019-12-06] MEDS: Enoxaparin Sodium 40 MG/0.4 ML SYRINGE SC SCH (08:12)
[2019-12-06] MEDS: Folic Acid 1 MG TAB PO SCH (08:12)
[2019-12-06] MEDS: Magnesium Oxide 400 MG TAB PO SCH (08:12)
[2019-12-06] MEDS: Thiamine 100 MG TAB PO SCH (08:12)
[2019-12-06] MEDS: levETIRAcetam 500 MG TAB PO SCH ×2 (08:12→19:39)
[2019-12-06] MEDS: Multivitamin W/ Minerals 1 TAB PO SCH (08:12)
--- NOTE | 2019-12-06 18:14 | PDOC.HOSPP ---
- Subjective Encounter Date: 12/06/19 Encounter Time: 09:00 Subjective: no overnight events .this morning, feeling well and has no complaints. - Objective Vital Signs & Weight: Vital Signs (12 hours) Temp Pulse Resp BP Pulse Ox 12/06/19 08:00 97.8 F 73 18 120/83 97 Weight Admit Weight 157 lb 8 oz Weight 157 lb 8 oz I&O: 12/05/19 12/06/19 12/07/19 06:59 06:59 06:59 Intake Total 360 Balance 360 Result Diagrams: 11/30/19 07:48 12/05/19 05:03 Hospitalist ROS - Review of Systems Constitutional: denies: chills, sweats Respiratory: denies: cough, shortness of breath Cardiovascular: denies: chest pain Gastrointestinal: denies: abdominal pain, diarrhea Genitourinary: denies: dysuria - Medication Medications: Active Medications Generic Name Dose Route Start Last Admin Trade Name Freq PRN Reason Stop Dose Admin Acetaminophen 650 mg 11/08/19 22:38 11/13/19 12:05 Tylenol PO 650 mg Q4H PRN Administration Headache/Fever/Mild Pain (1-3) Enoxaparin Sodium 40 mg 11/29/19 09:00 12/06/19 08:12 Enoxaparin Sodium 40 Mg/0.4 Ml Syringe SC 40 mg 09 MURRAY Administration Folic Acid 1 mg 11/09/19 09:00 12/06/19 08:12 Folvite PO 1 mg DAILY MURRAY Administration Iron/Minerals/Multivitamins 1 tab 11/09/19 09:00 12/06/19 08:12 Theragran M PO 1 tab DAILY MURRAY Administration Levetiracetam 1,000 mg 11/29/19 21:00 12/06/19 08:12 Levetiracetam 500 Mg Tab PO 1,000 mg BID MURRAY Administration Magnesium Oxide 400 mg 11/09/19 09:00 12/06/19 08:12 Magnesium Oxide PO 400 mg DAILY MURRAY Administration Thiamine HCl 100 mg 11/09/19 09:00 12/06/19 08:12 Thiamine PO 100 mg DAILY MURRAY Administration - Exam General Appearance: NAD, awake alert Neck: no JVD Heart: RRR, no murmur, no gallops, no rubs Respiratory: CTAB, no wheezes, no rales, no ronchi Gastrointestinal: soft, non-tender, non-distended, normal bowel sounds Extremities: no edema Psychiatric: normal affect, normal behavior, A&O x 3 Hosp A/P - Plan (1) Alcohol abuse Code(s): F10.10 - ALCOHOL ABUSE, UNCOMPLICATED Status: Chronic (2) HTN (hypertension) Code(s): I10 - ESSENTIAL (PRIMARY) HYPERTENSION Status: Chronic Qualifiers: Hypertension type: essential hypertension Qualified Code(s): I10 - Essential (primary) hypertension (3) Seizure disorder Code(s): G40.909 - EPILEPSY, UNSP, NOT INTRACTABLE, WITHOUT STATUS EPILEPTICUS Status: Chronic (4) Vascular dementia Code(s): F01.50 - VASCULAR DEMENTIA WITHOUT BEHAVIORAL DISTURBANCE Status: Chronic Qualifiers: Dementia behavioral disturbance: without behavioral disturbance Qualified Code(s): F01.50 - Vascular dementia without behavioral disturbance (5) H/O intracranial hemorrhage Code(s): Z86.79 - PERSONAL HISTORY OF OTHER DISEASES OF THE CIRCULATORY SYSTEM Status: Chronic - Plan cont keppra cont thiamine, etc placement pending
[2019-12-07] MEDS: Magnesium Oxide 400 MG TAB PO SCH (08:00)
[2019-12-07] MEDS: Multivitamin W/ Minerals 1 TAB PO SCH (08:01)
[2019-12-07] MEDS: Enoxaparin Sodium 40 MG/0.4 ML SYRINGE SC SCH (08:01)
[2019-12-07] MEDS: Thiamine 100 MG TAB PO SCH (08:01)
[2019-12-07] MEDS: levETIRAcetam 500 MG TAB PO SCH ×2 (08:01→20:06)
[2019-12-07] MEDS: Folic Acid 1 MG TAB PO SCH (08:01)
--- NOTE | 2019-12-07 15:38 | PDOC.HOSPP ---
- Subjective Encounter Date: 12/07/19 Encounter Time: 09:00 Subjective: no overnight events. this morning, feeling well and has no complaints. - Objective Vital Signs & Weight: Vital Signs (12 hours) Temp Pulse Resp BP Pulse Ox 12/07/19 11:21 97.6 F 80 15 135/85 97 12/07/19 08:00 97.8 F 78 16 116/81 97 Weight Admit Weight 157 lb 8 oz Weight 157 lb 8 oz I&O: 12/06/19 12/07/19 12/08/19 06:59 06:59 06:59 Intake Total 360 360 Balance 360 360 Result Diagrams: 11/30/19 07:48 12/05/19 05:03 Hospitalist ROS - Review of Systems Constitutional: denies: chills, sweats, weakness Respiratory: denies: cough Cardiovascular: denies: chest pain Gastrointestinal: denies: nausea, vomiting, abdominal pain Genitourinary: denies: hematuria Neurological: denies: weakness - Medication Medications: Active Medications Generic Name Dose Route Start Last Admin Trade Name Freq PRN Reason Stop Dose Admin Acetaminophen 650 mg 11/08/19 22:38 11/13/19 12:05 Tylenol PO 650 mg Q4H PRN Administration Headache/Fever/Mild Pain (1-3) Enoxaparin Sodium 40 mg 11/29/19 09:00 12/07/19 08:01 Enoxaparin Sodium 40 Mg/0.4 Ml Syringe SC 40 mg 0900 MURRAY Administration Folic Acid 1 mg 11/09/19 09:00 12/07/19 08:01 Folvite PO 1 mg DAILY MURRAY Administration Iron/Minerals/Multivitamins 1 tab 11/09/19 09:00 12/07/19 08:01 Theragran M PO 1 tab DAILY MURRAY Administration Levetiracetam 1,000 mg 11/29/19 21:00 12/07/19 08:01 Levetiracetam 500 Mg Tab PO 1,000 mg BID MURRAY Administration Magnesium Oxide 400 mg 11/09/19 09:00 12/07/19 08:00 Magnesium Oxide PO 400 mg DAILY MURRAY Administration Thiamine HCl 100 mg 11/09/19 09:00 12/07/19 08:01 Thiamine PO 100 mg DAILY MURRAY Administration - Exam General Appearance: NAD, awake alert Neck: no JVD Heart: RRR, no murmur, no gallops Respiratory: CTAB, no wheezes, no rales, no ronchi Gastrointestinal: soft, non-tender, non-distended, normal bowel sounds Extremities: no edema Psychiatric: oriented to person. negative: oriented to place, oriented to time Hosp A/P - Plan (1) Alcohol abuse Code(s): F10.10 - ALCOHOL ABUSE, UNCOMPLICATED Status: Chronic (2) HTN (hypertension) Code(s): I10 - ESSENTIAL (PRIMARY) HYPERTENSION Status: Chronic Qualifiers: Hypertension type: essential hypertension Qualified Code(s): I10 - Essential (primary) hypertension (3) Seizure disorder Code(s): G40.909 - EPILEPSY, UNSP, NOT INTRACTABLE, WITHOUT STATUS EPILEPTICUS Status: Chronic (4) Vascular dementia Code(s): F01.50 - VASCULAR DEMENTIA WITHOUT BEHAVIORAL DISTURBANCE Status: Chronic Qualifiers: Dementia behavioral disturbance: without behavioral disturbance Qualified C ode(s): F01.50 - Vascular dementia without behavioral disturbance (5) H/O intracranial hemorrhage Code(s): Z86.79 - PERSONAL HISTORY OF OTHER DISEASES OF THE CIRCULATORY SYSTEM Status: Chronic - Plan cont keppra cont b12, thiamine placement pending
[2019-12-08] MEDS: Multivitamin W/ Minerals 1 TAB PO SCH (08:20)
[2019-12-08] MEDS: Enoxaparin Sodium 40 MG/0.4 ML SYRINGE SC SCH (08:20)
[2019-12-08] MEDS: levETIRAcetam 500 MG TAB PO SCH ×2 (08:20→20:18)
[2019-12-08] MEDS: Folic Acid 1 MG TAB PO SCH (08:21)
[2019-12-08] MEDS: Thiamine 100 MG TAB PO SCH (08:21)
[2019-12-08] MEDS: Magnesium Oxide 400 MG TAB PO SCH (08:21)
--- NOTE | 2019-12-08 13:21 | PDOC.HOSPP ---
- Subjective Encounter Date: 12/08/19 Encounter Time: 09:00 Subjective: no overnight events. This morning, spoke with patient via brake tester. Patient exhibiting paranoid delusions, oriented only to self. Consulted [facility] - Objective Vital Signs & Weight: Vital Signs (12 hours) Temp Pulse Resp BP Pulse Ox 12/08/19 08:15 97 12/08/19 07:44 97.7 F 76 18 126/86 97 Weight Admit Weight 157 lb 8 oz Weight 157 lb 8 oz I&O: 12/07/19 12/08/19 12/09/19 06:59 06:59 06:59 Intake Total 360 750 Balance 360 750 Result Diagrams: 11/30/19 07:48 12/05/19 05:03 Hospitalist ROS - Review of Systems Constitutional: denies: chills, sweats Respiratory: denies: cough, shortness of breath, SOB with excertion, pleuritic pain Cardiovascular: denies: chest pain, palpitations, orthopnea, paroxysmal noc. dyspnea, edema Gastrointestinal: denies: nausea, vomiting, abdominal pain, diarrhea Genitourinary: denies: dysuria, hematuria - Medication Medications: Active Medications Generic Name Dose Route Start Last Admin Trade Name Freq PRN Reason Stop Dose Admin Acetaminophen 650 mg 11/08/19 22:38 11/13/19 12:05 Tylenol PO 650 mg Q4H PRN Administration Headache/Fever/Mild Pain (1-3) Enoxaparin Sodium 40 mg 11/29/19 09:00 12/08/19 08:20 Enoxaparin Sodium 40 Mg/0.4 Ml Syringe SC 40 mg 09 MURRAY Administration Folic Acid 1 mg 11/09/19 09:00 12/08/19 08:21 Folvite PO 1 mg DAILY MURRAY Administration Iron/Minerals/Multivitamins 1 tab 11/09/19 09:00 12/08/19 08:20 Theragran M PO 1 tab DAILY MURRAY Administration Levetiracetam 1,000 mg 11/29/19 21:00 12/08/19 08:20 Levetiracetam 500 Mg Tab PO 1,000 mg BID MURRAY Administration Magnesium Oxide 400 mg 11/09/19 09:00 12/08/19 08:21 Magnesium Oxide PO 400 mg DAILY MURRAY Administration Thiamine HCl 100 mg 11/09/19 09:12/08/19 08:21 Thiamine PO 100 mg DAILY MURRAY Administration - Exam General Appearance: NAD, awake alert Neck: no JVD Heart: RRR, no murmur, no gallops, no rubs Respiratory: CTAB, no wheezes, no rales, no ronchi Gastrointestinal: soft, non-tender, non-distended, normal bowel sounds Extremities: no edema Psychiatric - other findings: agitated during conversation with brake tester, pressured speech, paranoid Hosp A/P - Plan (1) Alcohol abuse Code(s): F10.10 - ALCOHOL ABUSE, UNCOMPLICATED Status: Chronic (2) HTN (hypertension) Code(s): I10 - ESSENTIAL (PRIMARY) HYPERTENSION Status: Chronic Qualifiers: Hypertension type: essential hypertension Qualified Code(s): I10 - Essential (primary) hypertension (3) Seizure disorder Code(s): G40.909 - EPILEPSY, UNSP, NOT INTRACTABLE, WITHOUT STATUS EPILEPTICUS Status: Chronic (4) Vascular dementia Code(s): F01.50 - VASCULAR DEMENTIA WITHOUT BEHAVIORAL DISTURBANCE Status: Chronic Qualifiers: Dementia behavioral disturbance: without behavioral disturbance Qualified Code(s): F01.50 - Vascular dementia without behavioral disturbance (5) H/O intracranial hemorrhage Code(s): Z86.79 - PERSONAL HISTORY OF OTHER DISEASES OF THE CIRCULATORY SYSTEM Status: Chronic - Plan consulted [facility] considering paranoid delusions, pressured speech pending placement
[2019-12-09] MEDS: Magnesium Oxide 400 MG TAB PO SCH (08:59)
[2019-12-09] MEDS: Folic Acid 1 MG TAB PO SCH (08:59)
[2019-12-09] MEDS: Enoxaparin Sodium 40 MG/0.4 ML SYRINGE SC SCH (08:59)
[2019-12-09] MEDS: levETIRAcetam 500 MG TAB PO SCH ×2 (08:59→20:56)
[2019-12-09] MEDS: Multivitamin W/ Minerals 1 TAB PO SCH (08:59)
[2019-12-09] MEDS: Thiamine 100 MG TAB PO SCH (08:59)
--- NOTE | 2019-12-09 18:53 | PDOC.HOSPP ---
- Subjective Encounter Date: 12/09/19 Encounter Time: 10:00 Subjective: no overnight events. this morning, feeling well and has no complaints. - Objective Vital Signs & Weight: Vital Signs (12 hours) Temp Pulse Resp BP Pulse Ox 12/09/19 09:00 95 12/09/19 07:21 97.3 F L 77 20 125/82 95 Weight Admit Weight 157 lb 8 oz Weight 157 lb 8 oz I&O: 12/08/19 12/09/19 12/10/19 06:59 06:59 06:59 Intake Total 750 1500 1500 Balance 750 1500 1500 Result Diagrams: 11/30/19 07:48 12/05/19 05:03 Hospitalist ROS - Review of Systems Constitutional: denies: chills, sweats Cardiovascular: denies: chest pain, edema Gastrointestinal: denies: nausea, vomiting, abdominal pain Genitourinary: denies: dysuria Skin: denies: rash - Medication Medications: Active Medications Generic Name Dose Route Start Last Admin Trade Name Freq PRN Reason Stop Dose Admin Acetaminophen 650 mg 11/08/19 22:38 11/13/19 12:05 Tylenol PO 650 mg Q4H PRN Administration Headache/Fever/Mild Pain (1-3) Enoxaparin Sodium 40 mg 11/29/19 09:00 12/09/19 08:59 Enoxaparin Sodium 40 Mg/0.4 Ml Syringe SC 40 mg 0900 MURRAY Administration Folic Acid 1 mg 11/09/19 09:00 12/09/19 08:59 Folvite PO 1 mg DAILY MURRAY Administration Iron/Minerals/Multivitamins 1 tab 11/09/19 09:00 12/09/19 08:59 Theragran M PO 1 tab DAILY MURRAY Administration Levetiracetam 1,000 mg 11/29/19 21:00 12/09/19 08:59 Levetiracetam 500 Mg Tab PO 1,000 mg BID MURRAY Administration Magnesium Oxide 400 mg 11/09/19 09:00 12/09/19 08:59 Magnesium Oxide PO 400 mg DAILY MURRAY Administration Thiamine HCl 100 mg 11/09/19 09:00 12/09/19 08:59 Thiamine PO 100 mg DAILY MURRAY Administration - Exam General Appearance: NAD, awake alert Neck: no JVD Heart: RRR, no murmur, no gallops, no rubs Respiratory: CTAB, no wheezes, no rales, no ronchi Gastrointestinal: soft, non-tender, non-distended, normal bowel sounds Extremities: no edema Psychiatric: normal affect, normal behavior, oriented to person. negative: oriented to place, oriented to time Hosp A/P - Plan (1) Alcohol abuse Code(s): F10.10 - ALCOHOL ABUSE, UNCOMPLICATED Status: Chronic (2) HTN (hypertension) Code(s): I10 - ESSENTIAL (PRIMARY) HYPERTENSION Status: Chronic Qualifiers: Hypertension type: essential hypertension Qualified Code(s): I10 - Essential (primary) hypertension (3) Seizure disorder Code(s): G40.909 - EPILEPSY, UNSP, NOT INTRACTABLE, WITHOUT STATUS EPILEPTICUS Status: Chronic (4) Vascular dementia Code(s): F01.50 - VASCULAR DEMENTIA WITHOUT BEHAVIORAL DISTURBANCE Status: Chronic Qualifiers: Dementia behavioral disturbance: without behavioral disturbance Qualified Code(s): F01.50 - Vascular dementia without behavioral disturbance (5) H/O intracranial hemorrhage Code(s): Z86.79 - PERSONAL HISTORY OF OTHER DISEASES OF THE CIRCULATORY SYSTEM Status: Chronic - Plan pending placement
[2019-12-10] MEDS: Thiamine 100 MG TAB PO SCH (08:42)
[2019-12-10] MEDS: Multivitamin W/ Minerals 1 TAB PO SCH (08:42)
[2019-12-10] MEDS: Magnesium Oxide 400 MG TAB PO SCH (08:42)
[2019-12-10] MEDS: levETIRAcetam 500 MG TAB PO SCH ×2 (08:42→21:05)
[2019-12-10] MEDS: Folic Acid 1 MG TAB PO SCH (08:42)
[2019-12-10] MEDS: Enoxaparin Sodium 40 MG/0.4 ML SYRINGE SC SCH (08:43)
--- NOTE | 2019-12-10 13:51 | PDOC.HOSPP ---
- Subjective Encounter Date: 12/10/19 Encounter Time: 10:00 Subjective: no overnight events. this morning, feeling well and has no complaints. - Objective Vital Signs & Weight: Vital Signs (12 hours) Temp Pulse Resp BP Pulse Ox 12/10/19 08:00 96 12/10/19 07:11 98.0 F 71 16 115/72 96 Weight Admit Weight 157 lb 8 oz Weight 157 lb 8 oz I&O: 12/09/19 12/10/19 12/11/19 06:59 06:59 06:59 Intake Total 1500 1500 480 Balance 1500 1500 480 Result Diagrams: 11/30/19 07:48 12/05/19 05:03 Hospitalist ROS - Review of Systems Constitutional: denies: chills, sweats Respiratory: denies: cough, shortness of breath Cardiovascular: denies: chest pain Gastrointestinal: denies: nausea, vomiting, abdominal pain Genitourinary: denies: dysuria, frequency, incontinence - Medication Medications: Active Medications Generic Name Dose Route Start Last Admin Trade Name Freq PRN Reason Stop Dose Admin Acetaminophen 650 mg 11/08/19 22:38 11/13/19 12:05 Tylenol PO 650 mg Q4H PRN Administration Headache/Fever/Mild Pain (1-3) Enoxaparin Sodium 40 mg 11/29/19 09:00 12/10/19 08:43 Enoxaparin Sodium 40 Mg/0.4 Ml Syringe SC 40 mg 0900 MURRAY Administration Folic Acid 1 mg 11/09/19 09:00 12/10/19 08:42 Folvite PO 1 mg DAILY MURRAY Administration Iron/Minerals/Multivitamins 1 tab 11/09/19 09:00 12/10/19 08:42 Theragran M PO 1 tab DAILY MURRAY Administration Levetiracetam 1,000 mg 11/29/19 21:00 12/10/19 08:42 Levetiracetam 500 Mg Tab PO 1,000 mg BID MURRAY Administration Magnesium Oxide 400 mg 11/09/19 09:00 12/10/19 08:42 Magnesium Oxide PO 400 mg DAILY MURRAY Administration Thiamine HCl 100 mg 11/09/19 09:00 12/10/19 08:42 Thiamine PO 100 mg DAILY MURRAY Administration - Exam General Appearance: NAD, awake alert Neck: no JVD Heart: RRR, no murmur, no gallops, no rubs Respiratory: CTAB, no wheezes, no rales, no ronchi Gastrointestinal: soft, non-tender, non-distended, normal bowel sounds Extremities: no edema Psychiatric: oriented to person. negative: oriented to place, oriented to time Hosp A/P - Plan (1) Vascular dementia Code(s): F01.50 - VASCULAR DEMENTIA WITHOUT BEHAVIORAL DISTURBANCE Status: Chronic Qualifiers: Dementia behavioral disturbance: without behavioral disturbance Qualified Code(s): F01.50 - Vascular dementia without behavioral disturbance (2) H/O intracranial hemorrhage Code(s): Z86.79 - PERSONAL HISTORY OF OTHER DISEASES OF THE CIRCULATORY SYSTEM Status: Chronic - Plan pending placement
[2019-12-11] MEDS: Magnesium Oxide 400 MG TAB PO SCH (09:51)
[2019-12-11] MEDS: levETIRAcetam 500 MG TAB PO SCH ×2 (09:51→19:27)
[2019-12-11] MEDS: Multivitamin W/ Minerals 1 TAB PO SCH (09:51)
[2019-12-11] MEDS: Thiamine 100 MG TAB PO SCH (09:51)
[2019-12-11] MEDS: Folic Acid 1 MG TAB PO SCH (09:51)
--- NOTE | 2019-12-11 15:02 | PDOC.HOSPP ---
- Subjective Encounter Date: 12/11/19 Encounter Time: 09:00 Subjective: no overnight events. This morning, conversation with nurse via [employer] iam consultant again exhibited pressured speech and paranoid delusions. On encounter, calm and has no complaints. pending placement - Objective Vital Signs & Weight: Vital Signs (12 hours) Temp Pulse Resp BP Pulse Ox 12/11/19 09:55 98 12/11/19 07:18 98.8 F 87 20 118/67 98 Weight Admit Weight 157 lb 8 oz Weight 157 lb 8 oz I&O: 12/10/19 12/11/19 12/12/19 06:59 06:59 06:59 Intake Total 1500 1810 Balance 1500 1810 Result Diagrams: 11/30/19 07:48 12/05/19 05:03 Hospitalist ROS - Review of Systems Eyes: denies: vision change Respiratory: denies: cough, shortness of breath Cardiovascular: denies: chest pain Gastrointestinal: denies: nausea, vomiting, abdominal pain Genitourinary: denies: dysuria, hematuria - Medication Medications: Active Medications Generic Name Dose Route Start Last Admin Trade Name Freq PRN Reason Stop Dose Admin Acetaminophen 650 mg 11/08/19 22:38 11/13/19 12:05 Tylenol PO 650 mg Q4H PRN Administration Headache/Fever/Mild Pain (1-3) Folic Acid 1 mg 11/09/19 09:00 12/11/19 09:51 Folvite PO 1 mg DAILY MURRAY Administration Iron/Minerals/Multivitamins 1 tab 11/09/19 09:00 12/11/19 09:51 Theragran M PO 1 tab DAILY MURRAY Administration Levetiracetam 1,000 mg 11/29/19 21:00 12/11/19 09:51 Levetiracetam 500 Mg Tab PO 1,000 mg BID MURRAY Administration Magnesium Oxide 400 mg 11/09/19 09:00 12/11/19 09:51 Magnesium Oxide PO 400 mg DAILY MURRAY Administration Thiamine HCl 100 mg 11/09/19 09:00 12/11/19 09:51 Thiamine PO 100 mg DAILY MURRAY Administration - Exam General Appearance: NAD, awake alert Neck: no JVD Heart: RRR, no murmur, no gallops, no rubs Respiratory: CTAB, no wheezes, no rales, no ronchi Gastrointestinal: soft, non-tender, non-distended, normal bowel sounds Extremities: no edema Psychiatric: oriented to person. negative: oriented to place, oriented to time Hosp A/P - Plan (1) Vascular dementia Code(s): F01.50 - VASCULAR DEMENTIA WITH BEHAVIORAL DISTURBANCE Status: Chronic Qualifiers: Dementia behavioral disturbance: with behavioral disturbance Qualified Code(s): F01.50 - Vascular dementia with behavioral disturbance (2) H/O intracranial hemorrhage Code(s): Z86.79 - PERSONAL HISTORY OF OTHER DISEASES OF THE CIRCULATORY SYSTEM Status: Chronic - Plan full code pending placement
[2019-12-12 06:43] LABS: Anion Gap 14 mmol/L (10-20); BUN (Urea Nitrogen) 7 mg/dL (8.4-25.7); Calc. Creatinine Clearance 102 mL/min (70-130); Calcium 9.6 mg/dL (7.8-10.44); Carbon Dioxide 27 mmol/L (22-29); Chloride 105 mmol/L (98-107); Estimated GFR-MDRD Greater than 90; Glucose 108 mg/dL (70-105); Magnesium 1.9 mg/dL (1.6-2.6); Potassium 4.2 mmol/L (3.5-5.1); Sodium 142 mmol/L (136-145)
[2019-12-12] MEDS: Thiamine 100 MG TAB PO SCH (08:23)
[2019-12-12] MEDS: Magnesium Oxide 400 MG TAB PO SCH (08:23)
[2019-12-12] MEDS: levETIRAcetam 500 MG TAB PO SCH ×2 (08:23→19:57)
[2019-12-12] MEDS: Multivitamin W/ Minerals 1 TAB PO SCH (08:23)
[2019-12-12] MEDS: Folic Acid 1 MG TAB PO SCH (08:23)
--- NOTE | 2019-12-12 15:21 | PDOC.HOSPP ---
- Subjective Encounter Date: 12/12/19 Encounter Time: 10:40 Subjective: Patient is standing in his room. Is trying to talk but it is quite incomprehensible. No meaningful conversation. - Objective Vital Signs & Weight: Vital Signs (12 hours) Temp Pulse Resp BP Pulse Ox 12/12/19 08:23 97 12/12/19 07:45 97.9 F 73 16 126/84 97 Weight Admit Weight 157 lb 8 oz Weight 157 lb 8 oz I&O: 12/11/19 12/12/19 12/13/19 06:59 06:59 06:59 Intake Total 1810 2230 Balance 1810 2230 Result Diagrams: 11/30/19 07:48 12/12/19 05:47 Hospitalist ROS - Medication Medications: Active Medications Generic Name Dose Route Start Last Admin Trade Name Freq PRN Reason Stop Dose Admin Acetaminophen 650 mg 11/08/19 22:38 11/13/19 12:05 Tylenol PO 650 mg Q4H PRN Administration Headache/Fever/Mild Pain (1-3) Folic Acid 1 mg 11/09/19 09:00 12/12/19 08:23 Folvite PO 1 mg DAILY MURRAY Administration Iron/Minerals/Multivitamins 1 tab 11/09/19 09:00 12/12/19 08:23 Theragran M PO 1 tab DAILY MURRAY Administration Levetiracetam 1,000 mg 11/29/19 21:00 12/12/19 08:23 Levetiracetam 500 Mg Tab PO 1,000 mg BID MURRAY Administration Magnesium Oxide 400 mg 11/09/19 09:00 12/12/19 08:23 Magnesium Oxide PO 400 mg DAILY MURRAY Administration Thiamine HCl 100 mg 11/09/19 09:00 12/12/19 08:23 Thiamine PO 100 mg DAILY MURRAY Administration - Exam General Appearance: NAD, awake alert Eye: PERRL ENT: normocephalic atraumatic Neck: supple Heart: RRR, normal peripheral pulses Respiratory: CTAB, normal chest expansion Gastrointestinal: soft, normal bowel sounds Psychiatric: oriented to person, flat affect Hosp A/P - Plan (1) Vascular dementia Code(s): F01.50 - VASCULAR DEMENTIA WITH BEHAVIORAL DISTURBANCE Status: Chronic Qualifiers: Dementia behavioral disturbance: with behavioral disturbance Qualified Code(s): F01.50 - Vascular dementia with behavioral disturbance (2) H/O intracranial hemorrhage Code(s): Z86.79 - PERSONAL HISTORY OF OTHER DISEASES OF THE CIRCULATORY SYSTEM Status: Chronic -He is on Keppra thousand milligrams twice a day Thiamine. Neurology seen him on November 08. CT performed on November 07 did not show any new intracranial hemorrhage or mass. Folate and B12 level in the normal range TSH in the normal range -Also get vitamin D level COVID negative Hepatitis panel negative pending placement.
[2019-12-13] MEDS: Folic Acid 1 MG TAB PO SCH (08:20)
[2019-12-13] MEDS: Magnesium Oxide 400 MG TAB PO SCH (08:20)
[2019-12-13] MEDS: Thiamine 100 MG TAB PO SCH (08:20)
[2019-12-13] MEDS: levETIRAcetam 500 MG TAB PO SCH ×2 (08:20→21:05)
[2019-12-13] MEDS: Multivitamin W/ Minerals 1 TAB PO SCH (08:20)
--- NOTE | 2019-12-13 13:26 | PDOC.HOSPP ---
- Subjective Encounter Date: 12/13/19 Encounter Time: 10:40 Subjective: Patient is covered with himself completely and is awake but not responding to any verbal stimuli. - Objective Vital Signs & Weight: Vital Signs (12 hours) Temp Pulse Resp BP Pulse Ox 12/13/19 08:00 98 12/13/19 07:14 98.8 F 82 16 145/86 H 98 Weight Admit Weight 157 lb 8 oz Weight 157 lb 8 oz I&O: 12/12/19 12/13/19 12/14/19 06:59 06:59 06:59 Intake Total 2230 1800 Balance 2230 1800 Result Diagrams: 11/30/19 07:48 12/12/19 05:47 Hospitalist ROS - Medication Medications: Active Medications Generic Name Dose Route Start Last Admin Trade Name Freq PRN Reason Stop Dose Admin Acetaminophen 650 mg 11/08/19 22:38 11/13/19 12:05 Tylenol PO 650 mg Q4H PRN Administration Headache/Fever/Mild Pain (1-3) Folic Acid 1 mg 11/09/19 09:00 12/13/19 08:20 Folvite PO 1 mg DAILY MURRAY Administration Iron/Minerals/Multivitamins 1 tab 11/09/19 09:00 12/13/19 08:20 Theragran M PO 1 tab DAILY MURRAY Administration Levetiracetam 1,000 mg 11/29/19 21:00 12/13/19 08:20 Levetiracetam 500 Mg Tab PO 1,000 mg BID MURRAY Administration Magnesium Oxide 400 mg 11/09/19 09:00 12/13/19 08:20 Magnesium Oxide PO 400 mg DAILY MURRAY Administration Thiamine HCl 100 mg 11/09/19 09:00 12/13/19 08:20 Thiamine PO 100 mg DAILY MURRAY Administration - Exam General Appearance: NAD General - other findings: Completely covered himself Neck: supple Heart: RRR Respiratory: CTAB Gastrointestinal: soft, normal bowel sounds Psychiatric: oriented to person Hosp A/P - Plan (1) Vascular dementia Code(s): F01.50 - VASCULAR DEMENTIA WITH BEHAVIORAL DISTURBANCE Status: Chronic Qualifiers: Dementia behavioral disturbance: with behavioral disturbance Qualified Code(s): F01.50 - Vascular dementia with behavioral disturbance (2) H/O intracranial hemorrhage Code(s): Z86.79 - PERSONAL HISTORY OF OTHER DISEASES OF THE CIRCULATORY SYSTEM Status: Chronic -He is on Keppra thousand milligrams twice a day Thiamine. Neurology seen him on November 08. CT performed on November 07 did not show any new intracranial hemorrhage or mass. Folate and B12 level in the normal range TSH in the normal range -Also get vitamin D level COVID negative Hepatitis panel negative pending placement.
[2019-12-14] MEDS: Magnesium Oxide 400 MG TAB PO SCH (08:10)
[2019-12-14] MEDS: levETIRAcetam 500 MG TAB PO SCH ×2 (08:10→20:45)
[2019-12-14] MEDS: Thiamine 100 MG TAB PO SCH (08:10)
[2019-12-14] MEDS: Folic Acid 1 MG TAB PO SCH (08:10)
[2019-12-14] MEDS: Multivitamin W/ Minerals 1 TAB PO SCH (08:11)
--- NOTE | 2019-12-14 12:35 | PDOC.HOSPP ---
- Subjective Encounter Date: 12/14/19 Encounter Time: 11:40 Subjective: He is sitting in the chair. He responds well for any questions but does not make any sense. - Objective Vital Signs & Weight: Vital Signs (12 hours) Temp Pulse Resp BP Pulse Ox 12/14/19 07:36 98.5 F 75 18 142/87 H 97 Weight Admit Weight 157 lb 8 oz Weight 157 lb 8 oz I&O: 12/13/19 12/14/19 12/15/19 06:59 06:59 06:59 Intake Total 1800 1680 480 Balance 1800 1680 480 Result Diagrams: 11/30/19 07:48 12/12/19 05:47 Hospitalist ROS - Medication Medications: Active Medications Generic Name Dose Route Start Last Admin Trade Name Freq PRN Reason Stop Dose Admin Acetaminophen 650 mg 11/08/19 22:38 11/13/19 12:05 Tylenol PO 650 mg Q4H PRN Administration Headache/Fever/Mild Pain (1-3) Folic Acid 1 mg 11/09/19 09:00 12/14/19 08:10 Folvite PO 1 mg DAILY MURRAY Administration Iron/Minerals/Multivitamins 1 tab 11/09/19 09:00 12/14/19 08:11 Theragran M PO 1 tab DAILY MURRAY Administration Levetiracetam 1,000 mg 11/29/19 21:00 12/14/19 08:10 Levetiracetam 500 Mg Tab PO 1,000 mg BID MURRAY Administration Magnesium Oxide 400 mg 11/09/19 09:00 12/14/19 08:10 Magnesium Oxide PO 400 mg DAILY MURRAY Administration Thiamine HCl 100 mg 11/09/19 09:00 12/14/19 08:10 Thiamine PO 100 mg DAILY MURRAY Administration - Exam General Appearance: NAD, awake alert Eye: PERRL ENT: normocephalic atraumatic Neck: supple Heart: RRR, normal peripheral pulses Respiratory: CTAB, normal chest expansion Gastrointestinal: soft, normal bowel sounds Neurological: no focal deficits Psychiatric: not oriented Hosp A/P - Plan (1) Vascular dementia Code(s): F01.50 - VASCULAR DEMENTIA WITH BEHAVIORAL DISTURBANCE Status: Chronic Qualifiers: Dementia behavioral disturbance: with behavioral disturbance Qualified Code(s): F01.50 - Vascular dementia with behavioral disturbance (2) H/O intracranial hemorrhage Code(s): Z86.79 - PERSONAL HISTORY OF OTHER DISEASES OF THE CIRCULATORY SYSTEM Status: Chronic -He is on Keppra thousand milligrams twice a day Thiamine. Neurology seen him on November 08. CT performed on November 07 did not show any new intracranial hemorrhage or mass. Folate and B12 level in the normal range TSH in the normal range Vitamin D deficiency -Putting him on low-dose supplement. COVID negative Hepatitis panel negative No change in his mentation. pending placement.
[2019-12-15] MEDS: levETIRAcetam 500 MG TAB PO SCH ×2 (08:37→20:12)
[2019-12-15] MEDS: Thiamine 100 MG TAB PO SCH (08:38)
[2019-12-15] MEDS: Multivitamin W/ Minerals 1 TAB PO SCH (08:39)
[2019-12-15] MEDS: Cholecalciferol 1,000 UNITS (25 MCG) TAB PO SCH (08:39)
[2019-12-15] MEDS: Folic Acid 1 MG TAB PO SCH (08:39)
[2019-12-15] MEDS: Magnesium Oxide 400 MG TAB PO SCH (08:40)
--- NOTE | 2019-12-15 12:31 | PDOC.HOSPP ---
- Subjective Encounter Date: 12/15/19 Encounter Time: 10:40 Subjective: Patient is watching TV. He appears comfortable no sign of any agitation. Cannot have a meaningful conversation with him. - Objective Vital Signs & Weight: Vital Signs (12 hours) Temp Pulse Resp BP Pulse Ox 12/15/19 07:19 97.9 F 71 20 120/77 96 Weight Admit Weight 157 lb 8 oz Weight 157 lb 8 oz I&O: 12/14/19 12/15/19 12/16/19 06:59 06:59 06:59 Intake Total 1680 2160 Balance 1680 2160 Result Diagrams: 11/30/19 07:48 12/12/19 05:47 Hospitalist ROS - Medication Medications: Active Medications Generic Name Dose Route Start Last Admin Trade Name Freq PRN Reason Stop Dose Admin Acetaminophen 650 mg 11/08/19 22:38 11/13/19 12:05 Tylenol PO 650 mg Q4H PRN Administration Headache/Fever/Mild Pain (1-3) Cholecalciferol 2,000 units 12/15/19 09:00 12/15/19 08:39 Cholecalciferol 1,000 Units (25 Mcg) Tab PO 2,000 units DAILY MURRAY Administration Folic Acid 1 mg 11/09/19 09:00 12/15/19 08:39 Folvite PO 1 mg DAILY MURRAY Administration Iron/Minerals/Multivitamins 1 tab 11/09/19 09:00 12/15/19 08:39 Theragran M PO 1 tab DAILY MURRAY Administration Levetiracetam 1,000 mg 11/29/19 21:00 12/15/19 08:37 Levetiracetam 500 Mg Tab PO 1,000 mg BID MURRAY Administration Magnesium Oxide 400 mg 11/09/19 09:00 12/15/19 08:40 Magnesium Oxide PO 400 mg DAILY MURRAY Administration Thiamine HCl 100 mg 11/09/19 09:00 12/15/19 08:38 Thiamine PO 100 mg DAILY MURRAY Administration - Exam General Appearance: NAD, awake alert Eye: PERRL ENT: normocephalic atraumatic Neck: supple Heart: RRR Respiratory: CTAB, normal chest expansion Gastrointestinal: soft, normal bowel sounds Neurological: no new deficit Psychiatric: not oriented Hosp A/P - Plan (1) Vascular dementia Code(s): F01.50 - VASCULAR DEMENTIA WITH BEHAVIORAL DISTURBANCE Status: Chronic Qualifiers: Dementia behavioral disturbance: with behavioral disturbance Qualified Code(s): F01.50 - Vascular dementia with behavioral disturbance (2) H/O intracranial hemorrhage Code(s): Z86.79 - PERSONAL HISTORY OF OTHER DISEASES OF THE CIRCULATORY SYSTEM Status: Chronic -He is on Keppra thousand milligrams twice a day Thiamine. Neurology seen him on November 08. CT performed on November 07 did not show any new intracranial hemorrhage or mass. Folate and B12 level in the normal range TSH in the normal range Vitamin D deficiency - on low-dose supplement. COVID negative Hepatitis panel negative No change in his mentation. pending placement.
[2019-12-16] MEDS: Multivitamin W/ Minerals 1 TAB PO SCH (08:45)
[2019-12-16] MEDS: Folic Acid 1 MG TAB PO SCH (08:45)
[2019-12-16] MEDS: Magnesium Oxide 400 MG TAB PO SCH (08:45)
[2019-12-16] MEDS: Cholecalciferol 1,000 UNITS (25 MCG) TAB PO SCH (08:45)
[2019-12-16] MEDS: levETIRAcetam 500 MG TAB PO SCH ×2 (08:45→19:33)
[2019-12-16] MEDS: Thiamine 100 MG TAB PO SCH (08:45)
--- NOTE | 2019-12-16 12:25 | PDOC.HOSPP ---
- Subjective Encounter Date: 12/16/19 Encounter Time: 11:00 Subjective: He is standing in the room in no acute distress. He is not even able to tell me his name. Discussed with RN. They are still trying to find placement for him. - Objective Vital Signs & Weight: Vital Signs (12 hours) Temp Pulse Resp BP Pulse Ox 12/16/19 08:00 98 12/16/19 07:24 97.5 F L 83 20 127/75 98 Weight Admit Weight 157 lb 8 oz Weight 157 lb 8 oz I&O: 12/15/19 12/16/19 12/17/19 06:59 06:59 06:59 Intake Total 2160 Balance 2160 Result Diagrams: 11/30/19 07:48 12/12/19 05:47 Hospitalist ROS - Medication Medications: Active Medications Generic Name Dose Route Start Last Admin Trade Name Freq PRN Reason Stop Dose Admin Acetaminophen 650 mg 11/08/19 22:38 11/13/19 12:05 Tylenol PO 650 mg Q4H PRN Administration Headache/Fever/Mild Pain (1-3) Cholecalciferol 2,000 units 12/15/19 09:00 12/16/19 08:45 Cholecalciferol 1,000 Units (25 Mcg) Tab PO 2,000 units DAILY MURRAY Administration Folic Acid 1 mg 11/09/19 09:00 12/16/19 08:45 Folvite PO 1 mg DAILY MURRAY Administration Iron/Minerals/Multivitamins 1 tab 11/09/19 09:00 12/16/19 08:45 Theragran M PO 1 tab DAILY MURRAY Administration Levetiracetam 1,000 mg 11/29/19 21:00 12/16/19 08:45 Levetiracetam 500 Mg Tab PO 1,000 mg BID MURRAY Administration Magnesium Oxide 400 mg 11/09/19 09:00 12/16/19 08:45 Magnesium Oxide PO 400 mg DAILY MURRAY Administration Thiamine HCl 100 mg 11/09/19 09:00 12/16/19 08:45 Thiamine PO 100 mg DAILY MURRAY Administration - Exam General Appearance: NAD, awake alert Eye: PERRL ENT: normocephalic atraumatic Neck: supple Heart: RRR, normal peripheral pulses Respiratory: CTAB, normal chest expansion Gastrointestinal: soft, normal bowel sounds Neurological: cranial nerve grossly intact, no focal deficits Psychiatric: not oriented Hosp A/P - Plan (1) Vascular dementia Code(s): F01.50 - VASCULAR DEMENTIA WITH BEHAVIORAL DISTURBANCE Status: Chronic Qualifiers: Dementia behavioral disturbance: with behavioral disturbance Qualified Code(s): F01.50 - Vascular dementia with behavioral disturbance (2) H/O intracranial hemorrhage Code(s): Z86.79 - PERSONAL HISTORY OF OTHER DISEASES OF THE CIRCULATORY SYSTEM Status: Chronic -He is on Keppra thousand milligrams twice a day Thiamine. Neurology seen him on November 08. CT performed on November 07 did not show any new intracranial hemorrhage or mass. Folate and B12 level in the normal range TSH in the normal range Vitamin D deficiency - on low-dose supplement. COVID negative Hepatitis panel negative No change in his mentation. pending placement. I am visiting him every day. No acute medical issues. Waiting for the placement.
[2019-12-17 07:38] VITALS: BP 101/64; TEMP 98
[2019-12-17] MEDS: Multivitamin W/ Minerals 1 TAB PO SCH (08:44)
[2019-12-17] MEDS: Cholecalciferol 1,000 UNITS (25 MCG) TAB PO SCH (08:44)
[2019-12-17] MEDS: levETIRAcetam 500 MG TAB PO SCH (08:44)
[2019-12-17] MEDS: Thiamine 100 MG TAB PO SCH (08:45)
[2019-12-17] MEDS: Magnesium Oxide 400 MG TAB PO SCH (08:45)
[2019-12-17] MEDS: Folic Acid 1 MG TAB PO SCH (08:45)
--- NOTE | 2019-12-17 17:28 | DIS ---
DATE OF ADMISSION: 11/09/2019 DATE OF DISCHARGE: 12/17/2019 DISCHARGE DIAGNOSES: 1. Vascular dementia. 2. History of intracranial hemorrhage and on Keppra. 3. Vitamin D deficiency. DISCHARGE MEDICATIONS: 1. Thiamine 100 mg daily. 2. Multivitamin one tablet daily. 3. Folic acid daily. 4. Keppra 1000 mg twice a day. 5. Vitamin D3 2000 units p.o. daily. Initial consultation with Neurology. PHYSICAL EXAMINATION: VITAL SIGNS: His temperature is 98, blood pressure 101/64, saturating 96% on room air. Physical exam otherwise quite benign. I had extensive conversation with the patient through the paraprofessional interpreter. The patient does have a family of children, two living in the [place] and one in [place]. He is a green card brown and it expires in 2024. He lived in [place] locally with his friends, but he does not remember the name of the street or the friends. HOSPITAL COURSE: The patient had a very lengthy hospital stay. Please refer the history and physical and daily progress note for more details. Briefly, a 54-year-old Moh[place]-speaking person with underlying history of alcohol, drug abuse, seizure disorder and intracranial hemorrhage, presented with altered mentation. He was walking down the street and fell down. It was discovered that the patient did have some warrant out for his arrest, so they took him to the residential. The patient was confused and tachycardic in the residential, and was sent to the hospital for medical clearance. The patient was cleared from the house arrest by the police. He stayed here for a lengthy time due to placement issues. Finally, we are able to get a placement at [facility]. During this entire time, the patient is ambulating inside his room and intermittently confused. He is for the most part, remained watching TV. He did not have any further seizure episodes that was noted during his stay. He is hemodynamically stable. Discharged to the [facility] today. DISCHARGE INSTRUCTIONS: Activity with supervision and as tolerated. Regular diet. He needs to follow up with primary care physician. I do not see any primary care physician listed here. Follow up with the physician at [facility]. Discharge time took over 35 minutes. Job ID: [id number] [id number]
== END 2019-12-17 13:43 | DRG 884 ==
LOC: ERS 18:13 → T4-A 22:18 → INTOOBSV 22:18 → OBSVTOIN 11-09 12:25 → T4-A 11-09 18:23
PROVIDERS: ADMIT Internal Medicine; ATTEND Internal Medicine
PROC: HZ2ZZZZ Detoxification Services for Substance Abuse Treatment (ICD-10-PCS; principal; 2019-11-09)
DX: F01.50 Vascular dementia, unspecified severity, without behavioral disturbance, psychotic disturbance, mood disturbance, and anxiety (principal); G93.49 Other encephalopathy; F10.159 Alcohol abuse with alcohol-induced psychotic disorder, unspecified; Z20.828 Contact with and (suspected) exposure to other viral communicable diseases; G40.909 Epilepsy, unspecified, not intractable, without status epilepticus; I10 Essential (primary) hypertension; F14.11 Cocaine abuse, in remission; F22 Delusional disorders; E55.9 Vitamin D deficiency, unspecified; D53.9 Nutritional anemia, unspecified; Y90.0 Blood alcohol level of less than 20 mg/100 ml; Z86.79 Personal history of other diseases of the circulatory system
CPT/HCPCS: 36415; 36416; 70450; 71045; 72125; 80048; 80053; 80074; 80177; 80306; 80307; 81003; 82140; 82306; 82550; 82607; 82746; 83735; 84443; 84484; 85025; 87635; 93005; 96360; 96361; 96365; G0378; J1650; J1953; J3411; J3475; J3490; U0003